=== PATIENT | female | born 2000 | race African-American/Black ===

== ENCOUNTER 2022-09-03 11:06 | Emergency (ER) | payer BC ==
--- OUTSIDE RECORDS SUMMARY | 2022-09-03 11:11 | XMS REPORT | Continuity of Care Document ---
:2000 Author Organization [facility] t Address [address] [place] [address] Care Team Providers Name Role Phone NARENDRA CANCINO Primary Care Physician Unavailable patsy Attending Clinician Unavailable TAWNY BRAUN Attending Clinician Unavailable Tawny Braun MD Attending Clinician SAPNA MURPHY Attending Clinician Unavailable Sapna Schmitz Attending Clinician Humza Fonseca MD Attending Clinician SHILOH HAMPTON Attending Clinician Unavailable Gabriella Luong MD Attending Clinician [facility] Attending Clinician Unavailable GABRIELLA LUONG Attending Clinician Unavailable Greyson Rothman Attending Clinician Unavailable Eloise Delgado MD Attending Clinician Unavailable TIANA JIMENEZ Attending Clinician Unavailable IDA HALL Attending Clinician Unavailable Ida Beckett Attending Clinician ELOISE DELGADO Attending Clinician Unavailable GREYSON ALEX Attending Clinician Unavailable Pcp-Lab Attending Clinician Unavailable Unknown, Attending Attending Clinician Unavailable Joey Negrete MD Attending Clinician JOEY NEGRETE Attending Clinician Unavailable Narendra Cancino MD Attending Clinician Juan Lowe MD Attending Clinician OMARI GARCIA Attending Clinician Unavailable Ibikunle SWITCHBOARD WIRER, Folusho F Attending Clinician Jet DO, En-Szu Attending Clinician Wheeler GLASS BREAKER, Milagro Castillo Attending Clinician Unavailable Allison THAYER, Carla Attending Clinician CARLA COOPER Attending Clinician Unavailable Jose THAYER, Oamri Attending Clinician Carla Luong MD Attending Clinician CARLA LUONG Attending Clinician Unavailable Doctor Unassigned, [place] Attending Clinician Unavailable Zuri Medina DO Attending Clinician ZURI MEDINA Attending Clinician Unavailable Rik Bardales MD Attending Clinician JUAN LOWE Attending Clinician Unavailable UNKNOWN, ATTENDING Attending Clinician Unavailable Tha SWITCHBOARD WIRER, Humza Attending Clinician Mickie RN, Elisa Patrick Attending Clinician Unavailable Norman AVILA, Candie Mcnair Attending Clinician Unavailable Libia Boswell RN Attending Clinician Unavailable [facility] Attending Clinician Unavailable Only, Pcp Test Attending Clinician Unavailable Silviano Carrasquillo MD Attending Clinician SILVIAON CARRASQUILLO Attending Clinician Unavailable Xi Romero RN Attending Clinician Unavailable CHRISTIANNE CACERES Attending Clinician Unavailable Diabetes, Armida & Pcp Pedi Endocrine Attending Clinician Unava ilable Christianne Caceres MD Attending Clinician Hartman SWITCHBOARD WIRER, Belinda Attending Clinician Nurse, Lauri Urgent Attending Clinician Unavailable Lane THAYER, Cindi Oshea Attending Clinician [phone] RIK BARDALES Attending Clinician Unavailable Roz Oreilly MD Attending Clinician Nurse, Armida Pedgamaliel Endocrine Attending Clinician Unavailable ABHIJEET CABALLERO Attending Clinician Unavailable Lynn THAYER, Chris Attending Clinician Conrad Sousa MD Attending Clinician Shanon SWITCHBOARD WIRER, Ketty Reagan Attending Clinician Teens, Armida [facility] Attending Clinician Unavail able Zaid Dewey MD Attending Clinician Marcia San MD Attending Clinician ZAID DEWEY Attending Clinician Unavailable ZAID DEWEY Attending Clinician Unavailable MITCHELL WAGONER Attending Clinician Unavailable CHRIS PARTIDA Attending Clinician Unavailable MIGUEL ÁNGEL STRICKLAND Attending Clinician Unavailable KETTY CLAUDIO Attending Clinician Unavailable SAPNA MURPHY Admitting Clinician Unavailable Payers Payer Name Policy Type Policy Number Effective Date Expiration Date S ource [employer] [place] OUT [id number] 2019 OF STATE 00:00:00 [employer] [place] [id number] 2015 00:00:00 [place] [place] P [id number] 2015 00:00:00 Problems Condition Condition Condition Status Onset Resolution Last Treating Co mments Source Name Details Category Date Date Treatment Clinician Date History of History of Disease Active 2019-11 U nivers allergic allergic 0-19 [place] [facility] Lipohypert Lipohypert Disease Active U nivers rophy rophy 6-25 ity of 00:00: [place] 00 [facility] Diabetic Diabetic Disease Active Unive rs ketoacidos ketoacidos 6-24 it y of is is 00:00: [place] 00 Medical Branch Weight Weight Disease Active Univers loss, loss, 5-18 [place]y of non-intent [place] [facility] 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 2-12 ity of diabetes diabetes 00:00: [place] mellitus mellitus 00 Medica l with with Branch hyperglyce hyperglyce susi susi Depression Depression Disease Active U nivers 3-28 ity of 00:00: [place] [facility] 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 3-21 it y of s s 00:00: [place] 00 Medical Branch Allergies, Adverse Reactions, Alerts Allergy Allergy Status Severity Reaction(s) Onset Inactive Treating Comm ents Source Name Type Date Date Clinician SHELLFIS DRUG Active ITCHING 2019-11 Univers H INGREDI 0-19 ity of DERIVED 00:00: [place] 00 [facility] Aleah Wyatti Active Rash 2019-11 Univer s h ty to 0-19 ity of Derived adverse 00:00: [place] reaction [address] [place] [address] Social History Social Habit Start Date Stop Date Quantity Comments Source Exposure to 2022-08-19 2022-08-29 Not sure [facility]-CoV-2 00:00:00 12:20:00 [facility] (event) Electra Alcohol intake 2022-06-21 2022-06-21 0 /d [facility] 00:00:00 00:00:00 [facility] Tobacco Comment 2022-06-02 2022-06-02 no smoking in the Un iversity of 00:00:00 00:00:00 home [facility] Tobacco use and 2022-06-02 2022-06-02 Smokeless tobacco Un iversity of exposure 00:00:00 00:00:00 non-user [facility] Sex Assigned At [birth year] Universit y of 00:00:00 00:00:00 [facility] Smoking Status Start Date Stop Date Source Never smoked tobacco [facility] Medications Ordered Filled Start Stop Current Ordering Indication Dosage Frequency Signature Comments Components Source Medication Medication Date Date Medication? Clinician (SIG) Name Name [facility] 2021-11 Yes [id number] 1{kit} 1 Kit Univers TEETEE 2 0-12 every 14 ity of SENSOR Kit 00:00[place] days. [facility] insulin 2021-11 Yes [id number] 32U inject 32 Univers glargine 0-12 Units [place] of U-300 conc [place] (TOUJEO MAX 00 skin at Medic al U-300 bedtime. Branch SOLOSTAR) 300 unit/mL (3 mL) InPn Insulin 2021-11 Yes [id number] Use as Uni vers Boyd, 0-12 directed ity of Disposable, 00:00: to inject [place] (PEN 00 insulin SQ Medical NEEDLE) 31 4-5 times Bran ch gauge x daily 04/03" Ndle [facility] 2021-11 Yes [id number] 1{kit} 1 Kit Univers TEETEE 2 0-12 every 14 ity of SENSOR Kit 00:00: (fourteen) [place] 00 days. [facility] insulin 2021-11 Yes [id number] 32U inject 32 Univers glargine 0-12 Units [place]y of U-300 conc [place] (TOUJEO MAX 00 skin at Medic al U-300 bedtime. Branch SOLOSTAR) 300 unit/mL (3 mL) InPn Insulin 2021-11 Yes [id number] Use as Uni vers Boyd, 0-12 directed ity of Disposable, 00:00: to inject [place] (PEN 00 insulin SQ Medical NEEDLE) 31 4-5 times Bran ch gauge x daily 04/03" Ndle fluconazole 2021-11- Yes [id number] 150mg Take 1 Univers (DIFLUCAN) 0-12 10-13 tablet by ity of 150 mg 00:00: 04:59 mouth once [place] tablet 00 :00 now for 1 Medical dose. Branch fluconazole 2021-11 Yes [id number] 150mg Take 1 Univers (DIFLUCAN) 0-12 10-13 tablet by ity of 150 mg 00:00: 04:59 mouth [place] tablet 00 :00 now for 1 Medical dose. Branch blood sugar Yes Use to [facility] ers diagnostic 06-21 check ity of (ONETOUCH 00:00: blood [place] VERIO TEST 00 sugar 4X Medic al STRIPS) daily. Branch strip DX:E10.65 blood sugar Yes Use to [facility] ers diagnostic 06-21 check ity of (ONETOUCH 00:00: blood [place] VERIO TEST 00 sugar 4X Medic al STRIPS) daily. Branch strip DX:E10.65 meclizine Yes [id number] 25mg Take 1 U nivers 25 mg 8-03 tablet by ity of tablet 00:00: mouth [place] 00 every 6 Medical (six) Branch hours as needed for Dizziness. blood sugar Yes Use to [facility] ers diagnostic 06-21 check ity of (ONETOUCH 00:00: blood [place] VERIO TEST 00 sugar 4X Medic al STRIPS) daily. Branch strip DX:E10.65 meclizine Yes [id number] 25mg Take 1 U nivers 25 mg 8-03 tablet by ity of tablet 00:00: mouth [place] 00 every 6 Medical (six) Branch hours as needed for Dizziness. fluconazole Yes [id number] Take 1 Univers (DIFLUCAN) 7-21 tablet by ity of 150 mg 00:00: mouth [place] tablet 00 every 3 Medical days x 3 Branch doses fluconazole 2021- No [id number] Take 1 Univers (DIFLUCAN) 7-21 10-12 tablet by ity of 150 mg 00:00: 00:00 mouth [place] tablet 00 :00 every 3 Medical days x 3 Branch doses fluconazole 2021- No [id number] Take 1 Univers (DIFLUCAN) 7-21 10-12 tablet by ity of 150 mg 00:00: 00:00 mouth [place] tablet 00 :00 every 3 Medical days x 3 Branch doses Insulin Yes [id number] INJECT 28 Univers Glargine 7-16 UNITS ity of (LANTUS 00:00: SUBCUTANEO [place] SOLOSTAR 00 USLY AT Medical U-100 BEDTIME Branch INSULIN) 100 unit/mL (3 mL) injection lancets Yes [id number] Checking U nivers (ONETOUCH 7-16 upto 4 ity of DELICA PLUS 00:00: times [place] LANCET) 30 00 daily. Dx Medi rashid gauge Misc E10.65 Branch insulin Yes [id number] Take 1 Uni vers aspart 7-16 unit for 9 ity of U-100 00:00: grams [place] (NOVOLOG 00 carbs plus Medic al FLEXPEN 1 unit for Branch U-100 every 36 INSULIN) points > 100 unit/mL 130 up to (3 mL) 75 units injection daily lancets Yes [id number] Checking U nivers (ONETOUCH 7-16 upto 4 ity of DELICA PLUS 00:00: times [place] LANCET) 30 00 daily. Dx Medi rashid gauge Misc E10.65 Branch insulin Yes [id number] Take 1 Uni vers aspart 7-16 unit for 9 ity of U-100 00:00: grams [place] (NOVOLOG 00 carbs plus Medic al FLEXPEN 1 unit for Branch U-100 every 36 INSULIN) points > 100 unit/mL 130 up to (3 mL) 75 units injection daily lancets Yes [id number] Checking U nivers (ONETOUCH 7-16 upto 4 ity of DELICA PLUS 00:00: times [place] LANCET) 30 00 daily. Dx Medi rashid gauge Misc E10.65 Branch insulin Yes [id number] Take 1 Uni vers aspart 7-16 unit for 9 ity of U-100 00:00: grams [place] (NOVOLOG 00 carbs plus Medic al FLEXPEN 1 unit for Branch U-100 every 36 INSULIN) points > 100 unit/mL 130 up to (3 mL) 75 units injection daily Insulin 2021- No [id number] INJECT 28 Univers Glargine 7-16 10-12 UNITS ity of (LANTUS 00:00: 00:00 SUBCUTANEO [place] as SOLOSTAR 00 :00 USLY AT Medical U-100 BEDTIME Branch INSULIN) 100 unit/mL (3 mL) injection Insulin 2021- No [id number] INJECT 28 Univers Glargine 7-16 10-12 UNITS ity of (LANTUS 00:00: 00:00 SUBCUTANEO [place] as SOLOSTAR 00 :00 USLY AT Medical U-100 BEDTIME Branch INSULIN) 100 unit/mL (3 mL) injection blood sugar 2021- No Use to Uni vers diagnostic 7-16 08-03 check ity of (CONTOUR 00:00: 00:00 blood [place] NEXT TEST 00 :00 glucose 4x Medi rashid STRIPS) daily. Dx: Branch strip E10.65 Insulin Yes [id number] Use as Uni vers Boyd, 6-30 directed ity of Disposable, 00:00: to inject [place] (PEN 00 insulin SQ Medical NEEDLE) 31 4-5 times Bran ch gauge x daily 04/03" Ndle Insulin 2021- No [id number] Use as Un juvenal [place], 6-30 10-12 directed ity of Disposable, 00:00: 00:00 to inject [place] (PEN 00 :00 insulin SQ Medical NEEDLE) 31 4-5 times Bran ch gauge x daily 04/03" Ndle Insulin 2021- No [id number] Use as Un juvenal Boyd, 6-30 10-12 directed ity of Disposable, 00:00: 00:00 to inject [place] (PEN 00 :00 insulin SQ Medical NEEDLE) 31 4-5 times Bran ch gauge x daily 04/03" Ndle Blood-Gluco 2022-0 Yes Use to Univ ers se Meter 4-28 check ity of (CONTOUR 00:00: blood [place] NEXT METER) 00 glucose Dx Me dical Misc E10.65 Branch Blood-Gluco 2021-0 Yes Use to Univ ers se Meter 4-28 check ity of (CONTOUR 00:00: blood [place] NEXT METER) 00 glucose Dx Me dical Misc E10.65 Branch Blood-Gluco 2021-0 Yes Use to Univ ers se Meter 4-28 check ity of (CONTOUR 00:00: blood [place] NEXT METER) 00 glucose Dx Me dical Misc E10.65 Branch Blood-Gluco 2021-0 Yes [id number] Use as Univers se Sensor 4-04 directed ity of (DEXCOM G6 00:00: [place] SENSOR) 00 Medical Amanda Branch Blood-Gluco 2021-0 Yes [id number] Use as Univers se 4-04 directed ity of Transmitter 00:00: [place] (DEXCOM G6 00 Medical TRANSMITTER Branch ) Amanda Blood-Gluco 2021-0 Yes [id number] Use as Univers se 4-04 directed ity of Meter,[place] 00:00: [place] nuous 00 Medical (DEXCOM G6 Branch BUFFER OPERATOR) Misc glucagon 2021-0 Yes [id number] 3mg Use 3 mg Univers (BAQSIMI) 3 4-04 in each ity o f mg/actuatio 00:00: nostril as [place] n [place] 00 needed for Medical Other Branch (emergency hypoglycem ia). Blood-Gluco 2021-0 Yes [id number] Use as Univers se Sensor 4-04 directed ity of (DEXCOM G6 00:00: [place] SENSOR) 00 Medical Amanda Branch Blood-Gluco 2021-0 Yes [id number] Use as Univers se 4-04 directed ity of Transmitter 00:00: [place] (DEXCOM G6 00 Medical TRANSMITTER Branch ) Amanda Blood-Gluco 202-0 Yes [id number] Use as Univers se 4-04 directed ity of Meter,[place] 00:00: [place] nuous 00 Medical (DEXCOM G6 Branch BUFFER OPERATOR) Misc glucagon 2022-0 Yes [id number] 3mg Use 3 mg Univers (BAQSIMI) 3 4-04 in each ity o f mg/actuatio 00:00: nostril as [place] 00 needed for Medical Other Branch (emergency hypoglycem ia). Blood-Gluco Yes [id number] Use as Univers se Sensor 4-04 directed ity of (DEXCOM G6 00:00: [place] SENSOR) 00 Medical Amanda Branch Blood-Gluco 0 Yes [id number] Use as Univers se 4-04 directed ity of Transmitter 00:00: [place] (DEXCOM G6 00 Medical TRANSMITTER Branch ) Amanda Blood-Gluco 0 Yes [id number] Use as Univers se 4-04 directed ity of Meter,[place] 00:00: [place] nuous 00 Medical (DEXCOM G6 Branch BUFFER OPERATOR) Misc glucagon Yes [id number] 3mg Use 3 mg Univers (BAQSIMI) 3 4-04 in each ity o f mg/actuatio 00:00: nostril as [place] 00 needed for Medical Other Branch (emergency hypoglycem ia). Immunizations Ordered Immunization Filled Date Status Comments Sour ce Name Immunization Name Meningococcal B, OMV 2021-12-29 Completed Univ ersity of 00:00:00 [facility] Meningococcal B, OMV 2021-12-29 Completed Univ ersity of 00:00:00 [facility] Meningococcal B, OMV 2021-12-29 Completed Univ ersity of 00:00:00 [facility] Pneumococcal 2019-09-25 Completed [place] o f Polysaccharide, PPSV23 00:00:00 [facility] (PNEUMOVAX) Branch Pneumococcal 2019-09-25 Completed [place] o f Polysaccharide, PPSV23 00:00:00 [facility] (PNEUMOVAX) Branch Pneumococcal 2019-09-25 Completed University o f Polysaccharide, PPSV23 00:00:00 [facility] (PNEUMOVAX) Branch Meningococcal 2018-02-25 Completed University of Oligosaccharide 00:00:00 [place] Med ical (groups A, C, Y and Branc h W-135) conjugate vaccine (MCV4O) Meningococcal 2018-02-25 Completed University of Oligosaccharide 00:00:00 [place] Med ical (groups A, C, Y and Branc h W-135) conjugate vaccine (MCV4O) Meningococcal 2018-02-25 Completed University of Oligosaccharide 00:00:00 [place] Med ical (groups A, C, Y and Branc h W-135) conjugate vaccine (MCV4O) HPV 2016-08-15 Completed University of 00:00:00 [place] [facility] HPV9 2016-08-15 Completed University of 00:00:00 [place] [facility] HPV 2016-08-15 Completed University of 00:00:00 [place] [facility] HPV9 2016-08-15 Completed University of 00:00:00 [place] [facility] HPV 2016-08-15 Completed University of 00:00:00 [place] [facility] HPV9 2016-08-15 Completed University of 00:00:00 [place] [facility] HPV9 2016-02-03 Completed University of 00:00:00 [place] [facility] HPV9 2016-02-03 Completed University of 00:00:00 [place] [facility] HPV9 2016-02-03 Completed University of 00:00:00 [place] [facility] HPV9 2015-12-22 Completed University of 00:00:00 [place] [facility] HPV9 2015-12-22 Completed University of 00:00:00 [place] [facility] HPV9 2015-12-22 Completed University of 00:00:00 [place] [facility] Vital Signs Vital Name Observation Time Observation Value Comments Source Systolic blood 2022-08-30 15:41:00 119 mm[Hg] Univer sity of pressure [facility] Diastolic blood 2022-08-30 15:41:00 79 mm[Hg] Unive rsity of [facility] Heart rate 2022-08-30 15:41:00 106 /min [facility] Respiratory rate 2022-08-30 15:41:00 16 /min [facility] [place] Body height 2022-08-30 15:41:00 165.1 cm [facility] Body weight 2022-08-30 15:41:00 72.167 kg [facility] BMI 2022-08-30 15:41:00 26.48 kg/m2 [facility] Oxygen saturation in 2022-08-30 15:41:00 100 /min [facility] Arterial blood by [facility] Pulse oximetry Branch Procedures Procedure Date / Time Performed Performing Clinician Sour e POCT HEMOGLOBIN A1C 2022-08-30 00:00:00 Tawny Braun [facility] Encounters Start End Encounter Admission Attending Care Care Encounter Source Date/Time Date/Time Type Type Clinicians Facility Department ID 2021-09-19 Emergency [facility] [id number] Univers 23:04:38 ity of [place] [facility] 2021-09-19 Emergency [facility] [id number] Univers 02:01:05 ity of [place] [facility] 2021-09-18 Emergency [facility] [id number] Univers 22:15:17 ity of [facility] 2021-09-17 Emergency [facility] [id number] Univers 19:01:00 ity of [facility] 2021-09-16 Emergency [facility] [id number] Univers 14:50:01 ity of [facility] 2021-09-16 Emergency [facility] [id number] Univers 11:25:49 ity of [facility] 2021-09-16 Emergency [facility] [id number] Univers 11:23:27 ity of [place] [facility] 2021-09-16 Emergency [facility] [id number] Univers 03:18:07 ity of [place] [facility] 2021-09-15 Emergency [facility] [id number] Univers 13:33:53 ity of [place] [facility] 2021-09-04 Outpatient [facility] [id number] Legacy 08:20:44 [id number] [facility] 2022-08-30 2022-08-30 Outpatient [facility] [id number] Univers 10:30:00 11:28:33 TAWNY ity [facility] 2022-08-30 2022-08-30 [facility] [id number] Univers 10:30:00 11:28:33 Visit [facility] [id number] ity of IALTY [id number] [facility] [id number] [facility] [place] [address] Branch DIABETES CLINIC 2022-06-21 2022-06-21 Emergency X [facility] ERT [id number] Univers 18:38:00 21:11:00 [place] ity [facility] 2022-06-21 2022-06-21 Emergency [facility] [id number] Univers 18:38:00 21:11:00 [facility] [id number] it y of CLEAR 4.2.7.2.686 [facility] [id number] [facility] 014 Branch (CLC) 2022-06-21 2022-06-21 Emergency X JEFFREY, [facility] ERT [id number] Univers 18:38:00 21:11:00 SAPNA [facility] [place] 2022-06-21 2022-06-21 Telephone [facility] [id number] Univers 00:00:00 00:00:00 Humza Dawson MULTISPEC [id number] ity of [id number] [place] [id number] [facility] 220 Branch DIABETES CLINIC 2022-06-12 2022-06-12 Outpatient R [facility] [id number] Univers 11:15:00 11:15:00 [facility] 2022-06-08 2022-06-08 Telephone Luong [facility] [id number] Univers 00:00:00 00:00:00 [facility] [id number] i ty of CLINICS 4.2.7.2.686 [place] [id number] [facility] 095 Branch 2022-06-05 2022-06-05 Outpatient R [facility] [id number] Univers 15:15:00 15:15:00 [facility] 2022-06-05 2022-06-05 Outpatient R [facility] [id number] Univers 15:15:00 15:15:00 [facility] 2022-06-05 2022-06-05 Outpatient R [facility] [id number] Univers 15:15:00 15:15:00 [facility] 2022-06-02 2022-06-02 Weatherization And Housing Inspector [facility] UNIVERSIT [id number] Univers 11:15:00 11:30:00 Visit [facility] [id number] ity of CLINICS [id number] [id number] [facility] 316 Branch 2022-06-02 2022-06-02 Outpatient R [facility] [id number] Univers 11:15:00 11:15:00 GABRIELLA floyd [facility] 2022-06-02 2022-06-02 Outpatient R [facility] [id number] Univers 09:40:00 10:34:29 GABRIELLA floyd [facility] 2022-06-02 2022-06-02 Office Cherise, [facility] [id number] Univers 09:40:00 10:00:00 Visit Gabriella [facility] [id number] i ty of CLINICS 4.2.7.2.686 [place] [id number] [place] [address] Branch 2022-06-02 2022-06-02 Outpatient R [facility] [id number] Univers 09:40:00 09:40:00 GABRILELA floyd [facility] 2022-06-01 2022-06-01 Refbeatriz [facility] [id number] Univers 00:00:00 00:00:00 Humza Dawson MULTISPEC [id number] ity of [place] 4.2.7.2.686 [place] [id number] [address] DIABETES CLINIC 2022-06-01 2022-06-01 [facility] [id number] Univers 00:00:00 00:00:00 Greyson MULTISPEC [id number] ity of [place] 4.2.7.2.686 [place] [id number] [address] DIABETES CLINIC 2022-05-18 2022-05-18 Chaya [facility] [id number] Univers 00:00:00 00:00:00 Humza Dawson MULTISPEC [id number] ity of [place] [id number] [place] [id number] [address] DIABETES CLINIC 2022-05-18 2022-05-18 [facility] [id number] Univers 00:00:00 00:00:00 Eloise MULTISPEC [id number] ity of IALTY [id number] [facility] [place] [id number] [address] DIABETES CLINIC 2022-04-18 2022-04-18 Chaya [facility] [id number] Univers 00:00:00 00:00:00 Humza Samir MULTISPEC [id number] ity of IALTY [id number] [facility] [place] [id number] [address] DIABETES CLINIC 2022-04-07 2022-04-07 [facility] [id number] Univers 15:00:00 15:00:00 TIANA floyd [facility] 2022-03-16 2022-03-16 Telephone [facility] [id number] Univers 00:00:00 00:00:00 [facility] [id number] ity of IALTY 4.2.7.2.686 [facility] [id number] [address] DIABETES CLINIC 2022-03-15 2022-03-15 Outpatient Eugenia JIMENEZ [facility] [id number] Univers 15:00:00 15:00:00 TIANA floyd [facility] 2022-03-06 2022-03-06 Emergency X [facility] ERT [id number] Univers 18:15:00 20:56:00 IDA floyd o f [facility] 2022-03-06 2022-03-06 Emergency [facility] 1.2.840.114 [id number] Univers 18:15:00 20:56:00 [facility] 350.1.13.10 i ty of CLEAR 4.2.7.2.686 [facility] [id number] [address] ([facility]) 2022-02-20 2022-02-20 Office [facility] 1.2.840.114 [id number] Univers 13:00:00 14:22:31 Visit Eloise MULTISPEC 350.1.13.10 [place] [id number] [address] [facility] 2022-02-20 2022-02-20 Outpatient R DANNY [facility] [id number] Univers 13:00:00 14:22:31 ELOISE [facility] [place] 2022-02-20 2022-02-20 Outpatient R DANNY [facility] [id number] Univers 13:00:00 13:00:00 ELOISE [facility] [place] 2022-01-10 2022-01-10 Patient Abi [facility] 1.2.840.114 [id number] Univers 00:00:00 00:00:00 Secure Msg Greyson MULTISPEC 350.1.13.10 [place] [id number] [address] [facility]IC 2022-01-09 2022-01-09 Telephone Abi [facility] 1.2.179.546 [id number] Univers 00:00:00 00:00:00 Greyson MULTISPEC 350.1.13.10 [place] [id number] [address] [facility]IC 2022-01-02 2022-01-02 Outpatient R ABI [facility] [id number] Univers 12:45:00 13:22:53 GREYSON [facility] [place] 2022-01-02 2022-01-02 Office Abi [facility] 1.2.840.114 [id number] Univers 12:45:00 13:22:53 Visit Greyson MULTISPEC 350.1.13.10 it[place] [id number] [address] [facility]ES [facility]INIC 2022-01-02 2022-01-02 Outpatient R ABI [facility] [id number] Univers 12:45:00 12:45:00 GREYSON [facility] [place] 2021-12-29 2021-12-29 Weatherization And Housing Inspector Pcp-Lab [facility] 1..840.114 [id number] Univers 13:45:00 14:00:00 Visit Unknown, Attending PRIMARY 350.1.13.10 ity of [place], Joey CARE 4.2.7.2.686 [facility] [id number] [place] [address] 2021-12-29 2021-12-29 Outpatient R PENELOPE [facility] [id number] Univers 13:45:00 13:45:00 [facility] 2021-12-29 2021-12-29 Office Narendra Cancino [facility] 1.2.840.114 [id number] Univers 10:40:00 11:53:42 Visit Unknown, Attending PRIMARY 350..13.10 ity of [place], Joey CARE 4.2.7.2.686 [facility] [id number] [facility] [address] 2021-12-29 2021-12-29 Outpatient R PENELOPE [facility] [id number] Univers 10:40:00 11:53:42 [facility] 2021-12-29 2021-12-29 Outpatient R PENELOPE [facility] [id number] Univers 10:40:00 11:53:42 [facility] 2021-12-29 2021-12-29 Outpatient R PENELOPE [facility] [id number] Univers 10:40:00 10:40:00 JOEY [facility] [place] 2021-12-12 2021-12-12 Outpatient Eugenia JIMENEZ [facility] [id number] Univers 09:00:00 09:00:00 TIANA floyd [facility] 2021-12-02 2021-12-02 Outpatient R KENJI [facility] [id number] Univers 09:00:00 13:37:26 TIANA floyd [facility] 2021-12-02 2021-12-02 Associate Professor Of Sociology Kenji [facility] 1.2.840.114 [id number] Univers 09:00:00 13:37:26 Visit Tiana MAHMOOD 350.1.13.10 [facility] 4.2.7.2.686 [facility] [id number] [address] DIABETES CLINIC 2021-12-02 2021-12-02 Outpatient Eugenia JIMENEZ [facility] [id number] Univers 09:00:00 13:37:26 TIANA ity of [facility] 2021-11-29 2021-11-29 Outpatient R KENJI [facility] [id number] Univers 13:00:00 13:00:00 TIANA ity of [facility] 2021-11-21 2021-11-21 Outpatient R ABI [facility] [id number] Univers 14:45:00 16:02:06 GREYSON ity [facility] 2021-11-21 2021-11-21 [facility] 1.2.840.114 [id number] Univers 14:45:00 16:02:06 Visit Greyson MULTISPEC 350.1.13.10 it[place] [id number] [facility] AND [address] DIABETES CLINIC 2021-10-24 2021-10-24 [facility] 1.2.840.114 [id number] Univers 00:00:00 00:00:00 Juan Huffman SPECIALTY 350.1.13.10 [place] [id number] [facility] [address] 2021-10-20 2021-10-20 [facility] 1.2.840.114 [id number] Univers 00:00:00 00:00:00 Juan Huffman PRIMARY 350.1.13.10 ity of C[place] 4.2.[place].2.[place] [id number] [place] [address] 2021-10-11 2021-10-11 [facility] 1.2.840.114 [id number] Univers 00:00:00 00:00:00 Juan Huffman SPECIALTY 350.1.13.10 [place] [id number] [facility] [address] 2021-08-29 2021-08-29 Outpatient Eugenia GARCIA [facility] [id number] Univers 09:30:00 09:30:00 OMARI ity of [facility] 2021-08-23 2021-08-23 Outpatient R [facility] [id number] Univers 10:00:00 10:00:00 ity of [facility] 2021-08-04 2021-08-04 Emergency Ibikunle, TRAUMA 1.2.840.114 [id number] Univers 10:40:00 11:52:00 Folusho F CENTER 350.1.13.10 it[place] [id number] [facility] [address] 2021-06-26 2021-06-26 Telephone DEANDRA Chaudhary 1.2.360.281 [id number] Univers 00:00:00 00:00:00 Carlos Manuel LANDIS 350.1.13.10 it y of [facility] 4.2.7.2.686 Lauri as [id number] [facility] [address] 2021-06-24 2021-06-24 Patient Liam [facility] 1.2.840.114 [id number] Univers 00:00:00 00:00:00 Outreach Milagro F PRIMARY 350.1.13.10 i ty of [place] 4.2.[place].2.[place] [id number] [place] [address] 2021-06-23 2021-06-23 Weatherization And Housing Inspector Pcp-Lab [facility] 1.2.840.114 [id number] Univers 11:53:13 12:08:13 Visit Carla Cooper PRIMARY 350.1.13.10 ity of [place] 4.2.[place].2.[place] [id number] [place] [address] 2021-06-23 2021-06-23 Office Carlos Manuel Chaudhary [facility] 1.2.840.114 [id number] Univers 10:12:19 11:53:47 Visit Carla Cooper PRIMARY 350.1.13.10 ity of [place] 4.2.[place].2.[place] [id number] [place] [address] 2021-06-23 2021-06-23 [facility] [id number] Univers 10:10:00 10:10:00 CARLA ity of [facility] 2021-05-30 2021-05-30 Telephone Jose [facility] 1.2.389.859 [id number] Univers 00:00:00 00:00:00 Omari PRIMARY 350.1.13.10 it y of C[place] 4.2.7.2.[place] [id number] [place] [address] 2021-05-27 2021-05-27 Office AMARI LuongIT 1.2.840.114 [id number] Univers 09:35:57 10:00:27 Visit Carla Kong [facility] 350.1.13.10 i ty of CLINICS 4.2.7.2.[place] [id number] [facility] [address] 2021-05-27 2021-05-27 Outpatient R CHERISE [facility] [id number] Univers 09:30:00 09:30:00 CARLA ity of [facility] 2021-05-25 2021-05-25 Office [facility] 1.2.840.114 [id number] Univers 09:51:01 10:43:53 Visit Omari PRIMARY 350.1.13.10 it y of C[place] 4.2.[place].2.[place] [id number] [facility] [address] 2021-05-25 2021-05-25 Outpatient R JOSE [facility] [id number] Univers 10:00:00 10:00:00 OMARI ity of [facility] 2021-05-25 2021-05-25 Orders Doctor LIRIANO 1.2.840.114 [id number] Univers 00:00:00 00:00:00 Only Unassigned, BOBY 350.1.13.10 ity of [place] [facility] 4.2.7.2.686 Lauri as [id number] [facility] [address] 2021-05-05 2021-05-05 Emergency Faulconer, TRAUMA 1.2.840.114 [id number] Univers 20:40:00 23:48:00 [place] CENTER 350.1.13.10 it y [place] [id number] [facility] [address] 2021-05-05 2021-05-05 Emergency X DAGOBERTO [facility] ERT [id number] Univers 20:40:00 23:48:00 ZURI ity [facility] 2021-04-18 2021-04-19 Emergency Vasut, TRAUMA 1.2.195.675 [id number] Univers 20:32:00 03:49:00 Rik [facility] 350.1.13.10 it [place] [id number] [address] 2020-12-27 2020-12-27 Outpatient R MYNOR, [facility] [id number] Univers 09:10:00 09:10:00 JUAN [facility] [place] 2020-12-27 2020-12-27 Outpatient R ELVIRA, [facility] [id number] Univers 09:00:00 09:00:00 ATTENDING ity [facility] 2020-12-20 2020-12-20 Outpatient R [facility] [id number] Univers 10:00:00 10:00:00 ity [facility] 2020-12-13 2020-12-13 Outpatient R [facility] [id number] Univers 10:00:00 10:00:00 ity [facility] 2020-12-10 2020-12-10 Emergency Almazan, TRAUMA 1.2.840.114 [id number] Univers 18:17:00 19:39:00 [facility] 350.1.13.10 it [place] [id number] [address] 2020-12-10 2020-12-10 Emergency Almazan, TRAUMA 1.2.840.114 [id number] 18:17:00 19:39:00 [facility] 350.1.13.10 4.2.7.2.686 [id number] 014 2020-10-31 2020-10-31 Telephone Elisa Corado 1.2.840.114 [id number] Univers 00:00:00 00:00:00 [place] 350.1.13.10 it y of HOSPITAL 4.2.7.2.686 Lauri as [id number] [address] 2020-10-31 2020-10-31 Telephone DEANDRA [place] 1.2.198.158 [id number] Univers 00:00:00 00:00:00 Candie Mcnair BOBY 350.1.13.10 ity of [facility] 4.2.7.2.686 [place] as [id number] [address] 2020-10-31 2020-10-31 Telephone Elisa Corado 1.2.840.114 [id number] 00:00:00 00:00:00 BOBY 350.1.13.10 [facility] 4.2.7.2.686 [id number] 019 2020-10-29 2020-10-29 Letter ElbertDEANDRA 1.2.840.114 [id number] Univers 00:00:00 00:00:00 (Out) Libia Hayes BOBY 350.1.13.10 it y [facility] 4.2.7.2.686 [place] [id number] [address] 2020-10-29 2020-10-29 Letter DEANDRA Boswell 1.2.840.114 [id number] 00:00:00 00:00:00 (Out) Libia Hayes BOBY 350.1.13.10 [facility] 4.2.7.2.686 [id number] 019 2020-10-27 2020-10-27 Nurse Nurse, [facility] Pedi Urgent Care [facility] 1.2.840.114 [id number] Univers 17:27:18 17:42:18 Visit Unknown, Attending [place] 350.1.13.10 ity of Pediatric [place].2.686 [place] [id number] [address] 2020-10-27 2020-10-27 Nurse Nurse, [facility] 1.2.840.114 [id number] 17:27:18 17:42:18 Visit Pedi Urgent [place] 350.1.13.10 Care Pediatric 4.2.7.2.686 [place] [id number] [facility] 2020-10-27 2020-10-27 Outpatient R UNKNOWN, [facility] [id number] Univers 17:30:00 17:30:00 ATTENDING ity [facility] 2020-10-23 2020-10-23 Outpatient R UNKNOWN, [facility] [id number] Univers 09:15:00 09:15:00 ATTENDING ity [facility] 2020-09-30 2020-09-30 Laboratory Only, Pcp Test [facility] 1.2.840. 114 [id number] Univers 12:48:00 13:03:00 Only Silviano Carrasquillo PRIMARY 350.1.13.10 ity of C[place].2.[place].2.[place] [id number] [place] dical [address] [place] [address] 2020-09-30 2020-09-30 Laboratory Only, Pcp [facility] 1.2.840.114 [id number] 12:48:00 13:03:00 Only Test PRIMARY 350.1.13.10 CARE 4.2.7.2.686 PAVILLION [id number] [facility] 2020-09-30 2020-09-30 Outpatient R EM [facility] [id number] Univers 08:00:00 08:00:00 SILVIANO itjosi [facility] 2020-09-30 2020-09-30 Letter Xi Romero 1.2.840.114 [id number] Univers 00:00:00 00:00:00 (Out) BOBY 350.1.13.10 it y of HOSPITAL 4.2.7.2.686 [place] [id number] [address] 2020-09-30 2020-09-30 Letter Xi Romero 1.2.840.114 [id number] 00:00:00 00:00:00 (Out) BOBY 350.1.13.10 [facility] 4.2.7.2.686 [id number] [facility] 2020-09-14 2020-09-14 [facility] 1.2.840.114 [id number] Univers 00:00:00 00:00:00 Juan Huffman SPECIALTY 350.1.13.10 ity of [place].2.[place] [id number] [address] 2020-09-14 2020-09-14 [facility] 1.2.840.114 [id number] 00:00:00 00:00:00 Juan Huffman SPECIALTY 350.1.13.10 [place] 4.2.7.2.686 [place]ONY [id number] [facility] 2020-09-08 2020-09-08 Outpatient R NICKI [facility] [id number] Univers 10:30:00 10:30:00 CHRISTIANNE castillo [facility] 2020-09-06 2020-09-06 Office Diabetes, [facility] 1.2.135.853 [id number] 09:58:14 10:28:14 Visit Armida & Pcp PRIMARY 350.1.13.10 Pedi CARE 4.2.7.2.686 Endocrine PAVILLION [id number] [facility] 2020-09-06 2020-09-06 Office Diabetes, Armida & Pcp Pedi End ocrine [facility] 1.2.840.114 [id number] Univers 09:58:14 10:28:14 Visit Unknown, Attending PRIMARY 350.1.13.10 ity of Juan Lowe [facility] 4.2.7.2.686 [facility] [id number] [address] 2020-09-06 2020-09-06 Outpatient R UNKNOWN, [facility] [id number] Univers 10:00:00 10:00:00 ATTENDING ity [facility] 2020-09-06 2020-09-06 Orders Doctor DEANDRA 1.2.840.114 [id number] Univers 00:00:00 00:00:00 Only Unassigned, BOBY 350.1.13.10 ity of [place] [facility] 4.2.7.2.686 Lauri as [id number] [address] 2020-08-30 2020-08-30 Outpatient R MYNOR [facility] [id number] Univers 08:30:00 08:30:00 JUAN floyd [facility] 2020-08-20 2020-08-20 Refill Mynor [facility] 1.2.840.114 [id number] Univers 00:00:00 00:00:00 Juan Huffman SPECIALTY 350.1.13.10 ity of [place] 4.2.7.2.686 [facility] [id number] [address] 2020-08-16 2020-08-16 Outpatient R ELVIRA, [facility] [id number] Univers 08:30:00 08:30:00 ATTENDING itjosi [facility] 2020-08-11 2020-08-11 Telephone Nicki [facility] 1.2.840.114 [id number] Univers 00:00:00 00:00:00 Christianne Feng PRIMARY 350.1.13.10 ity of CARE 4.2.7.2.686 La[place] puneet PAVILLION [id number] [facility] [address] 2020-07-28 2020-08-03 Office Nicki [facility] 1.2.840.114 [id number] Univers 10:31:09 13:28:06 Visit Christianne Feng PRIMARY 350.1.13.10 ity of CARE 4.2.7.2.686 Lauria puneet PAVILLION [id number] [facility] [address] [place] [address] 2020-08-02 2020-08-02 Outpatient R MYNOR, [facility] [id number] Univers 08:30:00 08:30:00 JUAN ity of [facility] 2020-07-28 2020-07-28 Weatherization And Housing Inspector Pcp-Lab [facility] 1.2.840.114 [id number] Univers 11:36:36 11:46:36 Visit Christianne Caceres PRIMARY 350.1.13 .10 ity of CARE 4.2.7.2.686 [place] PAVILLION [id number] [address] 2020-07-28 2020-07-28 Outpatient R NICKI [facility] [id number] Univers 10:30:00 10:30:00 CHRISTIANNE floyd o f [facility] 2020-07-19 2020-07-19 Urgent Hartman, Belinda [facility] 1.2.840.1 14 [id number] Univers 13:55:15 14:10:15 Care Unknown, Attending HEALTH 350.1.13.10 ity [facility] [place]2.7.2.[address] [place] [facility] [phone] [facility] Primary & [address] Specialty Care 2020-07-19 2020-07-19 Outpatient R ELVIRA, [facility] [id number] Univers 13:45:00 13:45:00 ATTENDING ity of [facility] 2020-07-19 2020-07-19 Clinic Nurse, [facility] 1.2.840.114 [id number] Univers 00:00:00 00:00:00 Assessment Urgent HEALTH 350.1.13.10 ity of [place].7.2.[address] [place] [facility] [id number] [facility] Primary & [address] Specialty Care 2020-07-17 2020-07-18 Emergency [place] TRAUMA 1.2.840.114 [id number] Univers 22:32:00 00:20:00 , Cindi CENTER 350.1.13.10 it y of [place].2.7.2.[place] [id number] [place] [address] [address] 2020-07-16 2020-07-16 Telephone [facility] 1.2.006.497 [id number] Univers 00:00:00 00:00:00 Juan Huffman SPECIALTY 350.1.13.10 ity of [place] 4[place]2.7.2.[place] [id number] [place] [address] Branch 2020-06-28 2020-06-28 Emergency X VASUT, [facility] ERT [id number] Univers 03:16:00 04:23:00 RIK ity of [facility] 2020-06-28 2020-06-28 Emergency Vasut, TRAUMA 1.2.896.712 [id number] Univers 03:16:00 04:23:00 Rik [facility] 350.1.13.10 it y [place]2.7.2.[place] [id number] [place] [address] Branch 2020-06-27 2020-06-27 Emergency Oreilly, TRAUMA 1.2.840.114 [id number] Univers 05:28:00 07:45:00 Roz Ken [place] 350.1.13.10 [place] [id number] [address] 2020-06-10 2020-06-10 Nurse Nurse, Armida Zafar Endocrine [facility] 1.2.840.114 [id number] Univers 13:21:23 13:51:23 Visit Unknown, Attending SPECIALTY 350.1.13. 10 ity of [place] Lowe [place] 4.2.7.2.686 [facility] [id number] [place] [address] Branch 2020-06-10 2020-06-10 Outpatient R UNKNOWN, [facility] [id number] Univers 13:00:00 13:00:00 ATTENDING ity of [facility] 2020-06-10 2020-06-10 Telephone [facility] 1.2.150.472 [id number] Univers 00:00:00 00:00:00 Juan D K SPECIALTY 350.1.13.10 [place] [id number] [address] 2020-06-09 2020-06-09 Refill [facility] 1.2.840.114 [id number] Univers 00:00:00 00:00:00 Juan D K SPECIALTY 350.1.13.10 [place] [id number] [address] 2020-06-09 2020-06-09 [facility] 1.2.366.911 [id number] Univers 00:00:00 00:00:00 Juan D K SPECIALTY 350.1.13.10 [place]2.[place] [id number] [address] 2020-06-09 2020-06-09 [facility] 1.2.877.105 [id number] Univers 00:00:00 00:00:00 Juan D K SPECIALTY 350.1.13.10 [place] [id number] [address] 2020-06-01 2020-06-01 [facility] [id number] Univers 09:15:00 09:15:00 ABHIJEET ity of [facility] 2020-05-16 2020-05-16 Emergency [facility] TRAUMA 1.2.840.114 [id number] Univers 13:18:05 14:18:00 , [facility] 350.1.13.10 [place] [id number] [address] 2020-05-12 2020-05-12 Telephone [facility] 1.2.639.195 [id number] Univers 00:00:00 00:00:00 Juan D K SPECIALTY 350.1.13.10 [place].2.[place] [id number] [facility] [address] 2020-05-03 2020-05-03 Office Diabetes, Armida & Pcp Pedi End ocrine [facility] 1.2.840.114 [id number] Univers 08:42:40 09:12:40 Visit Unknown, Attending PRIMARY 350.1.13.10 ity of [place] Lowe CARE 4.2.7.2.686 [place] PAVILLION [id number] [facility] [address] 2020-05-03 2020-05-03 Outpatient R UNKNOWN, [facility] [id number] Univers 08:30:00 08:30:00 ATTENDING ity of [facility] 2020-05-03 2020-05-03 Letter Doctor DEANDRA 1.2.840.114 [id number] Univers 00:00:00 00:00:00 (Out) Unassigned, BOBY 350.1.13.10 ity of [place] HOSPITAL 4.2.7.2.686 Lauri as [id number] [facility] [address] 2020-05-03 2020-05-03 Orders Doctor DEANDRA 1.2.840.114 [id number] Univers 00:00:00 00:00:00 Only Unassigned, BOBY 350.1.13.10 ity of [place] HOSPITAL 4.2.7.2.686 Lauri as [id number] [facility] [address] 2020-03-25 2020-03-25 [facility] 1.2.840.114 [id number] Univers 00:00:00 00:00:00 Juan Huffman PRIMARY 350.1.13.10 ity of CARE [place].2.[place] [id number] [facility] [address] 2020-02-24 2020-02-24 Telephone [facility] 1.2.840.11 [id number] Univers 00:00:00 00:00:00 Conrad cantu 350.1.13.10 ity of NATIONAL 4.2.7.2.686 Lauri as BANK [id number] [facility] BLDG. [address] 2020-02-05 2020-02-05 [facility] 1.2.840.114 [id number] Univers 00:00:00 00:00:00 Juan Huffman PRIMARY 350.1.13.10 ity of C[place] 4[place]2.7.2.[place] [id number] [address] 2020-02-05 2020-02-05 Chaya Lowe [facility] 1.2.840.114 [id number] Univers 00:00:00 00:00:00 Juan Huffman SPECIALTY 350.1.13.10 [place] [id number] [address] 2020-02-02 2020-02-02 Office Diabetes, Armida & Pcp Pedi End ocrine [facility] 1.2.840.114 [id number] Univers 08:28:44 08:58:44 Visit Juan Lowe PRIMARY 350.1.13.10 ity of CARE 4.2.7.2.[place] [id number] [address] 2020-02-02 2020-02-02 Outpatient R MYNOR [facility] [id number] Univers 08:30:00 08:30:00 JUAN ity of [facility] 2020-01-27 2020-01-27 Emergency Shanon, TRAUMA 1.2.685.184 [id number] Univers 11:03:25 12:35:00 [facility] 350.1.13.10 i ty of [facility] [id number] [address] 2020-01-16 2020-01-16 [facility] [id number] Univers 00:00:00 00:00:00 Juan Huffman SPECIALTY [id number] [id number] [id number] [address] 2020-01-13 2020-01-13 Telephone [facility] [id number] Univers 00:00:00 00:00:00 Juan Huffman SPECIALTY [id number] [id number] [id number] [address] 2019-12-05 2019-12-11 Office Teens[facility] [id number] Univers 08:55:38 15:51:37 Visit Zaid Dewey PRIMARY [id number] [id number] [id number] [place] [address] 2019-12-11 2019-12-11 Telephone [facility] [id number] Univers 00:00:00 00:00:00 Marcia PRIMARY [id number] it y [id number] [id number] [place] [address] 2019-12-10 2019-12-10 Telephone [facility] [id number] Univers 00:00:00 00:00:00 Marcia PRIMARY [id number] it [id number] [id number] [place] [address] 2019-12-10 2019-12-10 Telephone [facility] [id number] Univers 00:00:00 00:00:00 Marcia PRIMARY [id number] it [id number] [id number] [place] [address] 2019-12-10 2019-12-10 Telephone [facility] [id number] Univers 00:00:00 00:00:00 Zaid Mcnair PRIMARY [id number] [id number] [id number] [place] [address] 2019-12-05 2019-12-05 Outpatient R ZAID DEWEY [facility] [id number] Univers 09:00:00 09:00:00 ZAID DEWEY [facility] 2019-10-29 2019-10-29 Emergency X CIARAN, [facility] ERT [id number] Univers 01:02:09 04:49:00 MITCHELL floyd [facility] 2019-10-27 2019-10-28 Emergency X [facility] ERT [id number] Univers 21:27:44 04:53:00 , CHRIS floyd [facility] 2019-09-17 2019-09-17 Emergency X MARCO A [facility] ERT [id number] Univers 12:46:56 14:38:00 MIGUEL ÁNGEL floyd of [facility] 2019-08-04 2019-08-04 Office Diabetes, Armida & Pcp Pedi End chenteine [facility] [id number] Univers 09:50:08 10:20:08 Visit Juan Lowe PRIMARY [id number] ity of [facility] [id number] [phone] [place] [facility] [address] 2019-07-06 2019-07-06 Emergency Shanon, TRAUMA [id number] Univers 10:30:38 15:57:00 [facility] [id number] i [id number] [phone] [facility] [address] 2019-07-06 2019-07-06 Emergency X SHANON [facility] ERT [id number] Univers 10:30:38 15:57:00 [facility] mariel o f [facility] Results Test Description Test Time Test Comments Results Result Comments Source POCT HEMOGLOBIN A1C TEST 2022-08-30 17:22:00 Test Item Value Reference Range Interpretation Comme nts POCT HBA1C (test code = 4548-4) 8.1 % 4-6 A Lab Interpretation (test code = 07944-4) [facility] [id number] 17:22:00 Test Item Value Reference Range Interpretation Comments POCT HBA1C (test code = 4548-4) 8.1 % 4-6 A Lab Interpretation (test code = Abnormal 00552-7) [facility]
[2022-09-03 11:34] LABS: Urine Blood Negative (Negative); Urine Glucose Negative (Negative); Urine Protein Negative (Negative); Urine pH 6.5 (5.0-7.0)
[2022-09-03] MEDS ORDERED: FLUCONAZOLE 100 MG TAB ONE (11:40)
--- NOTE | 2022-09-03 11:41 | ER ---
Nurse's Notes [facility] Name: Martín Finn Age: 22 yrs Sex: Female : 2000 Arrival Date: 09/03/2022 Time: 11:10 Bed 8 Private MD: Diagnosis: Karen infection Presentation: 09/03 11:14 Chief complaint: Patient states: i think i am getting a yeast infection. thick white tw2 discharge with some itching 2 days. i am a diabetic so i get these yeast infections often. Coronavirus screen: At this time, the client does not indicate any symptoms associated with coronavirus-19. Ebola Screen: Patient denies travel to an Ebola-affected area in the 21 days before illness onset. Onset of symptoms was September 03, 2022. 11:14 Method Of Arrival: Ambulatory tw2 11:14 Acuity: DEVIKA 3 tw2 11:18 Initial Sepsis Screen: Does the patient meet any 2 criteria? HR > 90 bpm. No. Patient's tw2 initial sepsis screen is negative. Does the patient have a suspected source of infection? No. Patient's initial sepsis screen is negative. Risk Assessment: Do you want to hurt yourself or someone else? Patient reports no desire to harm self or others. Triage Assessment: 11:17 General: Appears in no apparent distress. well groomed, Behavior is calm, cooperative, tw2 appropriate for age. Pain: Denies pain. : Reports discharge, from vagina that is white, Denies vaginal odor. 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 - Social history:: Smoking status: Patient denies any tobacco usage or history of. Screenin:22 Abuse screen: Denies threats or abuse. Nutritional screening: No deficits noted. tw2 Tuberculosis screening: No symptoms or risk factors identified. Fall Risk None identified. Assessment: 11:30 General: Appears in no apparent distress. comfortable, Behavior is calm, cooperative, mb8 appropriate for age. Pain: Denies pain. Cardiovascular: No deficits noted. Respiratory: No deficits noted. GI: No deficits noted. : Reports discharge, white, Denies burning with urination, inability to void, incontinence, vaginal bleeding, Parent/caregiver report the patient having vaginal itching. Vital Signs: 11:17 BP 119 / 80; Pulse 93; Resp 17; Temp 97.9(TE); Pulse Ox 100% on R/A; Weight 72.12 kg tw2 (R); Height 5 ft. 5 in. (165.10 cm) (R); Pain 0/10; 11:17 Body Mass Index 26.46 (72.12 kg, 165.10 cm) tw2 ED Course: 11:10 Patient arrived in ED. [facility] 11:16 Triage completed. tw2 11:16 Sidney Sheffield PA is PHCP. [facility] 11:16 Jonas Chapman MD is Attending Physician. [facility] 11:17 Arm band placed on. tw2 11:18 Bed in low position. Call light in reach. Adult w/ patient. tw2 11:24 Ashwin Magaña, MARGARITA is Primary Nurse. mb8 11:36 Urine --Ancillary (enter results) Sent. mb8 11:48 No provider procedures requiring assistance completed. Patient did not have IV access mb8 during this emergency room visit. Administered Medications: 11:40 Drug: DiFLUcan (fluconazole) 150 mg Route: PO; mb8 11:48 Follow up: Response: No adverse reaction 8 Medication: 11:22 VIS not applicable for this client. tw2 Outcome: 11:41 Discharge ordered by . [facility] 11:48 Discharged to home ambulatory, with friend. mb8 11:48 Condition: stable 11:48 Discharge instructions given to patient, Instructed on discharge instructions, follow up and referral plans. Demonstrated understanding of instructions, follow-up care. 11:49 Patient left the ED. mb8 Signatures: Sidney Sheffield PA PA jmm Wise, Tara, RN RN tw2 Sehy Starrica [facility] Ashwin Magaña RN RN [email or web address]
--- NOTE | 2022-09-03 11:41 | EDPHYS ---
Physician Documentation [facility] Name: Martín Finn Age: 22 yrs Sex: Female : 2000 Arrival Date: 09/03/2022 Time: 11:10 Bed 8 Private MD: ED Physician Jonas Chapman HPI: 09/03 11:26 This 22 yrs old Black Female presents to ER via Ambulatory with complaints of Vaginal jmm Discharge. 15:47 The patient presents with. Modifying factors: The symptoms are alleviated by nothing, jmm the symptoms are aggravated by nothing. Is a 22-year-old female with history diabetes mellitus of the presents emerged department with complaints of vaginal discharge, describes it as a yeast infection. Patient has had similar episodes in the past. Denies any pain. Patient does not have any concerns for an STI.. FARM BOSS: 11:16 LMP 08/19/2022 tw2 Historical: - Allergies: 11:16 Iodine; tw2 11:16 SHELLFISH; tw2 - Home Meds: 11:16 Novolog U-100 Insulin aspart 100 unit/mL Sub-Q soln [Active]; Lantus U-100 Insulin 100 tw2 unit/mL Sub-Q crtg [Active]; - PMHx: 11:16 Diabetes mellitus; tw2 - PSHx: 11:16 None; tw2 - Immunization history:: Client reports having NOT received the Covid vaccine. - Social history:: Smoking status: Patient denies any tobacco usage or history of. ROS: 15:47 Constitutional: Negative for fever, chills, and weight loss, Cardiovascular: Negative jmm for chest pain, palpitations, and edema, Respiratory: Negative for shortness of breath, cough, wheezing, and pleuritic chest pain. 15:47 : Positive for vaginal discharge. 15:47 All other systems are negative. Exam: 15:47 Constitutional: This is a well developed, well nourished patient who is awake, alert, jmm and in no acute distress. Head/Face: atraumatic. Eyes: EOMI, no conjunctival erythema appreciated ENT: Moist Mucus Membranes Neck: Trachea midline, Supple Chest/axilla: Normal chest wall appearance and motion. Cardiovascular: Regular rate and rhythm. No edema appreciated Respiratory: Normal respirations, no respiratory distress appreciated Abdomen/GI: Non distended Back: Normal ROM Skin: General appearance color normal MS/ Extremity: Moves all extremities, no obvious deformities appreciated, no edema noted to the lower extremities Neuro: Awake and alert Psych: Behavior is normal, Mood is normal, Patient is cooperative and pleasant Vital Signs: 11:17 BP 119 / 80; Pulse 93; Resp 17; Temp 97.9(TE); Pulse Ox 100% on R/A; Weight 72.12 kg tw2 (R); Height 5 ft. 5 in. (165.10 cm) (R); Pain 0/10; 11:17 Body Mass Index 26.46 (72.12 kg, 165.10 cm) tw2 MDM: 11:26 Patient medically screened. [facility] 11:39 Data reviewed: vital signs, nurses notes. Counseling: I had a detailed discussion with berenice the patient and/or guardian regarding: the historical points, exam findings, and any diagnostic results supporting the discharge/admit diagnosis, the need for outpatient follow up, to return to the emergency department if symptoms worsen or persist or if there are any questions or concerns that arise at home. 09/03 11:34 Order name: Urine Dipstick-Ancillary; Complete Time: 11:35 EDMS 09/03 11:35 Order name: Urine --Ancillary (enter results) [facility] 09/03 11:37 Order name: Urine Dipstick-Ancillary (obtain specimen); Complete Time: 11:37 [facility] 09/03 11:37 Order name: Urine Test (obtain specimen); Complete Time: 11:37 [facility] Administered Medications: 11:40 Drug: DiFLUcan (fluconazole) 150 mg Route: PO; [facility] 11:48 Follow up: Response: No adverse reaction [facility] Disposition Summary: 09/03/22 11:41 Discharge Ordered Location: Home [facility] Condition: Stable jm Diagnosis - Karen infection [facility] Followup: [facility] - With: Private Physician - When: 2 - 3 days - Reason: Recheck today's complaints, Continuance of care, Re-evaluation by your physician Discharge Instructions: - Discharge Summary Sheet [facility] - Vaginal Yeast Infection, Adult [facility] Forms: - Medication Reconciliation Form [facility] - Thank You Letter [facility] - Antibiotic Education [facility] - Prescription Opioid Use [facility] Signatures: Dispatcher [employer] EDMS Sidney Sheffield PA PA jmm Wise, Tara, RN RN tw2 Ashwin Magaña, RN RN mb8
[2022-09-03 12:46] VITALS: BP 119/80; TEMP 97.9; O2SAT 100
== END 2022-09-03 11:49 | disposition home or self-care (01) ==
LOC: ER 11:06
DX: B37.31 Acute candidiasis of vulva and vagina (principal); E11.9 Type 2 diabetes mellitus without complications; Z79.4 Long term (current) use of insulin; Z91.013 Allergy to seafood; Z91.048 Other nonmedicinal substance allergy status
CPT/HCPCS: 81003; 81025; 99283

== ENCOUNTER 2023-01-30 21:49 | Emergency (ER) | payer BC ==
--- OUTSIDE RECORDS SUMMARY | 2023-01-30 21:57 | XMS REPORT | Continuity of Care Document ---
:2000 Author Organization [facility] t Address [address] [facility] [address] [place] [address] Care Team Providers Name Role Phone Narendra Cuevas MD Primary Care Physician .ldai Attending Clinician Unavailable TAWNY BRAUN Attending Clinician Unavailable DONNY DENNIS Attending Clinician Unavailable DONNY DENNIS Attending Clinician Unavailable Humza Fonseca MD Attending Clinician Kellen Smart MA Attending Clinician Unavailable Mtc-Lab Attending Clinician Unavailable Tawny Braun MD Attending Clinician Doctor Unassigned, [place] Attending Clinician Unavailable Jie Alvarez MD Attending Clinician FLORINDA CHASE Attending Clinician Unavailable Florinda Chase MD Attending Clinician James Martin MD Attending Clinician [phone] SAPNA MURPHY Attending Clinician Unavailable Sapna Schmitz Attending Clinician SHILOH HAMPTON Attending Clinician Unavailable Gabriella Luong MD Attending Clinician [facility] Attending Clinician Unavailable GABRIELLA LUONG Attending Clinician Unavailable Greyson Rothman Attending Clinician Unavailable Eloise Delgado MD Attending Clinician Unavailable TIANA JIMENEZ Attending Clinician Unavailable IDA HALL Attending Clinician Unavailable Dino PAZ, Ida Attending Clinician ELOISE DELGADO Attending Clinician Unavailable GREYSON ALEX Attending Clinician Unavailable Pcp-Lab Attending Clinician Unavailable Unknown, Attending Attending Clinician Unavailable Penelope THAYER, Joey Attending Clinician JOEY NEGRETE Attending Clinician Unavailable Narendra Cuevas MD Attending Clinician Juan Lowe MD Attending Clinician OMARI GARCIA Attending Clinician Unavailable Ibgokulunbrian PAZ, Folusho F Attending Clinician Peewee Chaudhary DO-Serafinu Attending Clinician Wheeler LMSW, Milagro F Attending Clinician Unavailable Allison THAYER, Carla Attending Clinician CARLA COOPER Attending Clinician Unavailable Omari Garcia MD Attending Clinician Carla Luong MD Attending Clinician CARLA LUONG Attending Clinician Unavailable Zuri Medina DO Attending Clinician ZURI MEDINA Attending Clinician Unavailable Rik Bardales MD Attending Clinician JUAN LOWE Attending Clinician Unavailable UNKNOWN, ATTENDING Attending Clinician Unavailable Tha PAZ, Humza Attending Clinician Elisa Corado RN Attending Clinician Unavailable Candie Austin RN Attending Clinician Unavailable Libia Boswell RN Attending Clinician Unavailable [facility] Attending Clinician Unavailable Only, Pcp Test Attending Clinician Unavailable Silviano Carrasquillo MD Attending Clinician SILVIANO CARRASQUILLO Attending Clinician Unavailable Xi Romero RN Attending Clinician Unavailable CHRISTIANNE CACERES Attending Clinician Unavailable Diabetes, Armida & Pcp Pedi Endocrine Attending Clinician Unava ilable Christianne Caceres MD Attending Clinician Belinda Morrison Attending Clinician Nurse, Lauri Urgent Attending Clinician Unavailable Lane THAYER, Cindi Oshea Attending Clinician [phone] RIK BARDALES Attending Clinician Unavailable Roz Oreilly MD Attending Clinician Nurse, Armida Zafar Endocrine Attending Clinician Unavailable ABHIJEET CABALLERO Attending Clinician Unavailable Lynn THAYER, Chris Attending Clinician Conrad Sousa MD Attending Clinician Ketty Mujica Attending Clinician Teens, [facility] & P[facility] Attending Clinician Unavail Zaid Christian MD Attending Clinician Marcia San MD Attending Clinician ZAID DEWEY Attending Clinician Unavailable ZAID DEWEY Attending Clinician Unavailable MITCHELL WAGONER Attending Clinician Unavailable CHRIS PARTIDA Attending Clinician Unavailable MIGUEL ÁNGEL STRICKLAND Attending Clinician Unavailable KETTY CLAUDIO Attending Clinician Unavailable SAPNA MURPHY Admitting Clinician Unavailable Payers Payer Name Policy Type Policy Number Effective Date Expiration Date S ource [employer] [id number] 2019 [facility] 00:00:00 [facility] [id number] 2015 00:00:00 [place] P [id number] 2015 00:00:00 [facility]LY [facility] [id number] 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 00:00:00 Problems Condition Condition Condition Status Onset Resolution Last Treating Co mments Source Name Details Category Date Date Treatment Clinician Date History of History of Disease Active 2019-11 U nivers allergic allergic 0-19 ity of urticaria urticaria 00:00: Malvin teixeira [facility] Lipohypert Lipohypert Disease Active U nivers rophy rophy 6-25 ity of 00:00: [address] Diabetic Diabetic Disease Active Unive rs ketoacidos ketoacidos 6-24 it y of is is 00:00: [address] Weight Weight Disease Active Univers loss, loss, 5-18 [place] of non[place] [place] [facility] 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 2-12 ity of diabetes diabetes 00:00: [place] mellitus mellitus 00 Medica l with with Branch hyperglyce hyperglyce susi susi Depression Depression Disease Active U nivers 3-28 ity of 00:00: Medical Branch 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 3-21 it y of s s 00:00: Medical [place] Allergies, Adverse Reactions, Alerts Allergy Allergy Status Severity Reaction(s) Onset Inactive Treating Comm ents Source Name Type Date Date Clinician FAISALFIS DRUG Active ITCHING 2019-11 Univers H INGREDI 0-19 ity of DERIVED 00:00: [facility] Branch Shellfis Propensi Active Rash 2019-11 Univer s h ty to 0-19 ity of Derived adverse 00:00: [place] reaction 00 Medical s [place] Social History Social Habit Start Date Stop Date Quantity Comments Source Exposure to 2022-12-23 2023-01-02 Not sure [facility] SARS-CoV-2 00:00:00 08:54:00 [facility] [place] [facility] (event) [place] Alcohol intake 2023-01-02 2023-01-02 0 /d University of 00:00:00 00:00:00 [facility] Tobacco Comment 2022-06-02 2022-06-02 no smoking in the Un iversity of 00:00:00 00:00:00 home [facility] Tobacco use and 2022-06-02 2022-06-02 Smokeless tobacco Un iversity of exposure 00:00:00 00:00:00 non-user [facility] Sex Assigned At [birth year] Universit y of 00:00:00 00:00:00 [facility] Smoking Status Start Date Stop Date Source Never smoked tobacco [facility] [place] [facility] Medications Ordered Filled Start Stop Current Ordering Indication Dosage Frequency Signature Comments Components Source Medication Medication Date Date Medication? Clinician (SIG) Name Name insulin Yes [id number] Take 1 Uni vers aspart 2-27 unit for 9 ity of U-100 00:00: grams [place] (NOVOLOG carbs plus Medic al FLEXPEN 1 unit for Branch U-100 every 36 INSULIN) points > 100 unit/mL 130 up to (3 mL) 75 units injection daily insulin Yes [id number] Take 1 Uni vers aspart 2-27 unit for 9 ity of U-100 00:00: grams (NOVOLOG 00 carbs plus Medic al FLEXPEN 1 unit for Branch U-100 every 36 INSULIN) points > 100 unit/mL 130 up to (3 mL) 75 units injection daily insulin Yes [id number] Take 1 Uni vers aspart 2-27 unit for 9 ity of U-100 00:00: grams (NOVOLOG 00 carbs plus Medic al FLEXPEN 1 unit for Branch U-100 every 36 INSULIN) points > 100 unit/mL 130 up to (3 mL) 75 units injection daily insulin Yes [id number] inject 1 U nivers aspart 2-27 unit for ity of U-100 00:00: every 9 [place] (NOVOLOG 00 grams of Medical FLEXPEN carbs plus Branch U-100 1 unit for INSULIN) every 36 100 unit/mL points > (3 mL) 130 up to injection 75 units daily. lancets Yes [id number] Checking U nivers (ONETOUCH 2-15 upto 4 ity of DELICA PLUS 00:00: times [place] LANCET) 30 00 daily. Dx Medi rashid gauge Misc E10.65 Branch lancets Yes [id number] Use to Uni vers (ONETOUCH 2-15 check ity of DELICA PLUS 00:00: blood [place] LANCET) 30 00 sugar up Medic al gauge Misc to 4 times Bra nch daily. Dx E10.65 lancets 0 Yes [id number] Use to Uni vers (ONETOUCH 2-15 check ity of DELICA PLUS 00:00: blood [place] LANCET) 30 00 sugar up Medic al gauge Misc to 4 times Bra nch daily. Dx E10.65 lancets 0 Yes [id number] Use to Uni vers (ONETOUCH 2-15 check ity of DELICA PLUS 00:00: blood [place] LANCET) 30 00 sugar up Medic al gauge Misc to 4 times Bra nch daily. Dx E10.65 lancets 0 Yes [id number] Use to Uni vers (ONETOUCH 2-15 check ity of DELICA PLUS 00:00: blood [place] LANCET) 30 00 sugar up Medic al gauge Misc to 4 times Bra nch daily. Dx E10.65 lancets 0 Yes [id number] Use to Uni vers (ONETOUCH 2-15 check ity of DELICA PLUS 00:00: blood [place] LANCET) 30 00 sugar up Medic al gauge Misc to 4 times Bra nch daily. Dx E10.65 lancets 0 Yes [id number] Use to Uni vers (ONETOUCH 2-15 check ity of DELICA PLUS 00:00: blood [place] LANCET) 30 00 sugar up Medic al gauge Misc to 4 times Bra nch daily. Dx E10.65 lancets 0 Yes [id number] Use to Uni vers (ONETOUCH 2-15 check ity of DELICA PLUS 00:00: blood [place] LANCET) 30 00 sugar up Medic al gauge Misc to 4 times Bra nch daily. Dx E10.65 lancets 0 Yes [id number] Use to Uni vers (ONETOUCH 2-15 check ity of DELICA PLUS 00:00: blood [place] LANCET) 30 00 sugar up Medic al gauge Misc to 4 times Bra nch daily. Dx E10.65 lancets 0 Yes [id number] Use to Uni vers (ONETOUCH 2-15 check ity of DELICA PLUS 00:00: blood [place] LANCET) 30 00 sugar up Medic al gauge Misc to 4 times Bra nch daily. Dx E10.65 lancets 0 Yes [id number] Use to Uni vers (ONETOUCH 2-15 check ity of DELICA PLUS 00:00: blood [place] LANCET) 30 00 sugar up Medic al gauge Misc to 4 times Bra nch daily. Dx E10.65 fluocinonid 0 Yes [id number] Apply to Univers e 0.05 % 2-14 area(s) 2 ity of gel 00:00: (two) [place] 00 times Medical daily. Branch SCALP hydrocortis 0 Yes [id number] Apply to Univers one 2.5 % 2-14 affected ity of cream 00:00: area(s) 2 [place] 00 (two) Medical times Branch daily. Eyebrows and eyelids dexAMETHaso 0 Yes [id number] Take once Univers ne 4 mg 2-14 daily on ity of tablet 00:00: Sunday and Sunday Medical only. Branch fluocinonid 2022-0 Yes [id number] Apply to Univers e 0.05 % 2-14 area(s) 2 ity of gel 00:00: (two) times Medical daily. Branch SCALP hydrocortis 2022-0 Yes [id number] Apply to Univers one 2.5 % 2-14 affected ity of cream 00:00: area(s) 2 (two) Medical times Branch daily. Eyebrows and eyelids dexAMETHaso 3-0 Yes [id number] Take once Univers ne 4 mg 2-14 daily on ity of tablet 00:00: Sunday and Sunday Medical only. Branch fluocinonid 2022-0 Yes [id number] Apply to Univers e 0.05 % 2-14 area(s) 2 ity of gel 00:00: (two) times Medical daily. Branch SCALP hydrocortis 2022-0 Yes [id number] Apply to Univers one 2.5 % 2-14 affected ity of cream 00:00: area(s) 2 (two) Medical times Branch daily. Eyebrows and eyelids dexAMETHaso 3-0 Yes [id number] Take one Univers ne 4 mg 2-14 tablet ity of tablet 00:00: once on [place] Sunday Medical and Sunday Branch only. fluocinonid 2022-0 Yes [id number] Apply to Univers e 0.05 % 2-14 area(s) 2 ity of gel 00:00: (two) [place] times Medical daily. Branch SCALP hydrocortis 2022-0 Yes [id number] Apply to Univers one 2.5 % 2-14 affected ity of cream 00:00: area(s) 2 (two) Medical times Branch daily. Eyebrows and eyelids dexAMETHaso 2023-0 Yes [id number] Take one Univers ne 4 mg 2-14 tablet ity of tablet 00:00: once on [place] Sunday Medical and Sunday Branch only. fluocinonid 3-0 Yes [id number] Apply to Univers e 0.05 % 2-14 area(s) 2 ity of gel 00:00: (two) [place] times Medical daily. Branch SCALP hydrocortis 2022-0 Yes [id number] Apply to Univers one 2.5 % 2-14 affected ity of cream 00:00: area(s) 2 [place] (two) Medical times Branch daily. Eyebrows and eyelids dexAMETHaso 2023-0 Yes [id number] Take one Univers ne 4 mg 2-14 tablet ity of tablet 00:00: once on [place] Sunday Medical and Sunday Branch only. fluocinonid 2023-0 Yes [id number] Apply to Univers e 0.05 % 2-14 area(s) 2 ity of gel 00:00: (two) [place] times Medical daily. Branch SCALP hydrocortis 2022-0 Yes [id number] Apply to Univers one 2.5 % 2-14 affected ity of cream 00:00: area(s) 2 [place] (two) Medical times Branch daily. Eyebrows and eyelids dexAMETHaso 3-0 Yes [id number] Take one Univers ne 4 mg 2-14 tablet ity of tablet 00:00: once on [place] Sunday Medical and Sunday Branch only. fluocinonid 2022-0 Yes [id number] Apply to Univers e 0.05 % 2-14 area(s) 2 ity of gel 00:00: (two) [place] times Medical daily. Branch SCALP hydrocortis 2022-0 Yes [id number] Apply to Univers one 2.5 % 2-14 affected ity of cream 00:00: area(s) 2 [place] (two) Medical times Branch daily. Eyebrows and eyelids dexAMETHaso 3-0 Yes [id number] Take one Univers ne 4 mg 2-14 tablet ity of tablet 00:00: once on [place] Sunday Medical and Sunday Branch only. fluocinonid 3-0 Yes [id number] Apply to Univers e 0.05 % 2-14 area(s) 2 ity of gel 00:00: (two) [place] times Medical daily. Branch SCALP hydrocortis 3-0 Yes [id number] Apply to Univers one 2.5 % 2-14 affected ity of cream 00:00: area(s) 2 [place] (two) Medical times Branch daily. Eyebrows and eyelids dexAMETHaso 2023-0 Yes [id number] Take one Univers ne 4 mg 2-14 tablet ity of tablet 00:00: once on [place] Sunday Medical and Sunday Branch only. fluocinonid 2023-0 Yes [id number] Apply to Univers e 0.05 % 2-14 area(s) 2 ity of gel 00:00: (two) times Medical daily. Branch SCALP hydrocortis 2022-0 Yes [id number] Apply to Univers one 2.5 % 2-14 affected ity of cream 00:00: area(s) 2 [place] (two) Medical times Branch daily. Eyebrows and eyelids dexAMETHaso 3-0 Yes [id number] Take one Univers ne 4 mg 2-14 tablet ity of tablet 00:00: once on [place] Sunday Medical and Sunday Branch only. fluocinonid 2022-0 Yes [id number] Apply to Univers e 0.05 % 2-14 area(s) 2 ity of gel 00:00: (two) [place] times Medical daily. Branch SCALP hydrocortis 2022-0 Yes [id number] Apply to Univers one 2.5 % 2-14 affected ity of cream 00:00: area(s) 2 [place] (two) Medical times Branch daily. Eyebrows and eyelids dexAMETHaso 3-0 Yes [id number] Take one Univers ne 4 mg 2-14 tablet ity of tablet 00:00: once on [place] Sunday Medical and Sunday Branch only. fluocinonid 3-0 Yes [id number] Apply to Univers e 0.05 % 2-14 area(s) 2 ity of gel 00:00: (two) [place] times Medical daily. Branch SCALP hydrocortis 2022-0 Yes [id number] Apply to Univers one 2.5 % 2-14 affected ity of cream 00:00: area(s) 2 [place] (two) Medical times Branch daily. Eyebrows and eyelids dexAMETHaso 3-0 Yes [id number] Take one Univers ne 4 mg 2-14 tablet ity of tablet 00:00: once on [place] Sunday Medical and Sunday Branch only. fluocinonid 3-0 Yes [id number] Apply to Univers e 0.05 % 2-14 area(s) 2 ity of gel 00:00: (two) [place] times Medical daily. Branch SCALP hydrocortis 3-0 Yes [id number] Apply to Univers one 2.5 % 2-14 affected ity of cream 00:00: area(s) 2 (two) Medical times Branch daily. Eyebrows and eyelids dexAMETHaso 2022-0 Yes [id number] Take one Univers ne 4 mg 2-14 tablet ity of tablet 00:00: once on [place] Sunday Medical and Sunday Branch only. fluocinonid 0 Yes [id number] Apply to Univers e 0.05 % 2-14 area(s) 2 ity of gel 00:00: (two) [place] times Medical daily. Branch SCALP hydrocortis 0 Yes [id number] Apply to Univers one 2.5 % 2-14 affected ity of cream 00:00: area(s) 2 [place] (two) Medical times Branch daily. Eyebrows and eyelids dexAMETHaso 0 Yes [id number] Take one Univers ne 4 mg 2-14 tablet ity of tablet 00:00: once on [place] Sunday Medical and Sunday Branch only. blood sugar 2021-11 Yes Use to Univ ers diagnostic 0-26 check ity of (ONETOUCH 00:00: blood [place] VERIO TEST 00 sugar 4X Medic al STRIPS) daily. Branch strip DX:E10.65 blood sugar 2021-11 Yes Use to Univ ers diagnostic 0-26 check ity of (ONETOUCH 00:00: blood [place] VERIO TEST 00 sugar 4X Medic al STRIPS) daily. Branch strip DX:E10.65 blood sugar 2021-11 Yes Use to Univ ers diagnostic 0-26 check ity of (ONETOUCH 00:00: blood [place] VERIO TEST 00 sugar 4X Medic al STRIPS) daily. Branch strip DX:E10.65 blood sugar 2021-11 Yes Use to Univ ers diagnostic 0-26 check ity of (ONETOUCH 00:00: blood [place] VERIO TEST 00 sugar 4X Medic al STRIPS) daily. Branch strip DX:E10.65 blood sugar 2021-11 Yes Use to Univ ers diagnostic 0-26 check ity of (ONETOUCH 00:00: blood [place] VERIO TEST 00 sugar 4X Medic al STRIPS) daily. Branch strip DX:E10.65 blood sugar 2021-11 Yes Use to Univ ers diagnostic 0-26 check ity of (ONETOUCH 00:00: blood [place] VERIO TEST 00 sugar 4X Medic al STRIPS) daily. Branch strip DX:E10.65 blood sugar 2021-11 Yes Use to Univ ers diagnostic 0-26 check ity of (ONETOUCH 00:00: blood [place] VERIO TEST 00 sugar 4X Medic al STRIPS) daily. Branch strip DX:E10.65 blood sugar 2021-11 Yes Use to Univ ers diagnostic 0-26 check ity of (ONETOUCH 00:00: blood [place] VERIO TEST 00 sugar 4X Medic al STRIPS) daily. Branch strip DX:E10.65 blood sugar 2021-11 Yes Use to Univ ers diagnostic 0-26 check ity of (ONETOUCH 00:00: blood [place] VERIO TEST 00 sugar 4X Medic al STRIPS) daily. Branch strip DX:E10.65 blood sugar 2021-11 Yes Use to Univ ers diagnostic 0-26 check ity of (ONETOUCH 00:00: blood [place] VERIO TEST 00 sugar 4X Medic al STRIPS) daily. Branch strip DX:E10.65 blood sugar 2021-11 Yes Use to Univ ers diagnostic 0-26 check ity of (ONETOUCH 00:00: blood [place] VERIO TEST 00 sugar 4X Medic al STRIPS) daily. Branch strip DX:E10.65 blood sugar 2021-11 Yes Use to Univ ers diagnostic 0-26 check ity of (ONETOUCH 00:00: blood [place] VERIO TEST 00 sugar 4X Medic al STRIPS) daily. Branch strip DX:E10.65 blood sugar 2021-11 Yes Use to Univ ers diagnostic 0-26 check ity of (ONETOUCH 00:00: blood [place] VERIO TEST 00 sugar 4X Medic al STRIPS) daily. Branch strip DX:E10.65 blood sugar 2021-11 Yes Use to Univ ers diagnostic 0-26 check ity of (ONETOUCH 00:00: blood [place] VERIO TEST 00 sugar 4X Medic al STRIPS) daily. Branch strip DX:E10.65 blood sugar 2021-11 Yes Use to Univ ers diagnostic 0-26 check ity of (ONETOUCH 00:00: blood [place] VERIO TEST 00 sugar 4X Medic al STRIPS) daily. Branch strip DX:E10.65 blood sugar 2021-11 Yes Use to Univ ers diagnostic 0-26 check ity of (ONETOUCH 00:00: blood [place] VERIO TEST 00 sugar 4X Medic al STRIPS) daily. Branch strip DX:E10.65 blood sugar 2021-11 Yes Use to Univ ers diagnostic 0-26 check ity of (ONETOUCH 00:00: blood [place] VERIO TEST 00 sugar 4X Medic al STRIPS) daily. Branch strip DX:E10.65 blood sugar 2021-11 Yes Use to Univ ers diagnostic 0-26 check ity of (ONETOUCH 00:00: blood [place] VERIO TEST 00 sugar 4X Medic al STRIPS) daily. Branch strip DX:E10.65 blood sugar 2021-11 Yes Use to Univ ers diagnostic 0-26 check ity of (ONETOUCH 00:00: blood [place] VERIO TEST 00 sugar 4X Medic al STRIPS) daily. Branch strip DX:E10.65 blood sugar 2021-11 Yes Use to Univ ers diagnostic 0-26 check ity of (ONETOUCH 00:00: blood [place] VERIO TEST 00 sugar 4X Medic al STRIPS) daily. Branch strip DX:E10.65 blood sugar 2021-11 Yes Use to Univ ers diagnostic 0-26 check ity of (ONETOUCH 00:00: blood [place] VERIO TEST 00 sugar 4X Medic al STRIPS) daily. Branch strip DX:E10.65 blood sugar 2021-11 Yes Use to Univ ers diagnostic 0-26 check ity of (ONETOUCH 00:00: blood [place] VERIO TEST 00 sugar 4X Medic al STRIPS) daily. Branch strip DX:E10.65 blood sugar 2021-11 Yes Use to Univ ers diagnostic 0-26 check ity of (ONETOUCH 00:00: blood [place] VERIO TEST 00 sugar 4X Medic al STRIPS) daily. Branch strip DX:E10.65 ketoconazol 2021-11 Yes [id number] Apply to Univers e 2 % 0-19 area(s) ity of shampoo 00:00: [place] 00 as needed Medical for Branch Itching. terbinafine 2021-11 Yes [id number] 250mg Take 1 Univers HCL 250 mg 0-19 tablet by ity of tablet 00:00: mouth in [place] 00 the Medical morning. Branch ketoconazol 2021-11 Yes [id number] Apply to Univers e 2 % 0-19 area(s) ity of shampoo 00:00: once daily [place] 00 as needed Medical for Branch Itching. terbinafine 2021-11 Yes [id number] 250mg Take 1 Univers HCL 250 mg 0-19 tablet by ity of tablet 00:00: mouth in [place] 00 the Medical morning. Branch ketoconazol 2021-11 Yes [id number] Apply to Univers e 2 % 0-19 area(s) ity of shampoo 00:00: once daily [place] 00 as needed Medical for Branch Itching. terbinafine 2021-11 Yes [id number] 250mg Take 1 Univers HCL 250 mg 0-19 tablet by ity of tablet 00:00: mouth in [place] 00 the Medical morning. Branch ketoconazol 2021-11 Yes [id number] Apply to Univers e 2 % 0-19 area(s) ity of shampoo 00:00: once daily [place] 00 as needed Medical for Branch Itching. terbinafine 2021-11 Yes [id number] 250mg Take 1 Univers HCL 250 mg 0-19 tablet by ity of tablet 00:00: mouth in [place] 00 the Medical morning. Branch ketoconazol 2021-11 Yes [id number] Apply to Univers e 2 % 0-19 area(s) ity of shampoo 00:00: once daily [place] 00 as needed Medical for Branch Itching. terbinafine 2021-11 Yes [id number] 250mg Take 1 Univers HCL 250 mg 0-19 tablet by ity of tablet 00:00: mouth in [place] 00 the Medical morning. Branch ketoconazol 2021-11 Yes [id number] Apply to Univers e 2 % 0-19 area(s) ity of shampoo 00:00: once daily [place] 00 as needed Medical for Branch Itching. terbinafine 2021-11 Yes [id number] 250mg Take 1 Univers HCL 250 mg 0-19 tablet by ity of tablet 00:00: mouth in [place] 00 the Medical morning. Branch ketoconazol 2021-11 Yes [id number] Apply to Univers e 2 % 0-19 area(s) ity of shampoo 00:00: once daily [place] 00 as needed Medical for Branch Itching. terbinafine 2021-11 Yes [id number] 250mg Take 1 Univers HCL 250 mg 0-19 tablet by ity of tablet 00:00: mouth in [place] 00 the Medical morning. Branch ketoconazol 2021-11 Yes [id number] Apply to Univers e 2 % 0-19 area(s) ity of shampoo 00:00: once daily [place] 00 as needed Medical for Branch Itching. terbinafine 2021-11 Yes [id number] 250mg Take 1 Univers HCL 250 mg 0-19 tablet by ity of tablet 00:00: mouth in [place] 00 the Medical morning. Branch ketoconazol 2021-11 Yes [id number] Apply to Univers e 2 % 0-19 area(s) ity of shampoo 00:00: once daily [place] 00 as needed Medical for Branch Itching. terbinafine 2021-11 Yes [id number] 250mg Take 1 Univers HCL 250 mg 0-19 tablet by ity of tablet 00:00: mouth in [place] 00 the Medical morning. Branch ketoconazol 2021-11 Yes [id number] Apply to Univers e 2 % 0-19 area(s) ity of shampoo 00:00: once daily [place] 00 as needed Medical for Branch Itching. terbinafine 2021-11 Yes [id number] 250mg Take 1 Univers HCL 250 mg 0-19 tablet by ity of tablet 00:00: mouth in [place] 00 the Medical morning. Branch ketoconazol 2021-11 Yes [id number] Apply to Univers e 2 % 0-19 area(s) ity of shampoo 00:00: once daily [place] 00 as needed Medical for Branch Itching. terbinafine 2021-11 Yes [id number] 250mg Take 1 Univers HCL 250 mg 0-19 tablet by ity of tablet 00:00: mouth in [place] 00 the Medical morning. Branch ketoconazol 2021-11 Yes [id number] Apply to Univers e 2 % 0-19 area(s) ity of shampoo 00:00: once daily [place] 00 as needed Medical for Branch Itching. terbinafine 2021-11 Yes [id number] 250mg Take 1 Univers HCL 250 mg 0-19 tablet by ity of tablet 00:00: mouth in [place] 00 the Medical morning. Branch ketoconazol 2021-11 Yes [id number] Apply to Univers e 2 % 0-19 area(s) ity of shampoo 00:00: once daily [place] 00 as needed Medical for Branch Itching. terbinafine 2021-11 Yes [id number] 250mg Take 1 Univers HCL 250 mg 0-19 tablet by ity of tablet 00:00: mouth in [place] 00 the Medical morning. Branch ketoconazol 2021-11 Yes [id number] Apply to Univers e 2 % 0-19 area(s) ity of shampoo 00:00: once daily [place] 00 as needed Medical for Branch Itching. terbinafine 2021-11 Yes [id number] 250mg Take 1 Univers HCL 250 mg 0-19 tablet by ity of tablet 00:00: mouth in [place] 00 the Medical morning. Branch ketoconazol 2021-11 Yes [id number] Apply to Univers e 2 % 0-19 area(s) ity of shampoo 00:00: once daily [place] 00 as needed Medical for Branch Itching. terbinafine 2021-11 Yes [id number] 250mg Take 1 Univers HCL 250 mg 0-19 tablet by ity of tablet 00:00: mouth in [place] the Medical morning. Branch ketoconazol 2021-11 Yes [id number] Apply to Univers e 2 % 0-19 area(s) ity of shampoo 00:00: once daily [place] 00 as needed Medical for Branch Itching. terbinafine 2021-11 Yes [id number] 250mg Take 1 Univers HCL 250 mg 0-19 tablet by ity of tablet 00:00: mouth in [place] the Medical morning. Branch ketoconazol 2021-11 Yes [id number] Apply to Univers e 2 % 0-19 area(s) ity of shampoo 00:00: once daily [place] 00 as needed Medical for Branch Itching. terbinafine 2021-11 Yes [id number] 250mg Take 1 [facility] HCL 250 mg 0-19 tablet by ity of tablet 00:00: mouth in [place] 00 the Medical morning. Branch ketoconazol 2021-11 Yes [id number] Apply to [facility] e 2 % 0-19 area(s) ity of shampoo 00:00: [place] 00 as needed Medical for Branch Itching. terbinafine 2021-11 Yes [id number] 250mg Take 1 [facility] HCL 250 mg 0-19 tablet by ity of tablet 00:00: mouth in [place] 00 the Medical morning. Branch ketoconazol 2021-11 Yes [id number] Apply to [facility] e 2 % 0-19 area(s) ity of shampoo 00:00: [place] 00 as needed Medical for Branch Itching. terbinafine 2021-11 Yes [id number] 250mg Take 1 [facility] HCL 250 mg 0-19 tablet by ity of tablet 00:00: mouth in [place] 00 the Medical morning. Branch ketoconazol 2021-11 Yes [id number] Apply to [facility] e 2 % 0-19 area(s) ity of shampoo 00:00: [place] 00 as needed Medical for Branch Itching. terbinafine 2021-11 Yes [id number] 250mg Take 1 [facility] HCL 250 mg 0-19 tablet by ity of tablet 00:00: mouth in [place] 00 the Medical morning. Branch ketoconazol 2021-11 Yes [id number] Apply to [facility] e 2 % 0-19 area(s) ity of shampoo 00:00: [place] 00 as needed Medical for Branch Itching. terbinafine 2021-11 Yes [id number] 250mg Take 1 [facility] HCL 250 mg 0-19 tablet by ity of tablet 00:00: mouth in [place] 00 the Medical morning. Branch ketoconazol 2021-11 Yes [id number] Apply to [facility] e 2 % 0-19 area(s) ity of shampoo 00:00: once [place] 00 as needed Medical for Branch Itching. terbinafine 2021-11 Yes [id number] 250mg Take 1 [facility] HCL 250 mg 0-19 tablet by ity of tablet 00:00: mouth in [place] 00 the Medical morning. Branch ketoconazol 2021-11 Yes [id number] Apply to [facility] e 2 % 0-19 area(s) ity of shampoo 00:00: once [place] 00 as needed Medical for Branch Itching. terbinafine 2021-11 Yes [id number] 250mg Take 1 [facility] HCL 250 mg 0-19 tablet by ity of tablet 00:00: mouth in [place] 00 the Medical morning. Branch ketoconazol 2021-11 Yes [id number] Apply to [facility] e 2 % 0-19 area(s) ity of shampoo 00:00: once [place] 00 as needed Medical for Branch Itching. terbinafine 2021-11 Yes [id number] 250mg Take 1 [facility] HCL 250 mg 0-19 tablet by ity of tablet 00:00: mouth in [place] 00 the Medical morning. Branch ketoconazol 2021-11 Yes [id number] Apply to [facility] e 2 % 0-19 area(s) ity of shampoo 00:00: once [place] 00 as needed Medical for Branch Itching. terbinafine 2021-11 Yes [id number] 250mg Take 1 [facility] HCL 250 mg 0-19 tablet by ity of tablet 00:00: mouth in [place] 00 the Medical morning. Branch ketoconazol 2021-11 Yes [id number] Apply to [facility] e 2 % 0-19 area(s) ity of shampoo 00:00: once [place] 00 as needed Medical for Branch Itching. terbinafine 2021-11 Yes [id number] 250mg Take 1 [facility] HCL 250 mg 0-19 tablet by ity of tablet 00:00: mouth in [place] 00 the Medical morning. Branch FREESTYLE 2021-11 Yes [id number] 1{kit} 1 Kit [facility] TEETEE 2 0-12 every 14 ity of SENSOR Kit 00:00: (fourteen) [place] 00 days. Medical Branch insulin 2021-11 Yes [id number] 32U inject 32 [facility] glargine 0-12 Units ity of U-300 conc 00:00: under the [place] (TOUJEO MAX 00 skin at Medic al U-300 bedtime. Branch SOLOSTAR) 300 unit/mL (3 mL) InPn Insulin 2021-11 Yes [id number] Use as [facility] [place], 0-12 directed ity of Disposable, 00:00: to inject [place] (PEN 00 insulin SQ Medical NEEDLE) 31 4-5 times Bran ch gauge x daily 04/03" Nd FREESTYLE 2021-11 Yes [id number] 1{kit} 1 Kit [facility] TEETEE 2 0-12 every 14 ity of SENSOR Kit 00:00: (fourteen) [place] 00 days. Medical Branch insulin 2021-11 Yes [id number] 32U inject 32 [facility] glargine 0-12 Units ity of U-300 conc 00:00: under the [place] (TOUJEO MAX 00 skin at Medic al U-300 bedtime. [place] [facility]MN) 300 unit/mL (3 mL) InPn Insulin 2021-11 Yes [id number] Use as [facility] [place], 0-12 directed ity of Disposable, 00:00: to inject [place] (PEN 00 insulin SQ Medical NEEDLE) 31 4-5 times Bran ch gauge x daily 04/03" Ndle FREESTYLE 2021-11 Yes [id number] 1{kit} 1 Kit [facility] TEETEE 2 0-12 every 14 ity of SENSOR Kit 00:00: (fourteen) [place] 00 days. [facility] Branch insulin 2021-11 Yes [id number] 32U inject 32 [facility] glargine 0-12 Units ity of U-300 conc 00:00: under the [place] (T[place] MAX 00 [facility] mL[facility] InPn Insulin 2021-11 Yes [id number] Use as [facility] [place], 0-12 directed ity of Disposable, 00:00: to inject [place] (PEN 00 insulin SQ Medical NEEDLE) 31 4-5 times Bran ch gauge x daily 04/03" Ndle FREESTYLE 2021-11 Yes [id number] 1{kit} 1 Kit [facility] TEETEE 2 0-12 every 14 ity of SENSOR Kit 00:00: (fourteen) [place] 00 days. [facility] insulin 2021-11 Yes [id number] 32U inject 32 [facility] glargine 0-12 Units ity of U-300 conc 00:00: under the [place] (TOUJEO MAX 00 skin at Medic al U-300 bedtime. [facility]) 300 unit/mL (3 mL) InPn Insulin 2021-11 Yes [id number] Use as [facility] [place], 0-12 directed ity of Disposable, 00:00: to inject [place] (PEN 00 insulin SQ Medical NEEDLE) 31 4-5 times Bran ch gauge x daily 04/03" Ndle FREESTYLE 2021-11 Yes [id number] 1{kit} 1 Kit [facility] TEETEE 2 0-12 every 14 ity of SENSOR Kit 00:00: (fourteen) [place] 00 days. [facility] insulin 2021-11 Yes [id number] 32U inject 32 [facility] glargine 0-12 Units ity of U-300 conc 00:00: under the [place] (TOUJEO MAX 00 skin at Medic al U-300 bedtime. Branch SOLOSTAR) 300 unit/mL (3 mL) In Insulin 2021-11 Yes [id number] Use as [facility] [place], 0-12 directed ity of Disposable, 00:00: to inject [place] (PEN 00 insulin SQ Medical NEEDLE) 31 4-5 times Bran ch gauge x daily 04/03" Ndle FREESTYLE 2021-11 Yes [id number] 1{kit} 1 Kit [facility] TEETEE 2 0-12 every 14 ity of SENSOR Kit 00:00: (fourteen) [place] 00 days. [facility] insulin 2021-11 Yes [id number] 32U inject 32 [facility] glargine 0-12 Units ity of U-300 conc 00:00: under the [place] (TOUJEO MAX 00 skin at Medic al U-300 bedtime. Branch SOLOSTAR) 300 unit/mL (3 mL) In Insulin 2021-11 Yes [id number] Use as [facility] [place], 0-12 directed ity of Disposable, 00:00: to inject [place] (PEN 00 insulin SQ Medical NEEDLE) 31 4-5 times Bran ch gauge x daily 04/03" Ndle FREESTYLE 2021-11 Yes [id number] 1{kit} 1 Kit [facility] TEETEE 2 0-12 every 14 ity of SENSOR Kit 00:00: (fourteen) [place] 00 days. [facility] insulin 2021-11 Yes [id number] 32U inject 32 [facility] glargine 0-12 Units ity of U-300 conc 00:00: under the [place] (TOUJEO MAX 00 skin at Medic al U-300 bedtime. Branch SOLOSTAR) 300 unit/mL (3 mL) InPn Insulin 2021-11 Yes [id number] Use as [facility] [place], 0-12 directed ity of Disposable, 00:00: to inject [place] (PEN 00 insulin SQ Medical NEEDLE) 31 4-5 times Bran ch gauge x daily 04/03" Ndle FREESTYLE 2021-11 Yes [id number] 1{kit} 1 Kit [facility] TEETEE 2 0-12 every 14 ity of SENSOR Kit 00:00: (fourteen) [place] 00 days. [facility] insulin 2021-11 Yes [id number] 32U inject 32 [facility] glargine 0-12 Units ity of U-300 conc 00:00: under the [place] (TOUJEO MAX 00 skin at Medic al U-300 bedtime. Branch SOLOSTAR) 300 unit/mL (3 mL) InPn Insulin 2021-11 Yes [id number] Use as [facility] [place], 0-12 directed ity of Disposable, 00:00: to inject [place] (PEN 00 insulin SQ Medical NEEDLE) 31 4-5 times Bran ch gauge x daily 04/03" Ndle FREESTYLE 2021-11 Yes [id number] 1{kit} 1 Kit [facility] TEETEE 2 0-12 every 14 ity of SENSOR Kit 00:00: (fourteen) [place] 00 days. [facility] insulin 2021-11 Yes [id number] 32U inject 32 [facility] glargine 0-12 Units ity of U-300 conc 00:00: under the [place] (TOUJEO MAX 00 skin at Medic al U-300 bedtime. Branch SOLOSTAR) 300 unit/mL (3 mL) InPn Insulin 2021-11 Yes [id number] Use as [facility] [place], 0-12 directed ity of Disposable, 00:00: to inject [place] (PEN 00 insulin SQ Medical NEEDLE) 31 4-5 times Bran ch gauge x daily 04/03" Ndle FREESTYLE 2021-11 Yes [id number] 1{kit} 1 Kit [facility] TEETEE 2 0-12 every 14 ity of SENSOR Kit 00:00: (fourteen) [place] 00 days. [facility] insulin 2021-11 Yes [id number] 32U inject 32 [facility] glargine 0-12 Units ity of U-300 conc 00:00: under the [place] (TOUJEO MAX 00 skin at Medic al U-300 bedtime. Branch SOLOSTAR) 300 unit/mL (3 mL) InPn Insulin 2021-11 Yes [id number] Use as [facility] [place], 0-12 directed ity of Disposable, 00:00: to inject [place] (PEN 00 insulin SQ Medical NEEDLE) 31 4-5 times Bran ch gauge x daily 04/03" Ndle FREESTYLE 2021-11 Yes [id number] 1{kit} 1 Kit [facility] TEETEE 2 0-12 every 14 ity of SENSOR Kit 00:00: (fourteen) [place] 00 days. [facility] insulin 2021-11 Yes [id number] 32U inject 32 [facility] glargine 0-12 Units ity of U-300 conc 00:00: under the [place] (TOUJEO MAX 00 skin at Medic al U-300 bedtime. [place] SOLOSTMN) 300 unit/mL (3 mL) InPn Insulin 2021-11 Yes [id number] Use as [facility] [place], 0-12 directed ity of Disposable, 00:00: to inject [place] (PEN 00 insulin SQ Medical NEEDLE) 31 4-5 times Bran ch gauge x daily 04/03" Ndle FREESTYLE 2021-11 Yes [id number] 1{kit} 1 Kit [facility] TEETEE 2 0-12 every 14 ity of SENSOR Kit 00:00: (fourteen) [place] 00 days. [facility] insulin 2021-11 Yes [id number] 32U inject 32 [facility] glargine 0-12 Units ity of U-300 conc 00:00: under the [place] (TOUJEO MAX 00 skin at Medic al U-300 bedtime. Branch SOLOSTMN) 300 unit/mL (3 mL) InPn Insulin 2021-11 Yes [id number] Use as [facility] [place], 0-12 directed ity of Disposable, 00:00: to inject [place] (PEN 00 insulin SQ Medical NEEDLE) 31 4-5 times Bran ch gauge x daily 04/03" Ndle FREESTYLE 2021-11 Yes [id number] 1{kit} 1 Kit [facility] TEETEE 2 0-12 every 14 ity of SENSOR Kit 00:00: (fourteen) [place] 00 days. [facility] insulin 2021-11 Yes [id number] 32U inject 32 [facility] glargine 0-12 Units ity of U-300 conc 00:00: under the [place] (TOUJEO MAX 00 skin at Medic al U-300 bedtime. Branch SOLOSTAR) 300 unit/mL (3 mL) InPn Insulin 2021-11 Yes [id number] Use as [facility] [place], 0-12 directed ity of Disposable, 00:00: to inject [place] (PEN 00 insulin SQ Medical NEEDLE) 31 4-5 times Bran ch gauge x daily 04/03" Ndle FREESTYLE 2021-11 Yes [id number] 1{kit} 1 Kit [facility] TEETEE 2 0-12 every 14 ity of SENSOR Kit 00:00: (fourteen) [place] 00 days. Medical Branch insulin 2021-11 Yes [id number] 32U inject 32 [facility] glargine 0-12 Units ity of U-300 conc 00:00: under the [place] (TOUJEO MAX 00 skin at Medic al U-300 bedtime. Branch SOLOSTAR) 300 unit/mL (3 mL) InPn Insulin 2021-11 Yes [id number] Use as [facility] [place], 0-12 directed ity of Disposable, 00:00: to inject [place] (PEN 00 insulin SQ Medical NEEDLE) 31 4-5 times Bran ch gauge x daily 04/03" Ndle FREESTYLE 2021-11 Yes [id number] 1{kit} 1 Kit [facility] TEETEE 2 0-12 every 14 ity of SENSOR Kit 00:00: (fourteen) [place] 00 days. Medical Branch insulin 2021-11 Yes [id number] 32U inject 32 [facility] glargine 0-12 Units ity of U-300 conc 00:00: under the [place] (TOUJEO MAX 00 skin at Medic al U-300 bedtime. Branch SOLOSTAR) 300 unit/mL (3 mL) InPn Insulin 2021-11 Yes [id number] Use as [facility] [place], 0-12 directed ity of Disposable, 00:00: to inject [place] (PEN 00 insulin SQ Medical NEEDLE) 31 4-5 times Bran ch gauge x daily 04/03" Ndle FREESTYLE 2021-11 Yes [id number] 1{kit} 1 Kit [facility] TEETEE 2 0-12 every 14 ity of SENSOR Kit 00:00: (fourteen) [place] 00 days. Medical Branch insulin 2021-11 Yes [id number] 32U inject 32 [facility] glargine 0-12 Units ity of U-300 conc 00:00: under the [place] (TOUJEO MAX 00 skin at Medic al U-300 bedtime. Branch SOLOSTAR) 300 unit/mL (3 mL) InPn Insulin 2021-11 Yes [id number] Use as [facility] [place], 0-12 directed ity of Disposable, 00:00: to inject [place] (PEN 00 insulin SQ Medical NEEDLE) 31 4-5 times Bran ch gauge x daily 04/03" Ndle FREESTYLE 2021-11 Yes [id number] 1{kit} 1 Kit [facility] TEETEE 2 0-12 every 14 ity of SENSOR Kit 00:00: (fourteen) [place] 00 days. [facility] insulin 2021-11 Yes [id number] 32U inject 32 [facility] glargine 0-12 Units ity of U-300 conc 00:00: under the [place] (TOUJEO MAX 00 skin at Medic al U-300 bedtime. [facility]) 300 unit/mL (3 mL) InPn Insulin 2021-11 Yes [id number] Use as [facility] [place], 0-12 directed ity of Disposable, 00:00: to inject [place] (PEN 00 insulin SQ Medical NEEDLE) 31 4-5 times Bran ch gauge x daily 04/03" Ndle FREESTYLE 2021-11 Yes [id number] 1{kit} 1 Kit [facility] TEETEE 2 0-12 every 14 ity of SENSOR Kit 00:00: (fourteen) [place] 00 days. [facility] insulin 2021-11 Yes [id number] 32U inject 32 [facility] glargine 0-12 Units ity of U-300 conc 00:00: under the [place] (TOUJEO MAX 00 skin at Medic al U-300 bedtime. [facility]) 300 unit/mL (3 mL) InPn Insulin 2021-11 Yes [id number] Use as [facility] [place], 0-12 directed ity of Disposable, 00:00: to inject [place] (PEN 00 insulin SQ Medical NEEDLE) 31 4-5 times Bran ch gauge x daily 04/03" Ndle FREESTYLE 2021-11 Yes [id number] 1{kit} 1 Kit [facility] TEETEE 2 0-12 every 14 ity of SENSOR Kit 00:00: (fourteen) [place] 00 days. [facility] insulin 2021-11 Yes [id number] 32U inject 32 [facility] glargine 0-12 Units ity of U-300 conc 00:00: under the [place] (TOUJE[place] MAX 00 skin at Medic al U-300 bedtime. [facility]) 300 unit/mL (3 mL) InPn Insulin 2021-11 Yes [id number] Use as [facility] [place], 0-12 directed ity of Disposable, 00:00: to inject [place] (PEN 00 insulin SQ Medical NEEDLE) 31 4-5 times Bran ch gauge x daily 04/03" Ndle FREESTYLE 2021-11 Yes [id number] 1{kit} 1 Kit [facility] TEETEE 2 0-12 every 14 ity of SENSOR Kit 00:00: (fourteen) [place] 00 days. [facility] insulin 2021-11 Yes [id number] 32U inject 32 [facility] glargine 0-12 Units ity of U-300 conc 00:00: under the [place] (TOUJE[place] MAX 00 skin at Medic al U-300 bedtime. [facility]) 300 unit/mL (3 mL) InPn Insulin 2021-11 Yes [id number] Use as [facility] [place], 0-12 directed ity of Disposable, 00:00: to inject [place] (PEN 00 insulin SQ Medical NEEDLE) 31 4-5 times Bran ch gauge x daily 04/03" Ndle FREESTYLE 2021-11 Yes [id number] 1{kit} 1 Kit [facility] TEETEE 2 0-12 every 14 ity of SENSOR Kit 00:00: (fourteen) [place] 00 days. [facility] insulin 2021-11 Yes [id number] 32U inject 32 [facility] glargine 0-12 Units ity of U-300 conc 00:00: under the [place] (TOUJEO MAX 00 skin at Medic al U-300 bedtime. [facility]) 300 unit/mL (3 mL) InPn Insulin 2021-11 Yes [id number] Use as [facility] [place], 0-12 directed ity of Disposable, 00:00: to inject [place] (PEN 00 insulin SQ Medical NEEDLE) 31 4-5 times Bran ch gauge x daily 04/03" Ndle FREESTYLE 2021-11 Yes [id number] 1{kit} 1 Kit [facility] TEETEE 2 0-12 every 14 ity of SENSOR Kit 00:00: (fourteen) [place] 00 days. [facility] insulin 2021-11 Yes [id number] 32U inject 32 [facility] glargine 0-12 Units ity of U-300 conc 00:00: under the [place] (TOUJE[place] MAX 00 skin at Medic al U-300 bedtime. Branch SOLOSTAR) 300 unit/mL (3 mL) In Insulin 2021-11 Yes [id number] Use as [facility] [place], 0-12 directed ity of Disposable, 00:00: to inject [place] (PEN 00 insulin SQ Medical NEEDLE) 31 4-5 times Bran ch gauge x daily 04/03" Ndle FREESTYLE 2021-11 Yes [id number] 1{kit} 1 Kit [facility] TEETEE 2 0-12 every 14 ity of SENSOR Kit 00:00: (fourteen) [place] 00 days. [facility] insulin 2021-11 Yes [id number] 32U inject 32 [facility] glargine 0-12 Units ity of U-300 conc 00:00: under the [place] (TOUJEO MAX 00 skin at Medic al U-300 bedtime. Branch SOLOSTAR) 300 unit/mL (3 mL) In Insulin 2021-11 Yes [id number] Use as [facility] [place], 0-12 directed ity of Disposable, 00:00: to inject [place] (PEN 00 insulin SQ Medical NEEDLE) 31 4-5 times Bran ch gauge x daily 04/03" Ndle FREESTYLE 2021-11 Yes [id number] 1{kit} 1 Kit [facility] TEETEE 2 0-12 every 14 ity of SENSOR Kit 00:00: (fourteen) [place] 00 days. [facility] insulin 2021-11 Yes [id number] 32U inject 32 [facility] glargine 0-12 Units ity of U-300 conc 00:00: under the [place] (TOU[place] MAX 00 skin at Medic al U-300 bedtime. Branch SOLOSTAR) 300 unit/mL (3 mL) In Insulin 2021-11 Yes [id number] Use as [facility] [place], 0-12 directed ity of Disposable, 00:00: to inject [place] (PEN 00 insulin SQ Medical NEEDLE) 31 4-5 times Bran ch gauge x daily 04/03" Ndle FREESTYLE 2021-11 Yes [id number] 1{kit} 1 Kit [facility] TEETEE 2 0-12 every 14 ity of SENSOR Kit 00:00: (fourteen) [place] 00 days. [facility] insulin 2021-11 Yes [id number] 32U inject 32 [facility] glargine 0-12 Units ity of U-300 conc 00:00: under the [place] (T[place] MAX 00 skin at Medic al U-300 bedtime. [place] SOLOSTMN) 300 unit/mL (3 mL) InPn Insulin 2021-11 Yes [id number] Use as [facility] [place], 0-12 directed ity of Disposable, 00:00: to inject [place] (PEN 00 insulin SQ Medical NEEDLE) 31 4-5 times Bran ch gauge x daily 04/03" Ndle FREESTYLE 2021-11 Yes [id number] 1{kit} 1 Kit [facility] TEETEE 2 0-12 every 14 ity of SENSOR Kit 00:00: (fourteen) [place] 00 days. [facility] insulin 2021-11 Yes [id number] 32U inject 32 [facility] glargine 0-12 Units ity of U-300 conc 00:00: under the [place] (T[place] MAX 00 skin at Medic al U-300 bedtime. [place] [facility]) 300 unit/mL (3 mL) In Insulin 2021-11 Yes [id number] Use as [facility] [place], 0-12 directed ity of Disposable, 00:00: to inject [place] (PEN 00 insulin SQ Medical NEEDLE) 31 4-5 times Bran ch gauge x daily 04/03" Ndle FREESTYLE 2021-11 Yes [id number] 1{kit} 1 Kit [facility] TEETEE 2 0-12 every 14 ity of SENSOR Kit 00:00: (fourteen) [place] 00 days. [facility] insulin 2021-11 Yes [id number] 32U inject 32 [facility] glargine 0-12 Units ity of U-300 conc 00:00: under the [place] (T[place] MAX 00 skin at Medic al U-300 bedtime. [place] [facility]) 300 unit/mL (3 mL) InPn Insulin 2021-11 Yes [id number] Use as [facility] [place], 0-12 directed ity of Disposable, 00:00: to inject [place] (PEN 00 insulin SQ Medical NEEDLE) 31 4-5 times Bran ch gauge x daily 04/03" Ndle FREESTYLE 2021-11 Yes [id number] 1{kit} 1 Kit [facility] TEETEE 2 0-12 every 14 ity of SENSOR Kit 00:00: (fourteen) [place] 00 days. [facility] insulin 2021-11 Yes [id number] 32U inject 32 [facility] glargine 0-12 Units ity of U-300 conc 00:00: under the [place] ([place] MAX 00 skin at Medic al U-300 bedtime. Branch SOLOSTAR) 300 unit/mL (3 mL) InPn Insulin 2021-11 Yes [id number] Use as [facility] [place], 0-12 directed ity of Disposable, 00:00: to inject [place] (PEN 00 insulin SQ Medical NEEDLE) 31 4-5 times Bran ch gauge x daily 04/03" Ndle FREESTYLE 2021-11 Yes [id number] 1{kit} 1 Kit [facility] TEETEE 2 0-12 every 14 ity of SENSOR Kit 00:00: (fourteen) [place] 00 days. [facility] insulin 2021-11 Yes [id number] 32U inject 32 [facility] glargine 0-12 Units ity of U-300 conc 00:00: under the [place] ([place] MAX 00 skin at Medic al U-300 bedtime. Branch SOLOSTAR) 300 unit/mL (3 mL) InPn Insulin 2021-11 Yes [id number] Use as [facility] [place], 0-12 directed ity of Disposable, 00:00: to inject [place] (PEN 00 insulin SQ Medical NEEDLE) 31 4-5 times Bran ch gauge x daily 04/03" Ndle fluconazole 2021-11- No [id number] 150mg Take 1 [facility] (DIFLUCAN) 0-12 - tablet by ity of 150 mg 00:00: 04:59 mouth [place] tablet 00 :00 now for 1 Medical dose. [place] fluconazole 2021-11- No [id number] 150mg Take 1 [facility] (DIFLUCAN) 0-12 10- tablet by ity of 150 mg 00:00: 04:59 mouth [place] tablet 00 :00 now for 1 Medical dose. [place] fluconazole 2021-11- No [id number] 150mg Take 1 [facility] (DIFLUCAN) 0-12 10- tablet by ity of 150 mg 00:00: 04:59 mouth [place] tablet 00 :00 now for 1 Medical dose. Branch blood sugar 0 Yes Use to [facility] ers diagnostic 06-21 check ity of (ONETOUCH 00:00: blood [place] VERIO TEST 00 sugar 4X Medic al STRIPS) daily. Branch strip DX:E10.65 blood sugar 0 Yes Use to [facility] ers diagnostic 06-21 check ity of (ONETOUCH 00:00: blood [place] VERIO TEST 00 sugar 4X Medic al STRIPS) daily. Branch strip DX:E10.65 meclizine 2021-0 Yes [id number] 25mg Take 1 U nivers 25 mg 8-03 tablet by ity of tablet 00:00: mouth [place] 00 every 6 Medical (six) Branch hours as needed for Dizziness. blood sugar 0 Yes Use to [facility] ers diagnostic 06-21 check ity of (ONETOUCH 00:00: blood [place] VERIO TEST 00 sugar 4X Medic al STRIPS) daily. Branch strip DX:E10.65 meclizine 2021-0 Yes [id number] 25mg Take 1 U nivers 25 mg 8-03 tablet by ity of tablet 00:00: mouth [place] 00 every 6 Medical (six) Branch hours as needed for Dizziness. blood sugar 0 Yes Use to [facility] ers diagnostic 06-21 check ity of (ONETOUCH 00:00: blood [place] VERIO TEST 00 sugar 4X Medic al STRIPS) daily. Branch strip DX:E10.65 meclizine 2021-0 Yes [id number] 25mg Take 1 U nivers 25 mg 8-03 tablet by ity of tablet 00:00: mouth [place] 00 every 6 Medical (six) Branch hours as needed for Dizziness. blood sugar 0 Yes Use to [facility] ers diagnostic 06-21 check ity of (ONETOUCH 00:00: blood [place] VERIO TEST 00 sugar 4X Medic al STRIPS) daily. Branch strip DX:E10.65 meclizine 2021-0 Yes [id number] 25mg Take 1 U nivers 25 mg 8-03 tablet by ity of tablet 00:00: mouth [place] 00 every 6 Medical (six) Branch hours as needed for Dizziness. blood sugar 2021-0 Yes Use to [facility] ers diagnostic 06-21 check ity of (ONETOUCH 00:00: blood [place] VERIO TEST 00 sugar 4X Medic al STRIPS) daily. Branch strip DX:E10.65 meclizine 2021-0 Yes [id number] 25mg Take 1 U nivers 25 mg 8-03 tablet by ity of tablet 00:00: mouth [place] 00 every 6 Medical (six) Branch hours as needed for Dizziness. meclizine 2021-0 Yes [id number] 25mg Take 1 U nivers 25 mg 8-03 tablet by ity of tablet 00:00: mouth [place] 00 every 6 Medical (six) Branch hours as needed for Dizziness. meclizine 2021-0 Yes [id number] 25mg Take 1 U nivers 25 mg 8-03 tablet by ity of tablet 00:00: mouth [place] 00 every 6 Medical (six) Branch hours as needed for Dizziness. meclizine 2021-0 Yes [id number] 25mg Take 1 U nivers 25 mg 8-03 tablet by ity of tablet 00:00: mouth [place] 00 every 6 Medical (six) Branch hours as needed for Dizziness. meclizine 2021-0 Yes [id number] 25mg Take 1 U nivers 25 mg 8-03 tablet by ity of tablet 00:00: mouth [place] 00 every 6 Medical (six) Branch hours as needed for Dizziness. meclizine 2021-0 Yes [id number] 25mg Take 1 U nivers 25 mg 8-03 tablet by ity of tablet 00:00: mouth [place] 00 every 6 Medical (six) Branch hours as needed for Dizziness. meclizine 2021-0 Yes [id number] 25mg Take 1 U nivers 25 mg 8-03 tablet by ity of tablet 00:00: mouth [place] 00 every 6 Medical (six) Branch hours as needed for Dizziness. meclizine 2021-0 Yes [id number] 25mg Take 1 U nivers 25 mg 8-03 tablet by ity of tablet 00:00: mouth [place] 00 every 6 Medical (six) Branch hours as needed for Dizziness. meclizine 2021-0 Yes [id number] 25mg Take 1 U nivers 25 mg 8-03 tablet by ity of tablet 00:00: mouth [place] 00 every 6 Medical (six) Branch hours as needed for Dizziness. meclizine 2021-0 Yes [id number] 25mg Take 1 U nivers 25 mg 8-03 tablet by ity of tablet 00:00: mouth [place] 00 every 6 Medical (six) Branch hours as needed for Dizziness. meclizine 2021-0 Yes [id number] 25mg Take 1 U nivers 25 mg 8-03 tablet by ity of tablet 00:00: mouth [place] 00 every 6 Medical (six) Branch hours as needed for Dizziness. meclizine 2021-0 Yes [id number] 25mg Take 1 U nivers 25 mg 8-03 tablet by ity of tablet 00:00: mouth [place] 00 every 6 Medical (six) Branch hours as needed for Dizziness. meclizine 2021-0 Yes [id number] 25mg Take 1 U nivers 25 mg 8-03 tablet by ity of tablet 00:00: mouth [place] 00 every 6 Medical (six) Branch hours as needed for Dizziness. meclizine 2021-0 Yes [id number] 25mg Take 1 U nivers 25 mg 8-03 tablet by ity of tablet 00:00: mouth [place] 00 every 6 Medical (six) Branch hours as needed for Dizziness. meclizine 2021-0 Yes [id number] 25mg Take 1 U nivers 25 mg 8-03 tablet by ity of tablet 00:00: mouth [place] 00 every 6 Medical (six) Branch hours as needed for Dizziness. meclizine 2021-0 Yes [id number] 25mg Take 1 U nivers 25 mg 8-03 tablet by ity of tablet 00:00: mouth [place] 00 every 6 Medical (six) Branch hours as needed for Dizziness. meclizine 2021-0 Yes [id number] 25mg Take 1 U nivers 25 mg 8-03 tablet by ity of tablet 00:00: mouth [place] 00 every 6 Medical (six) Branch hours as needed for Dizziness. meclizine 2021-0 Yes [id number] 25mg Take 1 U nivers 25 mg 8-03 tablet by ity of tablet 00:00: mouth [place] 00 every 6 Medical (six) Branch hours as needed for Dizziness. meclizine 2021-0 Yes [id number] 25mg Take 1 U nivers 25 mg 8-03 tablet by ity of tablet 00:00: mouth [place] 00 every 6 Medical (six) Branch hours as needed for Dizziness. meclizine 2021-0 Yes [id number] 25mg Take 1 U nivers 25 mg 8-03 tablet by ity of tablet 00:00: mouth [place] 00 every 6 Medical (six) Branch hours as needed for Dizziness. meclizine 2021-0 Yes [id number] 25mg Take 1 U nivers 25 mg 8-03 tablet by ity of tablet 00:00: mouth [place] 00 every 6 Medical (six) Branch hours as needed for Dizziness. meclizine 2021-0 Yes [id number] 25mg Take 1 U nivers 25 mg 8-03 tablet by ity of tablet 00:00: mouth [place] 00 every 6 Medical (six) Branch hours as needed for Dizziness. meclizine 2021-0 Yes [id number] 25mg Take 1 U nivers 25 mg 8-03 tablet by ity of tablet 00:00: mouth [place] 00 every 6 Medical (six) Branch hours as needed for Dizziness. meclizine 2021-0 Yes [id number] 25mg Take 1 U nivers 25 mg 8-03 tablet by ity of tablet 00:00: mouth [place] 00 every 6 Medical (six) Branch hours as needed for Dizziness. meclizine 2021-0 Yes [id number] 25mg Take 1 U nivers 25 mg 8-03 tablet by ity of tablet 00:00: mouth [place] 00 every 6 Medical (six) Branch hours as needed for Dizziness. blood sugar 2021- No Use to Uni vers diagnostic 06-21 check ity of (ONETOUCH 00:00: 00:00 blood [place] VERIO TEST 00 :00 sugar 4X Medic al STRIPS) daily. Branch strip DX:E10.65 blood sugar 2021- No Use to Uni vers diagnostic 06-21 check ity of (ONETOUCH 00:00: 00:00 blood [place] VERIO TEST 00 :00 sugar 4X Medic al STRIPS) daily. Branch strip DX:E10.65 fluconazole Yes [id number] Take 1 [facility] (DIFLUCAN) 7-21 tablet by ity of 150 mg 00:00: mouth [place] tablet 00 every 3 Medical days x 3 Branch doses fluconazole 2021-2021- No [id number] Take 1 [facility] (DIFLUCAN) 7-21 10-12 tablet by ity of 150 mg 00:00: 00:00 mouth [place] tablet 00 :00 every 3 Medical days x 3 Branch doses fluconazole 2021-2021- No [id number] Take 1 [facility] (DIFLUCAN) 7-21 10-12 tablet by ity of 150 mg 00:00: 00:00 mouth [place] tablet 00 :00 every 3 Medical days x 3 Branch doses fluconazole 2021-2021- No [id number] Take 1 [facility] (DIFLUCAN) 7-21 10-12 tablet by ity of 150 mg 00:00: 00:00 mouth [place] tablet 00 :00 every 3 Medical days x 3 Branch doses Insulin Yes [id number] INJECT 28 [facility] Glargine 7-16 UNITS ity of (LANTUS 00:00: SUBCUTANEO [place] SOLOSTAR 00 USLY AT Medical U-100 BEDTIME Branch INSULIN) 100 unit/mL (3 mL) injection lancets Yes [id number] Checking U nivers (ONETOUCH 7-16 upto 4 ity of DELICA PLUS 00:00: times [place] LANCET) 30 00 daily. Dx Medi rashid gauge Misc E10.65 Branch insulin Yes [id number] Take 1 Uni vers aspart 7-16 unit for 9 ity of U-100 00:00: grams [place] (NOVOLOG 00 carbs plus Medic al FLEXPEN 1 unit for Branch U-100 every 36 INSULIN) points > 100 unit/mL 130 up to (3 mL) 75 units injection daily lancets Yes [id number] Checking U nivers (ONETOUCH 7-16 upto 4 ity of DELICA PLUS 00:00: times [place] LANCET) 30 00 daily. Dx Medi rashid gauge Misc E10.65 Branch insulin Yes [id number] Take 1 Uni vers aspart 7-16 unit for 9 ity of U-100 00:00: grams [place] (NOVOLOG 00 carbs plus Medic al FLEXPEN 1 unit for Branch U-100 every 36 INSULIN) points > 100 unit/mL 130 up to (3 mL) 75 units injection daily lancets Yes [id number] Checking U nivers (ONETOUCH 7-16 upto 4 ity of DELICA PLUS 00:00: times [place] LANCET) 30 00 daily. Dx Medi rashid gauge Misc E10.65 Branch insulin Yes [id number] Take 1 Uni vers aspart 7-16 unit for 9 ity of U-100 00:00: grams [place] (NOVOLOG 00 carbs plus Medic al FLEXPEN 1 unit for Branch U-100 every 36 INSULIN) points > 100 unit/mL 130 up to (3 mL) 75 units injection daily lancets Yes [id number] Checking U nivers (ONETOUCH 7-16 upto 4 ity of DELICA PLUS 00:00: times [place] LANCET) 30 00 daily. Dx Medi rashid gauge Misc E10.65 Branch insulin 2021-0 Yes [id number] Take 1 Uni vers aspart 7-16 unit for 9 ity of U-100 00:00: grams [place] (NOVOLOG 00 carbs plus Medic al FLEXPEN 1 unit for Branch U-100 every 36 INSULIN) points > 100 unit/mL 130 up to (3 mL) 75 units injection daily lancets Yes [id number] Checking U nivers (ONETOUCH 7-16 upto 4 ity of DELICA PLUS 00:00: times [place] LANCET) 30 00 daily. Dx Medi rashid gauge Misc E10.65 Branch insulin Yes [id number] Take 1 Uni vers aspart 7-16 unit for 9 ity of U-100 00:00: grams [place] (NOVOLOG 00 carbs plus Medic al FLEXPEN 1 unit for Branch U-100 every 36 INSULIN) points > 100 unit/mL 130 up to (3 mL) 75 units injection daily lancets Yes [id number] Checking U nivers (ONETOUCH 7-16 upto 4 ity of DELICA PLUS 00:00: times [place] LANCET) 30 00 daily. Dx Medi rashid gauge Misc E10.65 Branch insulin 2021-0 Yes [id number] Take 1 Uni vers aspart 7-16 unit for 9 ity of U-100 00:00: grams [place] (NOVOLOG 00 carbs plus Medic al FLEXPEN 1 unit for Branch U-100 every 36 INSULIN) points > 100 unit/mL 130 up to (3 mL) 75 units injection daily lancets Yes [id number] Checking U nivers (ONETOUCH 7-16 upto 4 ity of DELICA PLUS 00:00: times [place] LANCET) 30 00 daily. Dx Medi rashid gauge Misc E10.65 Branch insulin 2021-0 Yes [id number] Take 1 Uni vers aspart 7-16 unit for 9 ity of U-100 00:00: grams [place] (NOVOLOG 00 carbs plus Medic al FLEXPEN 1 unit for Branch U-100 every 36 INSULIN) points > 100 unit/mL 130 up to (3 mL) 75 units injection daily lancets Yes [id number] Checking U nivers (ONETOUCH 7-16 upto 4 ity of DELICA PLUS 00:00: times [place] LANCET) 30 00 daily. Dx Medi rashid gauge Misc E10.65 Branch insulin Yes [id number] Take 1 Uni vers aspart 7-16 unit for 9 ity of U-100 00:00: grams [place] (NOVOLOG 00 carbs plus Medic al FLEXPEN 1 unit for Branch U-100 every 36 INSULIN) points > 100 unit/mL 130 up to (3 mL) 75 units injection daily lancets Yes [id number] Checking U nivers (ONETOUCH 7-16 upto 4 ity of DELICA PLUS 00:00: times [place] LANCET) 30 00 daily. Dx Medi rashid gauge Mis E10.65 Branch insulin Yes [id number] Take 1 Uni vers aspart 7-16 unit for 9 ity of U-100 00:00: grams [place] (NOVOLOG 00 carbs plus Medic al FLEXPEN 1 unit for Branch U-100 every 36 INSULIN) points > 100 unit/mL 130 up to (3 mL) 75 units injection daily lancets Yes [id number] Checking U nivers (ONETOUCH 7-16 upto 4 ity of DELICA PLUS 00:00: times [place] LANCET) 30 00 daily. Dx [facility] Branch insulin Yes [id number] Take 1 Uni vers aspart 7-16 unit for 9 ity of U-100 00:00: grams [place] (NOVOLOG 00 carbs plus Medic al FLEXPEN 1 unit for Branch U-100 every 36 INSULIN) points > 100 unit/mL 130 up to (3 mL) 75 units injection daily lancets Yes [id number] Checking U nivers (ONETOUCH 7-16 upto 4 ity of DELICA PLUS 00:00: times [place] LANCET) 30 00 daily. Dx Medi rashid gauge Misc E10.65 Branch insulin 2021- Yes [id number] Take 1 Uni vers aspart 7-16 unit for 9 ity of U-100 00:00: grams [place] (NOVOLOG 00 carbs plus Medic al FLEXPEN 1 unit for Branch U-100 every 36 INSULIN) points > 100 unit/mL 130 up to (3 mL) 75 units injection daily lancets Yes [id number] Checking U nivers (ONETOUCH 7-16 upto 4 ity of DELICA PLUS 00:00: times [place] LANCET) 30 00 daily. Dx Medi rashid gauge Misc E10.65 Branch insulin Yes [id number] Take 1 Uni vers aspart 7-16 unit for 9 ity of U-100 00:00: grams [place] (NOVOLOG 00 carbs plus Medic al FLEXPEN 1 unit for Branch U-100 every 36 INSULIN) points > 100 unit/mL 130 up to (3 mL) 75 units injection daily lancets Yes [id number] Checking U nivers (ONETOUCH 7-16 upto 4 ity of DELICA PLUS 00:00: times [place] LANCET) 30 00 daily. Dx Medi rashid gauge Misc E10.65 Branch insulin Yes [id number] Take 1 Uni vers aspart 7-16 unit for 9 ity of U-100 00:00: grams [place] (NOVOLOG 00 carbs plus Medic al FLEXPEN 1 unit for Branch U-100 every 36 INSULIN) points > 100 unit/mL 130 up to (3 mL) 75 units injection daily lancets Yes [id number] Checking U nivers (ONETOUCH 7-16 upto 4 ity of DELICA PLUS 00:00: times [place] LANCET) 30 00 daily. Dx Medi rashid gauge Misc E10.65 Branch insulin 2021-0 Yes [id number] Take 1 Uni vers aspart 7-16 unit for 9 ity of U-100 00:00: grams [place] (NOVOLOG 00 carbs plus Medic al FLEXPEN 1 unit for Branch U-100 every 36 INSULIN) points > 100 unit/mL 130 up to (3 mL) 75 units injection daily lancets Yes [id number] Checking U nivers (ONETOUCH 7-16 upto 4 ity of DELICA PLUS 00:00: times [place] LANCET) 30 00 daily. Dx Medi rashid gauge Misc E10.65 Branch insulin 2021- Yes [id number] Take 1 Uni vers aspart 7-16 unit for 9 ity of U-100 00:00: grams [place] (NOVOLOG 00 carbs plus Medic al FLEXPEN 1 unit for Branch U-100 every 36 INSULIN) points > 100 unit/mL 130 up to (3 mL) 75 units injection daily lancets Yes [id number] Checking U nivers (ONETOUCH 7-16 upto 4 ity of DELICA PLUS 00:00: times [place] LANCET) 30 00 daily. Dx Medi rashid gauge Misc E10.65 Branch insulin Yes [id number] Take 1 Uni vers aspart 7-16 unit for 9 ity of U-100 00:00: grams [place] (NOVOLOG 00 carbs plus Medic al FLEXPEN 1 unit for Branch U-100 every 36 INSULIN) points > 100 unit/mL 130 up to (3 mL) 75 units injection daily lancets Yes [id number] Checking U nivers (ONETOUCH 7-16 upto 4 ity of DELICA PLUS 00:00: times [place] LANCET) 30 00 daily. Dx Medi rashid gauge Misc E10.65 Branch insulin 2021- Yes [id number] Take 1 Uni vers aspart 7-16 unit for 9 ity of U-100 00:00: grams [place] (NOVOLOG 00 carbs plus Medic al FLEXPEN 1 unit for Branch U-100 every 36 INSULIN) points > 100 unit/mL 130 up to (3 mL) 75 units injection daily lancets Yes [id number] Checking U nivers (ONETOUCH 7-16 upto 4 ity of DELICA PLUS 00:00: times [place] LANCET) 30 00 daily. Dx Medi rashid gauge Misc E10.65 Branch insulin 2021- Yes [id number] Take 1 Uni vers aspart 7-16 unit for 9 ity of U-100 00:00: grams [place] (NOVOLOG 00 carbs plus Medic al FLEXPEN 1 unit for Branch U-100 every 36 INSULIN) points > 100 unit/mL 130 up to (3 mL) 75 units injection daily lancets Yes [id number] Checking U nivers (ONETOUCH 7-16 upto 4 ity of DELICA PLUS 00:00: times [place] LANCET) 30 00 daily. Dx Medi rashid gauge Misc E10.65 Branch insulin 2021- Yes [id number] Take 1 Uni vers aspart 7-16 unit for 9 ity of U-100 00:00: grams [place] (NOVOLOG 00 carbs plus Medic al FLEXPEN 1 unit for Branch U-100 every 36 INSULIN) points > 100 unit/mL 130 up to (3 mL) 75 units injection daily insulin 202-0 Yes [id number] Take 1 Uni vers aspart 7-16 unit for 9 ity of U-100 00:00: [place] (NOVOLOG 00 carbs plus Medic al FLEXPEN 1 unit for Branch U-100 every 36 INSULIN) points > 100 unit/mL 130 up to (3 mL) 75 units injection daily insulin 2021-0 Yes [id number] Take 1 Uni vers aspart 7-16 unit for 9 ity of U-100 00:00: [place] (NOVOLOG 00 carbs plus Medic al FLEXPEN 1 unit for Branch U-100 every 36 INSULIN) points > 100 unit/mL 130 up to (3 mL) 75 units injection daily insulin 2021-0 Yes [id number] Take 1 Uni vers aspart 7-16 unit for 9 ity of U-100 00:00: [facility] (NOVOLOG 00 carbs plus Medic al FLEXPEN 1 unit for Branch U-100 every 36 INSULIN) points > 100 unit/mL 130 up to (3 mL) 75 units injection daily insulin 2021-0 Yes [id number] Take 1 Uni vers aspart 7-16 unit for 9 ity of U-100 00:00: [facility] (NOVOLOG 00 carbs plus Medic al FLEXPEN 1 unit for Branch U-100 every 36 INSULIN) points > 100 unit/mL 130 up to (3 mL) 75 units injection daily insulin 2021-0 Yes [id number] Take 1 Uni vers aspart 7-16 unit for 9 ity of U-100 00:00: [facility] (NOVOLOG 00 carbs plus Medic al FLEXPEN 1 unit for Branch U-100 every 36 INSULIN) points > 100 unit/mL 130 up to (3 mL) 75 units injection daily insulin 2021-0 Yes [id number] Take 1 Uni vers aspart 7-16 unit for 9 ity of U-100 00:00: [facility] (NOVOLOG 00 carbs plus Medic al FLEXPEN 1 unit for Branch U-100 every 36 INSULIN) points > 100 unit/mL 130 up to (3 mL) 75 units injection daily insulin 2021-0 Yes [id number] Take 1 Uni vers aspart 7-16 unit for 9 ity of U-100 00:00: [facility] [place] (NOVOLOG 00 carbs plus Medic al FLEXPEN 1 unit for Branch U-100 every 36 INSULIN) points > 100 unit/mL 130 up to (3 mL) 75 units injection daily insulin 2022- No [id number] Take 1 Un juvenal aspart 06-0327 unit for 9 ity of U-100 00:00: 00:00 grams [place] (NOVOLOG 00 :00 carbs plus Medic al FLEXPEN 1 unit for Branch U-100 every 36 INSULIN) points > 100 unit/mL 130 up to (3 mL) 75 units injection daily lancets 2022- No [id number] Checking Univers (ONETOUCH 06-0315 upto 4 ity of DELICA PLUS 00:00: 00:00 [place] LANCET) 30 00 :00 daily. Dx Medi rashid gauge Misc E10.65 Branch lancets 2022- No [id number] Checking Univers (ONETOUCH 06-0315 upto 4 ity of DELICA PLUS 00:00: 00:00 [place] LANCET) 30 00 :00 daily. Dx Medi rashid gauge Misc E10.65 Branch Insulin 2021- No [id number] INJECT 28 [facility] Glargine 06-03 10-12 UNITS ity of (LANTUS 00:00: 00:00 SUBCUTANEO [place] SOLOSTAR 00 :00 USLY AT Medical U-100 BEDTIME Branch INSULIN) 100 unit/mL (3 mL) injection Insulin 2021- No [id number] INJECT 28 [facility] Glargine 06-03 10-12 UNITS ity of (LANTUS 00:00: 00:00 SUBCUTANEO [place] SOLOSTAR 00 :00 USLY AT Medical U-100 BEDTIME Branch INSULIN) 100 unit/mL (3 mL) injection Insulin 2021- No [id number] INJECT 28 [facility] Glargine 06-03 10-12 UNITS ity of (LANTUS 00:00: 00:00 SUBCUTANEO [place] SOLOSTAR 00 :00 USLY AT Medical U-100 BEDTIME Branch INSULIN) 100 unit/mL (3 mL) injection blood sugar 2021- No Use to Uni vers diagnostic 06-03 check ity of (CONTOUR 00:00: 00:00 blood [place] NEXT TEST 00 :00 glucose 4x Medi rashid STRIPS) daily. Dx: Branch strip E10.65 Insulin 2021-0 Yes [id number] Use as Uni vers [place], 6-30 directed ity of Disposable, 00:00: to inject [place] (PEN 00 insulin SQ Medical NEEDLE) 31 4-5 times Bran ch gauge x daily 04/03" N[place] Insulin 2021- No [id number] Use as Un juvenal [place], 6- 10-12 directed ity of Disposable, 00:00: 00:00 to inject [place] (PEN 00 :00 insulin SQ Medical NEEDLE) 31 4-5 times Bran ch gauge x daily 04/03" Ndle Insulin 2021- No [id number] Use as Un juvenal [place], - 10-12 directed ity of Disposable, 00:00: 00:00 to inject [place] (PEN 00 :00 insulin SQ Medical NEEDLE) 31 4-5 times Bran ch gauge x daily 04/03" Ndle Insulin 0 2021- No [id number] Use as Un juvenal [place], 05-18- directed ity of Disposable, 00:00: 00:00 to inject [place] (PEN 00 :00 insulin SQ Medical NEEDLE) 31 4-5 times Bran ch gauge x daily 04/03" Ndle Blood-Gluco 2021-0 Yes Use to Univ ers [...] Dx Me dical Misc E10.65 Branch Blood-Gluco 2022-0 Yes Use to Univ ers se Meter 4-28 check ity of (CONTOUR 00:00: blood [place] NEXT METER) 00 glucose Dx Me dical Misc E10.65 Branch Blood-Gluco 2022-0 Yes Use to Univ ers se Meter 4-28 check ity of (CONTOUR 00:00: blood [place] NEXT METER) 00 glucose Dx Me dical Misc E10.65 Branch Blood-Gluco 2022-0 Yes Use to Univ ers se Meter 4-28 check ity of (CONTOUR 00:00: blood [place] NEXT METER) 00 glucose Dx Me dical Misc E10.65 Branch Blood-Gluco 2022-0 Yes Use to Univ ers se Meter 4-28 check ity of (CONTOUR 00:00: blood [place] NEXT METER) 00 glucose Dx Me dical Misc E10.65 Branch Blood-Gluco 2022-0 Yes Use to Univ ers se Meter 4-28 check ity of (CONTOUR 00:00: blood [place] NEXT METER) 00 glucose Dx Me dical Misc E10.65 Branch Blood-Gluco 2022-0 Yes Use to Univ ers se Meter 4-28 check ity of (CONTOUR 00:00: blood [place] NEXT METER) 00 glucose Dx Me dical Misc E10.65 Branch Blood-Gluco 2022-0 Yes Use to Univ ers se Meter 4-28 check ity of (CONTOUR 00:00: blood [place] NEXT METER) 00 glucose Dx Me dical Misc E10.65 Branch Blood-Gluco 2022-0 Yes Use to Univ ers se Meter 4-28 check ity of (CONTOUR 00:00: blood [place] NEXT METER) 00 glucose Dx Me dical Misc E10.65 Branch Blood-Gluco 2022-0 Yes Use to Univ ers se Meter 4-28 check ity of (CONTOUR 00:00: blood [place] NEXT METER) 00 glucose Dx Me dical Misc E10.65 Branch Blood-Gluco 2022-0 Yes Use to Univ ers se Meter 4-28 check ity of (CONTOUR 00:00: blood [place] NEXT METER) 00 glucose Dx Me dical Misc E10.65 Branch Blood-Gluco 2022-0 Yes Use to Univ ers se Meter 4-28 check ity of (CONTOUR 00:00: blood [place] NEXT METER) 00 glucose Dx Me dical Misc E10.65 Branch Blood-Gluco 2022-0 Yes Use to Univ ers se Meter 4-28 check ity of (CONTOUR 00:00: blood [place] NEXT METER) 00 glucose Dx Me dical Misc E10.65 Branch Blood-Gluco 2022-0 Yes Use to Univ ers se Meter 4-28 check ity of (CONTOUR 00:00: blood [place] NEXT METER) 00 glucose Dx Me dical Misc E10.65 Branch Blood-Gluco 2022-0 Yes Use to Univ ers se Meter 4-28 check ity of (CONTOUR 00:00: blood [place] NEXT METER) 00 glucose Dx Me dical Misc E10.65 Branch Blood-Gluco 2022-0 Yes Use to Univ ers se Meter 4-28 check ity of (CONTOUR 00:00: blood [place] NEXT METER) 00 glucose Dx Me dical Misc E10.65 Branch Blood-Gluco 2022-0 Yes Use to Univ ers se Meter 4-28 check ity of (CONTOUR 00:00: blood [place] NEXT METER) 00 glucose Dx Me dical Misc E10.65 Branch Blood-Gluco 2022-0 Yes Use to Univ ers se Meter 4-28 check ity of (CONTOUR 00:00: blood [place] NEXT METER) 00 glucose Dx Me dical Misc E10.65 Branch Blood-Gluco 2022-0 Yes Use to Univ ers se Meter 4-28 check ity of (CONTOUR 00:00: blood [place] NEXT METER) 00 glucose Dx Me dical Misc E10.65 Branch Blood-Gluco 2022-0 Yes Use to Univ ers se Meter 4-28 check ity of (CONTOUR 00:00: blood [place] NEXT METER) 00 glucose Dx Me dical Misc E10.65 Branch Blood-Gluco 2022-0 Yes Use to Univ ers se Meter 4-28 check ity of (CONTOUR 00:00: blood [place] NEXT METER) 00 glucose Dx Me dical Misc E10.65 Branch Blood-Gluco 2022-0 Yes Use to Univ ers se Meter 4-28 check ity of (CONTOUR 00:00: blood [place] NEXT METER) 00 glucose Dx Me dical Misc E10.65 Branch Blood-Gluco 2022-0 Yes Use to Univ ers [...] dical Misc E10.65 Branch Blood-Gluco 2021-0 Yes [id number] Use as Univers se Sensor 4-04 directed ity of (DEXCOM G6 00:00: [place] SENSOR) 00 Medical Amanda Branch Blood-Gluco 2021-0 Yes [id number] Use as Univers se 4-04 directed ity of Transmitter 00:00: [place] (DEXCOM G6 00 Medical TRANSMITTER Branch ) Amanda Blood-Gluco 2021-0 Yes [id number] Use as Univers se 4-04 directed ity of Meter,[place] 00:00: [place] nuous 00 Medical (DEXCOM G6 Branch FOOD SERVICE ASSISTANT) Misc glucagon 2021-0 Yes [id number] 3mg Use 3 mg Univers (BAQSIMI) 3 4-04 in each ity o f mg/actuatio 00:00: nostril as [place] 00 needed for Medical Other Branch (emergency hypoglycem ia). Blood-Gluco 2021-0 Yes [id number] Use as Univers se Sensor 4-04 directed ity of (DEXCOM G6 00:00: [place] SENSOR) 00 Medical Amanda Branch Blood-Gluco 2021-0 Yes [id number] Use as Univers se 4-04 directed ity of Transmitter 00:00: [place] (DEXCOM G6 00 Medical TRANSMITTER Branch ) Amanda Blood-Gluco 202-0 Yes [id number] Use as Univers se 4-04 directed ity of Meter,[place] 00:00: [place] nuous 00 Medical (DEXCOM G6 Branch FOOD SERVICE ASSISTANT) Misc glucagon 2021-0 Yes [id number] 3mg Use 3 mg Univers (BAQSIMI) 3 4-04 in each ity o f mg/actuatio 00:00: nostril as [place] 00 needed for Medical Other Branch (emergency hypoglycem ia). Blood-Gluco 202-0 Yes [id number] Use as Univers se Sensor 4-04 directed ity of (DEXCOM G6 00:00: [place] SENSOR) 00 Medical Amanda Branch Blood-Gluco 2021-0 Yes [id number] Use as Univers se 4-04 directed ity of Transmitter 00:00: [place] (DEXCOM G6 00 Medical TRANSMITTER Branch ) Amanda Blood-Gluco 2021-0 Yes [id number] Use as Univers se 4-04 directed ity of Meter,[place] 00:00: [place] nuous 00 Medical (DEXCOM G6 Branch FOOD SERVICE ASSISTANT) Misc glucagon 2021-0 Yes [id number] 3mg Use 3 mg Univers (BAQSIMI) 3 4-04 in each ity o f mg/actuatio 00:00: nostril as [place] 00 needed for Medical Other Branch (emergency hypoglycem ia). Blood-Gluco 2021-0 Yes [id number] Use as Univers se Sensor 4-04 directed ity of (DEXCOM G6 00:00: [place] SENSOR) 00 Medical Amanda Branch Blood-Gluco 2021-0 Yes [id number] Use as Univers se 4-04 directed ity of Transmitter 00:00: [place] (DEXCOM G6 00 Medical TRANSMITTER Branch ) Amanda Blood-Gluco 2021-0 Yes [id number] Use as Univers se 4-04 directed ity of Meter,[place] 00:00: [place] nuous 00 Medical (DEXCOM G6 Branch FOOD SERVICE ASSISTANT) Misc glucagon 2021-0 Yes [id number] 3mg Use 3 mg Univers (BAQSIMI) 3 4-04 in each ity o f mg/actuatio 00:00: nostril as [place] 00 needed for Medical Other Branch (emergency hypoglycem ia). Blood-Gluco 2021-0 Yes [id number] Use as Univers se Sensor 4-04 directed ity of (DEXCOM G6 00:00: [place] SENSOR) 00 Medical Amanda Branch Blood-Gluco 202-0 Yes [id number] Use as Univers se 4-04 directed ity of Transmitter 00:00: [place] (DEXCOM G6 00 Medical TRANSMITTER Branch ) Amanda Blood-Gluco 2021-0 Yes [id number] Use as Univers se 4-04 directed ity of Meter,[place] 00:00: [place] nuous 00 Medical (DEXCOM G6 Branch FOOD SERVICE ASSISTANT) Misc glucagon 2021-0 Yes [id number] 3mg Use 3 mg Univers (BAQSIMI) 3 4-04 in each ity o f mg/actuatio 00:00: nostril as [place] 00 needed for Medical Other Branch (emergency hypoglycem ia). Blood-Gluco 202-0 Yes [id number] Use as Univers se Sensor 4-04 directed ity of (DEXCOM G6 00:00: [place] SENSOR) 00 Medical Amanda Branch Blood-Gluco 2021-0 Yes [id number] Use as Univers se 4-04 directed ity of Transmitter 00:00: [place] (DEXCOM G6 00 Medical TRANSMITTER Branch ) Amanda Blood-Gluco 2021-0 Yes [id number] Use as Univers se 4-04 directed ity of Meter,[place] 00:00: [place] nuous 00 Medical (DEXCOM G6 Branch FOOD SERVICE ASSISTANT) Misc glucagon 2021-0 Yes [id number] 3mg Use 3 mg Univers (BAQSIMI) 3 4-04 in each ity o f mg/actuatio 00:00: nostril as [place] 00 needed for Medical Other Branch (emergency hypoglycem ia). Blood-Gluco 2021-0 Yes [id number] Use as Univers se Sensor 4-04 directed ity of (DEXCOM G6 00:00: [place] SENSOR) 00 Medical Amanda Branch Blood-Gluco 2021-0 Yes [id number] Use as Univers se 4-04 directed ity of Transmitter 00:00: [place] (DEXCOM G6 00 Medical TRANSMITTER Branch ) Amanda Blood-Gluco 2021-0 Yes [id number] Use as Univers se 4-04 directed ity of Meter,[place] 00:00: [place] nuous 00 Medical (DEXCOM G6 Branch FOOD SERVICE ASSISTANT) Misc glucagon 2021-0 Yes [id number] 3mg Use 3 mg Univers (BAQSIMI) 3 4-04 in each ity o f mg/actuatio 00:00: nostril as [place] n [place] 00 needed for Medical Other Branch (emergency hypoglycem ia). Blood-Gluco 202-0 Yes [id number] Use as Univers se Sensor 4-04 directed ity of (DEXCOM G6 00:00: [place] SENSOR) 00 Medical Amanda Branch Blood-Gluco 2021-0 Yes [id number] Use as Univers se 4-04 directed ity of Transmitter 00:00: [place] (DEXCOM G6 00 Medical TRANSMITTER Branch ) Amanda Blood-Gluco 2021-0 Yes [id number] Use as Univers se 4-04 directed ity of Meter,[place] 00:00: [place] nuous 00 Medical (DEXCOM G6 Branch FOOD SERVICE ASSISTANT) Misc glucagon 2021-0 Yes [id number] 3mg Use 3 mg Univers (BAQSIMI) 3 4-04 in each ity o f mg/actuatio 00:00: nostril as [place] n [place] 00 needed for Medical Other Branch (emergency hypoglycem ia). Blood-Gluco 2021-0 Yes [id number] Use as Univers se Sensor 4-04 directed ity of (DEXCOM G6 00:00: [place] SENSOR) 00 Medical Amanda Branch Blood-Gluco 2021-0 Yes [id number] Use as Univers se 4-04 directed ity of Transmitter 00:00: [place] (DEXCOM G6 00 Medical TRANSMITTER Branch ) Amanda Blood-Gluco 2021-0 Yes [id number] Use as Univers se 4-04 directed ity of Meter,[place] 00:00: [place] nuous 00 Medical (DEXCOM G6 Branch FOOD SERVICE ASSISTANT) Misc glucagon 2021-0 Yes [id number] 3mg Use 3 mg Univers (BAQSIMI) 3 4-04 in each ity o f mg/actuatio 00:00: nostril as [place] 00 needed for Medical Other Branch (emergency hypoglycem ia). Blood-Gluco 2021-0 Yes [id number] Use as Univers se Sensor 4-04 directed ity of (DEXCOM G6 00:00: [place] SENSOR) 00 Medical Amanda Branch Blood-Gluco 202-0 Yes [id number] Use as Univers se 4-04 directed ity of Transmitter 00:00: [place] (DEXCOM G6 00 Medical TRANSMITTER Branch ) Amanda Blood-Gluco 202-0 Yes [id number] Use as Univers se 4-04 directed ity of Meter,[place] 00:00: [place] nuous 00 Medical (DEXCOM G6 Branch FOOD SERVICE ASSISTANT) Misc glucagon 2021-0 Yes [id number] 3mg Use 3 mg Univers (BAQSIMI) 3 4-04 in each ity o f mg/actuatio 00:00: nostril as [place] 00 needed for Medical Other Branch (emergency hypoglycem ia). Blood-Gluco 202-0 Yes [id number] Use as [facility] se Sensor 4-04 directed ity of (DEXCOM G6 00:00: [place] SENSOR) 00 [facility] Blood-Gluco 202-0 Yes [id number] Use as Univers se 4-04 directed ity of Transmitter 00:00: [place] (DEXCOM G6 00 Medical TRANSMITTER Branch ) Amanda Blood-Gluco 2021-0 Yes [id number] Use as Univers se 4-04 directed ity of [place] 00:00: [place] nuous 00 Medical (DEXCOM G6 Branch FOOD SERVICE ASSISTANT) Misc glucagon 2021-0 Yes [id number] 3mg Use 3 mg Univers (BAQSIMI) 3 4-04 in each ity o f mg/actuatio 00:00: nostril as [place] 00 needed for Medical Other Branch (emergency hypoglycem ia). Blood-Gluco 2021-0 Yes [id number] Use as Univers se Sensor 4-04 directed ity of (DEXCOM G6 00:00: [place] SENSOR) 00 [facility] Blood-Gluco 2021-0 Yes [id number] Use as [facility] se 4-04 directed ity of Transmitter 00:00: [place] (DEXCOM G6 00 Medical TRANSMITTER Branch ) Amanda Blood-Gluco 2021-0 Yes [id number] Use as Univers se 4-04 directed ity of [place] 00:00: [place] nuous 00 Medical (DEXCOM G6 Branch FOOD SERVICE ASSISTANT) Misc glucagon 2021-0 Yes [id number] 3mg Use 3 mg [facility] (BAQSIMI) 3 4-04 in each ity o f mg/actuatio 00:00: nostril as [place] 00 needed for Medical Other Branch (emergency hypoglycem ia). Blood-Gluco 202-0 Yes [id number] Use as Univers se Sensor 4-04 directed ity of (DEXCOM G6 00:00: [place] SENSOR) 00 [facility] Blood-Gluco 2022-0 Yes [id number] Use as Univers se 4-04 directed ity of Transmitter 00:00: [place] (DEXCOM G6 00 Medical TRANSMITTER Branch ) Amanda Blood-Gluco 0 Yes [id number] Use as Univers se 4-04 directed ity of [place] 00:00: [place] nuous 00 Medical (DEXCOM G6 Branch FOOD SERVICE ASSISTANT) Misc glucagon 2021-0 Yes [id number] 3mg Use 3 mg Univers (BAQSIMI) 3 4-04 in each ity o f mg/actuatio 00:00: nostril as [place] 00 needed for Medical Other Branch (emergency hypoglycem ia). Blood-Gluco 2021-0 Yes [id number] Use as [facility] se Sensor 4-04 directed ity of (DEXCOM G6 00:00: [place] SENSOR) 00 [facility] Blood-Gluco 2021-0 Yes [id number] Use as [facility] se 4-04 directed ity of Transmitter 00:00: [place] (DEXCOM G6 00 Medical TRANSMITTER Branch ) Amanda Blood-Gluco 2021-0 Yes [id number] Use as [facility] se 4-04 directed ity of [place] 00:00: [place] nuous 00 Medical (DEXCOM G6 Branch FOOD SERVICE ASSISTANT) Misc glucagon 2021-0 Yes [id number] 3mg Use 3 mg [facility] (BAQSIMI) 3 4-04 in each ity o f mg/actuatio 00:00: nostril as [place] 00 needed for Medical Other Branch (emergency hypoglycem ia). Blood-Gluco 0 Yes [id number] Use as [facility] se Sensor 4-04 directed ity of (DEXCOM G6 00:00: [place] SENSOR) 00 [facility] Blood-Gluco 2021-0 Yes [id number] Use as [facility] se 4-04 directed ity of Transmitter 00:00: [place] (DEXCOM G6 00 Medical TRANSMITTER Branch ) Amanda Blood-Gluco 2021-0 Yes [id number] Use as [facility] se 4-04 directed ity of [place] 00:00: [place] nuous 00 Medical (DEXCOM G6 Branch FOOD SERVICE ASSISTANT) Misc glucagon 2021-0 Yes [id number] 3mg Use 3 mg Univers (BAQSIMI) 3 4-04 in each ity o f mg/actuatio 00:00: nostril as [place] 00 needed for Medical Other Branch (emergency hypoglycem ia). Blood-Gluco 2021-0 Yes [id number] Use as [facility] se Sensor 4-04 directed ity of (DEXCOM G6 00:00: [place] SENSOR) 00 [facility] Blood-Gluco 2021-0 Yes [id number] Use as [facility] se 4-04 directed ity of Transmitter 00:00: [place] (DEXCOM G6 00 Medical TRANSMITTER Branch ) Amanda Blood-Gluco 2021-0 Yes [id number] Use as [facility] se 4-04 directed ity of [place] 00:00: [place] nuous 00 Medical (DEXCOM G6 Branch FOOD SERVICE ASSISTANT) Misc glucagon 2021-0 Yes [id number] 3mg Use 3 mg [facility] (BAQSIMI) 3 4-04 in each ity o f mg/actuatio 00:00: nostril as [place] 00 needed for Medical Other Branch (emergency hypoglycem ia). Blood-Gluco 2021-0 Yes [id number] Use as [facility] se Sensor 4-04 directed ity of (DEXCOM G6 00:00: [place] SENSOR) 00 [facility] Blood-Gluco 2021-0 Yes [id number] Use as Univers se 4-04 directed ity of Transmitter 00:00: [place] (DEXCOM G6 00 Medical TRANSMITTER Branch ) Amanda Blood-Gluco 2021-0 Yes [id number] Use as [facility] se 4-04 directed ity of [place] 00:00: [place] nuous 00 Medical (DEXCOM G6 Branch FOOD SERVICE ASSISTANT) Misc glucagon 2021-0 Yes [id number] 3mg Use 3 mg [facility] (BAQSIMI) 3 4-04 in each ity o f mg/actuatio 00:00: nostril as [place] 00 needed for Medical Other Branch (emergency hypoglycem ia). Blood-Gluco 2021-0 Yes [id number] Use as [facility] se Sensor 4-04 directed ity of (DEXCOM G6 00:00: [place] SENSOR) 00 [facility] Blood-Gluco 202-0 Yes [id number] Use as [facility] se 4-04 directed ity of Transmitter 00:00: [place] (DEXCOM G6 00 Medical TRANSMITTER Branch ) Amanda Blood-Gluco 202-0 Yes [id number] Use as [facility] se 4-04 directed ity of [place] 00:00: [place] nuous 00 Medical (DEXCOM G6 Branch FOOD SERVICE ASSISTANT) Misc glucagon 2021-0 Yes [id number] 3mg Use 3 mg [facility] (BAQSIMI) 3 4-04 in each ity o f mg/actuatio 00:00: nostril as [place] [facility] [place] 00 needed for Medical Other Branch (emergency hypoglycem ia). Blood-Gluco Yes [id number] Use as [facility] se Sensor 4-04 directed ity of (DEXCOM G6 00:00: [place] SENSOR) 00 [facility] Blood-Gluco Yes [id number] Use as [facility] se 4-04 directed ity of Transmitter 00:00: [place] (DEXCOM G6 00 Medical TRANSMITTER Branch ) Amanda Blood-Gluco Yes [id number] Use as [facility] se 4-04 directed ity of [place] 00:00: [place] nuous 00 Medical (DEXCOM G6 Branch FOOD SERVICE ASSISTANT) Misc glucagon Yes [id number] 3mg Use 3 mg [facility] (BAQSIMI) 3 4-04 in each ity o f mg/actuatio 00:00: nostril as [place] [facility] [place] 00 needed for Medical Other Branch (emergency hypoglycem ia). glucagon Yes [id number] 3mg Use 3 mg [facility] (BAQSIMI) 3 4-04 in each ity o f mg/actuatio 00:00: nostril as [place] [facility] [place] 00 needed for Medical Other Branch (emergency hypoglycem ia). glucagon Yes [id number] 3mg Use 3 mg [facility] (BAQSIMI) 3 4-04 in each ity o f mg/actuatio 00:00: nostril as [place] [facility] [place] 00 needed for Medical Other Branch (emergency hypoglycem ia). glucagon Yes [id number] 3mg Use 3 mg [facility] (BAQSIMI) 3 4-04 in each ity o f mg/actuatio 00:00: nostril as [place] [facility] [place] 00 needed for Medical Other Branch (emergency hypoglycem ia). glucagon Yes [id number] 3mg Use 3 mg [facility] (BAQSIMI) 3 4-04 in each ity o f mg/actuatio 00:00: nostril as [place] 00 needed for Medical Other Branch (emergency hypoglycem ia). glucagon Yes [id number] 3mg Use 3 mg [facility] (BAQSIMI) 3 4-04 in each ity o f mg/actuatio 00:00: nostril as [place] 00 needed for Medical Other Branch (emergency hypoglycem ia). glucagon Yes [id number] 3mg Use 3 mg [facility] (BAQSIMI) 3 4-04 in each ity o f mg/actuatio 00:00: nostril as [place] [facility] [place] 00 needed for Medical Other Branch (emergency hypoglycem ia). glucagon Yes [id number] 3mg Use 3 mg [facility] (BAQSIMI) 3 4-04 in each ity o f mg/actuatio 00:00: nostril as [place] [facility] [place] 00 needed for Medical Other Branch (emergency hypoglycem ia). glucagon Yes [id number] 3mg Use 3 mg [facility] (BAQSIMI) 3 4-04 in each ity o f mg/actuatio 00:00: nostril as [place] [facility] [place] 00 needed for Medical Other Branch (emergency hypoglycem ia). glucagon Yes [id number] 3mg Use 3 mg [facility] (BAQSIMI) 3 4-04 in each ity o f mg/actuatio 00:00: nostril as [place] 00 needed for Medical Other Branch (emergency hypoglycem ia). glucagon Yes [id number] 3mg Use 3 mg [facility] (BAQSIMI) 3 4-04 in each ity o f mg/actuatio 00:00: nostril as [place] 00 needed for Medical Other Branch (emergency hypoglycem ia). glucagon Yes [id number] 3mg Use 3 mg [facility] (BAQSIMI) 3 4-04 in each ity o f mg/actuatio 00:00: nostril as [place] 00 needed for Medical Other Branch (emergency hypoglycem ia). Blood-Gluco 2022- No [id number] Use as Univers se Sensor 4- 02-15 directed ity o f (DEXCOM G6 00:00: 00:00 [place] SENSOR) 00 :00 [facility] Blood-Gluco 2022- No [id number] Use as [facility] se 02-20 directed ity of Transmitter 00:00: 00:00 [place] (DEXCOM G6 00 :00 Medical TRANSMITTER Branch ) Amanda Blood-Gluco 2021-0 2022- No [id number] Use as Univers se 02-20 directed ity of [place] 00:00: 00:00 [place] nuous 00 :00 Medical (DEXCOM G6 Branch FOOD SERVICE ASSISTANT) Misc Blood-Gluco 2022- No [id number] Use as Univers se Sensor 02-20 directed ity o f (DEXCOM G6 00:00: 00:00 [place] SENSOR) 00 :00 [facility] Blood-Gluco 2021-0 2022- No [id number] Use as Univers se 02-20 directed ity of Transmitter 00:00: 00:00 [place] (DEXCOM G6 00 :00 Medical TRANSMITTER Branch ) Amanda Blood-Gluco 0 2022- No [id number] Use as Univers se 02-20 directed ity of [place] 00:00: 00:00 [place] nuous 00 :00 Medical (DEXCOM G6 Branch FOOD SERVICE ASSISTANT) Misc Immunizations Ordered Immunization Filled Date Status Comments Sour ce Name Immunization Name Meningococcal B, OMV 2021-12-29 Completed Univ ersity of 00:00:00 [place] [facility] Meningococcal B, OMV 2021-12-29 Completed Univ ersity of 00:00:00 [place] [facility] Meningococcal B, OMV 2021-12-29 Completed Univ ersity of 00:00:00 [place] [facility] Meningococcal B, OMV 2021-12-29 Completed Univ ersity of 00:00:00 [place] [facility] Meningococcal B, OMV 2021-12-29 Completed Univ ersity of 00:00:00 [place] [facility] Meningococcal B, OMV 2021-12-29 Completed Univ ersity of 00:00:00 [place] [facility] Meningococcal B, OMV 2021-12-29 Completed Univ ersity of 00:00:00 [place] [facility] Meningococcal B, OMV 2021-12-29 Completed Univ ersity of 00:00:00 [place] [facility] Meningococcal B, OMV 2021-12-29 Completed Univ ersity of 00:00:00 [place] [facility] Meningococcal B, OMV 2021-12-29 Completed Univ ersity of 00:00:00 [place] [facility] Meningococcal B, OMV 2021-12-29 Completed Univ ersity of 00:00:00 [place] [facility] Meningococcal B, OMV 2021-12-29 Completed Univ ersity of 00:00:00 [place] [facility] Meningococcal B, OMV 2021-12-29 Completed Univ ersity of 00:00:00 [place] [facility] Meningococcal B, OMV 2021-12-29 Completed Univ ersity of 00:00:00 [place] [facility] Meningococcal B, OMV 2021-12-29 Completed Univ ersity of 00:00:00 [place] [facility] Meningococcal B, OMV 2021-12-29 Completed Univ ersity of 00:00:00 [place] [facility] Meningococcal B, OMV 2021-12-29 Completed Univ ersity of 00:00:00 [place] [facility] Meningococcal B, OMV 2021-12-29 Completed Univ ersity of 00:00:00 [place] [facility] Meningococcal B, OMV 2021-12-29 Completed Univ ersity of 00:00:00 [place] [facility] Meningococcal B, OMV 2021-12-29 Completed Univ ersity of 00:00:00 [place] [facility] Meningococcal B, OMV 2021-12-29 Completed Univ ersity of 00:00:00 [place] [facility] Meningococcal B, OMV 2021-12-29 Completed Univ ersity of 00:00:00 [place] [facility] Meningococcal B, OMV 2021-12-29 Completed Univ ersity of 00:00:00 [place] [facility] Meningococcal B, OMV 2021-12-29 Completed Univ ersity of 00:00:00 [place] [facility] Meningococcal B, OMV 2021-12-29 Completed Univ ersity of 00:00:00 [place] [facility] Meningococcal B, OMV 2021-12-29 Completed Univ ersity of 00:00:00 [place] [facility] Meningococcal B, OMV 2021-12-29 Completed Univ ersity of 00:00:00 [place] [facility] Meningococcal B, OMV 2021-12-29 Completed Univ ersity of 00:00:00 [place] [facility] Meningococcal B, OMV 2021-12-29 Completed Univ ersity of 00:00:00 [place] [facility] Meningococcal B, OMV 2021-12-29 Completed Univ ersity of 00:00:00 [facility] Pneumococcal 2019-09-25 Completed University o f Polysaccharide, PPSV23 00:00:00 [facility] (PNEUMOVAX) Branch Pneumococcal 2019-09-25 Completed [facility] o f Polysaccharide, PPSV23 00[facility]00:00 [facility] (PNEUM[facility] Pneumococcal 2019-09-25 Completed University o f Polysaccharide, PPSV23 00:00:00 [facility] (PNEUMOVAX) Branch Pneumococcal 2019-09-25 Completed University o f Polysaccharide, PPSV23 00:00:00 [facility] (PNEUMOVAX) Branch Pneumococcal 2019-09-25 Completed University o f Polysaccharide, PPSV23 00:00:00 [facility] (PNEUMOVAX) Branch Pneumococcal 2019-09-25 Completed University o f Polysaccharide, PPSV23 00:00:00 [facility] (PNEUMOVAX) Branch Pneumococcal 2019-09-25 Completed University o f Polysaccharide, PPSV23 00:00:00 [facility] (PNEUMOVAX) Branch Pneumococcal 2019-09-25 Completed University o f Polysaccharide, PPSV23 00:00:00 [facility] (PNEUMOVAX) Branch Pneumococcal 2019-09-25 Completed University o f Polysaccharide, PPSV23 00:00:00 [facility] (PNEUMOVAX) Branch Pneumococcal 2019-09-25 Completed University o f Polysaccharide, PPSV23 00:00:00 [facility] (PNEUMOVAX) Branch Pneumococcal 2019-09-25 Completed University o f Polysaccharide, PPSV23 00:00:00 [facility] (PNEUMOVAX) Branch Pneumococcal 2019-09-25 Completed University o f Polysaccharide, PPSV23 00:00:00 [facility] (PNEUMOVAX) Branch Pneumococcal 2019-09-25 Completed University o f Polysaccharide, PPSV23 00:00:00 [facility] (PNEUMOVAX) Branch Pneumococcal 2019-09-25 Completed University o f Polysaccharide, PPSV23 00:00:00 [facility] (PNEUMOVAX) Branch Pneumococcal 2019-09-25 Completed University o f Polysaccharide, PPSV23 00:00:00 [facility] (PNEUMOVAX) Branch Pneumococcal 2019-09-25 Completed University o f Polysaccharide, PPSV23 00:00:00 [facility] (PNEUMOVAX) Branch Pneumococcal 2019-09-25 Completed University o f Polysaccharide, PPSV23 00:00:00 [facility] (PNEUMOVAX) Branch Pneumococcal 2019-09-25 Completed University o f Polysaccharide, PPSV23 00:00:00 [facility] (PNEUMOVAX) Branch Pneumococcal 2019-09-25 Completed University o f Polysaccharide, PPSV23 00:00:00 [facility] (PNEUMOVAX) Branch Pneumococcal 2019-09-25 Completed University o f Polysaccharide, PPSV23 00:00:00 [facility] (PNEUMOVAX) Branch Pneumococcal 2019-09-25 Completed University o f Polysaccharide, PPSV23 00:00:00 [facility] (PNEUMOVAX) Branch Pneumococcal 2019-09-25 Completed University o f Polysaccharide, PPSV23 00:00:00 [facility] (PNEUMOVAX) Branch Pneumococcal 2019-09-25 Completed University o f Polysaccharide, PPSV23 00:00:00 [facility] (PNEUMOVAX) Branch Pneumococcal 2019-09-25 Completed University o f Polysaccharide, PPSV23 00:00:00 [facility] (PNEUMOVAX) Branch Pneumococcal 2019-09-25 Completed University o f Polysaccharide, PPSV23 00:00:00 [facility] (PNEUMOVAX) Branch Pneumococcal 2019-09-25 Completed University o f Polysaccharide, PPSV23 00:00:00 [facility] (PNEUMOVAX) Branch Pneumococcal 2019-09-25 Completed University o f Polysaccharide, PPSV23 00:00:00 [facility] (PNEUMOVAX) Branch Pneumococcal 2019-09-25 Completed University o f Polysaccharide, PPSV23 00:00:00 [facility] (PNEUMOVAX) Branch Pneumococcal 2019-09-25 Completed University o f Polysaccharide, PPSV23 00:00:00 [facility] (PNEUMOVAX) Branch Pneumococcal 2019-09-25 Completed University o f Polysaccharide, PPSV23 00:00:00 [facility] (PNEUMOVAX) Branch Meningococcal 2018-02-25 Completed University of Oligosaccharide 00:00:00 [place] [facility] (groups A, C, Y and Branc h W-135) conjugate vaccine (MCV4O) Meningococcal 2018-02-25 Completed University of Oligosaccharide 00:00:00 [place] [facility] (groups A, C, Y and Branc h W-135) conjugate vaccine (MCV4O) Meningococcal 2018-02-25 Completed University of Oligosaccharide 00:00:00 [place] [facility] (groups A, C, Y and Branc h W-135) conjugate vaccine (MCV4O) Meningococcal 2018-02-25 Completed University of Oligosaccharide 00:00:00 [place] [facility] (groups A, C, Y and Branc h W-135) conjugate vaccine (MCV4O) Meningococcal 2018-02-25 Completed University of Oligosaccharide 00:00:00 [place] [facility] (groups A, C, Y and Branc h W-135) conjugate vaccine (MCV4O) Meningococcal 2018-02-25 Completed University of Oligosaccharide 00:00:00 [place] [facility] ical (groups A, C, Y and Branc h W-135) conjugate vaccine (MCV4O) Meningococcal 2018-02-25 Completed University of Oligosaccharide 00:00:00 [place] [facility] ical (groups A, C, Y and Branc h W-135) conjugate vaccine (MCV4O) Meningococcal 2018-02-25 Completed University of Oligosaccharide 00:00:00 [place] [facility] ical (groups A, C, Y and Branc h W-135) conjugate vaccine (MCV4O) Meningococcal 2018-02-25 Completed University of Oligosaccharide 00:00:00 [place] [facility] ical (groups A, C, Y and Branc h W-135) conjugate vaccine (MCV4O) Meningococcal 2018-02-25 Completed University of Oligosaccharide 00:00:00 [place] [facility] ical (groups A, C, Y and Branc h W-135) conjugate vaccine (MCV4O) Meningococcal 2018-02-25 Completed University of Oligosaccharide 00:00:00 [place] [facility] ical (groups A, C, Y and Branc h W-135) conjugate vaccine (MCV4O) Meningococcal 2018-02-25 Completed University of Oligosaccharide 00:00:00 [place] [facility] ical (groups A, C, Y and Branc h W-135) conjugate vaccine (MCV4O) Meningococcal 2018-02-25 Completed University of Oligosaccharide 00:00:00 [place] [facility] ical (groups A, C, Y and Branc h W-135) conjugate vaccine (MCV4O) Meningococcal 2018-02-25 Completed University of Oligosaccharide 00:00:00 [place] [facility] ical (groups A, C, Y and Branc h W-135) conjugate vaccine (MCV4O) Meningococcal 2018-02-25 Completed University of Oligosaccharide 00:00:00 [place] [facility] ical (groups A, C, Y and Branc h W-135) conjugate vaccine (MCV4O) Meningococcal 2018-02-25 Completed University of Oligosaccharide 00:00:00 [place] [facility] ical (groups A, C, Y and Branc h W-135) conjugate vaccine (MCV4O) Meningococcal 2018-02-25 Completed University of Oligosaccharide 00:00:00 [place] [facility] ical (groups A, C, Y and Branc h W-135) conjugate vaccine (MCV4O) Meningococcal 2018-02-25 Completed University of Oligosaccharide 00:00:00 [place] [facility] ical (groups A, C, Y and Branc h W-135) conjugate vaccine (MCV4O) Meningococcal 2018-02-25 Completed University of Oligosaccharide 00:00:00 [place] [facility] ical (groups A, C, Y and Branc h W-135) conjugate vaccine (MCV4O) Meningococcal 2018-02-25 Completed University of Oligosaccharide 00:00:00 [place] [facility] ical (groups A, C, Y and Branc h W-135) conjugate vaccine (MCV4O) Meningococcal 2018-02-25 Completed University of Oligosaccharide 00:00:00 [place] [facility] ical (groups A, C, Y and Branc h W-135) conjugate vaccine (MCV4O) Meningococcal 2018-02-25 Completed University of Oligosaccharide 00:00:00 [place] [facility] ical (groups A, C, Y and Branc h W-135) conjugate vaccine (MCV4O) Meningococcal 2018-02-25 Completed University of Oligosaccharide 00:00:00 [place] [facility] (groups A, C, Y and Branc h W-135) conjugate vaccine (MCV4O) Meningococcal 2018-02-25 Completed University of Oligosaccharide 00:00:00 [place] [facility] ical (groups A, C, Y and Branc h W-135) conjugate vaccine (MCV4O) Meningococcal 2018-02-25 Completed University of Oligosaccharide 00:00:00 [place] [facility] ical (groups A, C, Y and Branc h W-135) conjugate vaccine (MCV4O) Meningococcal 2018-02-25 Completed University of Oligosaccharide 00:00:00 [place] [facility] ical (groups A, C, Y and Branc h W-135) conjugate vaccine (MCV4O) Meningococcal 2018-02-25 Completed University of Oligosaccharide 00:00:00 [place] [facility] ical (groups A, C, Y and Branc h W-135) conjugate vaccine (MCV4O) Meningococcal 2018-02-25 Completed University of Oligosaccharide 00:00:00 [place] [facility] ical (groups A, C, Y and Branc h W-135) conjugate vaccine (MCV4O) Meningococcal 2018-02-25 Completed University of Oligosaccharide 00:00:00 [place] [facility] (groups A, C, Y and Branc h W-135) conjugate vaccine (MCV4O) Meningococcal 2018-02-25 Completed University of Oligosaccharide 00:00:00 [place] [facility] (groups A, C, Y and Branc h W-135) conjugate vaccine (MCV4O) HPV9 2016-08-15 Completed University of 00:00:00 [facility] [place] [facility] Branch HPV 2016-08-15 Completed University of 00:00:00 [place] [facility] HPV9 2016-08-15 Completed University of 00:00:00 [place] [facility] HPV 2016-08-15 Completed University of 00:00:00 [place] [facility] HPV9 2016-08-15 Completed University of 00:00:00 [place] [facility] HPV 2016-08-15 Completed University of 00:00:00 [place] [facility] HPV9 2016-08-15 Completed University of 00:00:00 [place] [facility] HPV 2016-08-15 Completed University of 00:00:00 [place] [facility] HPV9 2016-08-15 Completed University of 00:00:00 [place] [facility] HPV 2016-08-15 Completed University of 00:00:00 [place] [facility] HPV9 2016-08-15 Completed University of 00:00:00 [place] [facility] HPV 2016-08-15 Completed University of 00:00:00 [place] [facility] HPV9 2016-08-15 Completed University of 00:00:00 [place] [facility] HPV 2016-08-15 Completed University of 00:00:00 [place] [facility] HPV9 2016-08-15 Completed University of 00:00:00 [place] [facility] HPV 2016-08-15 Completed University of 00:00:00 [place] [facility] HPV9 2016-08-15 Completed University of 00:00:00 [place] [facility] HPV 2016-08-15 Completed University of 00:00:00 [place] [facility] HPV9 2016-08-15 Completed University of 00:00:00 [place] [facility] HPV 2016-08-15 Completed University of 00:00:00 [place] [facility] HPV9 2016-08-15 Completed University of 00:00:00 [place] [facility] HPV 2016-08-15 Completed University of 00:00:00 [place] [facility] HPV9 2016-08-15 Completed University of 00:00:00 [place] [facility] HPV 2016-08-15 Completed University of 00:00:00 [place] [facility] HPV9 2016-08-15 Completed University of 00:00:00 [place] [facility] HPV 2016-08-15 Completed University of 00:00:00 [place] [facility] HPV9 2016-08-15 Completed University of 00:00:00 [place] [facility] HPV 2016-08-15 Completed University of 00:00:00 [place] [facility] HPV9 2016-08-15 Completed University of 00:00:00 [place] [facility] HPV 2016-08-15 Completed University of 00:00:00 [place] [facility] HPV9 2016-08-15 Completed University of 00:00:00 [place] [facility] HPV 2016-08-15 Completed University of 00:00:00 [place] [facility] HPV9 2016-08-15 Completed University of 00:00:00 [place] [facility] HPV 2016-08-15 Completed University of 00:00:00 [place] [facility] HPV9 2016-08-15 Completed University of 00:00:00 [place] [facility] HPV 2016-08-15 Completed University of 00:00:00 [place] [facility] HPV9 2016-08-15 Completed University of 00:00:00 [place] [facility] HPV 2016-08-15 Completed University of 00:00:00 [place] [facility] HPV9 2016-08-15 Completed University of 00:00:00 [place] [facility] HPV 2016-08-15 Completed University of 00:00:00 [place] [facility] HPV9 2016-08-15 Completed University of 00:00:00 [place] [facility] HPV 2016-08-15 Completed University of 00:00:00 [place] [facility] HPV9 2016-08-15 Completed University of 00:00:00 [place] [facility] HPV 2016-08-15 Completed University of 00:00:00 [place] [facility] HPV9 2016-08-15 Completed University of 00:00:00 [place] [facility] HPV 2016-08-15 Completed University of 00:00:00 [place] [facility] HPV9 2016-08-15 Completed University of 00:00:00 [place] [facility] HPV 2016-08-15 Completed University of 00:00:00 [place] [facility] HPV9 2016-08-15 Completed University of 00:00:00 [place] [facility] HPV 2016-08-15 Completed University of 00:00:00 [place] [facility] HPV9 2016-08-15 Completed University of 00:00:00 [place] [facility] HPV 2016-08-15 Completed University of 00:00:00 [place] [facility] HPV9 2016-08-15 Completed University of 00:00:00 [place] [facility] HPV 2016-08-15 Completed University of 00:00:00 [place] [facility] HPV9 2016-08-15 Completed University of 00:00:00 [place] [facility] HPV 2016-08-15 Completed University of 00:00:00 [place] [facility] HPV9 2016-08-15 Completed University of 00:00:00 [place] [facility] HPV 2016-08-15 Completed University of 00:00:00 [place] [facility] HPV9 2016-08-15 Completed University of 00:00:00 [place] [facility] HPV 2016-08-15 Completed University of 00:00:00 [place] [facility] HPV9 2016-02-03 Completed University of 00:00:00 [place] [facility] HPV9 2016-02-03 Completed University of 00:00:00 [place] [facility] HPV9 2016-02-03 Completed University of 00:00:00 [place] [facility] HPV9 2016-02-03 Completed [facility] 00:00:00 [facility] HPV9 2016-02-03 Completed [facility] 00:00:00 [facility] HPV9 2016-02-03 Completed [facility] 00:00:00 [facility] HPV9 2016-02-03 Completed [facility] 00:00:00 [facility] HPV9 2016-02-03 Completed [facility] 00:00:00 [facility] HPV9 2016-02-03 Completed [facility] 00:00:00 [facility] HPV9 2016-02-03 Completed [facility] 00:00:00 [facility] HPV9 2016-02-03 Completed [facility] 00:00:00 [facility] HPV9 2016-02-03 Completed [facility] 00:00:00 [facility] HPV9 2016-02-03 Completed [facility] 00:00:00 [facility] HPV9 2016-02-03 Completed [facility] 00:00:00 [facility] HPV9 2016-02-03 Completed [facility] 00:00:00 [facility] HPV9 2016-02-03 Completed [facility] 00:00:00 [facility] HPV9 2016-02-03 Completed [facility] 00:00:00 [facility] HPV9 2016-02-03 Completed [facility] 00:00:00 [facility] HPV9 2016-02-03 Completed [facility] 00:00:00 [facility] HPV9 2016-02-03 Completed [facility] 00:00:00 [facility] HPV9 2016-02-03 Completed [facility] 00:00:00 [facility] HPV9 2016-02-03 Completed [facility] 00:00:00 [facility] HPV9 2016-02-03 Completed [facility] 00:00:00 [facility] HPV9 2016-02-03 Completed [facility] 00:00:00 [facility] HPV9 2016-02-03 Completed [facility] 00:00:00 [facility] HPV9 2016-02-03 Completed [facility] 00:00:00 [facility] HPV9 2016-02-03 Completed [facility] 00:00:00 [facility] HPV9 2016-02-03 Completed [facility] 00:00:00 [facility] HPV9 2016-02-03 Completed [facility] 00:00:00 [facility] HPV9 2016-02-03 Completed [facility] 00:00:00 [facility] HPV9 2015-12-22 Completed [facility] 00:00:00 [facility] HPV9 2015-12-22 Completed [facility] 00:00:00 [facility] HPV9 2015-12-22 Completed [facility] 00:00:00 [facility] HPV9 2015-12-22 Completed [facility] 00:00:00 [facility] HPV9 2015-12-22 Completed [facility] 00:00:00 [facility] HPV9 2015-12-22 Completed [facility] 00:00:00 [facility] HPV9 2015-12-22 Completed [facility] 00:00:00 [facility] HPV9 2015-12-22 Completed [facility] 00:00:00 [facility] HPV9 2015-12-22 Completed [facility] 00:00:00 [facility] HPV9 2015-12-22 Completed [facility] 00:00:00 [facility] HPV9 2015-12-22 Completed [facility] 00:00:00 [facility] HPV9 2015-12-22 Completed [facility] 00:00:00 [facility] HPV9 2015-12-22 Completed [facility] 00:00:00 [facility] HPV9 2015-12-22 Completed [facility] 00:00:00 [facility] HPV9 2015-12-22 Completed [facility] 00:00:00 [facility] HPV9 2015-12-22 Completed University [facility] 00:00:00 [facility] HPV9 2015-12-22 Completed [facility] 00:00:00 [facility] HPV9 2015-12-22 Completed University [facility] 00:00:00 [facility] HPV9 2015-12-22 Completed University [facility] 00:00:00 [facility] HPV9 2015-12-22 Completed University [facility] 00:00:00 [facility] HPV9 2015-12-22 Completed University [facility] 00:00:00 [facility] HPV9 2015-12-22 Completed University [facility] 00:00:00 [facility] HPV9 2015-12-22 Completed University [facility] 00:00:00 [facility] HPV9 2015-12-22 Completed University of 00:00:00 [facility] HPV9 2015-12-22 Completed University [facility] 00:00:00 [facility] 2015-12-22 Completed University of 00:00:00 [facility] 2015-12-22 Completed University of 00:00:00 [facility] HPV9 2015-12-22 Completed University of 00:00:00 [facility] 2015-12-22 Completed University of 00:00:00 [facility] 2015-12-22 Completed University of 00:00:00 [facility] Vital Signs Vital Name Observation Time Observation Value Comments Source Systolic blood 2023-01-03 16:06:00 111 mm[Hg] Univer sity of pressure [facility] Diastolic blood 2023-01-03 16:06:00 77 mm[Hg] Unive rsity of pressure [facility] Heart rate 2023-01-03 16:06:00 73 /min [facility] Respiratory rate 2023-01-03 16:06:00 16 /min Univ ersity of [facility] Body height 2023-01-03 16:06:00 165.1 cm [facility] Body weight 2023-01-03 16:06:00 72.666 kg [facility] BMI 2023-01-03 16:06:00 26.66 kg/m2 [facility] Systolic blood 2022-08-30 15:41:00 119 mm[Hg] Univer sity of pressure [facility] Diastolic blood 2022-08-30 15:41:00 79 mm[Hg] Unive rsity of [facility] Heart rate 2022-08-30 15:41:00 106 /min [facility] Respiratory rate 2022-08-30 15:41:00 16 /min [facility] height 2022-08-30 15:41:00 165.1 cm [facility] Body weight 2022-08-30 15:41:00 72.167 kg [facility] BMI 2022-08-30 15:41:00 26.48 kg/m2 [facility] Oxygen saturation in 2022-08-30 15:41:00 100 /min [facility] Arterial blood by [facility] Pulse oximetry Branch Procedures Procedure Date / Time Performed Performing Clinician Sour e DIABETES TESTING 2023-01-03 06:01:00 Doctor Unassigned, No [facility] POCT HEMOGLOBIN A1C 2023-01-03 00:00:00 Tawny Braun [facility] POCT HEMOGLOBIN A1C 2022-08-30 00:00:00 Tawny Braun [facility] Encounters Start End Encounter Admission Attending Care Care Encounter Source Date/Time Date/Time Type Type Clinicians Facility Department ID 2021-09-19 Emergency [facility] [id number] Univers 23:04:38 ity of [facility] 2021-09-19 Emergency [facility] [id number] Univers 02:01:05 ity of [facility] 2021-09-18 Emergency [facility] [id number] Univers 22:15:17 ity of [facility] 2021-09-17 Emergency [facility] [id number] Univers 19:01:00 ity of [facility] Branch 2021-09-16 Emergency [facility] [id number] Univers 14:50:01 ity of [facility] 2021-09-16 Emergency [facility] [id number] Univers 11:25:49 ity of [facility] 2021-09-16 Emergency [facility] [id number] Univers 11:23:27 ity of [facility] 2021-09-16 Emergency [facility] [id number] Univers 03:18:07 ity of [facility] 2021-09-15 Emergency [facility] [id number] Univers 13:33:53 ity of [facility] 2021-09-04 Outpatient [place] [facility] ssdi [facility] [id number] Legacy 08:20:44 [id number] [facility] 2023-05-23 2023-05-23 Outpatient R KADE [facility] [id number] Univers 14:00:00 14:00:00 WENTONG ity of [facility] 2023-01-16 2023-01-16 Patient Donny Dennis [facility] 1.2.840.114 [id number] Univers 00:00:00 00:00:00 Secure Msg MULTISPEC 350.1.13.10 [place] [id number] [address] [facility]ES [facility]INIC 2023-01-15 2023-01-15 [facility] 1.2.849.430 [id number] Univers 00:00:00 00:00:00 Humza Dawson MULTISPEC 350.1.13.10 [place] [id number] [facility] AND [address] DIABETES CLINIC 2023-01-11 2023-01-11 Patient Donny Dennis [facility] 1.2.840.114 [id number] Univers 00:00:00 00:00:00 Secure Msg MULTISPEC 350.1.13.10 [place] [id number] [address] [facility]ES CLINIC 2023-01-10 2023-01-10 Patient Berry [facility] 1.2.033.236 [id number] Univers 00:00:00 00:00:00 Secure Msg Kellen MULTISPEC 350.1.13.10 [place] [id number] [address] DIABETES CLINIC 2023-01-03 2023-01-03 Chisel Trimmer Vtc-Lab [facility] 1.2.840.114 [id number] Univers 11:45:00 12:00:00 Visit Tawny Braun MULTISPEC 350.1.13.10 [place] [id number] [address] DIABETES CLINIC 2023-01-03 2023-01-03 Outpatient R KADE [facility] [id number] Univers 10:00:00 11:25:02 WENTONG ity of [facility] 2023-01-03 2023-01-03 Office [facility] 1.2.840.114 [id number] Univers 10:00:00 11:25:02 Visit [facility] 350.1.13.10 ity of IALTY 4.2.7.2.686 [facility] [place] [id number] [facility] [address] DIABETES CLINIC 2023-01-03 2023-01-03 Orders Doctor DEANDRA 1..840.114 [id number] Univers 00:00:00 00:00:00 Only Unassigned, BOBY 350.1.13.10 ity of [place] [facility] 4.2.7.2.686 Lauri as [id number] [place] [address] Branch 2023-01-02 2023-01-02 Outpatient R DONNY DENNIS [facility] [id number] Univers 14:40:00 16:33:31 DONNY DENNIS it y of [facility] 2023-01-02 2023-01-02 Chisel Trimmer [facility] 1.2.840.114 [id number] Univers 15:15:00 15:30:00 Visit Donny Dennis MULTISPEC 350.1.13.10 ity of IALTY 4.2.7.2.686 [facility] [id number] [facility] AND [address] DIABETES CLINIC 2023-01-02 2023-01-02 Office Donny Dennis [facility] 1.2.840.114 [id number] Univers 14:40:00 15:00:00 Visit MULTISPEC 350.1.13.10 ity of IALTY 4.2.7.2.686 [facility] [id number] Medi [address] DIABETES CLINIC 2022-12-14 2022-12-14 Patient [facility] 1.2.840.114 [id number] Univers 00:00:00 00:00:00 Secure Tawny MULTISPEC 350.1.13.10 [place] [id number] [address] DIABETES CLINIC 2022-12-13 2022-12-13 Telephone [facility] 1.2.501.533 [id number] Univers 00:00:00 00:00:00 Tawny MULTISPEC 350.1.13.10 [place] [id number] [address] DIABETES CLINIC 2022-10-06 2022-10-06 Telephone Antonio [facility] 1.2.363.579 [id number] Univers 00:00:00 00:00:00 Jie MULTISPEC 350.1.13.10 [place] [id number] [address] DIABETES CLINIC 2022-10-04 2022-10-04 Outpatient Eugenia CHASE [facility] [id number] Univers 09:45:00 09:45:00 FLORINDA floyd of [facility] 2022-09-13 2022-09-13 Telephone [facility] 1.2.064.626 [id number] Univers 00:00:00 00:00:00 Tawny MULTISPEC 350.1.13.10 [place] [id number] [address] DIABETES CLINIC 2022-09-06 2022-09-06 Chisel Trimmer [facility] 1.2.840.114 [id number] Univers 10:15:00 10:30:00 Visit Florinda Chase MULTISPEC 350.1.1 3.10 [place] [id number] [facility] [address] DIABETES CLINIC 2022-09-06 2022-09-06 Outpatient Eugenia CHASE [facility] [id number] Univers 10:15:00 10:15:00 FLORINDA ity [facility] 2022-09-06 2022-09-06 Office James Martin [facility] 1.2 .840.114 [id number] Univers 09:00:00 10:05:30 Visit Florinda Chase MULTISPEC 350.1.1 3.10 ity of IALTY 4.2.7.2.686 [facility] [place] [id number] [address] [facility]ETES CLINIC 2022-08-30 2022-08-30 [facility] [id number] Univers 10:30:00 11:28:33 [facility] 2022-08-30 2022-08-30 Office [facility] 1.2.840.114 [id number] Univers 10:30:00 11:28:33 [facility].13[facility]10 ity of IALTY 4.2.7.2.686 [facility] [id number] [address] [facility]ES [facility] 2022-06-21 2022-06-21 Emergency X [facility] ERT [id number] Univers 18:38:00 21:11:00 [facility] 2022-06-21 2022-06-21 Emergency [facility] 1.2.958.559 [id number] Univers 18:38:00 21:11:00 [facility] 350.1.13.10 it y of [place]AR 4.2.7.2.686 [facility] [id number] [address] (CLC) 2022-06-21 2022-06-21 Emergency X [facility] ERT [id number] Univers 18:38:00 21:11:00 [facility] 2022-06-21 2022-06-21 Telephone [facility] 1.2.840.114 [id number] Univers 00:00:00 00:00:00 Humza Dawson MULTISPEC 350.1.13.10 ity of IALTY 4.2.7.2.686 [facility] [place] [id number] [address] DIABETES CLINIC 2022-06-12 2022-06-12 Outpatient [facility] [id number] Univers 11:15:00 11:15:00 SHILOHEMI floyd [facility] 2022-06-08 2022-06-08 Telephone AMARI LuongIT 1.2.840.11 [id number] Univers 00:00:00 00:00:00 Gabriella Y HEALTH 350.1.13.10 i ty of [place] [id number] [facility] [address] 2022-06-05 2022-06-05 Outpatient [facility] [id number] Univers 15:15:00 15:15:00 SHILOH josi [facility] 2022-06-05 2022-06-05 Outpatient Eugenia [facility] [id number] Univers 15:15:00 15:15:00 [facility] 2022-06-05 2022-06-05 Outpatient Eugenia [facility] [id number] Univers 15:15:00 15:15:00 [facility] 2022-06-02 2022-06-02 Chisel Trimmer [facility]ERS[facility] 1.2.840.114 [id number] Univers 11:15:00 11:30:00 Visit Gabriella Luong HEALTH 350.1.13.10 [place] of CL[place] [id number] [facility] [address] 2022-06-02 2022-06-02 [facility] [id number] Univers 11:15:00 11:15:00 GABRIELLA floyd [facility] 2022-06-02 2022-06-02 [facility] [id number] Univers 09:40:00 10:34:29 GABRIELLA floyd [facility] 2022-06-02 2022-06-02 Office LuongAMARIIT 1.2.840.114 [id number] Univers 09:40:00 10:00:00 Visit Gabriella Kong HEALTH 350.1.13.10 i ty of CL[place]2.[place]2.[place] [id number] [facility] [address] 2022-06-02 2022-06-02 Outpatient R CHERISE [facility] [id number] Univers 09:40:00 09:40:00 GABRIELLA ity of [facility] 2022-06-01 2022-06-01 [facility] 1.2.802.058 [id number] Univers 00:00:00 00:00:00 Humza H MULTISPEC 350.1.13.10 [place] [id number] [facility] AND [address] DIABETES CLINIC 2022-06-01 2022-06-01 [facility]aya [facility] 1.2.840.114 [id number] Univers 00:00:00 00:00:00 Greyson MULTISPEC 350.1.13.10 [place] [id number] [address] DIABETES CLINIC 2022-05-18 2022-05-18 [facility] 1.2.305.014 [id number] Univers 00:00:00 00:00:00 Humza Dawson MULTISPEC 350.1.13.10 [place] [id number] [facility] AND [address] DIABETES CLINIC 2022-05-18 2022-05-18 [facility]aya [facility] 1.2.840.114 [id number] Univers 00:00:00 00:00:00 Eloise MULTISPEC 350.1.13.10 [place] [id number] [facility] AND [address] DIABETES CLINIC 2022-04-18 2022-04-18 [facility] 1.2.858.741 [id number] Univers 00:00:00 00:00:00 Humza Dawson MULTISPEC 350.1.13.10 [place] [id number] [facility] AND [address] DIABETES CLINIC 2022-04-07 2022-04-07 Outpatient R KENJI [facility] [id number] Univers 15:00:00 15:00:00 TIANA floyd [facility] 2022-03-16 2022-03-16 Telephone [facility] 1.2.724.955 [id number] Univers 00:00:00 00:00:00 Eloise MAHMOOD 350.1.13.10 ity of IALTY 4.2.7.2.686 [facility] [place] [id number] [address] DIABETES CLINIC 2022-03-15 2022-03-15 Outpatient Eugenia KENJI [facility] [id number] Univers 15:00:00 15:00:00 TIANA floyd [facility] 2022-03-06 2022-03-06 Emergency X [facility] ERT [id number] Univers 18:15:00 20:56:00 IDA it o f [facility] 2022-03-06 2022-03-06 Emergency [facility] 1.2.840.114 [id number] Univers 18:15:00 20:56:00 [facility] 350.1.13.10 i ty of CLEAR 4.2.7.2.686 [facility] [id number] [address] ([facility]) 2022-02-20 2022-02-20 Office [facility] 1.2.840.114 [id number] Univers 13:00:00 14:22:31 Visit Eloise MAHMOOD 350.1.13.10 ity of IALTY 4.2.7.2.686 [facility] [place] [id number] [facility] AND [address] DIABETES CLINIC 2022-02-20 2022-02-20 Outpatient R DANNY [facility] [id number] Univers 13:00:00 14:22:31 ELOISE floyd [facility] 2022-02-20 2022-02-20 [facility] [id number] Univers 13:00:00 13:00:00 [facility]22[facility]-10 2022-01-10 [facility] 1.2.840.114 [id number] Univers 00:00:00 00:00:00 Secure Msg Greyson MULTISPEC 350.1.13.10 ity of IALTY 4.2.7.2.686 [facility] [place] [id number] [address] DIABETES CLINIC 2022-01-09 2022-01-09 Telephone [facility] 1.2.603.464 [id number] Univers 00:00:00 00:00:00 Greyson MULTISPEC 350.1.13.10 ity of IALTY 4.2.7.2.686 [facility] [place] [id number] [address] DIABETES CLINIC 2022-01-02 2022-01-02 Outpatient R ABI [facility] [id number] Univers 12:45:00 13:22:53 [facility] 2022-01-02 2022-01-02 Office [facility] 1.2.840.114 [id number] Univers 12:45:00 13:22:53 Visit Greyson ALSTONPEC 350.1.13.10 ity of IALTY 4.2.7.2.686 [facility] [place] [id number] [address] DIABETES CLINIC 2022-01-02 2022-01-02 Outpatient R ABI [facility] [id number] Univers 12:45:00 12:45:00 [facility] 2021-12-29 2021-12-29 Chisel Trimmer Pcp-Lab [facility] 1.2.840.114 [id number] Univers 13:45:00 14:00:00 Visit Unknown, Attending PRIMARY 350.1.13.10 ity of [place], Joey CARE 4.2.7.2.686 [facility] [id number] [address] 2021-12-29 2021-12-29 Outpatient R PENELOPE [facility] [id number] Univers 13:45:00 13:45:00 JOEY ity [facility] 2021-12-29 2021-12-29 Outpatient R PENELOPE [facility] [id number] Univers 10:40:00 11:53:42 JOEY ity [facility] 2021-12-29 2021-12-29 Outpatient R PENELOPE [facility] [id number] Univers 10:40:00 11:53:42 [facility] 2021-12-29 2021-12-29 Office Narendra Cuevas [facility] 1.2.840.114 [id number] Univers 10:40:00 11:53:42 Visit Unknown, Attending PRIMARY 350.1.13.10 [facility] [place] [facility] 4.2.7.2.686 [facility] [id number] N[address] 2021-12-29 2021-12-29 Outpatient Eugenia NEGRETE [facility] [id number] Univers 10:40:00 10:40:00 [facility] 2021-12-12 2021-12-12 Outpatient Eugenia JIMENEZ [facility] [id number] Univers 09:00:00 09:00:00 TIANA floyd [facility] 2021-12-02 2021-12-02 Outpatient R KENJI [facility] [id number] Univers 09:00:00 13:37:26 TIANA floyd [facility] 2021-12-02 2021-12-02 Digital Marketing Specialist Kenji [facility] 1.2.840.114 [id number] Univers 09:00:00 13:37:26 Visit Tiana MAHMOOD 350.1.13.10 [facility] 4.2.7.2.686 [facility] [id number] [address] DIABETES CLINIC 2021-12-02 2021-12-02 Outpatient Eugenia JIMENEZ [facility] [id number] Univers 09:00:00 13:37:26 TIANA floyd [facility] 2021-11-29 2021-11-29 Outpatient Eugenia JIMENEZ [facility] [id number] Univers 13:00:00 13:00:00 TIANA folyd [facility] 2021-11-21 2021-11-21 Outpatient Eugenia ALEX [facility] [id number] Univers 14:45:00 16:02:06 GREYSON floyd [facility] 2021-11-21 2021-11-21 Office [facility] 1.2.840.114 [id number] Univers 14:45:00 16:02:06 Visit Greyson MULTISPEC 350.1.13.10 [place] [id number] [facility] AND [place] [address] DI[facility]ETES CLINIC 2021-10-24 2021-10-[address] [facility] 1.2.840.114 [id number] Univers 00:00:00 00:00:00 Juan Huffman SPECIALTY 350.1.13.10 [place] [id number] [facility] [address] 2021-10-20 2021-10-[address] [facility] 1.2.840.114 [id number] Univers 00:00:00 00:00:00 Juan Huffman PRIMARY 350.1.13.10 [place] [id number] Nh dical [address] 2021-10-11 2021-10-[address] [facility] 1.2.840.114 [id number] Univers 00:00:00 00:00:00 Juan Huffman SPECIALTY 350.1.13.10 [place] [id number] [facility] [address] 2021-08-29 2021-08-29 Outpatient R JOSE [facility] [id number] Univers 09:30:00 09:30:00 OMARI ity of [facility] 2021-08-23 2021-08-23 Outpatient R [facility] [id number] Univers 10:00:00 10:00:00 ity of [facility] 2021-08-04 2021-08-04 Emergency Ibikunle, TRAUMA 1.2.840.114 [id number] Univers 10:40:00 11:52:00 Estella Castillo CENTER 350.1.13.10 [place] [id number] [facility] [address] 2021-06-26 2021-06-26 Telephone DEANDRA Chaudhary 1.2.662.469 [id number] Univers 00:00:00 00:00:00 EnChuy LANDIS 350.1.13.10 it y of [facility] 4.2.7.2.686 Lauri as [id number] [facility] rashid [address] 2021-06-24 2021-06-24 [facility] 1.2.840.114 [id number] Univers 00:00:00 00:00:00 Outreach Milagro F PRIMARY 350.1.13.10 i ty of [place] [id number] Nh dical [address] 2021-06-23 2021-06-23 Chisel Trimmer Pcp-Lab [facility] 1.2.840.114 [id number] Univers 11:53:13 12:08:13 Visit Carla Cooper PRIMARY 350.1.13.10 it[place] [id number] Nh dical [address] 2021-06-23 2021-06-23 Office Carlos Manuel Chaudhary [facility] 1.2.840.114 [id number] Univers 10:12:19 11:53:47 Visit Carla Cooper PRIMARY 350.1.13.10 [place] [id number] Nh dical [address] 2021-06-23 2021-06-23 Outpatient R ALLISON [facility] [id number] Univers 10:10:00 10:10:00 CARLA ity of [facility] 2021-05-30 2021-05-30 [facility]phone [facility] 1.2.435.607 [id number] Univers 00:00:00 00:00:00 Omari PRIMARY 350.1.13.10 it [place] [id number] Nh dical [address] 2021-05-27 2021-05-27 Office AMELIA Luong 1.2.840.114 [id number] Univers 09:35:57 10:00:27 Visit Carla Kong [facility] 350.1.13.10 i ty of CL[place]ICS [place] [id number] [facility] [address] 2021-05-27 2021-05-27 Outpatient R CHERISE [facility] [id number] Univers 09:30:00 09:30:00 CARLA floyd [facility] 2021-05-25 2021-05-25 [facility] 1.2.840.114 [id number] Univers 09:51:01 10:43:53 Visit Omari PRIMARY 350.1.13.10 it [place] [id number] Nh dical [address] 2021-05-25 2021-05-25 Outpatient R JOSE [facility] [id number] Univers 10:00:00 10:00:[address] [facility] 2021-05-25 2021-05-25 Orders Doctor DEANDRA 1.2.840.114 [id number] Univers 00:00:00 00:00:00 Only Unassigned, BOBY 350.1.13.10 ity of [place] [facility] 4.2.7.2.686 Lauri as [id number] [facility] [address] 2021-05-05 2021-05-05 Emergency Faulconer, TRAUMA 1.2.840.114 [id number] Univers 20:40:00 23:48:00 [facility] 350.1.13.10 it [place] [id number] [facility] [address] 2021-05-05 2021-05-05 Emergency [facility] E[facility] [id number] Univers 20:40:00 23:48:[address] [facility] 2021-04-18 2021-04-19 Emergency Vasut, [place] 1.2.746.517 [id number] Univers 20:32:00 03:49:00 Rik J [place] 350.1.13.10 [place] [id number] [facility] [address] 2020-12-27 2020-12-27 Outpatient R MYNOR [facility] [id number] Univers 09:10:00 09:10:00 JUAN reyesjosi [facility] 2020-12-27 2020-12-27 Outpatient R UNKNOWN, [facility] [id number] Univers 09:00:00 09:00:00 ATTENDING ity [facility] 2020-12-20 2020-12-20 Outpatient R [facility] [id number] Univers 10:00:00 10:00:00 ity [facility] 2020-12-13 2020-12-13 Outpatient R [facility] [id number] Univers 10:00:00 10:00:00 ity [facility] 2020-12-10 2020-12-10 Emergency Almazan, TRAU[place] 1.2.840.114 [id number] Univers 18:17:00 19:39:00 Uhmza CENTER 350.1.13.10 [place] [id number] [address] 2020-12-10 2020-12-10 Emergency Almazan, TRAU[place] 1.2.840.114 [id number] 18:17:00 19:39:00 Humza CENTER 350.1.13.10 4.2.7.2.686 [id number] 014 2020-10-31 2020-10-31 Telephone Elisa Corado 1.2.840.114 [id number] Univers 00:00:00 00:00:00 BOBY 350.1.13.10 it y of HOSPITAL 4.2.7.2.686 [place] as [id number] [address] 2020-10-31 2020-10-31 Telephone DEANDRA [place] 1.2.732.351 [id number] Univers 00:00:00 00:00:00 Candie LANDIS 350.1.13.10 ity of HOSPITAL 4.2.7.2.686 [place] as [id number] [address] 2020-10-31 2020-10-31 Telephone Elisa Corado 1.2.840.114 [id number] 00:00:00 00:00:00 BOBY 350.1.13.10 HOSPITAL 4.2.7.2.686 [id number] 019 2020-10-29 2020-10-29 Letter DEANDRA Boswell 1.2.840.114 [id number] Univers 00:00:00 00:00:00 (Out) Libia T BOBY 350.1.13.10 it y of HOSPITAL 4.2.7.2.686 Lauri anita [id number] [facility] [address] 2020-10-29 2020-10-29 Anne-Marie DEANDRA Boswell 1.2.840.114 [id number] 00:00:00 00:00:00 (Out) Libia ESPITIAY 350.1.13.10 [facility] 4.2.7.2.686 [id number] [facility] 2020-10-27 2020-10-27 Nurse Nurse, [facility] Pedi Urgent Care [facility] 1.2.840.114 [id number] Univers 17:27:18 17:42:18 Visit Unknown, Attending [place] 350.1.13.10 ity of Pediatric [place].2.[place] [phone] [address] 2020-10-27 2020-10-27 Nurse Nurse, [facility] 1.2.840.114 [id number] 17:27:18 17:42:18 Visit Pedi Urgent [place] 350.1.13.10 Care Pediatric 4.2.7.2.686 [place] [id number] [facility] 2020-10-27 2020-10-27 Outpatient R UNKNOWN, [facility] [id number] Univers 17:30:00 17:30:00 ATTENDING ity [facility] 2020-10-23 2020-10-23 Outpatient R UNKNOWN, [facility] [id number] Univers 09:15:00 09:15:00 ATTENDING ity [facility] 2020-09-30 2020-09-30 Laboratory Only, Pcp Test [facility] 1.2.840. 114 [id number] Univers 12:48:00 13:03:00 Only Silviano Carrasquillo H PRIMARY 350.1.13.10 ity of CARE 4.2.7.2.686 Malvin puneet EMMY [id number] [address] 2020-09-30 2020-09-30 Laboratory Only, Pcp NMMB 1.2.840.114 [id number] 12:48:00 13:03:00 Only Test PRIMARY 350.1.13.10 CARE 4.2.7.2.686 PAVILLION [id number] 366 2020-09-30 2020-09-30 Outpatient R EM [facility] [id number] Univers 08:00:00 08:00:00 SILVIANO floyd [facility] 2020-09-30 2020-09-30 Letter Xi Romero 1.2.840.114 [id number] Univers 00:00:00 00:00:00 (Out) BOBY 350.1.13.10 it y [facility] 4.2.7.2.686 La[place] as [id number] [address] 2020-09-30 2020-09-30 Letter Xi Romero 1.2.840.114 [id number] 00:00:00 00:00:00 (Out) BOBY 350.1.13.10 [facility] 4.2.7.2.686 [id number] 019 2020-09-14 2020-09-14 [facility] 1.2.840.114 [id number] Univers 00:00:00 00:00:00 Juan Huffman SPECIALTY 350.1.13.10 ity [facility] [place].2.[place] [id number] [address] 2020-09-14 2020-09-14 [facility] 1.2.840.114 [id number] 00:00:00 00:00:00 Juan Huffman SPECIALTY 350.1.13.10 [place] 4.2.7.2.686 [place] [id number] 156 2020-09-08 2020-09-08 Outpatient R NICKI [facility] [id number] Univers 10:30:00 10:30:00 CHRISTIANNE castillo [facility] 2020-09-06 2020-09-06 Office Diabetes, [facility] 1.2.803.919 [id number] 09:58:14 10:28:14 Visit Armida & Pcp PRIMARY 350.1.13.10 Pedi CARE 4.2.7.2.686 Endocrine PAVILLION [id number] 156 2020-09-06 2020-09-06 Office Diabetes, Armida & [facility] 1.2.840.114 [id number] Univers 09:58:14 10:28:14 Visit Unknown, Attending PRIMARY 350.1.13.10 ity of [place] Lowe CARE 4.2.7.2.686 [place] PAVILLION [id number] [facility] [address] 2020-09-06 2020-09-06 Outpatient R UNKNOWN, [facility] [id number] Univers 10:00:00 10:00:00 ATTENDING ity of [facility] 2020-09-06 2020-09-06 Orders Doctor LIRIANO 1.2.840.114 [id number] Univers 00:00:00 00:00:00 Only Unassigned, BOBY 350.1.13.10 ity of [place] [facility] 4.2.7.2.686 Lauri as [id number] [facility] [address] 2020-08-30 2020-08-30 [facility] [id number] Univers 08:30:00 08:30:00 JUAN floyd of [facility] 2020-08-20 2020-08-20 [facility]ill [facility] 1.2.840.114 [id number] Univers 00:00:00 00:00:00 Juan Huffman SPECIALTY 350.1.13.10 ity of [place] [id number] [facility] [address] 2020-08-16 2020-08-16 Outpatient R UNKNOWN, [facility] [id number] Univers 08:30:00 08:30:00 ATTENDING ity of [facility] 2020-08-11 2020-08-11 Telephone [facility] 1.2.840.114 [id number] Univers 00:00:00 00:00:00 Christianne L PRIMARY 350.1.13.10 it[place] of [place] [id number] Nh dical [address] 2020-07-28 2020-08-03 Office [facility] 1.2.840.114 [id number] Univers 10:31:09 13:28:06 Visit Christianne L PRIMARY 350.1.13.10 ity of [place] [id number] Nh dical [address] 2020-08-02 2020-08-02 Outpatient R MYNOR [facility] [id number] Univers 08:30:00 08:30:00 JUAN floyd of [facility] 2020-07-28 2020-07-28 Chisel Trimmer Pcp-Lab [facility] 1.2.840.114 [id number] Univers 11:36:36 11:46:36 Visit Christianne Caceres PRIMARY 350.1.13 .10 ity of [facility] 4.2.7.2.686 [facility] [id number] Nh dical [address] 2020-07-28 2020-07-28 Outpatient R NICKI [facility] [id number] Univers 10:30:00 10:30:00 CHRISTIANNE garcia f [facility] 2020-07-19 2020-07-19 Urgent Devan [facility] 1.2.840.1 14 [id number] Univers 13:55:15 14:10:15 Care Unknown, Attending HEALTH 350.1.13.10 ity [facility] 4.2.7.2.686 [facility] [id number] [facility] Primary & [address] Specialty Care 2020-07-19 2020-07-19 Outpatient R ELVIRA, [facility] [id number] Univers 13:45:00 13:45:00 [facility]-07-[facility] 2020-07-19 Clinic Nurse, [facility] 1.2.840.114 [id number] Univers 00:00:00 00:00:00 Assessment Urgent HEALTH 350.1.13.10 ity [facility] 4.2.7.2.686 [facility] [id number] [facility] Primary & [address] Specialty Care 2020-07-17 2020-07-18 Emergency Aufderheide TRAUMA 1.2.840.114 [id number] Univers 22:32:00 00:20:00 , Cindi CENTER 350.1.13.10 it y [facility] 4.2.7.2.686 [facility] [id number] [facility] [address] 2020-07-16 2020-07-16 Telephone Mynor [facility] 1.2.802.201 [id number] Univers 00:00:00 00:00:00 Juan Huffman SPECIALTY 350.1.13.10 ity of [place] [id number] [address] 2020-06-28 2020-06-28 Emergency X VASUT, [facility] ERT [id number] Univers 03:16:00 04:23:00 RIK ity of [facility] 2020-06-28 2020-06-28 Emergency Vasut, [place] 1.2.351.829 [id number] Univers 03:16:00 04:23:00 [facility] 350.1.13.10 it [place] [id number] [address] 2020-06-27 2020-06-27 Emergency Oreilly, TRAUMA 1.2.840.114 [id number] Univers 05:28:00 07:45:00 Roz Ken CENTER 350.1.13.10 [place] [id number] [address] 2020-06-10 2020-06-10 Nurse Nurse, Armida Zafar Endocrine [facility] 1.2.840.114 [id number] Univers 13:21:23 13:51:23 Visit Unknown, Attending SPECIALTY 350.1.13. 10 ity of [place] 4.2.7.2.686 [facility] [id number] [address] 2020-06-10 2020-06-10 Outpatient R UNKNOWN, [facility] [id number] Univers 13:00:00 13:00:00 ATTENDING ity of [facility] 2020-06-10 2020-06-10 Telephone [facility] 1.2.443.007 [id number] Univers 00:00:00 00:00:00 Juan Huffman SPECIALTY 350.1.13.10 ity of [place]2.[place] [id number] [address] 2020-06-09 2020-06-09 [facility]ill [facility] 1.2.840.114 [id number] Univers 00:00:00 00:00:00 Juan Huffman SPECIALTY 350.1.13.10 ity of [place]2.[place] [id number] [address] 2020-06-09 2020-06-09 Telephone [facility] 1.2.889.304 [id number] Univers 00:00:00 00:00:00 Juan Huffman SPECIALTY 350.1.13.10 ity of [place] 4[place]2.[place] [id number] [address] 2020-06-09 2020-06-09 Telephone [facility] 1.2.451.504 [id number] Univers 00:00:00 00:00:00 Juan Huffman SPECIALTY 350.1.13.10 ity of [place] 4[place].2.[place] [id number] [address] 2020-06-01 2020-06-01 Outpatient R FEDERICO, [facility] [id number] Univers 09:15:00 09:15:00 ABHIJEET ity of [facility] 2020-05-16 2020-05-16 Emergency [facility] [place] 1.2.840.114 [id number] Univers 13:18:05 14:18:00 , Chris CENTER 350.1.13.10 [place] [id number] [address] 2020-05-12 2020-05-12 Telephone [facility] 1.2.852.259 [id number] Univers 00:00:00 00:00:00 Juan Huffman SPECIALTY 350.1.13.10 ity of [place] [id number] [address] 2020-05-03 2020-05-03 Office Diabetes, Armida & Pcp Pedi End ocrine [facility] 1.2.840.114 [id number] Univers 08:42:40 09:12:40 Visit Unknown, Attending PRIMARY 350.1.13.10 ity of [place] CARE 4.2.7.2.686 [facility] [id number] [address] 2020-05-03 2020-05-03 Outpatient R ELVIRA, [facility] [id number] Univers 08:30:00 08:30:00 ATTENDING ity of [facility] 2020-05-03 2020-05-03 Letter Doctor DEANDRA 1.2.840.114 [id number] Univers 00:00:00 00:00:00 (Out) Unassigned, BOBY 350.1.13.10 ity of [place] [facility] 4.2.7.2.686 Lauri as [id number] [facility] [address] 2020-05-03 2020-05-03 Orders Doctor DEANDRA 1.2.840.114 [id number] Univers 00:00:00 00:00:00 Only Unassigned, BOBY 350.1.13.10 ity of [place] [facility] 4.2.7.2.686 Lauri as [id number] [facility] [address] 2020-03-25 2020-03-25 Chaya Lowe NMAGNIESZKA 1.2.840.114 [id number] Univers 00:00:00 00:00:00 Juan Huffman PRIMARY 350.1.13.10 ity of [place] [id number] [address] 2020-02-24 2020-02-24 Telephone [facility] 1.2.840.11 [id number] Univers 00:00:00 00:00:00 Conrad cantu Y 350.1.13.10 ity of NATIONAL 4.2.7.2.686 Lauri as BANK [id number] [facility] BLDG. [address] 2020-02-05 2020-02-05 Chaya Lowe NMAGNIESZKA 1.2.840.114 [id number] Univers 00:00:00 00:00:00 Juan Huffman PRIMARY 350.1.13.10 ity of [place]2.[place] [id number] [facility] [address] 2020-02-05 2020-02-05 Chaya Lowe NMAGNIESZKA 1.2.840.114 [id number] Univers 00:00:00 00:00:00 Juan Huffman SPECIALTY 350.1.13.10 ity of [place]2.[place] [id number] [facility] [address] 2020-02-02 2020-02-02 Office Diabetes, Armida & Pcp Pedi End ocrine [facility] 1.2.840.114 [id number] Univers 08:28:44 08:58:44 Visit Juan Lowe PRIMARY 350.1.13.10 ity of [place] [id number] [facility] [address] 2020-02-02 2020-02-02 [facility] [id number] Univers 08:30:00 08:30:00 JUAN reyesy of [facility] 2020-01-27 2020-01-27 Emergency Shanon, TRAU[place] 1.2.982.118 [id number] Univers 11:03:25 12:35:00 [facility] 350.1.13.10 i ty of [facility] [place].2.7.2.[place] [id number] [facility] [address] 2020-01-16 2020-01-16 Refill [facility] 1.2.840.114 [id number] Univers 00:00:00 00:00:00 Juan Huffman SPECIALTY 350.1.13.10 ity of [place].2.[place] [id number] [facility] [address] 2020-01-13 2020-01-13 Telephone [facility] 1.2.717.964 [id number] Univers 00:00:00 00:00:00 Juan Huffman SPECIALTY 350.1.13.10 ity of [place] 4[place].2.[place] [id number] [facility] [address] 2019-12-05 2019-12-11 Office Teens, Armida & Pcp Pedi Care Group [facility] 1.2.840.114 [id number] Univers 08:55:38 15:51:37 Visit Zaid Dewey PRIMARY 350.1.13.10 ity of [place] 4[place] [id number] [facility] [address] 2019-12-11 2019-12-11 Telephone Jaswinder [facility] 1.2.468.129 [id number] Univers 00:00:00 00:00:00 Marcia PRIMARY 350.1.13.10 it y of CARE [place].2.[place] [id number] Nh arthur [address] 2019-12-10 2019-12-10 Telephone [facility] 1.2.132.058 [id number] Univers 00:00:00 00:00:00 Marcia PRIMARY 350.1.13.10 it y of C[place].2.[place] [id number] Nh marlawa [address] 2019-12-10 2019-12-10 Telephone [facility] 1.2.829.260 [id number] Univers 00:00:00 00:00:00 Marcia PRIMARY 350.1.13.10 it y of CARE 4.2.7.2.686 [place] [id number] Nh marlawa [address] 2019-12-10 2019-12-10 [facility] 1.2.027.126 [id number] Univers 00:00:00 00:00:00 Zaid Mcnair PRIMARY 350.1.13.10 ity of CARE 4.2.7.2.686 Malvin teixeira PAVILLION [id number] [facility] [address] 2019-12-05 2019-12-05 Outpatient R ZAID DEWEY [facility] 1 [id number] Univers 09:00:00 09:00:[address] [facility] 2019-10-29 2019-10-29 Emergency X MORRICAL, [facility] ERT [id number] Univers 01:02:09 04:49:[address] [facility] 2019-10-27 2019-10-28 Emergency X [facility] ERT [id number] Univers 21:27:44 04:53:00 , CHRIS [facility] 2019-09-17 2019-09-17 Emergency X [facility], [facility] ERT [id number] Univers 12:46:56 14:38:00 MIGUEL ÁNGEL [facility] 2019-08-04 2019-08-04 Office Diabetes, Armida & Pcp Pedi Helena barrera [facility] 1.2.840.114 [id number] Univers 09:50:08 10:20:08 Visit Juan Lowe PRIMARY 350.1.13.10 ity of [place]2.[place] [id number] Nh dical [address] 2019-07-06 2019-07-06 Emergency Shanon, TRAUMA 1.2.990.414 [id number] [facility] 10:30:38 15:57:00 [facility] 350.1.13.10 i ty ranjana [place].2.[place] [id number] [facility] [address] 2019-07-06 2019-07-06 Emergency X SHANON, [facility] ERT [id number] Univers 10:30:38 15:57:00 KETTY floyd o f [facility] Results Test Description Test Time Test Comments Results Result Comments Source POCT HEMOGLOBIN A1C TEST 2023-01-03 17:10:00 Test Item Value Reference Range Interpretation Comme nts POCT HBA1C (test code = 4548-4) 8.2 % 4-6 A Lab Interpretation (test code = 18933-5) Abnormal [facility] HEMOGLOBIN A1C [id number] 17:10:00 Test Item Value Reference Range Interpretation Comments POCT HBA1C (test code = 4548-4) 8.2 % 4-6 A Lab Interpretation (test code = Abnormal 06757-7) [facility] HEMOGLOBIN A1C [id number] 17:22:00 Test Item Value Reference Range Interpretation Comments POCT HBA1C (test code = 4548-4) 8.1 % 4-6 A Lab Interpretation (test code = Abnormal 46655-1) [facility] HEMOGLOBIN A1C [id number] 17:22:00 Test Item Value Reference Range Interpretation Comments POCT HBA1C (test code = 4548-4) 8.1 % 4-6 A Lab Interpretation (test code = Abnormal 06938-9) [facility] HEMOGLOBIN A1C [id number] 17:22:00 Test Item Value Reference Range Interpretation Comments POCT HBA1C (test code = 4548-4) 8.1 % 4-6 A Lab Interpretation (test code = Abnormal 74944-7) [facility] [place] [facility]
[2023-01-30 22:53] LABS: Urine Blood Negative (Negative); Urine Glucose 2+ (Negative); Urine Protein Negative (Negative); Urine Specific Gravity >=1.030 (1.005-1.030)
--- NOTE | 2023-01-30 22:55 | ER ---
Nurse's Notes [facility] Name: Martín Finn Age: 23 yrs Sex: Female : 2000 Arrival Date: 01/30/2023 Time: 21:50 Bed 5 Private MD: Diagnosis: Acute vaginitis Presentation: 01/30 22:01 Chief complaint: Patient states: "I think I have a yeast infection. I'm a type 1 as6 diabetic and I get them often. It started today". Coronavirus screen: At this time, the client does not indicate any symptoms associated with coronavirus-19. Ebola Screen: No symptoms or risks identified at this time. Initial Sepsis Screen: Does the patient meet any 2 criteria? No. Patient's initial sepsis screen is negative. Does the patient have a suspected source of infection? No. Patient's initial sepsis screen is negative. Risk Assessment: Do you want to hurt yourself or someone else? Patient reports no desire to harm self or others. Onset of symptoms was January 30, 2023. 22:01 Method Of Arrival: Ambulatory as6 22:01 Acuity: DEVIKA 4 as6 Historical: - Allergies: 22:04 Iodine; as6 22:04 SHELLFISH; as6 - PMHx: 22:04 diabetes mellitus; as6 - PSHx: 22:04 None; as6 - Immunization history:: Client reports having NOT received the Covid vaccine. - Social history:: Smoking status: Patient denies any tobacco usage or history of. Vital Signs: 22:01 BP 126 / 82; Pulse 81; Resp 18 S; Temp 97.7(TE); Pulse Ox 98% on R/A; Weight 72.57 kg as6 (R); Height 5 ft. 5 in. (R); Pain 5/10; 22:01 Body Mass Index 26.63 (72.57 kg, 165.1 cm) as6 22:01 Pain Scale: Adult as6 ED Course: 21:50 Patient arrived in ED. jj6 21:58 Jonas Ahn PA is PHCP. cp 21:58 Moreno Jefferson MD is Attending Physician. cp 22:04 Triage completed. as6 22:05 Arm band placed on. as6 22:08 Trixie Ventura, RN is Primary Nurse. kd3 22:54 Urine Microscopic Only Sent. lg3 Administered Medications: No medications were administered Outcome: 22:55 Discharge ordered by . cp Signatures: Jonas Ahn PA PA cp Gibson, Lacie, RN RN lg3 Christianne Parisi Ashby, RN RN as6 Trixie Ventura RN RN kd3
--- NOTE | 2023-01-30 22:55 | EDPHYS ---
Physician Documentation [facility] Name: Martín Finn Age: 23 yrs Sex: Female : 2000 Arrival Date: 01/30/2023 Time: 21:50 Bed 5 Private MD: ED Physician Moreno Jefferson Historical: - Allergies: 01/30 22:04 Iodine; as6 22:04 SHELLFISH; as6 - PMHx: 22:04 diabetes mellitus; as6 - PSHx: 22:04 None; as6 - Immunization history:: Client reports having NOT received the Covid vaccine. - Social history:: Smoking status: Patient denies any tobacco usage or history of. Vital Signs: 22:01 BP 126 / 82; Pulse 81; Resp 18 S; Temp 97.7(TE); Pulse Ox 98% on R/A; Weight 72.57 kg as6 (R); Height 5 ft. 5 in. (R); Pain 5/10; 22:01 Body Mass Index 26.63 (72.57 kg, 165.1 cm) as6 22:01 Pain Scale: Adult as6 MDM: 22:10 Patient medically screened. cp 01/30 22:34 Order name: Urine Microscopic Only cp 01/30 22:34 Order name: Urine Test (obtain specimen); Complete Time: 22:54 cp 01/30 22:34 Order name: Urine Dipstick-Ancillary (obtain specimen); Complete Time: 22:55 cp 01/30 22:54 Order name: Urine Dipstick-Ancillary EDMS Administered Medications: No medications were administered Disposition Summary: 01/30/23 22:55 Discharge Ordered Location: Home cp Problem: new cp Symptoms: are unchanged cp Condition: Stable cp Diagnosis - Acute vaginitis cp Followup: cp - With: Private Physician - When: 1 week - Reason: symptoms continue Discharge Instructions: - Discharge Summary Sheet lg3 Forms: - Work release form lg3 - Medication Reconciliation Form cp - Thank You Letter cp - Antibiotic Education cp - Prescription Opioid Use cp Signatures: Dispatcher [employer] EDMS Jonas Ahn PA PA cp Slawson, Ashby, RN RN as6
[2023-01-30 23:11] LABS: Urine Bacteria None Seen /HPF (<20); Urine Mucus Slight /HPF (None Seen); Urine RBC <5 /HPF (None Seen)
[2023-01-31 04:05] VITALS: BP 126/82; TEMP 97.7; O2SAT 98
== END 2023-01-30 23:20 | disposition home or self-care (01) ==
LOC: ER 21:49
DX: N76.0 Acute vaginitis (principal); Z91.013 Allergy to seafood; Z91.048 Other nonmedicinal substance allergy status
CPT/HCPCS: 81003; 81015; 81025; 99283

== ENCOUNTER 2023-03-31 19:52 | Emergency (ER) | payer BC ==
--- OUTSIDE RECORDS SUMMARY | 2023-03-31 20:03 | XMS REPORT | Continuity of Care Document ---
:2000 Author Organization [facility] t Address [address] [place] [address] Care Team Providers Name Role Phone Narendra Cuevas MD Primary Care Physician .ldai Attending Clinician Unavailable DONNY DENNIS Attending Clinician Unavailable DONNY DENNIS Attending Clinician Unavailable TAWNY BRAUN Attending Clinician Unavailable GABRIELLA LUONG Attending Clinician Unavailable Vtc-Lab Attending Clinician Unavailable Joshua Decker Attending Clinician JOSHUA SCHROEDER Attending Clinician Unavailable Lab, Ang - Db Attending Clinician Unavailable Unknown, Attending Attending Clinician Unavailable Markell [facility], Darian Bello Attending Clinician Doctor Unassigned, [place] Attending Clinician Unavailable Humza Fonseca MD Attending Clinician Kellen Smart MA Attending Clinician Unavailable Tawny Braun MD Attending Clinician Jie Alvarez MD Attending Clinician FLORINDA CHASE Attending Clinician Unavailable Florinda Chase MD Attending Clinician James Martin MD Attending Clinician [phone] SAPNA MURPHY Attending Clinician Unavailable Sapna Schmitz Attending Clinician SHILOH HAMPTON Attending Clinician Unavailable Gabriella Luong MD Attending Clinician [facility] Attending Clinician Unavailable Abi PAZ, Greyson Attending Clinician Unavailable Eloise Delgado MD Attending Clinician Unavailable TIANA JIMENEZ Attending Clinician Unavailable IDA HALL Attending Clinician Unavailable Rafael PAZ, Ida Attending Clinician ELOISE DELGADO Attending Clinician Unavailable GREYSON ALEX Attending Clinician Unavailable Pcp-Lab Attending Clinician Unavailable Joey Negrete MD Attending Clinician JOEY NEGRETE Attending Clinician Unavailable Narendra Cuevas MD Attending Clinician Juan Lowe MD Attending Clinician OMARI GARCIA Attending Clinician Unavailable Ibfarhad PINKP, Folusho F Attending Clinician Peewee Chaudhary DO-Serafinu Attending Clinician Wheeler CREW BOAT OPERATOR, Milagro F Attending Clinician Unavailable Carla Cooper MD Attending Clinician CARLA COOPER Attending Clinician Unavailable Omari Garcia MD Attending Clinician Carla Luong MD Attending Clinician CARLA LUONG Attending Clinician Unavailable Zuri Medina DO Attending Clinician ZURI MEDINA Attending Clinician Unavailable Rik Bardales MD Attending Clinician JUAN LOWE Attending Clinician Unavailable UNKNOWN, ATTENDING Attending Clinician Unavailable Tha PINKP, Humza Attending Clinician Mickie AVILA, Elisa Patrick Attending Clinician Unavailable Candie Austin RN Attending Clinician Unavailable Libia Boswell RN Attending Clinician Unavailable [facility] Attending Clinician Unavailable Only, Pcp Test Attending Clinician Unavailable Silviano Carrasquillo MD Attending Clinician SILVIANO CARRASQUILLO Attending Clinician Unavailable Xi Romero RN Attending Clinician Unavailable CHRISTIANNE CACERES Attending Clinician Unavailable Diabetes, Armida & Pcp Pedi Endocrine Attending Clinician Unashiela Caceres MD, Christianne Feng Attending Clinician Hartman ENGINEERING DOCUMENT CONTROL CLERK, Belinda Attending Clinician Nurse, Lauri Urgent Attending Clinician Unavailable Lane THAYER, Cindi Oshea Attending Clinician [phone] RIK BARDALES Attending Clinician Unavailable Denilson THAYER, Roz Ken Attending Clinician Nurse, Armida Pedi Endocrine Attending Clinician Unavailable ABHIJEET CABALLERO Attending Clinician Unavailable Lynn THAYER, Chris Attending Clinician Conrad Sousa MD Attending Clinician Shanon PAZ, Ketty Reagan Attending Clinician Teens, Armida & [...] Date Expiration Date S ource [place] [id number] 2019 OF [facility] 00:00:[address] [facility] [id number] 2015 00:00:00 [place] P [id number] 2015 00:00:00 [facility] [id number] 2022 CHOICE [place] STAR 00:00:00 Problems Condition Condition Condition Status Onset Resolution Last Treating Co mments Source Name Details Category Date Date Treatment Clinician Date History of History of Disease Active 2019-11 U nivers allergic allergic 0-19 ity of urticaria urticaria 00:00: [address] Lipohypert Lipohypert Disease Active U nivers rophy rophy 6-25 ity of 00:00: [address] Diabetic Diabetic Disease Active Unive rs ketoacidos ketoacidos 6-24 it y of is is 00:00: [place] [facility] Weight Weight Disease Active Univers [...] 3-21 it y of s s 00:00: [place] [facility] [place] Allergies, Adverse Reactions, Alerts Allergy Allergy Status Severity Reaction(s) Onset Inactive Treating Comm ents Source Name Type Date Date Clinician ILAN DRUG Active ITCHING 2019-11 Univers H INGREDI 0-19 ity of DERIVED 00:00: [facility] Shellfis Propensi Active Rash 2019-11 Univer s h ty to 0-19 ity of Derived adverse 00:00: [place] reaction 00 Medical s [place] Social History Social Habit Start Date Stop Date Quantity Comments Source Exposure to 2023-03-17 2023-03-27 Not sure [facility] SARS-CoV-2 00:00:00 18:32:00 [facility] (event) [place] Alcohol intake 2023-02-06 2023-02-06 0 /d University of 00:00:00 00:00:00 [facility] Tobacco Comment 2022-06-02 2022-06-02 no smoking in the Un iversity of 00:00:00 00:00:00 home [facility] Tobacco use and 2022-06-02 2022-06-02 Smokeless tobacco Un iversity of exposure 00:00:00 00:00:00 non-user [facility] Sex Assigned At [birth year] Universit y of 00:00:00 00:00:00 [facility] Smoking Status Start Date Stop Date Source Never smoked tobacco [facility] Medications Ordered Filled Start Stop Current Ordering Indication Dosage Frequency Signature Comments Components Source Medication Medication Date Date Medication? Clinician (SIG) Name Name fluconazole 2022- Yes [id number] 150mg Take 1 Univers (DIFLUCAN) - 05-11 tablet by ity of 150 mg 00:00: 04:59 mouth [place] tablet 00 :00 every 72 Medical ([facility]) hours for 2 doses. fluconazole 2022-0 3- Yes [id number] 150mg Take 1 Univers (DIFLUCAN) 4- 05-11 tablet by ity of 150 mg 00:00: 04:59 mouth [place] tablet 00 :00 every 72 Medical ([facility]) hours for 2 doses. fluconazole 2022-0 2022- Yes [id number] 150mg Take 1 Univers (DIFLUCAN) 03-10 05-11 tablet by ity of 150 mg 00:00: 04:59 mouth [place] tablet 00 :00 every 72 Medical ([facility]) hours for 2 doses. fluconazole 2022-0 2022- Yes [id number] 150mg Take 1 Univers (DIFLUCAN) 03-10-27 tablet by ity of 150 mg 00:00: 04:59 mouth [place] tablet 00 :00 every 72 Medical ([facility]) hours for 2 doses. baricitinib 2022-0 Yes [id number] 2mg Take 1 Univers (OLUMIANT) 3-21 tablet by ity of 2 mg 00:00: mouth in [place] 00 the Medical morning. Branch baricitinib 2022-0 Yes [id number] 2mg Take 1 Univers (OLUMIANT) 3-21 tablet by ity of 2 mg 00:00: mouth in [place] 00 the Medical morning. Branch baricitinib 2022-0 Yes [id number] 2mg Take 1 Univers (OLUMIANT) 3-21 tablet by ity of 2 mg 00:00: mouth in [place] 00 the Medical morning. Branch baricitinib 2022-0 Yes [id number] 2mg Take 1 Univers (OLUMIANT) 3-21 tablet by ity of 2 mg 00:00: mouth in [place] 00 the Medical morning. Branch baricitinib 2022-0 Yes [id number] 2mg Take 1 Univers (OLUMIANT) 3-21 tablet by ity of 2 mg 00:00: mouth in [place] 00 the Medical morning. Branch baricitinib 2022-0 Yes [id number] 2mg Take 1 Univers (OLUMIANT) 3-21 tablet by ity of 2 mg 00:00: mouth in [place] 00 the Medical morning. Branch baricitinib 3-0 Yes [id number] 2mg Take 1 Univers (OLUMIANT) 3-21 tablet by ity of 2 mg 00:00: mouth in [place] the Medical morning. Branch baricitinib 3-0 Yes [id number] 2mg Take 1 Univers (OLUMIANT) 3-21 tablet by ity of 2 mg 00:00: mouth in [place] the Medical morning. Branch baricitinib 3-0 Yes [id number] 2mg Take 1 Univers (OLUMIANT) 3-21 tablet by ity of 2 mg 00:00: mouth in [place] the Medical morning. Branch baricitinib 3-0 Yes [id number] 2mg Take 1 Univers (OLUMIANT) 3-21 tablet by ity of 2 mg 00:00: mouth in [place] the Medical morning. Branch baricitinib 3-0 Yes [id number] 2mg Take 1 Univers (OLUMIANT) 3-21 tablet by ity of 2 mg 00:00: mouth in [place] the Medical morning. Branch insulin 0 Yes [id number] Take 1 Uni vers aspart 2-27 unit for 9 ity of U-100 00:00: grams [place] (NOVOLOG 00 carbs plus Medic al FLEXPEN 1 unit for Branch U-100 every 36 INSULIN) points > 100 unit/mL 130 up to (3 mL) 75 units injection daily insulin 2022-0 Yes [id number] Take 1 Uni vers aspart 2-27 unit for 9 ity of U-100 00:00: grams [place] (NOVOLOG 00 carbs plus Medic al FLEXPEN 1 unit for Branch U-100 every 36 INSULIN) points > 100 unit/mL 130 up to (3 mL) 75 units injection daily insulin 2022-0 Yes [id number] Take 1 Uni vers aspart 2-27 unit for 9 ity of U-100 00:00: grams [place] (NOVOLOG 00 carbs plus Medic al FLEXPEN 1 unit for Branch U-100 every 36 INSULIN) points > 100 unit/mL 130 up to (3 mL) 75 units injection daily insulin 2022-0 Yes [id number] inject 1 U nivers aspart 2-27 unit for ity of U-100 00:00: every 9 [place] (NOVOLOG 00 grams of Medical FLEXPEN carbs plus Branch U-100 1 unit for INSULIN) every 36 100 unit/mL points > (3 mL) 130 up to injection 75 units daily. insulin 0 Yes [id number] inject 1 U nivers aspart 2-27 unit for ity of U-100 00:00: every 9 [place] (NOVOLOG 00 grams of Medical FLEXPEN carbs plus Branch U-100 1 unit for INSULIN) every 36 100 unit/mL points > (3 mL) 130 up to injection 75 units daily. insulin 0 Yes [id number] inject 1 U nivers aspart 2-27 unit for ity of U-100 00:00: every 9 [place] (NOVOLOG 00 grams of Medical FLEXPEN carbs plus Branch U-100 1 unit for INSULIN) every 36 100 unit/mL points > (3 mL) 130 up to injection 75 units daily. insulin Yes [id number] inject 1 U nivers aspart 2-27 unit for ity of U-100 00:00: every 9 [place] (NOVOLOG 00 grams of Medical FLEXPEN carbs plus Branch U-100 1 unit for INSULIN) every 36 100 unit/mL points > (3 mL) 130 up to injection 75 units daily. insulin Yes [id number] inject 1 U nivers aspart 2-27 unit for ity of U-100 00:00: every 9 [place] (NOVOLOG 00 grams of Medical FLEXPEN carbs plus Branch U-100 1 unit for INSULIN) every 36 100 unit/mL points > (3 mL) 130 up to injection 75 units daily. insulin Yes [id number] inject 1 U nivers aspart 2-27 unit for ity of U-100 00:00: every 9 [place] (NOVOLOG 00 grams of Medical FLEXPEN carbs plus Branch U-100 1 unit for INSULIN) every 36 100 unit/mL points > (3 mL) 130 up to injection 75 units daily. insulin 0 Yes [id number] inject 1 U nivers aspart 2-27 unit for ity of U-100 00:00: every 9 [place] (NOVOLOG 00 grams of Medical FLEXPEN carbs plus Branch U-100 1 unit for INSULIN) every 36 100 unit/mL points > (3 mL) 130 up to injection 75 units daily. insulin Yes [id number] inject 1 U nivers aspart 2-27 unit for ity of U-100 00:00: every 9 [place] (NOVOLOG 00 grams of Medical FLEXPEN carbs plus Branch U-100 1 unit for INSULIN) every 36 100 unit/mL points > (3 mL) 130 up to injection 75 units daily. insulin Yes [id number] inject 1 U nivers aspart 2-27 unit for ity of U-100 00:00: every 9 [place] (NOVOLOG 00 grams of Medical FLEXPEN carbs plus Branch U-100 1 unit for INSULIN) every 36 100 unit/mL points > (3 mL) 130 up to injection 75 units daily. insulin Yes [id number] inject 1 U nivers aspart 2-27 unit for ity of U-100 00:00: every 9 [place] (NOVOLOG 00 grams of Medical FLEXPEN carbs plus Branch U-100 1 unit for INSULIN) every 36 100 unit/mL points > (3 mL) 130 up to injection 75 units daily. insulin Yes [id number] inject 1 U nivers aspart 2-27 unit for ity of U-100 00:00: every 9 [place] (NOVOLOG 00 grams of Medical FLEXPEN carbs plus Branch U-100 1 unit for INSULIN) every 36 100 unit/mL points > (3 mL) 130 up to injection 75 units daily. insulin Yes [id number] inject 1 U nivers aspart 2-27 unit for ity of U-100 00:00: every 9 [place] (NOVOLOG 00 grams of Medical FLEXPEN carbs plus Branch U-100 1 unit for INSULIN) every 36 100 unit/mL points > (3 mL) 130 up to injection 75 units daily. insulin Yes [id number] inject 1 U nivers aspart 2-27 unit for ity of U-100 00:00: every 9 [place] (NOVOLOG 00 grams of Medical FLEXPEN carbs plus Branch U-100 1 unit for INSULIN) every 36 100 unit/mL points > (3 mL) 130 up to injection 75 units daily. lancets Yes [id number] Checking U nivers (ONETOUCH 2-15 upto 4 ity of DELICA PLUS 00:00: times [place] LANCET) 30 00 daily. Dx Medi rashid gauge Misc E10.65 Branch lancets Yes [id number] Use to Uni vers (ONETOUCH 2-15 check ity of DELICA PLUS 00:00: blood [place] LANCET) 30 00 sugar up Medic al gauge Misc to 4 times Bra nch daily. Dx E10.65 lancets 2022-0 Yes [id number] Use to Uni vers (ONETOUCH 2-15 check ity of DELICA PLUS 00:00: blood [place] LANCET) 30 00 sugar up Medic al gauge Misc to 4 times Bra nch daily. Dx E10.65 lancets 2022-0 Yes [id number] Use to Uni vers (ONETOUCH 2-15 check ity of DELICA PLUS 00:00: blood [place] LANCET) 30 00 sugar up Medic al gauge Misc to 4 times Bra nch daily. Dx E10.65 lancets 2022-0 Yes [id number] Use to Uni vers (ONETOUCH 2-15 check ity of DELICA PLUS 00:00: blood [place] LANCET) 30 00 sugar up Medic al gauge Misc to 4 times Bra nch daily. Dx E10.65 lancets 0 Yes [id number] Use to Uni vers (ONETOUCH 2-15 check ity of DELICA PLUS 00:00: blood [place] LANCET) 30 00 sugar up Medic al gauge Misc to 4 times Bra nch daily. Dx E10.65 lancets 2022-0 Yes [id number] Use to Uni vers (ONETOUCH 2-15 check ity of DELICA PLUS 00:00: blood [place] LANCET) 30 00 sugar up Medic al gauge Misc to 4 times Bra nch daily. Dx E10.65 lancets 2022-0 Yes [id number] Use to Uni vers (ONETOUCH 2-15 check ity of DELICA PLUS 00:00: blood [place] LANCET) 30 00 sugar up Medic al gauge Misc to 4 times Bra nch daily. Dx E10.65 lancets 2022-0 Yes [id number] Use to Uni vers (ONETOUCH 2-15 check ity of DELICA PLUS 00:00: blood [place] LANCET) 30 00 sugar up Medic al gauge Misc to 4 times Bra nch daily. Dx E10.65 lancets 2022-0 Yes [id number] Use to Uni vers (ONETOUCH 2-15 check ity of DELICA PLUS 00:00: blood [place] LANCET) 30 00 sugar up Medic al gauge Misc to 4 times Bra nch daily. Dx E10.65 lancets 0 Yes [id number] Use to Uni vers (ONETOUCH 2-15 check ity of DELICA PLUS 00:00: blood [place] LANCET) 30 00 sugar up Medic al gauge Misc to 4 times Bra nch daily. Dx E10.65 lancets 0 Yes [id number] Use to Uni vers (ONETOUCH 2-15 check ity of DELICA PLUS 00:00: blood [place] LANCET) 30 00 sugar up Medic al gauge Misc to 4 times Bra nch daily. Dx E10.65 lancets 0 Yes [id number] Use to Uni vers (ONETOUCH 2-15 check ity of DELICA PLUS 00:00: blood [place] LANCET) 30 00 sugar up Medic al gauge Misc to 4 times Bra nch daily. Dx E10.65 lancets 0 Yes [id number] Use to Uni vers (ONETOUCH 2-15 check ity of DELICA PLUS 00:00: blood [place] LANCET) 30 00 sugar up Medic al gauge Misc to 4 times Bra nch daily. Dx E10.65 lancets 0 Yes [id number] Use to Uni vers (ONETOUCH 2-15 check ity of DELICA PLUS 00:00: blood [place] LANCET) 30 00 sugar up Medic al gauge Misc to 4 times Bra nch daily. Dx E10.65 lancets 0 Yes [id number] Use to Uni vers (ONETOUCH 2-15 check ity of DELICA PLUS 00:00: blood [place] LANCET) 30 00 sugar up Medic al gauge Misc to 4 times Bra nch daily. Dx E10.65 lancets 2022-0 Yes [id number] Use to Uni vers (ONETOUCH 2-15 check ity of DELICA PLUS 00:00: blood [place] LANCET) 30 00 sugar up Medic al gauge Misc to 4 times Bra nch daily. Dx E10.65 lancets 2022-0 Yes [id number] Use to Uni vers (ONETOUCH 2-15 check ity of DELICA PLUS 00:00: blood [place] LANCET) 30 00 sugar up Medic al gauge Misc to 4 times Bra nch daily. Dx E10.65 lancets 2022-0 Yes [id number] Use to Uni vers (ONETOUCH 2-15 check ity of DELICA PLUS 00:00: blood [place] LANCET) 30 00 sugar up Medic al gauge Misc to 4 times Bra nch daily. Dx E10.65 lancets 2022-0 Yes [id number] Use to Uni vers (ONETOUCH 2-15 check ity of DELICA PLUS 00:00: blood [place] LANCET) 30 00 sugar up Medic al gauge Misc to 4 times Bra nch daily. Dx E10.65 lancets 2022-0 Yes [id number] Use to Uni vers (ONETOUCH 2-15 check ity of DELICA PLUS 00:00: blood [place] LANCET) 30 00 sugar up Medic al gauge Misc to 4 times Bra nch daily. Dx E10.65 lancets 2022-0 Yes [id number] Use to Uni vers (ONETOUCH 2-15 check ity of DELICA PLUS 00:00: blood [place] LANCET) 30 00 sugar up Medic al gauge Misc to 4 times Bra nch daily. Dx E10.65 lancets 2022-0 Yes [id number] Use to Uni vers (ONETOUCH 2-15 check ity of DELICA PLUS 00:00: blood [place] LANCET) 30 00 sugar up Medic al gauge Misc to 4 times Bra nch daily. Dx E10.65 fluocinonid 0 Yes [id number] Apply to Univers e 0.05 % 2-14 area(s) 2 ity of gel 00:00: (two) [place] 00 times Medical daily. Branch SCALP hydrocortis Yes [id number] Apply to Univers one 2.5 % 2-14 affected ity of cream 00:00: area(s) 2 [place] 00 (two) Medical times Branch daily. Eyebrows and eyelids dexAMETHaso Yes [id number] Take once Univers ne 4 mg 2-14 daily on ity of tablet 00:00: Sunday [place] 00 and Sunday Medical only. Branch fluocinonid 0 Yes [id number] Apply to Univers e 0.05 % 2-14 area(s) 2 ity of gel 00:00: (two) [place] 00 times Medical daily. Branch SCALP hydrocortis 0 Yes [id number] Apply to Univers one 2.5 % 2-14 affected ity of cream 00:00: area(s) 2 [place] 00 (two) Medical times Branch daily. Eyebrows and eyelids dexAMETHaso 2023-0 Yes [id number] Take once Univers ne 4 mg 2-14 daily on ity of tablet 00:00: Sunday and Sunday Medical only. Branch fluocinonid 2022-0 Yes [id number] Apply to Univers e 0.05 % 2-14 area(s) 2 ity of gel 00:00: (two) times Medical daily. Branch SCALP hydrocortis 2022-0 Yes [id number] Apply to Univers one 2.5 % 2-14 affected ity of cream 00:00: area(s) 2 (two) Medical times Branch daily. Eyebrows and eyelids dexAMETHaso 3-0 Yes [id number] Take one Univers ne 4 mg 2-14 tablet ity of tablet 00:00: once on [place] Sunday Medical and Sunday Branch only. fluocinonid 2022-0 Yes [id number] Apply to Univers e 0.05 % 2-14 area(s) 2 ity of gel 00:00: (two) [place] times Medical daily. Branch SCALP hydrocortis 2022-0 Yes [id number] Apply to Univers one 2.5 % 2-14 affected ity of cream 00:00: area(s) 2 [place] (two) Medical times Branch daily. Eyebrows and eyelids dexAMETHaso 3-0 Yes [id number] Take one Univers ne 4 mg 2-14 tablet ity of tablet 00:00: once on [place] Sunday Medical and Sunday Branch only. fluocinonid 3-0 Yes [id number] Apply to Univers e 0.05 % 2-14 area(s) 2 ity of gel 00:00: (two) times Medical daily. Branch SCALP hydrocortis 2022-0 Yes [id number] Apply to Univers one 2.5 % 2-14 affected ity of cream 00:00: area(s) 2 [place] (two) Medical times Branch daily. Eyebrows and eyelids dexAMETHaso 3-0 Yes [id number] Take one Univers ne 4 mg 2-14 tablet ity of tablet 00:00: once on [place] Sunday Medical and Sunday Branch only. fluocinonid 3-0 Yes [id number] Apply to Univers e 0.05 % 2-14 area(s) 2 ity of gel 00:00: (two) [place] times Medical daily. Branch SCALP hydrocortis 2022-0 Yes [id number] Apply to Univers one 2.5 % 2-14 affected ity of cream 00:00: area(s) 2 [place] (two) Medical times Branch daily. Eyebrows and eyelids dexAMETHaso 3-0 Yes [id number] Take one Univers ne 4 mg 2-14 tablet ity of tablet 00:00: once on [place] Sunday Medical and Sunday Branch only. fluocinonid 2022-0 Yes [id number] Apply to Univers e 0.05 % 2-14 area(s) 2 ity of gel 00:00: (two) times Medical daily. Branch SCALP hydrocortis 2022-0 Yes [id number] Apply to Univers one 2.5 % 2-14 affected ity of cream 00:00: area(s) 2 [place] (two) Medical times Branch daily. Eyebrows and eyelids dexAMETHaso 2022-0 Yes [id number] Take one Univers ne 4 mg 2-14 tablet ity of tablet 00:00: once on [place] Sunday Medical and Sunday Branch only. fluocinonid 2022-0 Yes [id number] Apply to Univers e 0.05 % 2-14 area(s) 2 ity of gel 00:00: (two) [place] times Medical daily. Branch SCALP hydrocortis 2022-0 Yes [id number] Apply to Univers one 2.5 % 2-14 affected ity of cream 00:00: area(s) 2 [place] (two) Medical times Branch daily. Eyebrows and eyelids dexAMETHaso 3-0 Yes [id number] Take one Univers ne 4 mg 2-14 tablet ity of tablet 00:00: once on [place] Sunday Medical and Sunday Branch only. fluocinonid 3-0 Yes [id number] Apply to Univers e 0.05 % 2-14 area(s) 2 ity of gel 00:00: (two) [place] times Medical daily. Branch SCALP hydrocortis 2022-0 Yes [id number] Apply to Univers one 2.5 % 2-14 affected ity of cream 00:00: area(s) 2 [place] (two) Medical times Branch daily. Eyebrows and eyelids dexAMETHaso 3-0 Yes [id number] Take one Univers ne 4 mg 2-14 tablet ity of tablet 00:00: once on [place] Sunday Medical and Sunday Branch only. fluocinonid 2022-0 Yes [id number] Apply to Univers e 0.05 % 2-14 area(s) 2 ity of gel 00:00: (two) [place] times Medical daily. Branch SCALP hydrocortis 2022-0 Yes [id number] Apply to Univers one 2.5 % 2-14 affected ity of cream 00:00: area(s) 2 [place] (two) Medical times Branch daily. Eyebrows and eyelids dexAMETHaso 2022-0 Yes [id number] Take one Univers ne 4 mg 2-14 tablet ity of tablet 00:00: once on [place] Sunday Medical and Sunday Branch only. fluocinonid 2022-0 Yes [id number] Apply to Univers e 0.05 % 2-14 area(s) 2 ity of gel 00:00: (two) [place] times Medical daily. Branch SCALP hydrocortis 2022-0 Yes [id number] Apply to Univers one 2.5 % 2-14 affected ity of cream 00:00: area(s) 2 [place] (two) Medical times Branch daily. Eyebrows and eyelids dexAMETHaso 2022-0 Yes [id number] Take one Univers ne 4 mg 2-14 tablet ity of tablet 00:00: once on [place] Sunday Medical and Sunday Branch only. fluocinonid 2022-0 Yes [id number] Apply to Univers e 0.05 % 2-14 area(s) 2 ity of gel 00:00: (two) [place] times Medical daily. Branch SCALP hydrocortis 2022-0 Yes [id number] Apply to Univers one 2.5 % 2-14 affected ity of cream 00:00: area(s) 2 [place] (two) Medical times Branch daily. Eyebrows and eyelids dexAMETHaso 3-0 Yes [id number] Take one Univers ne 4 mg 2-14 tablet ity of tablet 00:00: once on [place] [address] Sunday Medical and Sunday Branch only. fluocinonid 3-0 Yes [id number] Apply to Univers e 0.05 % 2-14 area(s) 2 ity of gel 00:00: (two) times Medical daily. Branch SCALP hydrocortis 3-0 Yes [id number] Apply to Univers one 2.5 % 2-14 affected ity of cream 00:00: area(s) 2 [place] (two) Medical times Branch daily. Eyebrows and eyelids dexAMETHaso 2023-0 Yes [id number] Take one Univers ne 4 mg 2-14 tablet ity of tablet 00:00: once on [place] Sunday Medical and Sunday Branch only. fluocinonid 3-0 Yes [id number] Apply to Univers e 0.05 % 2-14 area(s) 2 ity of gel 00:00: (two) [place] times Medical daily. Branch SCALP hydrocortis 2022-0 Yes [id number] Apply to Univers one 2.5 % 2-14 affected ity of cream 00:00: area(s) 2 [place] (two) Medical times Branch daily. Eyebrows and eyelids dexAMETHaso 3-0 Yes [id number] Take one Univers ne 4 mg 2-14 tablet ity of tablet 00:00: once on [place] Sunday Medical and Sunday Branch only. fluocinonid 3-0 Yes [id number] Apply to Univers e 0.05 % 2-14 area(s) 2 ity of gel 00:00: (two) [place] times Medical daily. Branch SCALP hydrocortis 2022-0 Yes [id number] Apply to Univers one 2.5 % 2-14 affected ity of cream 00:00: area(s) 2 [place] (two) Medical times Branch daily. Eyebrows and eyelids fluocinonid 2023-0 Yes [id number] Apply to Univers e 0.05 % 2-14 area(s) 2 ity of gel 00:00: (two) [place] times Medical daily. Branch SCALP hydrocortis 3-0 Yes [id number] Apply to Univers one 2.5 % 2-14 affected ity of cream 00:00: area(s) 2 [place] (two) Medical times Branch daily. Eyebrows and eyelids fluocinonid 2023-0 Yes [id number] Apply to Univers e 0.05 % 2-14 area(s) 2 ity of gel 00:00: (two) [place] times Medical daily. Branch SCALP hydrocortis 2023-0 Yes [id number] Apply to Univers one 2.5 % 2-14 affected ity of cream 00:00: area(s) 2 [place] 00 (two) Medical times Branch daily. Eyebrows and eyelids fluocinonid 2023-0 Yes [id number] Apply to Univers e 0.05 % 2-14 area(s) 2 ity of gel 00:00: (two) [place] 00 times Medical daily. Branch SCALP hydrocortis 3-0 Yes [id number] Apply to Univers one 2.5 % 2-14 affected ity of cream 00:00: area(s) 2 [place] 00 (two) Medical times Branch daily. Eyebrows and eyelids fluocinonid 2023-0 Yes [id number] Apply to Univers e 0.05 % 2-14 area(s) 2 ity of gel 00:00: (two) [place] 00 times Medical daily. Branch SCALP hydrocortis 3-0 Yes [id number] Apply to [facility] one 2.5 % 2-14 affected ity of cream 00:00: area(s) 2 [place] (two) Medical times Branch daily. Eyebrows and eyelids fluocinonid 3-0 Yes [id number] Apply to [facility] e 0.05 % 2-14 area(s) 2 ity of gel 00:00: (two) [place] 00 times Medical daily. Branch SCALP hydrocortis 3-0 Yes [id number] Apply to [facility] one 2.5 % 2-14 affected ity of cream 00:00: area(s) 2 [place] (two) Medical times Branch daily. Eyebrows and eyelids fluocinonid 2023-0 Yes [id number] Apply to [facility] e 0.05 % 2-14 area(s) 2 ity of gel 00:00: (two) [place] 00 times Medical daily. Branch SCALP hydrocortis 3-0 Yes [id number] Apply to [facility] one 2.5 % 2-14 affected ity of cream 00:00: area(s) 2 [place] 00 (two) Medical times Branch daily. Eyebrows and eyelids fluocinonid 2023-0 Yes [id number] Apply to [facility] e 0.05 % 2-14 area(s) 2 ity of gel 00:00: (two) [place] 00 times Medical daily. Branch SCALP hydrocortis 3-0 Yes [id number] Apply to [facility] one 2.5 % 2-14 affected ity of cream 00:00: area(s) 2 [place] (two) Medical times Branch daily. Eyebrows and eyelids fluocinonid 3-0 Yes [id number] Apply to [facility] e 0.05 % 2-14 area(s) 2 ity of gel 00:00: (two) [place] 00 times Medical daily. Branch SCALP hydrocortis 2022-0 Yes [id number] Apply to [facility] one 2.5 % 2-14 affected ity of cream 00:00: area(s) 2 [place] (two) Medical times Branch daily. Eyebrows and eyelids fluocinonid 3-0 Yes [id number] Apply to [facility] e 0.05 % 2-14 area(s) 2 ity of gel 00:00: (two) [place] times Medical daily. Branch SCALP hydrocortis 2022-0 Yes [id number] Apply to [facility] one 2.5 % 2-14 affected ity of cream 00:00: area(s) 2 [place] (two) Medical times Branch daily. Eyebrows and eyelids fluocinonid 3-0 Yes [id number] Apply to [facility] e 0.05 % 2-14 area(s) 2 ity of gel 00:00: (two) [place] 00 times Medical daily. Branch SCALP hydrocortis 2022-0 Yes [id number] Apply to [facility] one 2.5 % 2-14 affected ity of cream 00:00: area(s) 2 [place] (two) Medical times [place] daily. Eyebrows and eyelids dexAMETHaso 2022-0 2022- No [id number] Take one [facility] ne 4 mg 2-14 -21 tablet ity of tablet 00:00: 00:00 once on [place] 00 :00 Sunday Medical and Sunday Branch only. dexAMETHaso 3-0 2022- No [id number] Take one [facility] ne 4 mg 2-14 -21 tablet ity of tablet 00:00: 00:00 once on [place] 00 :00 Sunday Medical and Sunday Branch only. blood sugar 2021-11 Yes Use to [facility] ers diagnostic 0-26 check ity of (ONETOUCH [...] DX:E10.65 blood sugar 2021-11 Yes Use to [facility] ers diagnostic 0-26 check ity of (ONETOUCH 00:00: blood [place] VERIO TEST 00 sugar 4X Medic al STRIPS) daily. Branch strip DX:E10.65 blood sugar 2021-11 Yes Use to [facility] ers diagnostic 0-26 check ity of (ONETOUCH 00:00: blood [place] VERIO TEST 00 sugar 4X Medic al STRIPS) daily. Branch strip DX:E10.65 blood sugar 2021-11 Yes Use to [facility] ers diagnostic 0-26 check ity of (ONETOUCH 00:00: blood [place] VERIO TEST 00 sugar 4X Medic al STRIPS) daily. Branch strip DX:E10.65 ketoconazol 2021-11 Yes [id number] Apply to [facility] e 2 % 0-19 area(s) ity of shampoo 00:00: once daily [place] 00 as needed Medical for Branch Itching. terbinafine 2021-11 Yes [id number] 250mg Take 1 [facility] HCL 250 mg 0-19 tablet by ity of tablet 00:00: mouth in [place] 00 the Medical morning. Branch ketoconazol 2021-11 Yes [id number] Apply to [facility] e 2 % 0-19 area(s) ity of shampoo 00:00: once daily [place] 00 as needed Medical for Branch Itching. terbinafine 2021-11 Yes [id number] 250mg Take 1 [facility] HCL 250 mg 0-19 tablet by ity of tablet 00:00: mouth in [place] 00 the Medical morning. Branch ketoconazol 2021-11 Yes [id number] Apply to [facility] e 2 % 0-19 area(s) ity of shampoo 00:00: once daily [place] 00 as needed Medical for Branch Itching. terbinafine 2021-11 Yes [id number] 250mg Take 1 [facility] HCL 250 mg 0-19 tablet by ity of tablet 00:00: mouth in [place] 00 the Medical morning. Branch ketoconazol 2021-11 Yes [id number] Apply to [facility] e 2 % 0-19 area(s) ity of shampoo 00:00: once daily [place] 00 as needed Medical for Branch Itching. terbinafine 2021-11 Yes [id number] 250mg Take 1 [facility] HCL 250 mg 0-19 tablet by ity of tablet 00:00: mouth in [place] 00 the Medical morning. Branch ketoconazol 2021-11 Yes [id number] Apply to [facility] e 2 % 0-19 area(s) ity of shampoo 00:00: once daily [place] 00 as needed Medical for Branch Itching. terbinafine 2021-11 Yes [id number] 250mg Take 1 [facility] HCL 250 mg 0-19 tablet by ity of tablet 00:00: mouth in [place] 00 the Medical morning. Branch ketoconazol 2021-11 Yes [id number] Apply to [facility] e 2 % 0-19 area(s) ity of shampoo 00:00: once daily [place] 00 as needed Medical for Branch Itching. terbinafine 2021-11 Yes [id number] 250mg Take 1 [facility] HCL 250 mg 0-19 tablet by ity of tablet 00:00: mouth in [place] 00 the Medical morning. Branch ketoconazol 2021-11 Yes [id number] Apply to [facility] e 2 % 0-19 area(s) ity of shampoo 00:00: once daily [place] 00 as needed Medical for Branch Itching. terbinafine 2021-11 Yes [id number] 250mg Take 1 [facility] HCL 250 mg 0-19 tablet by ity of tablet 00:00: mouth in [place] 00 the Medical morning. Branch ketoconazol 2021-11 Yes [id number] Apply to [facility] e 2 % 0-19 area(s) ity of shampoo 00:00: once daily [place] 00 as needed Medical for Branch Itching. terbinafine 2021-11 Yes [id number] 250mg Take 1 [facility] HCL 250 mg 0-19 tablet by ity of tablet 00:00: mouth in [place] 00 the Medical morning. Branch ketoconazol 2021-11 Yes [id number] Apply to [facility] e 2 % 0-19 area(s) ity of shampoo 00:00: once daily [place] 00 as needed Medical for Branch Itching. terbinafine 2021-11 Yes [id number] 250mg Take 1 [facility] HCL 250 mg 0-19 tablet by ity of tablet 00:00: mouth in [place] 00 the Medical morning. Branch ketoconazol 2021-11 Yes [id number] Apply to [facility] e 2 % 0-19 area(s) ity of shampoo 00:00: once daily [place] 00 as needed Medical for Branch Itching. terbinafine 2021-11 Yes [id number] 250mg Take 1 [facility] HCL 250 mg 0-19 tablet by ity of tablet 00:00: mouth in [place] 00 the Medical morning. Branch ketoconazol 2021-11 Yes [id number] Apply to [facility] e 2 % 0-19 area(s) ity of shampoo 00:00: once daily [place] 00 as needed Medical for Branch Itching. terbinafine 2021-11 Yes [id number] 250mg Take 1 [facility] HCL 250 mg 0-19 tablet by ity of tablet 00:00: mouth in [place] 00 the Medical morning. Branch ketoconazol 2021-11 Yes [id number] Apply to [facility] e 2 % 0-19 area(s) ity of shampoo 00:00: once daily [place] 00 as needed Medical for Branch Itching. terbinafine 2021-11 Yes [id number] 250mg Take 1 [facility] HCL 250 mg 0-19 tablet by ity of tablet 00:00: mouth in [place] 00 the Medical morning. Branch ketoconazol 2021-11 Yes [id number] Apply to [facility] e 2 % 0-19 area(s) ity of shampoo 00:00: once daily [place] 00 as needed Medical for Branch Itching. terbinafine 2021-11 Yes [id number] 250mg Take 1 [facility] HCL 250 mg 0-19 tablet by ity of tablet 00:00: mouth in [place] 00 the Medical morning. Branch ketoconazol 2021-11 Yes [id number] Apply to [facility] e 2 % 0-19 area(s) ity of shampoo 00:00: once daily [place] 00 as needed Medical for Branch Itching. terbinafine 2021-11 Yes [id number] 250mg Take 1 [facility] HCL 250 mg 0-19 tablet by ity of tablet 00:00: mouth in [place] 00 the Medical morning. Branch ketoconazol 2021-11 Yes [id number] Apply to [facility] e 2 % 0-19 area(s) ity of shampoo 00:00: once daily [place] 00 as needed Medical for Branch Itching. terbinafine 2021-11 Yes [id number] 250mg Take 1 [facility] HCL 250 mg 0-19 tablet by ity of tablet 00:00: mouth in [place] 00 the Medical morning. Branch ketoconazol 2021-11 Yes [id number] Apply to [facility] e 2 % 0-19 area(s) ity of shampoo 00:00: once daily [place] 00 as needed Medical for Branch Itching. terbinafine 2021-11 Yes [id number] 250mg Take 1 [facility] HCL 250 mg 0-19 tablet by ity of tablet 00:00: mouth in [place] 00 the Medical morning. Branch ketoconazol 2021-11 Yes [id number] Apply to [facility] e 2 % 0-19 area(s) ity of shampoo 00:00: once daily [place] 00 as needed Medical for Branch Itching. terbinafine 2021-11 Yes [id number] 250mg Take 1 [facility] HCL 250 mg 0-19 tablet by ity of tablet 00:00: mouth in [place] the Medical morning. Branch ketoconazol 2021-11 Yes [id number] Apply to [facility] e 2 % 0-19 area(s) ity of shampoo 00:00: once daily [place] 00 as needed Medical for Branch Itching. terbinafine 2021-11 Yes [id number] 250mg Take 1 [facility] HCL 250 mg 0-19 tablet by ity of tablet 00:00: mouth in [place] the Medical morning. Branch ketoconazol 2021-11 Yes [id number] Apply to [facility] e 2 % 0-19 area(s) ity of shampoo 00:00: once daily [place] 00 as needed Medical for Branch Itching. terbinafine 2021-11 Yes [id number] 250mg Take 1 [facility] HCL 250 mg 0-19 tablet by ity of tablet 00:00: mouth in [place] the Medical morning. Branch ketoconazol 2021-11 Yes [id number] Apply to [facility] e 2 % 0-19 area(s) ity of shampoo 00:00: once daily [place] 00 as needed Medical for Branch Itching. terbinafine 2021-11 Yes [id number] 250mg Take 1 [facility] HCL 250 mg 0-19 tablet by ity of tablet 00:00: mouth in [place] 00 the Medical morning. Branch ketoconazol 2021-11 Yes [id number] Apply to [facility] e 2 % 0-19 area(s) ity of shampoo 00:00: once daily [place] 00 as needed Medical for Branch Itching. terbinafine 2021-11 Yes [id number] 250mg Take 1 [facility] HCL 250 mg 0-19 tablet by ity of tablet 00:00: mouth in [place] the Medical morning. Branch ketoconazol 2021-11 Yes [id number] Apply to [facility] e 2 % 0-19 area(s) ity of shampoo 00:00: once daily [place] 00 as needed Medical for Branch Itching. terbinafine 2021-11 Yes [id number] 250mg Take 1 [facility] HCL 250 mg 0-19 tablet by ity of tablet 00:00: mouth in [place] the Medical morning. Branch ketoconazol 2021-11 Yes [id number] Apply to [facility] e 2 % 0-19 area(s) ity of shampoo 00:00: once daily [place] 00 as needed Medical for Branch Itching. terbinafine 2021-11 Yes [id number] 250mg Take 1 [facility] HCL 250 mg 0-19 tablet by ity of tablet 00:00: mouth in [place] the Medical morning. Branch ketoconazol 2021-11 Yes [id number] Apply to [facility] e 2 % 0-19 area(s) ity of shampoo 00:00: once daily [place] 00 as needed Medical for Branch Itching. terbinafine 2021-11 Yes [id number] 250mg Take 1 [facility] HCL 250 mg 0-19 tablet by ity of tablet 00:00: mouth in [place] the Medical morning. Branch ketoconazol 2021-11 Yes [id number] Apply to [facility] e 2 % 0-19 area(s) ity of shampoo 00:00: once daily [place] 00 as needed Medical for Branch Itching. terbinafine 2021-11 Yes [id number] 250mg Take 1 [facility] HCL 250 mg 0-19 tablet by ity of tablet 00:00: mouth in [place] 00 the Medical morning. Branch ketoconazol 2021-11 Yes [id number] Apply to [facility] e 2 % 0-19 area(s) ity of shampoo 00:00: once daily [place] 00 as needed Medical for Branch Itching. terbinafine 2021-11 Yes [id number] 250mg Take 1 [facility] HCL 250 mg 0-19 tablet by ity of tablet 00:00: mouth in [place] 00 the Medical morning. Branch ketoconazol 2021-11 Yes [id number] Apply to [facility] e 2 % 0-19 area(s) ity of shampoo 00:00: once daily [place] 00 as needed Medical for Branch Itching. terbinafine 2021-11 Yes [id number] 250mg Take 1 [facility] HCL 250 mg 0-19 tablet by ity of tablet 00:00: mouth in [place] 00 the Medical morning. Branch ketoconazol 2021-11 Yes [id number] Apply to [facility] e 2 % 0-19 area(s) ity of shampoo 00:00: once daily [place] 00 as needed Medical for Branch Itching. terbinafine 2021-11 Yes [id number] 250mg Take 1 [facility] HCL 250 mg 0-19 tablet by ity of tablet 00:00: mouth in [place] 00 the Medical morning. Branch ketoconazol 2021-11 Yes [id number] Apply to [facility] e 2 % 0-19 area(s) ity of shampoo 00:00: once daily [place] 00 as needed Medical for Branch Itching. terbinafine 2021-11 Yes [id number] 250mg Take 1 [facility] HCL 250 mg 0-19 tablet by ity of tablet 00:00: mouth in [place] 00 the Medical morning. Branch ketoconazol 2021-11 Yes [id number] Apply to [facility] e 2 % 0-19 area(s) ity of shampoo 00:00: once daily [place] 00 as needed Medical for Branch Itching. terbinafine 2021-11 Yes [id number] 250mg Take 1 [facility] HCL 250 mg 0-19 tablet by ity of tablet 00:00: mouth in [place] 00 the Medical morning. Branch ketoconazol 2021-11 Yes [id number] Apply to [facility] e 2 % 0-19 area(s) ity of shampoo 00:00: once daily [place] 00 as needed Medical for Branch Itching. terbinafine 2021-11 Yes [id number] 250mg Take 1 [facility] HCL 250 mg 0-19 tablet by ity of tablet 00:00: mouth in [place] 00 the Medical morning. Branch ketoconazol 2021-11 Yes [id number] Apply to [facility] e 2 % 0-19 area(s) ity of shampoo 00:00: once daily [place] 00 as needed Medical for Branch Itching. terbinafine 2021-11 Yes [id number] 250mg Take 1 [facility] HCL 250 mg 0-19 tablet by ity of tablet 00:00: mouth in [place] 00 the Medical morning. Branch ketoconazol 2021-11 Yes [id number] Apply to [facility] e 2 % 0-19 area(s) ity of shampoo 00:00: once daily [place] 00 as needed Medical for Branch Itching. terbinafine 2021-11 Yes [id number] 250mg Take 1 [facility] HCL 250 mg 0-19 tablet by ity of tablet 00:00: mouth in [place] 00 the Medical morning. Branch ketoconazol 2021-11 Yes [id number] Apply to [facility] e 2 % 0-19 area(s) ity of shampoo 00:00: once daily [place] 00 as needed Medical for Branch Itching. terbinafine 2021-11 Yes [id number] 250mg Take 1 [facility] HCL 250 mg 0-19 tablet by ity of tablet 00:00: mouth in [place] 00 the Medical morning. Branch ketoconazol 2021-11 Yes [id number] Apply to [facility] e 2 % 0-19 area(s) ity of shampoo 00:00: once daily [place] 00 as needed Medical for Branch Itching. terbinafine 2021-11 Yes [id number] 250mg Take 1 [facility] HCL 250 mg 0-19 tablet by ity of tablet 00:00: mouth in [place] 00 the Medical morning. Branch ketoconazol 2021-11 Yes [id number] Apply to [facility] e 2 % 0-19 area(s) ity of shampoo 00:00: once daily [place] 00 as needed Medical for Branch Itching. terbinafine 2021-11 Yes [id number] 250mg Take 1 [facility] HCL 250 mg 0-19 tablet by ity of tablet 00:00: mouth in [place] 00 the Medical morning. Branch ketoconazol 2021-11 Yes [id number] Apply to [facility] e 2 % 0-19 area(s) ity of shampoo 00:00: once daily [place] 00 as needed Medical for Branch Itching. terbinafine 2021-11 Yes [id number] 250mg Take 1 [facility] HCL 250 mg 0-19 tablet by ity of tablet 00:00: mouth in [place] 00 the Medical morning. Branch ketoconazol 2021-11 Yes [id number] Apply to [facility] e 2 % 0-19 area(s) ity of shampoo 00:00: once daily [place] 00 as needed Medical for Branch Itching. terbinafine 2021-11 Yes [id number] 250mg Take 1 [facility] HCL 250 mg 0-19 tablet by ity of tablet 00:00: mouth in [place] 00 the Medical morning. Branch FREESTYLE 2021-11 Yes [id number] 1{kit} 1 Kit [facility] TEETEE 2 0-12 every 14 ity of SENSOR Kit 00:00: (fourteen) [place] 00 days. Medical Branch insulin 2021-11 Yes [id number] 32U inject 32 [facility] glargine 0-12 Units ity of U-300 conc 00:00: under the [place] (TOUJEO MAX 00 skin at Medic al U-300 bedtime. Branch SOLOSTAR) 300 unit/mL (3 mL) InPn Insulin 2021-11 Yes [id number] Use as [facility] vers [place], 0-12 directed ity of Disposable, 00:00: to inject [place] (PEN 00 insulin SQ Medical NEEDLE) 31 4-5 times Bran ch gauge x daily 04/03" Ndle FREEYLE 2021-11 Yes [id number] 1{kit} 1 Kit [facility] TEETEE 2 0-12 every 14 ity of SENSOR Kit 00:00: (fourteen) [place] 00 days. Medical Branch insulin 2021-11 Yes [id number] 32U inject 32 [facility] glargine 0-12 Units ity of U-300 conc 00:00: under the [place] (TOUJEO MAX 00 skin at Medic al U-300 bedtime. Branch SOLOSTAR) 300 unit/mL (3 mL) InPn Insulin 2021-11 Yes [id number] Use as [facility] vers [place], 0-12 directed ity of Disposable, 00:00: to inject [place] (PEN 00 insulin SQ Medical NEEDLE) 31 4-5 times Bran ch gauge x daily 04/03" Ndle FREESTYLE 2021-11 Yes [id number] 1{kit} 1 Kit [facility] TEETEE 2 0-12 every 14 ity of SENSOR Kit 00:00: (fourteen) [place] 00 days. Medical Branch insulin 2021-11 Yes [id number] 32U inject 32 [facility] glargine 0-12 Units ity of U-300 conc 00:00: under the [place] (TOUJEO MAX 00 skin at Medic al U-300 bedtime. Branch SOLOSTAR) 300 unit/mL (3 mL) InPn Insulin 2021-11 Yes [id number] Use as [facility] vers [place], 0-12 directed ity of Disposable, 00:00: to inject [place] (PEN 00 insulin SQ Medical NEEDLE) 31 4-5 times Bran ch gauge x daily 04/03" Ndle FREESTYLE 2021-11 Yes [id number] 1{kit} 1 Kit [facility] TEETEE 2 0-12 every 14 ity of SENSOR Kit 00:00: (fourteen) [place] 00 days. Medical Branch insulin 2021-11 Yes [id number] 32U inject 32 [facility] glargine 0-12 Units ity of U-300 conc 00:00: under the [place] (TOUJEO MAX 00 skin at Medic al U-300 bedtime. Branch SOLOSTAR) 300 unit/mL (3 mL) InPn Insulin 2021-11 Yes [id number] Use as [facility] vers [place], 0-12 directed ity of Disposable, 00:00: to inject [place] (PEN 00 insulin SQ Medical NEEDLE) 31 4-5 times Bran ch gauge x daily 04/03" Ndle FREESTYLE 2021-11 Yes [id number] 1{kit} 1 Kit [facility] TEETEE 2 0-12 every 14 ity of SENSOR Kit 00:00: (fourteen) [place] 00 days. Medical Branch insulin 2021-11 Yes [id number] 32U inject 32 [facility] glargine 0-12 Units ity of U-300 conc 00:00: under the [place] (TOUJEO MAX 00 skin at Medic al U-300 bedtime. Branch SOLOSTAR) 300 unit/mL (3 mL) InPn Insulin 2021-11 Yes [id number] Use as [facility] vers [place], 0-12 directed ity of Disposable, 00:00: to inject [place] (PEN 00 insulin SQ Medical NEEDLE) 31 4-5 times Bran ch gauge x daily 04/03" Ndle FREESTYLE 2021-11 Yes [id number] 1{kit} 1 Kit [facility] TEETEE 2 0-12 every 14 ity of SENSOR Kit 00:00: (fourteen) [place] [address] [facility] insulin 2021-11 Yes [id number] 32U inject 32 [facility] glargine 0-12 Units ity of U-300 conc 00:00: under the [place] (TOUJEO MAX 00 skin at Medic al U-300 bedtime. Branch [facility] unit/mL (3 mL) InPn Insulin 2021-11 Yes [id number] Use as [facility] vers [place], 0-12 directed ity of Disposable, 00:00: to inject [place] (PEN 00 insulin SQ Medical NEEDLE) 31 4-5 times Bran ch gauge x daily 04/03" Ndle FREESTYLE 2021-11 Yes [id number] 1{kit} 1 Kit [facility] TEETEE 2 0-12 every 14 ity of SENSOR Kit 00:00: (fourteen) [place] [address] [facility] insulin 2021-11 Yes [id number] 32U inject 32 [facility] glargine 0-12 Units ity of U-300 conc 00:00: under the [place] (TOUJEO MAX 00 skin at Medic al U-300 bedtime. Branch [facility]) 300 unit/mL (3 mL) InPn Insulin 2021-11 Yes [id number] Use as [facility] vers [place], 0-12 directed ity of Disposable, 00:00: to inject [place] (PEN 00 insulin SQ Medical NEEDLE) 31 4-5 times Bran ch gauge x daily 04/03" Ndle FREESTYLE 2021-11 Yes [id number] 1{kit} 1 Kit [facility] TEETEE 2 0-12 every 14 ity of SENSOR Kit 00:00: (fourteen) [place] 00 days. [facility] Branch insulin 2021-11 Yes [id number] 32U inject 32 [facility] glargine 0-12 Units ity of U-300 conc 00:00: under the [place] (TOUJEO MAX 00 skin at Medic al U-300 bedtime. Branch SOLOSTIN) 300 unit/mL (3 mL) InPn Insulin 2021-11 Yes [id number] Use as [facility] vers [place], 0-12 directed ity of Disposable, 00:00: to inject [place] (PEN 00 insulin SQ Medical NEEDLE) 31 4-5 times Bran ch gauge x daily 04/03" Ndle FREESTYLE 2021-11 Yes [id number] 1{kit} 1 Kit [facility] TEETEE 2 0-12 every 14 ity of SENSOR Kit 00:00: (fourteen) [place] [address] [facility] insulin 2021-11 Yes [id number] 32U inject 32 [facility] glargine 0-12 Units ity of U-300 conc 00:00: under the [place] (TOUJEO MAX 00 skin at Medic al U-300 bedtime. [facility]) 300 unit/mL (3 mL) InPn Insulin 2021-11 Yes [id number] Use as [facility] vers [place], 0-12 directed ity of Disposable, 00:00: to inject [place] (PEN 00 insulin SQ Medical NEEDLE) 31 4-5 times Bran ch gauge x daily 04/03" Ndle FREESTYLE 2021-11 Yes [id number] 1{kit} 1 Kit [facility] TEETEE 2 0-12 every 14 ity of SENSOR Kit 00:00: (fourteen) [place] [address] [facility] insulin 2021-11 Yes [id number] 32U inject 32 [facility] glargine 0-12 Units ity of U-300 conc 00:00: under the [place] (TOUJEO MAX 00 skin at Medic al U-300 bedtime. [facility]) 300 unit/mL (3 mL) InPn Insulin 2021-11 Yes [id number] Use as [facility] vers [place], 0-12 directed ity of Disposable, 00:00: to inject [place] (PEN 00 insulin SQ Medical NEEDLE) 31 4-5 times Bran ch gauge x daily 04/03" Ndle FREESTYLE 2021-11 Yes [id number] 1{kit} 1 Kit [facility] TEETEE 2 0-12 every 14 ity of SENSOR Kit 00:00: (fourteen) [place] [address] [facility] insulin 2021-11 Yes [id number] 32U inject 32 [facility] glargine 0-12 Units ity of U-300 conc 00:00: under the [place] (TOUJEO MAX 00 skin at Medic al U-300 bedtime. Branch SOLOSTAR) 300 unit/mL (3 mL) InPn Insulin 2021-11 Yes [id number] Use as [facility] vers [place], 0-12 directed ity of Disposable, 00:00: to inject [place] (PEN 00 insulin SQ Medical NEEDLE) 31 4-5 times Bran ch gauge x daily 04/03" Ndle FREESTYLE 2021-11 Yes [id number] 1{kit} 1 Kit [facility] TEETEE 2 0-12 every 14 ity of SENSOR Kit 00:00: (fourteen) [place] [address] [facility] insulin 2021-11 Yes [id number] 32U inject 32 [facility] glargine 0-12 Units ity of U-300 conc 00:00: under the [place] (TOUJEO MAX 00 skin at Medic al U-300 bedtime. Branch SOLOSTAR) 300 unit/mL (3 mL) InPn Insulin 2021-11 Yes [id number] Use as [facility] vers [place], 0-12 directed ity of Disposable, 00:00: to inject [place] (PEN 00 insulin SQ Medical NEEDLE) 31 4-5 times Bran ch gauge x daily 04/03" Ndle FREESTYLE 2021-11 Yes [id number] 1{kit} 1 Kit [facility] TEETEE 2 0-12 every 14 ity of SENSOR Kit 00:00: (fourteen) [place] [address] [facility] insulin 2021-11 Yes [id number] 32U inject 32 [facility] glargine 0-12 Units ity of U-300 conc 00:00: under the [place] (TOUJEO MAX 00 skin at Medic al U-300 bedtime. Branch SOLOSTAR) 300 unit/mL (3 mL) InPn Insulin 2021-11 Yes [id number] Use as [facility] vers [place], 0-12 directed ity of Disposable, 00:00: to inject [place] (PEN 00 insulin SQ Medical NEEDLE) 31 4-5 times Bran ch gauge x daily 04/03" Ndle FREESTYLE 2021-11 Yes [id number] 1{kit} 1 Kit [facility] TEETEE 2 0-12 every 14 ity of SENSOR Kit 00:00: (fourteen) [place] [address] [facility] insulin 2021-11 Yes [id number] 32U inject 32 [facility] glargine 0-12 Units ity of U-300 conc 00:00: under the [place] (TOUJEO MAX 00 skin at Medic al U-300 bedtime. [place] SOLOSTIN) 300 unit/mL (3 mL) In Insulin 2021-11 Yes [id number] Use as [facility] vers [place], 0-12 directed ity of Disposable, 00:00: to inject [place] (PEN 00 insulin SQ Medical NEEDLE) 31 4-5 times Bran ch gauge x daily 04/03" Ndle FREESTYLE 2021-11 Yes [id number] 1{kit} 1 Kit [facility] TEETEE 2 0-12 every 14 ity of SENSOR Kit 00:00: (fourteen) [place] [address] [facility] insulin 2021-11 Yes [id number] 32U inject 32 [facility] glargine 0-12 Units ity of U-300 conc 00:00: under the [place] (TOUJEO MAX 00 skin at Medic al U-300 bedtime. [place] SOLOSTIN) 300 unit/mL (3 mL) In Insulin 2021-11 Yes [id number] Use as [facility] vers [place], 0-12 directed ity of Disposable, 00:00: to inject [place] (PEN 00 insulin SQ Medical NEEDLE) 31 4-5 times Bran ch gauge x daily 04/03" Ndle FREESTYLE 2021-11 Yes [id number] 1{kit} 1 Kit [facility] TEETEE 2 0-12 every 14 ity of SENSOR Kit 00:00: (fourteen) [place] [address] [facility] insulin 2021-11 Yes [id number] 32U inject 32 [facility] glargine 0-12 Units ity of U-300 conc 00:00: under the [place] (TOUJEO MAX 00 skin at Medic al U-300 bedtime. [place] SOLOSTIN) 300 unit/mL (3 mL) In Insulin 2021-11 Yes [id number] Use as [facility] vers [place], 0-12 directed ity of Disposable, 00:00: to inject [place] (PEN 00 insulin SQ Medical NEEDLE) 31 4-5 times Bran ch gauge x daily 04/03" Ndle FREESTYLE 2021-11 Yes [id number] 1{kit} 1 Kit [facility] TEETEE 2 0-12 every 14 ity of SENSOR Kit 00:00: (fourteen) [place] [address] [facility] insulin 2021-11 Yes [id number] 32U inject 32 [facility] glargine 0-12 Units ity of U-300 conc 00:00: under the [place] (TOUJEO MAX 00 skin at Medic al U-300 bedtime. Branch SOLOSTIN) 300 unit/mL (3 mL) InPn Insulin 2021-11 Yes [id number] Use as [facility] vers [place], 0-12 directed ity of Disposable, 00:00: to inject [place] (PEN 00 insulin SQ Medical NEEDLE) 31 4-5 times Bran ch gauge x daily 04/03" Ndle FREESTYLE 2021-11 Yes [id number] 1{kit} 1 Kit [facility] TEETEE 2 0-12 every 14 ity of SENSOR Kit 00:00: (fourteen) [place] [address] [place]. [facility] insulin 2021-11 Yes [id number] 32U inject 32 [facility] glargine 0-12 Units ity of U-300 conc 00:00: under the [place] (TOUJEO MAX 00 skin at Medic al U-300 bedtime. Branch SOLOSTIN) 300 unit/mL (3 mL) InPn Insulin 2021-11 Yes [id number] Use as Uni vers [place], 0-12 directed ity of Disposable, 00:00: to inject [place] (PEN 00 insulin SQ Medical NEEDLE) 31 4-5 times Bran ch gauge x daily 04/03" [place] FREESTYLE 2021-11 Yes [id number] 1{kit} 1 Kit [facility] TEETEE 2 0-12 every 14 ity of SENSOR Kit 00:00: (fourteen) [place] [address] days. [facility] insulin 2021-11 Yes [id number] 32U inject 32 [facility] glargine 0-12 Units ity of U-300 conc 00:00: under the [place] (TOUJEO MAX 00 skin at Medic al U-300 bedtime. Branch SOLOSTAR) 300 unit/mL (3 mL) InPn Insulin 2021-11 Yes [id number] Use as [facility] vers [place], 0-12 directed ity of Disposable, 00:00: to inject [place] (PEN 00 insulin SQ Medical NEEDLE) 31 4-5 times Bran ch gauge x daily 04/03" Ndle FREESTYLE 2021-11 Yes [id number] 1{kit} 1 Kit [facility] TEETEE 2 0-12 every 14 ity of SENSOR Kit 00:00: (fourteen) [place] 00 days. [facility] Branch insulin 2021-11 Yes [id number] 32U inject 32 [facility] glargine 0-12 Units ity of U-300 conc 00:00: under the [place] (TOUJEO MAX 00 skin at Medic al U-300 bedtime. Branch SOLOSTAR) 300 unit/mL (3 mL) InPn Insulin 2021-11 Yes [id number] Use as Uni vers [place], 0-12 directed ity of Disposable, 00:00: to inject [place] (PEN 00 insulin SQ Medical NEEDLE) 31 4-5 times Bran ch gauge x daily 04/03" Ndle FREESTYLE 2021-11 Yes [id number] 1{kit} 1 Kit [facility] TEETEE 2 0-12 every 14 ity of SENSOR Kit 00:00: (fourteen) [place] 00 days. [facility] Branch insulin 2021-11 Yes [id number] 32U inject 32 [facility] glargine 0-12 Units ity of U-300 conc 00:00: under the [place] (TOUJEO MAX 00 skin at Medic al U-300 bedtime. Branch SOLOSTAR) 300 unit/mL (3 mL) InPn Insulin 2021-11 Yes [id number] Use as Uni vers [place], 0-12 directed ity of Disposable, 00:00: to inject [place] (PEN 00 insulin SQ Medical NEEDLE) 31 4-5 times Bran ch gauge x daily 04/03" Ndle FREESTYLE 2021-11 Yes [id number] 1{kit} 1 Kit [facility] TEETEE 2 0-12 every 14 ity of SENSOR Kit 00:00: (fourteen) [place] 00 days. [facility] Branch insulin 2021-11 Yes [id number] 32U inject 32 [facility] glargine 0-12 Units ity of U-300 conc 00:00: under the [place] (TOUJEO MAX 00 skin at Medic al U-300 bedtime. Branch SOLOSTAR) 300 unit/mL (3 mL) InPn Insulin 2021-11 Yes [id number] Use as [facility] vers [place], 0-12 directed ity of Disposable, 00:00: to inject [place] (PEN 00 insulin SQ Medical NEEDLE) 31 4-5 times Bran ch gauge x daily 04/03" Ndle FREESTYLE 2021-11 Yes [id number] 1{kit} 1 Kit [facility] TEETEE 2 0-12 every 14 ity of SENSOR Kit 00:00: (fourteen) [place] 00 days. [facility] Branch insulin 2021-11 Yes [id number] 32U inject 32 [facility] glargine 0-12 Units ity of U-300 conc 00:00: under the [place] (TOUJEO MAX 00 skin at Medic al U-300 bedtime. Branch SOLOSTAR) 300 unit/mL (3 mL) InPn Insulin 2021-11 Yes [id number] Use as [facility] vers [place], 0-12 directed ity of Disposable, 00:00: to inject [place] (PEN 00 insulin SQ Medical NEEDLE) 31 4-5 times Bran ch gauge x daily 04/03" Ndle FREESTYLE 2021-11 Yes [id number] 1{kit} 1 Kit [facility] TEETEE 2 0-12 every 14 ity of SENSOR Kit 00:00: (fourteen) [place] 00 days. [facility] Branch insulin 2021-11 Yes [id number] 32U inject 32 [facility] glargine 0-12 Units ity of U-300 conc 00:00: under the [place] (TOUJEO MAX 00 skin at Medic al U-300 bedtime. Branch SOLOSTAR) 300 unit/mL (3 mL) InPn Insulin 2021-11 Yes [id number] Use as Uni vers [place], 0-12 directed ity of Disposable, 00:00: to inject [place] (PEN 00 insulin SQ Medical NEEDLE) 31 4-5 times Bran ch gauge x daily 04/03" Ndle FREESTYLE 2021-11 Yes [id number] 1{kit} 1 Kit [facility] TEETEE 2 0-12 every 14 ity of SENSOR Kit 00:00: (fourteen) [place] 00 days. Medical Branch insulin 2021-11 Yes [id number] 32U inject 32 [facility] glargine 0-12 Units ity of U-300 conc 00:00: under the [place] (TOUJEO MAX 00 skin at Medic al U-300 bedtime. Branch SOLOSTAR) 300 unit/mL (3 mL) InPn Insulin 2021-11 Yes [id number] Use as [facility] vers [place], 0-12 directed ity of Disposable, 00:00: to inject [place] (PEN 00 insulin SQ Medical NEEDLE) 31 4-5 times Bran ch gauge x daily 04/03" Ndle FREESTYLE 2021-11 Yes [id number] 1{kit} 1 Kit [facility] TEETEE 2 0-12 every 14 ity of SENSOR Kit 00:00: (fourteen) [place] [address] [facility] insulin 2021-11 Yes [id number] 32U inject 32 [facility] glargine 0-12 Units ity of U-300 conc 00:00: under the [place] (TOUJEO MAX 00 skin at Medic al U-300 bedtime. [place] SOLOSTAR) 300 unit/mL (3 mL) InPn Insulin 2021-11 Yes [id number] Use as [facility] vers [place], 0-12 directed ity of Disposable, 00:00: to inject [place] (PEN 00 insulin SQ Medical NEEDLE) 31 4-5 times Bran ch gauge x daily 04/03" Ndle FREESTYLE 2021-11 Yes [id number] 1{kit} 1 Kit [facility] TEETEE 2 0-12 every 14 ity of SENSOR Kit 00:00: (fourteen) [place] [address] days[address] [facility] insulin 2021-11 Yes [id number] 32U inject 32 [facility] glargine 0-12 Units ity of U-300 conc 00:00: under the [place] (TOUJEO MAX 00 skin at Medic al U-300 bedtime. [place] SOLOSTIN) 300 unit/mL (3 mL) InPn Insulin 2021-11 Yes [id number] Use as [facility] vers [place], 0-12 directed ity of Disposable, 00:00: to inject [place] (PEN 00 insulin SQ Medical NEEDLE) 31 4-5 times Bran ch gauge x daily 04/03" Ndle FREESTYLE 2021-11 Yes [id number] 1{kit} 1 Kit [facility] TEETEE 2 0-12 every 14 ity of SENSOR Kit 00:00: (fourteen) [place] [address] [facility] insulin 2021-11 Yes [id number] 32U inject 32 [facility] glargine 0-12 Units ity of U-300 conc 00:00: under the [place] (TOUJEO MAX 00 skin at Medic al U-300 bedtime. Branch SOLOSTAR) 300 unit/mL (3 mL) InPn Insulin 2021-11 Yes [id number] Use as [facility] vers [place], 0-12 directed ity of Disposable, 00:00: to inject [place] (PEN 00 insulin SQ Medical NEEDLE) 31 4-5 times Bran ch gauge x daily 04/03" Ndle FREESTYLE 2021-11 Yes [id number] 1{kit} 1 Kit [facility] TEETEE 2 0-12 every 14 ity of SENSOR Kit 00:00: (fourteen) [place] 00 days. [facility] Branch insulin 2021-11 Yes [id number] 32U inject 32 [facility] glargine 0-12 Units ity of U-300 conc 00:00: under the [place] (TOUJEO MAX 00 skin at Medic al U-300 bedtime. Branch SOLOSTAR) 300 unit/mL (3 mL) InPn Insulin 2021-11 Yes [id number] Use as [facility] vers [place], 0-12 directed ity of Disposable, 00:00: to inject [place] (PEN 00 insulin SQ Medical NEEDLE) 31 4-5 times Bran ch gauge x daily 04/03" Ndle FREESTYLE 2021-11 Yes [id number] 1{kit} 1 Kit [facility] TEETEE 2 0-12 every 14 ity of SENSOR Kit 00:00: (fourteen) [place] [address] days[address] [facility] insulin 2021-11 Yes [id number] 32U inject 32 [facility] glargine 0-12 Units ity of U-300 conc 00:00: under the [place] (TOUJEO MAX 00 skin at Medic al U-300 bedtime. Branch SOLOSTAR) 300 unit/mL (3 mL) InPn Insulin 2021-11 Yes [id number] Use as [facility] vers [place], 0-12 directed ity of Disposable, 00:00: to inject [place] (PEN 00 insulin SQ Medical NEEDLE) 31 4-5 times Bran ch gauge x daily 04/03" Ndle FREESTYLE 2021-11 Yes [id number] 1{kit} 1 Kit [facility] TEETEE 2 0-12 every 14 ity of SENSOR Kit 00:00: (fourteen) [place] [address] days[address] [facility] insulin 2021-11 Yes [id number] 32U inject 32 [facility] glargine 0-12 Units ity of U-300 conc 00:00: under the [place] (TOUJEO MAX 00 skin at Medic al U-300 bedtime. [place] SOLOSTIN) 300 unit/mL (3 mL) In Insulin 2021-11 Yes [id number] Use as [facility] vers [place]ott, 0-12 directed ity of Disposable, 00:00: to inject [place] (PEN 00 insulin SQ Medical NEEDLE) 31 4-5 times Bran ch gauge x daily 04/03" Ndle FREESTYLE 2021-11 Yes [id number] 1{kit} 1 Kit [facility] TEETEE 2 0-12 every 14 ity of SENSOR Kit 00:00: (fourteen) [place] [address] days[address] [facility] insulin 2021-11 Yes [id number] 32U inject 32 [facility] glargine 0-12 Units ity of U-300 conc 00:00: under the [place] (TOUJEO MAX 00 skin at Medic al U-300 bedtime. [place] SOLOSTIN) 300 unit/mL (3 mL) In Insulin 2021-11 Yes [id number] Use as Uni vers [place]ott, 0-12 directed ity of Disposable, 00:00: to inject [place] (PEN 00 insulin SQ Medical NEEDLE) 31 4-5 times Bran ch gauge x daily 04/03" Ndle FREESTYLE 2021-11 Yes [id number] 1{kit} 1 Kit [facility] TEETEE 2 0-12 every 14 ity of SENSOR Kit 00:00: (fourteen) [place] [address] days[address] [facility] insulin 2021-11 Yes [id number] 32U inject 32 [facility] glargine 0-12 Units ity of U-300 conc 00:00: under the [place] (TOUJEO MAX 00 skin at Medic al U-300 bedtime. [place] SOLOSTIN) 300 unit/mL (3 mL) In Insulin 2021-11 Yes [id number] Use as Uni vers Tal[place]ott, 0-12 directed ity of Disposable, 00:00: to inject [place] (PEN 00 insulin SQ Medical NEEDLE) 31 4-5 times Bran ch gauge x daily 04/03" Ndle FREESTYLE 2021-11 Yes [id number] 1{kit} 1 Kit [facility] TEETEE 2 0-12 every 14 ity of SENSOR Kit 00:00: (fourteen) [place] [address] days[address] [facility] insulin 2021-11 Yes [id number] 32U inject 32 [facility] glargine 0-12 Units ity of U-300 conc 00:00: under the [place] (TOUJEO MAX 00 skin at Medic al U-300 bedtime. [place] SOLOSTIN) 300 unit/mL (3 mL) InPn Insulin 2021-11 Yes [id number] Use as [facility] vers [place], 0-12 directed ity of Disposable, 00:00: to inject [place] (PEN 00 insulin SQ Medical NEEDLE) 31 4-5 times Bran ch gauge x daily 04/03" Ndle FREESTYLE 2021-11 Yes [id number] 1{kit} 1 Kit [facility] TEETEE 2 0-12 every 14 ity of SENSOR Kit 00:00: (fourteen) [place] [address] [facility] insulin 2021-11 Yes [id number] 32U inject 32 [facility] glargine 0-12 Units ity of U-300 conc 00:00: under the [place] (TOUJEO MAX 00 skin at Medic al U-300 bedtime. [place] SOLOSTIN) 300 unit/mL (3 mL) InPn Insulin 2021-11 Yes [id number] Use as Uni vers [place]ott, 0-12 directed ity of Disposable, 00:00: to inject [place] (PEN 00 insulin SQ Medical NEEDLE) 31 4-5 times Bran ch gauge x daily 04/03" Ndle FREESTYLE 2021-11 Yes [id number] 1{kit} 1 Kit [facility] TEETEE 2 0-12 every 14 ity of SENSOR Kit 00:00: (fourteen) [place] [address] [facility] insulin 2021-11 Yes [id number] 32U inject 32 [facility] glargine 0-12 Units ity of U-300 conc 00:00: under the [place] (TOUJEO MAX 00 skin at Medic al U-300 bedtime. [place] SOLOSTAR) 300 unit/mL (3 mL) InPn Insulin 2021-11 Yes [id number] Use as Uni vers [place], 0-12 directed ity of Disposable, 00:00: to inject [place] (PEN 00 insulin SQ Medical NEEDLE) 31 4-5 times Bran ch gauge x daily 04/03" Ndle FREESTYLE 2021-11 Yes [id number] 1{kit} 1 Kit [facility] TEETEE 2 0-12 every 14 ity of SENSOR Kit 00:00: (fourteen) [place] [address] days[address] [facility] insulin 2021-11 Yes [id number] 32U inject 32 [facility] glargine 0-12 Units ity of U-300 conc 00:00: under the [place] (TOUJEO MAX 00 skin at Medic al U-300 bedtime. Branch SOLOSTAR) 300 unit/mL (3 mL) InPn Insulin 2021-11 Yes [id number] Use as Uni vers [place]ott, 0-12 directed ity of Disposable, 00:00: to inject [place] (PEN 00 insulin SQ Medical NEEDLE) 31 4-5 times Bran ch gauge x daily 04/03" Ndle FREESTYLE 2021-11 Yes [id number] 1{kit} 1 Kit [facility] TEETEE 2 0-12 every 14 ity of SENSOR Kit 00:00: (fourteen) [place] [address] [facility] insulin 2021-11 Yes [id number] 32U inject 32 [facility] glargine 0-12 Units ity of U-300 conc 00:00: under the [place] (TOUJEO MAX 00 skin at Medic al U-300 bedtime. Branch SOLOSTAR) 300 unit/mL (3 mL) InPn Insulin 2021-11 Yes [id number] Use as Uni vers [place], 0-12 directed ity of Disposable, 00:00: to inject [place] (PEN 00 insulin SQ Medical NEEDLE) 31 4-5 times Bran ch gauge x daily 04/03" Ndle FREESTYLE 2021-11 Yes [id number] 1{kit} 1 Kit [facility] TEETEE 2 0-12 every 14 ity of SENSOR Kit 00:00: (fourteen) [place] 00 days. [facility] Branch insulin 2021-11 Yes [id number] 32U inject 32 [facility] glargine 0-12 Units ity of U-300 conc 00:00: under the [place] (TOUJEO MAX 00 skin at Medic al U-300 bedtime. Branch SOLOSTAR) 300 unit/mL (3 mL) InPn Insulin 2021-11 Yes [id number] Use as Uni vers [place], 0-12 directed ity of Disposable, 00:00: to inject [place] (PEN 00 insulin SQ Medical NEEDLE) 31 4-5 times Bran ch gauge x daily 04/03" Ndle FREESTYLE 2021-11 Yes [id number] 1{kit} 1 Kit [facility] TEETEE 2 0-12 every 14 ity of SENSOR Kit 00:00: (fourteen) [place] [address] [facility] insulin 2021-11 Yes [id number] 32U inject 32 [facility] glargine 0-12 Units ity of U-300 conc 00:00: under the [place] (TOUJEO MAX 00 skin at Medic al U-300 bedtime. [place] SOLOSTAR) 300 unit/mL (3 mL) InPn Insulin 2021-11 Yes [id number] Use as Uni vers [place], 0-12 directed ity of Disposable, 00:00: to inject [place] (PEN 00 insulin SQ Medical NEEDLE) 31 4-5 times Bran ch gauge x daily 04/03" Ndle FREESTYLE 2021-11 Yes [id number] 1{kit} 1 Kit [facility] TEETEE 2 0-12 every 14 ity of SENSOR Kit 00:00: (fourteen) [place] [address] [facility] insulin 2021-11 Yes [id number] 32U inject 32 [facility] glargine 0-12 Units ity of U-300 conc 00:00: under the [place] (TOUJEO MAX 00 skin at Medic al U-300 bedtime. [place] SOLOSTAR) 300 unit/mL (3 mL) InPn Insulin 2021-11 Yes [id number] Use as Uni vers [place], 0-12 directed ity of Disposable, 00:00: to inject [place] (PEN 00 insulin SQ Medical NEEDLE) 31 4-5 times Bran ch gauge x daily 04/03" Ndle fluconazole 2021-11- No [id number] 150mg Take 1 Univers (DIFLUCAN) 0-12 10-22 tablet by ity of 150 mg 00:00: 04:59 mouth [place] tablet 00 :00 now for 1 Medical dose. [place] fluconazole 2021-11- No [id number] 150mg Take 1 Univers (DIFLUCAN) 0-12 10-13 tablet by ity of 150 mg 00:00: 04:59 mouth [place] tablet 00 :00 now for 1 Medical dose. [place] fluconazole 2021-11- No [id number] 150mg Take 1 Univers (DIFLUCAN) 0-12 10-13 tablet by ity of 150 mg 00:00: 04:59 mouth [place] tablet 00 :00 now for 1 Medical dose. Branch blood sugar Yes Use to [facility] diagnostic 06-21 check ity of (ONETOUCH 00:00: blood [place] VERIO TEST 00 sugar 4X Medic al STRIPS) daily. Branch strip DX:E10.65 blood sugar Yes Use to [facility] diagnostic 06-21 check ity of (ONETOUCH 00:00: blood [place] VERIO TEST 00 sugar 4X Medic al STRIPS) daily. Branch strip DX:E10.65 meclizine 0 Yes [id number] 25mg Take 1 U nivers 25 mg 8-03 tablet by ity of tablet 00:00: mouth [place] 00 every 6 Medical (six) Branch hours as needed for Dizziness. blood sugar Yes Use to [facility] diagnostic 06-21 check ity of (ONETOUCH 00:00: blood [place] VERIO TEST 00 sugar 4X Medic al STRIPS) daily. Branch strip DX:E10.65 meclizine 0 Yes [id number] 25mg Take 1 U nivers 25 mg 8-03 tablet by ity of tablet 00:00: mouth [place] 00 every 6 Medical (six) Branch hours as needed for Dizziness. blood sugar Yes Use to [facility] diagnostic 06-21 check ity of (ONETOUCH 00:00: blood [place] VERIO TEST 00 sugar 4X Medic al STRIPS) daily. Branch strip DX:E10.65 meclizine 2021-0 Yes [id number] 25mg Take 1 U nivers 25 mg 8-03 tablet by ity of tablet 00:00: mouth [place] 00 every 6 Medical (six) Branch hours as needed for Dizziness. blood sugar Yes Use to [facility] ers diagnostic 06-21 check ity of (ONETOUCH 00:00: blood [place] VERIO TEST 00 sugar 4X Medic al STRIPS) daily. Branch strip DX:E10.65 meclizine 2021-0 Yes [id number] 25mg Take 1 U nivers 25 mg 8-03 tablet by ity of tablet 00:00: mouth [place] 00 every 6 Medical (six) Branch hours as needed for Dizziness. blood sugar Yes Use to [facility] ers diagnostic 8-03 check ity of (ONETOUCH 00:00: blood [place] VERIO TEST 00 sugar 4X Medic al STRIPS) daily. Branch strip DX:E10.65 meclizine 0 Yes [id number] 25mg Take 1 U nivers 25 mg 8-03 tablet by ity of tablet 00:00: mouth [place] 00 every 6 Medical (six) Branch hours as needed for Dizziness. meclizine 0 Yes [id number] 25mg Take 1 U nivers 25 mg 8-03 tablet by ity of tablet 00:00: mouth [place] 00 every 6 Medical (six) Branch hours as needed for Dizziness. meclizine 0 Yes [id number] 25mg Take 1 U nivers 25 mg 8-03 tablet by ity of tablet 00:00: mouth [place] 00 every 6 Medical (six) Branch hours as needed for Dizziness. meclizine 0 Yes [id number] 25mg Take 1 U nivers 25 mg 8-03 tablet by ity of tablet 00:00: mouth [place] 00 every 6 Medical (six) Branch hours as needed for Dizziness. meclizine 0 Yes [id number] 25mg Take 1 U nivers 25 mg 8-03 tablet by ity of tablet 00:00: mouth [place] 00 every 6 Medical (six) Branch hours as needed for Dizziness. meclizine 0 Yes [id number] 25mg Take 1 U nivers 25 mg 8-03 tablet by ity of tablet 00:00: mouth [place] 00 every 6 Medical (six) Branch hours as needed for Dizziness. meclizine 0 Yes [id number] 25mg Take 1 U nivers 25 mg 8-03 tablet by ity of tablet 00:00: mouth [place] 00 every 6 Medical (six) Branch hours as needed for Dizziness. meclizine 0 Yes [id number] 25mg Take 1 U nivers 25 mg 8-03 tablet by ity of tablet 00:00: mouth [place] 00 every 6 Medical (six) Branch hours as needed for Dizziness. meclizine 2021-0 Yes [id number] 25mg Take 1 U nivers 25 mg 8-03 tablet by ity of tablet 00:00: mouth [place] 00 every 6 Medical (six) Branch hours as needed for Dizziness. meclizine 2021-0 Yes [id number] 25mg Take 1 U nivers 25 mg 8-03 tablet by ity of tablet 00:00: mouth [place] 00 every 6 Medical (six) Branch hours as needed for Dizziness. meclizine 2021-0 Yes [id number] 25mg Take 1 U nivers 25 mg 8-03 tablet by ity of tablet 00:00: mouth [place] 00 every 6 Medical (six) Branch hours as needed for Dizziness. meclizine 2021-0 Yes [id number] 25mg Take 1 U nivers 25 mg 8-03 tablet by ity of tablet 00:00: mouth [place] 00 every 6 Medical (six) Branch hours as needed for Dizziness. meclizine 2021-0 Yes [id number] 25mg Take 1 U nivers 25 mg 8-03 tablet by ity of tablet 00:00: mouth [place] 00 every 6 Medical (six) Branch hours as needed for Dizziness. meclizine 2021-0 Yes [id number] 25mg Take 1 U nivers 25 mg 8-03 tablet by ity of tablet 00:00: mouth [place] 00 every 6 Medical (six) Branch hours as needed for Dizziness. meclizine 2021-0 Yes [id number] 25mg Take 1 U nivers 25 mg 8-03 tablet by ity of tablet 00:00: mouth [place] 00 every 6 Medical (six) Branch hours as needed for Dizziness. meclizine 2021-0 Yes [id number] 25mg Take 1 U nivers 25 mg 8-03 tablet by ity of tablet 00:00: mouth [place] 00 every 6 Medical (six) Branch hours as needed for Dizziness. meclizine 2021-0 Yes [id number] 25mg Take 1 U nivers 25 mg 8-03 tablet by ity of tablet 00:00: mouth [place] 00 every 6 Medical (six) Branch hours as needed for Dizziness. meclizine 2021-0 Yes [id number] 25mg Take 1 U nivers 25 mg 8-03 tablet by ity of tablet 00:00: mouth [place] 00 every 6 Medical (six) Branch hours as needed for Dizziness. meclizine 2021-0 Yes [id number] 25mg Take 1 U nivers 25 mg 8-03 tablet by ity of tablet 00:00: mouth [place] 00 every 6 Medical (six) Branch hours as needed for Dizziness. meclizine 2021-0 Yes [id number] 25mg Take 1 U nivers 25 mg 8-03 tablet by ity of tablet 00:00: mouth [place] 00 every 6 Medical (six) Branch hours as needed for Dizziness. meclizine 2021-0 Yes [id number] 25mg Take 1 U nivers 25 mg 8-03 tablet by ity of tablet 00:00: mouth [place] 00 every 6 Medical (six) Branch hours as needed for Dizziness. meclizine 2021-0 Yes [id number] 25mg Take 1 U nivers 25 mg 8-03 tablet by ity of tablet 00:00: mouth [place] 00 every 6 Medical (six) Branch hours as needed for Dizziness. meclizine 2021-0 Yes [id number] 25mg Take 1 U nivers 25 mg 8-03 tablet by ity of tablet 00:00: mouth [place] 00 every 6 Medical (six) Branch hours as needed for Dizziness. meclizine 2021-0 Yes [id number] 25mg Take 1 U nivers 25 mg 8-03 tablet by ity of tablet 00:00: mouth [place] 00 every 6 Medical (six) Branch hours as needed for Dizziness. meclizine 2021-0 Yes [id number] 25mg Take 1 U nivers 25 mg 8-03 tablet by ity of tablet 00:00: mouth [place] 00 every 6 Medical (six) Branch hours as needed for Dizziness. meclizine 2021-0 Yes [id number] 25mg Take 1 U nivers 25 mg 8-03 tablet by ity of tablet 00:00: mouth [place] 00 every 6 Medical (six) Branch hours as needed for Dizziness. meclizine 2021-0 Yes [id number] 25mg Take 1 U nivers 25 mg 8-03 tablet by ity of tablet 00:00: mouth [place] 00 every 6 Medical (six) Branch hours as needed for Dizziness. meclizine 2021-0 Yes [id number] 25mg Take 1 U nivers 25 mg 8-03 tablet by ity of tablet 00:00: mouth [place] 00 every 6 Medical (six) Branch hours as needed for Dizziness. meclizine 2021-0 Yes [id number] 25mg Take 1 U nivers 25 mg 8-03 tablet by ity of tablet 00:00: mouth [place] 00 every 6 Medical (six) Branch hours as needed for Dizziness. meclizine 2021-0 Yes [id number] 25mg Take 1 U nivers 25 mg 8-03 tablet by ity of tablet 00:00: mouth [place] 00 every 6 Medical (six) Branch hours as needed for Dizziness. meclizine 2021-0 Yes [id number] 25mg Take 1 U nivers 25 mg 8-03 tablet by ity of tablet 00:00: mouth [place] 00 every 6 Medical (six) Branch hours as needed for Dizziness. meclizine 2021-0 Yes [id number] 25mg Take 1 U nivers 25 mg 8-03 tablet by ity of tablet 00:00: mouth [place] 00 every 6 Medical (six) Branch hours as needed for Dizziness. meclizine 2021-0 Yes [id number] 25mg Take 1 U nivers 25 mg 8-03 tablet by ity of tablet 00:00: mouth [place] 00 every 6 Medical (six) Branch hours as needed for Dizziness. meclizine 2021-0 Yes [id number] 25mg Take 1 U nivers 25 mg 8-03 tablet by ity of tablet 00:00: mouth [place] 00 every 6 Medical (six) Branch hours as needed for Dizziness. meclizine 2021-0 Yes [id number] 25mg Take 1 U nivers 25 mg 8-03 tablet by ity of tablet 00:00: mouth [place] 00 every 6 Medical (six) Branch hours as needed for Dizziness. meclizine 2021-0 Yes [id number] 25mg Take 1 U nivers 25 mg 8-03 tablet by ity of tablet 00:00: mouth [place] 00 every 6 Medical (six) Branch hours as needed for Dizziness. meclizine 0 Yes [id number] 25mg Take 1 U nivers 25 mg [...] STRIPS) daily. Branch strip DX:E10.65 fluconazole Yes [id number] Take 1 [facility] (DIFLUCAN) 7-21 tablet by ity of 150 mg 00:00: mouth [place] tablet 00 every 3 Medical days x 3 Branch doses fluconazole 2021- No [id number] Take 1 [facility] (DIFLUCAN) 7-21 10-12 tablet by ity of 150 mg 00:00: 00:00 mouth [place] tablet 00 :00 every 3 Medical days x 3 Branch doses fluconazole 2021- No [id number] Take 1 [facility] (DIFLUCAN) 7-21 10-12 tablet by ity of 150 mg 00:00: 00:00 mouth [place] tablet 00 :00 every 3 Medical days x 3 Branch doses fluconazole 2021- No [id number] Take 1 Univers (DIFLUCAN) 7-21 10-12 tablet by ity of 150 mg 00:00: 00:00 mouth [place] tablet 00 :00 every 3 Medical days x 3 Branch doses Insulin Yes [id number] INJECT 28 [facility] Glargine 7-16 UNITS ity of (LANTUS 00:00: [place]BCUTANEO [place] SOLOSTAR 00 USLY AT Medical U-100 BEDTIME Branch INSULIN) 100 unit/mL (3 mL) injection lancets Yes [id number] Checking U nivers (ONETOUCH 7-16 upto 4 ity of DELICA PLUS 00:00: times [place] LANCET) 30 00 daily. Dx Medi rashid gauge Misc E10.65 Branch insulin Yes [id number] Take 1 Uni vers aspart 7-16 unit for 9 ity of U-100 00:00: grams [place] (NOVOLOG 00 carbs plus Medic al FLEXPEN 1 unit for Branch U-100 every 36 INSULIN) points > 100 unit/mL 130 up to (3 mL) 75 units injection daily lancets Yes [id number] Checking U nivers (ONETOUCH 7-16 upto 4 ity of DELICA PLUS 00:00: times [place] LANCET) 30 00 daily. Dx Medi rashid gauge Misc E10.65 Branch insulin Yes [id number] Take 1 Uni vers aspart 7-16 unit for 9 ity of U-100 00:00: grams [place] (NOVOLOG 00 carbs plus Medic al FLEXPEN 1 unit for Branch U-100 every 36 INSULIN) points > 100 unit/mL 130 up to (3 mL) 75 units injection daily lancets Yes [id number] Checking U nivers (ONETOUCH 7-16 upto 4 ity of DELICA PLUS 00:00: times [place] LANCET) 30 00 daily. Dx Medi rashid gauge Misc E10.65 Branch insulin Yes [id number] Take 1 Uni vers aspart 7-16 unit for 9 ity of U-100 00:00: grams [place] (NOVOLOG 00 carbs plus Medic al FLEXPEN 1 unit for Branch U-100 every 36 INSULIN) points > 100 unit/mL 130 up to (3 mL) 75 units injection daily lancets Yes [id number] Checking U nivers (ONETOUCH 7-16 upto 4 ity of DELICA PLUS 00:00: times [place] LANCET) 30 00 daily. Dx Medi rashid gauge Misc E10.65 Branch insulin Yes [id number] Take 1 Uni vers aspart 7-16 unit for 9 ity of U-100 00:00: grams [place] (NOVOLOG 00 carbs plus Medic al FLEXPEN 1 unit for Branch U-100 every 36 INSULIN) points > 100 unit/mL 130 up to (3 mL) 75 units injection daily lancets Yes [id number] Checking U nivers (ONETOUCH 7-16 upto 4 ity of DELICA PLUS 00:00: times [place] LANCET) 30 00 daily. Dx Medi rashid gauge Misc E10.65 Branch insulin Yes [id number] Take 1 Uni vers aspart 7-16 unit for 9 ity of U-100 00:00: grams [place] (NOVOLOG 00 carbs plus Medic al FLEXPEN 1 unit for Branch U-100 every 36 INSULIN) points > 100 unit/mL 130 up to (3 mL) 75 units injection daily lancets Yes [id number] Checking U nivers (ONETOUCH 7-16 upto 4 ity of DELICA PLUS 00:00: times [place] LANCET) 30 00 daily. Dx Medi rashid gauge Misc E10.65 Branch insulin Yes [id number] Take 1 Uni vers aspart 7-16 unit for 9 ity of U-100 00:00: grams [place] (NOVOLOG 00 carbs plus Medic al FLEXPEN 1 unit for Branch U-100 every 36 INSULIN) points > 100 unit/mL 130 up to (3 mL) 75 units injection daily lancets Yes [id number] Checking U nivers (ONETOUCH 7-16 upto 4 ity of DELICA PLUS 00:00: times [place] LANCET) 30 00 daily. Dx Medi rashid gauge Misc E10.65 Branch insulin Yes [id number] Take 1 Uni vers aspart 7-16 unit for 9 ity of U-100 00:00: grams [place] (NOVOLOG 00 carbs plus Medic al FLEXPEN 1 unit for Branch U-100 every 36 INSULIN) points > 100 unit/mL 130 up to (3 mL) 75 units injection daily lancets Yes [id number] Checking U nivers (ONETOUCH 7-16 upto 4 ity of DELICA PLUS 00:00: times [place] LANCET) 30 00 daily. Dx Medi rashid gauge Misc E10.65 Branch insulin Yes [id number] Take 1 [facility] vers aspart 7-16 unit for 9 ity of U-100 00:00: grams [place] (NOVOLOG 00 carbs plus Medic al FLEXPEN 1 unit for Branch U-100 every 36 INSULIN) points > 100 unit/mL 130 up to (3 mL) 75 units injection daily lancets Yes [id number] Checking U nivers (ONETOUCH 7-16 upto 4 ity of DELICA PLUS 00:00: times [place] LANCET) 30 00 daily. Dx Medi rashid gauge Misc E10.65 Branch insulin Yes [id number] Take 1 Uni vers aspart 7-16 unit for 9 ity of U-100 00:00: grams [place] (NOVOLOG 00 carbs plus Medic al FLEXPEN 1 unit for Branch U-100 every 36 INSULIN) points > 100 unit/mL 130 up to (3 mL) 75 units injection daily lancets Yes [id number] Checking U nivers (ONETOUCH 7-16 upto 4 ity of DELICA PLUS 00:00: times [place] LANCET) 30 00 daily. Dx Medi rashid gauge Misc E10.65 Branch insulin Yes [id number] Take 1 Uni vers aspart 7-16 unit for 9 ity of U-100 00:00: grams [place] (NOVOLOG 00 carbs plus Medic al FLEXPEN 1 unit for Branch U-100 every 36 INSULIN) points > 100 unit/mL 130 up to (3 mL) 75 units injection daily lancets Yes [id number] Checking U nivers (ONETOUCH 7-16 upto 4 ity of DELICA PLUS 00:00: times [place] LANCET) 30 00 daily. Dx Medi rashid gauge Misc E10.65 Branch insulin Yes [id number] Take 1 Uni vers aspart 7-16 unit for 9 ity of U-100 00:00: grams [place] (NOVOLOG 00 carbs plus Medic al FLEXPEN 1 unit for Branch U-100 every 36 INSULIN) points > 100 unit/mL 130 up to (3 mL) 75 units injection daily lancets Yes [id number] Checking U nivers (ONETOUCH 7-16 upto 4 ity of DELICA PLUS 00:00: times [place] LANCET) 30 00 daily. Dx Medi rashid gauge Misc E10.65 Branch insulin Yes [id number] Take 1 Uni vers aspart 7-16 unit for 9 ity of U-100 00:00: grams [place] (NOVOLOG 00 carbs plus Medic al FLEXPEN 1 unit for Branch U-100 every 36 INSULIN) points > 100 unit/mL 130 up to (3 mL) 75 units injection daily lancets Yes [id number] Checking U nivers (ONETOUCH 7-16 upto 4 ity of DELICA PLUS 00:00: times [place] LANCET) 30 00 daily. Dx Medi rashid gauge Misc E10.65 Branch insulin Yes [id number] Take 1 Uni vers aspart 7-16 unit for 9 ity of U-100 00:00: grams [place] (NOVOLOG 00 carbs plus Medic al FLEXPEN 1 unit for Branch U-100 every 36 INSULIN) points > 100 unit/mL 130 up to (3 mL) 75 units injection daily lancets Yes [id number] Checking U nivers (ONETOUCH 7-16 upto 4 ity of DELICA PLUS 00:00: times [place] LANCET) 30 00 daily. Dx Medi rashid gauge Misc E10.65 Branch insulin Yes [id number] Take 1 Uni vers aspart 7-16 unit for 9 ity of U-100 00:00: grams [place] (NOVOLOG 00 carbs plus Medic al FLEXPEN 1 unit for Branch U-100 every 36 INSULIN) points > 100 unit/mL 130 up to (3 mL) 75 units injection daily lancets Yes [id number] Checking U nivers (ONETOUCH 7-16 upto 4 ity of DELICA PLUS 00:00: times [place] LANCET) 30 00 daily. Dx Medi rashid gauge Misc E10.65 Branch insulin Yes [id number] Take 1 Uni vers aspart 7-16 unit for 9 ity of U-100 00:00: grams [place] (NOVOLOG 00 carbs plus Medic al FLEXPEN 1 unit for Branch U-100 every 36 INSULIN) points > 100 unit/mL 130 up to (3 mL) 75 units injection daily lancets Yes [id number] Checking U nivers (ONETOUCH 7-16 upto 4 ity of DELICA PLUS 00:00: times [place] LANCET) 30 00 daily. Dx Medi rashid gauge [facility] E10.65 Branch insulin Yes [id number] Take 1 Uni vers aspart 7-16 unit for 9 ity of U-100 00:00: grams [place] (NOVOLOG 00 carbs plus Medic al FLEXPEN 1 unit for Branch U-100 every 36 INSULIN) points > 100 unit/mL 130 up to (3 mL) 75 units injection daily lancets Yes [id number] Checking U nivers (ONETOUCH 7-16 upto 4 ity of DELICA PLUS 00:00: times [place] LANCET) 30 00 daily. Dx Medi rashid gauge [facility] E10.65 Branch insulin Yes [id number] Take 1 Uni vers aspart 7-16 unit for 9 ity of U-100 00:00: grams [place] (NOVOLOG 00 carbs plus Medic al FLEXPEN 1 unit for Branch U-100 every 36 INSULIN) points > 100 unit/mL 130 up to (3 mL) 75 units injection daily lancets Yes [id number] Checking U nivers (ONETOUCH 7-16 upto 4 ity of DELICA PLUS 00:00: times [place] LANCET) 30 00 daily. Dx Medi rashid gauge Misc E10.65 Branch insulin Yes [id number] Take 1 Uni vers aspart 7-16 unit for 9 ity of U-100 00:00: grams [place] (NOVOLOG 00 carbs plus Medic al FLEXPEN 1 unit for Branch U-100 every 36 INSULIN) points > 100 unit/mL 130 up to (3 mL) 75 units injection daily lancets Yes [id number] Checking U nivers (ONETOUCH 7-16 upto 4 ity of DELICA PLUS 00:00: times [place] LANCET) 30 00 daily. Dx Medi rashid gauge Misc E10.65 Branch insulin 0 Yes [id number] Take 1 Uni vers aspart 7-16 unit for 9 ity of U-100 00:00: grams [place] (NOVOLOG 00 carbs plus Medic al FLEXPEN 1 unit for Branch U-100 every 36 INSULIN) points > 100 unit/mL 130 up to (3 mL) 75 units injection daily insulin Yes [id number] Take 1 Uni vers aspart 7-16 unit for 9 ity of U-100 00:00: grams [place] (NOVOLOG 00 carbs plus Medic al FLEXPEN 1 unit for Branch U-100 every 36 INSULIN) points > 100 unit/mL 130 up to (3 mL) 75 units injection daily insulin Yes [id number] Take 1 Uni vers aspart 7-16 unit for 9 ity of U-100 00:00: grams [place] (NOVOLOG 00 carbs plus Medic al FLEXPEN 1 unit for Branch U-100 every 36 INSULIN) points > 100 unit/mL 130 up to (3 mL) 75 units injection daily insulin Yes [id number] Take 1 Uni vers aspart 7-16 unit for 9 ity of U-100 00:00: grams [place] (NOVOLOG 00 carbs plus Medic al FLEXPEN 1 unit for Branch U-100 every 36 INSULIN) points > 100 unit/mL 130 up to (3 mL) 75 units injection daily insulin Yes [id number] Take 1 Uni vers aspart 7-16 unit for 9 ity of U-100 00:00: grams [place] (NOVOLOG 00 carbs plus Medic al FLEXPEN 1 unit for Branch U-100 every 36 INSULIN) points > 100 unit/mL 130 up to (3 mL) 75 units injection daily insulin Yes [id number] Take 1 Uni vers aspart 7-16 unit for 9 ity of U-100 00:00: grams [place] (NOVOLOG 00 carbs plus Medic al FLEXPEN 1 unit for Branch U-100 every 36 INSULIN) points > 100 unit/mL 130 up to (3 mL) 75 units injection daily insulin Yes [id number] Take 1 Uni vers aspart 7-16 unit for 9 ity of U-100 00:00: grams [place] (NOVOLOG 00 carbs plus Medic al FLEXPEN 1 unit for Branch U-100 every 36 INSULIN) points > 100 unit/mL 130 up to (3 mL) 75 units injection daily insulin Yes [id number] Take 1 Uni vers aspart 7-16 unit for 9 ity of U-100 00:00: grams [place] (NOVOLOG 00 carbs plus Medic al FLEXPEN 1 unit for Branch U-100 every 36 INSULIN) points > 100 unit/mL 130 up to (3 mL) 75 units injection daily insulin 2022- No [id number] Take 1 Un juvenal aspart -16 02-27 unit for 9 ity of U-100 00:00: 00:00 grams [place] (NOVOLOG 00 :00 carbs plus Medic al FLEXPEN 1 unit for Branch U-100 every 36 INSULIN) points > 100 unit/mL 130 up to (3 mL) 75 units injection daily lancets 2022- No [id number] Checking Univers (ONETOUCH 16 -15 upto 4 ity of [place] 00:00: [place] LANCET[place] 30 00 :00 daily. Dx Medi rashid gauge Misc E10.65 Branch lancets 2022- No [id number] Checking Univers (ONETOUCH 7-16 02-15 upto 4 ity of [place] PL[place] 00:00: 00:[place] LANCET[place] 30 00 :00 daily. Dx Medi rashid gauge Misc E10.65 Branch Insulin 2021- No [id number] INJECT 28 [facility] Glargine 7-16 10-12 UNITS ity of (LANTUS 00:00: 00:00 SUBCUTANEO [place] as SOLOSTAR 00 :00 USLY AT Medical U-100 BEDTIME Branch INSULIN) 100 unit/mL (3 mL) injection Insulin 2021- No [id number] INJECT 28 [facility] Glargine 7-16 10-12 UNITS ity of (LANTUS 00:00: 00:00 SUBCUTANEO [place] as SOLOSTAR 00 :00 USLY AT Medical U-100 BEDTIME Branch INSULIN) 100 unit/mL (3 mL) injection Insulin 2021- No [id number] INJECT 28 [facility] Glargine 06-03 10-12 UNITS [...] daily. Dx: Branch strip E10.65 Insulin Yes [id number] Use as Uni vers [place], 6-30 directed ity of Disposable, 00:00: to inject [place] (PEN 00 insulin SQ Medical NEEDLE) 31 4-5 times Bran ch gauge x daily 04/03" [place] Insulin 2021- No [id number] Use as Un juvenal [place], 6-30 10-12 directed ity of Disposable, 00:00: 00:00 to inject [place] (PEN 00 :00 insulin SQ Medical NEEDLE) 31 4-5 times Bran ch gauge x daily 04/03" Ndle Insulin 2021- No [id number] Use as Un juvenal [place], 6-30 10-12 directed ity of Disposable, 00:00: 00:00 to inject [place] (PEN 00 :00 insulin SQ Medical NEEDLE) 31 4-5 times Bran ch gauge x daily 04/03" Ndle Insulin 2021- No [id number] Use as Un juvenal [place], 6-30 10-12 directed ity of Disposable, 00:00: 00:00 to inject [place] (PEN 00 :00 insulin SQ Medical NEEDLE) 31 4-5 times Bran ch gauge x daily 04/03" Ndle Blood-Gluco Yes Use to Univ ers se Meter [...] E10.65 Branch Blood-Gluco 2022-0 Yes Use to [employer] ers se Meter 4-28 check ity of (CONTOUR 00:00: blood [place] NEXT METER) 00 glucose Dx Me dical Misc E10.65 Branch Blood-Gluco 2022-0 Yes Use to [employer] ers se Meter 4-28 check ity of (CONTOUR 00:00: blood [place] NEXT METER) 00 glucose Dx Me dical Misc E10.65 Branch Blood-Gluco 2022-0 Yes Use to [employer] ers se Meter 4-28 check ity of (CONTOUR 00:00: blood [place] NEXT METER) 00 glucose Dx Me dical Misc E10.65 Branch Blood-Gluco 2022-0 Yes Use to [employer] ers se Meter 4-28 check ity of (CONTOUR 00:00: blood [place] NEXT METER) 00 glucose Dx Me dical Misc E10.65 Branch Blood-Gluco 2022-0 Yes Use to Univ ers se Meter 4-28 check ity of (CONTOUR 00:00: blood [place] NEXT METER) 00 glucose Dx Me dical Misc E10.65 Branch Blood-Gluco 2022-0 Yes Use to [employer] ers se Meter 4-28 check ity of [...] dical Misc E10.65 Branch Blood-Gluco 2022-0 Yes [id number] Use as Univers se 4-04 directed ity of Transmitter 00:00: [place] (DEXCOM G6 00 Medical TRANSMITTER Branch ) Amanda Blood-Gluco 2021-0 Yes [id number] Use as Univers se 4-04 directed ity of Meter,[place] 00:00: [place] nuous 00 Medical (DEXCOM G6 Branch [employer]) Misc glucagon 2021-0 Yes [id number] 3mg Use 3 mg Univers (BAQSIMI) 3 4-04 in each ity o f mg/actuatio 00:00: nostril as [place] n [place] 00 needed for Medical Other Branch (emergency hypoglycem ia). Blood-Gluco 202-0 Yes [id number] Use as Univers se Sensor 4-04 directed ity of (DEXCOM G6 00:00: [place] SENSOR) 00 Medical Amanda Branch Blood-Gluco 2021-0 Yes [id number] Use as Univers se 4-04 directed ity of Transmitter 00:00: [place] (DEXCOM G6 00 Medical TRANSMITTER Branch ) Amanda Blood-Gluco 2021-0 Yes [id number] Use as Univers se 4-04 directed ity of Meter,[place] 00:00: [place] nuous 00 Medical (DEXCOM G6 Branch P[employer]) Misc glucagon 2021-0 Yes [id number] 3mg Use 3 mg Univers (BAQSIMI) 3 4-04 in each ity o f mg/actuatio 00:00: nostril as [place] n [place] 00 needed for Medical Other Branch (emergency hypoglycem ia). Blood-Gluco 2021-0 Yes [id number] Use as Univers se Sensor 4-04 directed ity of (DEXCOM G6 00:00: [place] SENSOR) 00 Medical Amanda Branch Blood-Gluco 2021-0 Yes [id number] Use as Univers se 4-04 directed ity of Transmitter 00:00: [place] (DEXCOM G6 00 Medical TRANSMITTER Branch ) Amanda Blood-Gluco 2021-0 Yes [id number] Use as Univers se 4-04 directed ity of Meter,[place] 00:00: [place] nuous 00 Medical (DEXCOM G6 Branch P[employer]) Misc glucagon 2021-0 Yes [id number] 3mg Use 3 mg Univers (BAQSIMI) 3 4-04 in each ity o f mg/actuatio 00:00: nostril as [place] n [place] 00 needed for Medical Other Branch (emergency hypoglycem ia). Blood-Gluco 2021-0 Yes [id number] Use as Univers se Sensor 4-04 directed ity of (DEXCOM G6 00:00: [place] SENSOR) 00 Medical Amanda Branch Blood-Gluco 202-0 Yes [id number] Use as Univers se 4-04 directed ity of Transmitter 00:00: [place] (DEXCOM G6 00 Medical TRANSMITTER Branch ) Amanda Blood-Gluco 202-0 Yes [id number] Use as Univers se 4-04 directed ity of Meter,[place] 00:00: [place] nuous 00 Medical (DEXCOM G6 Branch P[employer]) Misc glucagon 2021-0 Yes [id number] 3mg Use 3 mg Univers (BAQSIMI) 3 4-04 in each ity o f mg/actuatio 00:00: nostril as [place] n [place] 00 needed for Medical Other Branch (emergency hypoglycem ia). Blood-Gluco 2021-0 Yes [id number] Use as Univers se Sensor 4-04 directed ity of (DEXCOM G6 00:00: [place] SENSOR) 00 Medical Amanda Branch Blood-Gluco 2021-0 Yes [id number] Use as Univers se 4-04 directed ity of Transmitter 00:00: [place] (DEXCOM G6 00 Medical TRANSMITTER Branch ) Amanda Blood-Gluco 2021-0 Yes [id number] Use as Univers se 4-04 directed ity of Meter,[place] 00:00: [place] nuous 00 Medical (DEXCOM G6 Branch P[employer]) Misc glucagon 2021-0 Yes [id number] 3mg Use 3 mg Univers (BAQSIMI) 3 4-04 in each ity o f mg/actuatio 00:00: nostril as [place] n [place] 00 needed for Medical Other Branch (emergency hypoglycem ia). Blood-Gluco 0 Yes [id number] Use as Univers se Sensor 4-04 directed ity of (DEXCOM G6 00:00: [place] SENSOR) 00 Medical Amanda Branch Blood-Gluco 2021-0 Yes [id number] Use as Univers se 4-04 directed ity of Transmitter 00:00: [place] (DEXCOM G6 00 Medical TRANSMITTER Branch ) Amanda Blood-Gluco 2021-0 Yes [id number] Use as Univers se 4-04 directed ity of Meter,[place] 00:00: [place] nuous 00 Medical (DEXCOM G6 Branch P[employer]) Misc glucagon 2021-0 Yes [id number] 3mg Use 3 mg Univers (BAQSIMI) 3 4-04 in each ity o f mg/actuatio 00:00: nostril as [place] n [place] 00 needed for Medical Other Branch (emergency hypoglycem ia). Blood-Gluco 2021-0 Yes [id number] Use as Univers se Sensor 4-04 directed ity of (DEXCOM G6 00:00: [place] SENSOR) 00 Medical Amanda Branch Blood-Gluco 2021-0 Yes [id number] Use as Univers se 4-04 directed ity of Transmitter 00:00: [place] (DEXCOM G6 00 Medical TRANSMITTER Branch ) Amanda Blood-Gluco 0 Yes [id number] Use as Univers se 4-04 directed ity of Meter,[place] 00:00: [place] nuous 00 Medical (DEXCOM G6 Branch POURED [employer]) [facility] glucagon 0 Yes [id number] 3mg Use 3 mg Univers (BAQSIMI) 3 4-04 in each ity o f mg/actuatio 00:00: nostril as [place] n [place] 00 needed for Medical Other Branch (emergency hypoglycem ia). Blood-Gluco 0 Yes [id number] Use as Univers se Sensor 4-04 directed ity of (DEXCOM G6 00:00: [place] SENSOR) 00 Medical Amanda Branch Blood-Gluco 0 Yes [id number] Use as Univers se 4-04 directed ity of Transmitter 00:00: [place] (DEXCOM G6 00 Medical TRANSMITTER Branch ) Amanda Blood-Gluco 0 Yes [id number] Use as Univers se 4-04 directed ity of Meter,[place] 00:00: [place] nuous 00 Medical (DEXCOM G6 Branch POUR[employer]) [facility] glucagon 0 Yes [id number] 3mg Use 3 mg Univers (BAQSIMI) 3 4-04 in each ity o f mg/actuatio 00:00: nostril as [place] n [place] 00 needed for Medical Other Branch (emergency hypoglycem ia). glucagon 0 Yes [id number] 3mg Use 3 mg Univers (BAQSIMI) 3 4-04 in each ity o f mg/actuatio 00:00: nostril as [place] n [place] 00 needed for Medical Other Branch (emergency hypoglycem ia). glucagon 0 Yes [id number] 3mg Use 3 mg Univers (BAQSIMI) 3 4-04 in each ity o f mg/actuatio 00:00: nostril as [place] n [place] 00 needed for Medical Other Branch (emergency hypoglycem ia). glucagon 0 Yes [id number] 3mg Use 3 mg Univers (BAQSIMI) 3 4-04 in each ity o f mg/actuatio 00:00: nostril as [place] n [place] 00 needed for Medical Other Branch (emergency hypoglycem ia). glucagon 2022-0 Yes [id number] 3mg Use 3 mg Univers (BAQSIMI) 3 4-04 in each ity o f mg/actuatio 00:00: nostril as [place] n [place] 00 needed for Medical Other Branch (emergency hypoglycem ia). glucagon Yes [id number] 3mg Use 3 mg Univers (BAQSIMI) 3 4-04 in each ity o f mg/actuatio 00:00: nostril as [place] n [place] 00 needed for Medical Other Branch (emergency hypoglycem ia). glucagon Yes [id number] 3mg Use 3 mg Univers (BAQSIMI) 3 4-04 in each ity o f mg/actuatio 00:00: nostril as [place] n [place] 00 needed for Medical Other Branch (emergency hypoglycem ia). glucagon Yes [id number] 3mg Use 3 mg Univers (BAQSIMI) 3 4-04 in each ity o f mg/actuatio 00:00: nostril as [place] n [place] 00 needed for Medical Other Branch (emergency hypoglycem ia). glucagon Yes [id number] 3mg Use 3 mg Univers (BAQSIMI) 3 4-04 in each ity o f mg/actuatio 00:00: nostril as [place] n [place] 00 needed for Medical Other Branch (emergency hypoglycem ia). glucagon Yes [id number] 3mg Use 3 mg Univers (BAQSIMI) 3 4-04 in each ity o f mg/actuatio 00:00: nostril as [place] n [place] 00 needed for Medical Other Branch (emergency hypoglycem ia). glucagon Yes [id number] 3mg Use 3 mg Univers (BAQSIMI) 3 4-04 in each ity o f mg/actuatio 00:00: nostril as [place] n [place] 00 needed for Medical Other Branch (emergency hypoglycem ia). glucagon Yes [id number] 3mg Use 3 mg Univers (BAQSIMI) 3 4-04 in each ity o f mg/actuatio 00:00: nostril as [place] n [place] 00 needed for Medical Other Branch (emergency hypoglycem ia). glucagon Yes [id number] 3mg Use 3 mg Univers (BAQSIMI) 3 4-04 in each ity o f mg/actuatio 00:00: nostril as [place] n [place] 00 needed for Medical Other Branch (emergency hypoglycem ia). glucagon Yes [id number] 3mg Use 3 mg Univers (BAQSIMI) 3 4-04 in each ity o f mg/actuatio 00:00: nostril as [place] n [place] 00 needed for Medical Other Branch (emergency hypoglycem ia). glucagon Yes [id number] 3mg Use 3 mg Univers (BAQSIMI) 3 4-04 in each ity o f mg/actuatio 00:00: nostril as [place] n [place] 00 needed for Medical Other Branch (emergency hypoglycem ia). glucagon Yes [id number] 3mg Use 3 mg Univers (BAQSIMI) 3 4-04 in each ity o f mg/actuatio 00:00: nostril as [place] n [place] 00 needed for Medical Other Branch (emergency hypoglycem ia). glucagon Yes [id number] 3mg Use 3 mg Univers (BAQSIMI) 3 4-04 in each ity o f mg/actuatio 00:00: nostril as [place] n [place] 00 needed for Medical Other Branch (emergency hypoglycem ia). glucagon Yes [id number] 3mg Use 3 mg Univers (BAQSIMI) 3 4-04 in each ity o f mg/actuatio 00:00: nostril as [place] n [place] 00 needed for Medical Other Branch (emergency hypoglycem ia). glucagon Yes [id number] 3mg Use 3 mg Univers (BAQSIMI) 3 4-04 in each ity o f mg/actuatio 00:00: nostril as [place] n [place] 00 needed for Medical Other Branch (emergency hypoglycem ia). glucagon Yes [id number] 3mg Use 3 mg Univers (BAQSIMI) 3 4-04 in each ity o f mg/actuatio 00:00: nostril as [place] n [place] 00 needed for Medical Other Branch (emergency hypoglycem ia). glucagon Yes [id number] 3mg Use 3 mg Univers (BAQSIMI) 3 4-04 in each ity o f mg/actuatio 00:00: nostril as [place] n [place] 00 needed for Medical Other Branch (emergency hypoglycem ia). glucagon 0 Yes [id number] 3mg Use 3 mg Univers (BAQSIMI) 3 4-04 in each ity o f mg/actuatio 00:00: nostril as [place] n [place] 00 needed for Medical Other Branch (emergency hypoglycem ia). glucagon Yes [id number] 3mg Use 3 mg Univers (BAQSIMI) 3 4-04 in each ity o f mg/actuatio 00:00: nostril as [place] n [place] 00 needed for Medical Other Branch (emergency hypoglycem ia). glucagon Yes [id number] 3mg Use 3 mg Univers (BAQSIMI) 3 4-04 in each ity o f mg/actuatio 00:00: nostril as [place] n [place] 00 needed for Medical Other Branch (emergency hypoglycem ia). Blood-Gluco Yes [id number] Use as Univers se Sensor 4-04 directed ity of (DEXCOM G6 00:00: [place] SENSOR) 00 Medical Amanda Branch Blood-Gluco 0 Yes [id number] Use as Univers se 4-04 directed ity of Transmitter 00:00: [place] (DEXCOM G6 00 Medical TRANSMITTER Branch ) Amanda Blood-Gluco 0 Yes [id number] Use as Univers se 4-04 directed ity of Meter,[place] 00:00: [place] nuous 00 Medical (DEXCOM G6 Branch P[employer]) Misc glucagon 0 Yes [id number] 3mg Use 3 mg Univers (BAQSIMI) 3 4-04 in each ity o f mg/actuatio 00:00: nostril as [place] n [place] 00 needed for Medical Other Branch (emergency hypoglycem ia). Blood-Gluco 0 Yes [id number] Use as Univers se Sensor 4-04 directed ity of (DEXCOM G6 00:00: [place] SENSOR) 00 Medical Amanda Branch Blood-Gluco 0 Yes [id number] Use as Univers se 4-04 directed ity of Transmitter 00:00: [place] (DEXCOM G6 00 Medical TRANSMITTER Branch ) Amanda Blood-Gluco 2021-0 Yes [id number] Use as Univers se 4-04 directed ity of Meter,[place] 00:00: [place] nuous 00 Medical (DEXCOM G6 Branch P[employer]) Misc glucagon 2021-0 Yes [id number] 3mg Use 3 mg Univers (BAQSIMI) 3 4-04 in each ity o f mg/actuatio 00:00: nostril as [place] n [place] 00 needed for Medical Other Branch (emergency hypoglycem ia). Blood-Gluco 2021-0 Yes [id number] Use as Univers se Sensor 4-04 directed ity of (DEXCOM G6 00:00: [place] SENSOR) 00 Medical Amanda Branch Blood-Gluco 2021-0 Yes [id number] Use as Univers se 4-04 directed ity of Transmitter 00:00: [place] (DEXCOM G6 00 Medical TRANSMITTER Branch ) Amanda Blood-Gluco 2021-0 Yes [id number] Use as Univers se 4-04 directed ity of Meter,[place] 00:00: [place] nuous 00 Medical (DEXCOM G6 Branch P[employer]) Misc glucagon 2021-0 Yes [id number] 3mg Use 3 mg Univers (BAQSIMI) 3 4-04 in each ity o f mg/actuatio 00:00: nostril as [place] n [place] 00 needed for Medical Other Branch (emergency hypoglycem ia). Blood-Gluco 2021-0 Yes [id number] Use as Univers se Sensor 4-04 directed ity of (DEXCOM G6 00:00: [place] SENSOR) 00 Medical Amanda Branch Blood-Gluco 2021-0 Yes [id number] Use as Univers se 4-04 directed ity of Transmitter 00:00: [place] (DEXCOM G6 00 Medical TRANSMITTER Branch ) Amanda Blood-Gluco 202-0 Yes [id number] Use as Univers se 4-04 directed ity of Meter,[place] 00:00: [place] nuous 00 Medical (DEXCOM G6 Branch POUR[employer]) Misc glucagon 2021-0 Yes [id number] 3mg Use 3 mg Univers (BAQSIMI) 3 4-04 in each ity o f mg/actuatio 00:00: nostril as [place] n [place] 00 needed for Medical Other Branch (emergency hypoglycem ia). Blood-Gluco 2022-0 Yes [id number] Use as Univers se Sensor 4-04 directed ity of (DEXCOM G6 00:00: [place] SENSOR) 00 Medical Amanda Branch Blood-Gluco 2021-0 Yes [id number] Use as Univers se 4-04 directed ity of Transmitter 00:00: [place] (DEXCOM G6 00 Medical TRANSMITTER Branch ) Amanda Blood-Gluco 2021-0 Yes [id number] Use as Univers se 4-04 directed ity of Meter,[place] 00:00: [place] nuous 00 Medical (DEXCOM G6 Branch POUR[employer]) Misc glucagon 2021-0 Yes [id number] 3mg Use 3 mg Univers (BAQSIMI) 3 4-04 in each ity o f mg/actuatio 00:00: nostril as [place] n [place] 00 needed for Medical Other Branch (emergency hypoglycem ia). Blood-Gluco 2021-0 Yes [id number] Use as Univers se Sensor 4-04 directed ity of (DEXCOM G6 00:00: [place] SENSOR) 00 Medical Amanda Branch Blood-Gluco 2021-0 Yes [id number] Use as Univers se 4-04 directed ity of Transmitter 00:00: [place] (DEXCOM G6 00 Medical TRANSMITTER Branch ) Amanda Blood-Gluco 2021-0 Yes [id number] Use as Univers se 4-04 directed ity of Meter,[place] 00:00: [place] nuous 00 Medical (DEXCOM G6 Branch P[employer]) Misc glucagon 2021-0 Yes [id number] 3mg Use 3 mg Univers (BAQSIMI) 3 4-04 in each ity o f mg/actuatio 00:00: nostril as [place] 00 needed for Medical Other Branch (emergency hypoglycem ia). Blood-Gluco 2021-0 Yes [id number] Use as Univers se Sensor 4-04 directed ity of (DEXCOM G6 00:00: [place] SENSOR) 00 Medical [facility] Branch Blood-Gluco 2022-0 Yes [id number] Use as Univers se 4-04 directed ity of Transmitter 00:00: [place] (DEXCOM G6 00 Medical TRANSMITTER Branch ) Amanda Blood-Gluco 202-0 Yes [id number] Use as Univers se 4-04 directed ity of [place] 00:00: [place] nuous 00 Medical (DEXCOM G6 Branch [employer]) Misc glucagon 2021-0 Yes [id number] 3mg Use 3 mg Univers (BAQSIMI) 3 4-04 in each ity o f mg/actuatio 00:00: nostril as [place] 00 needed for Medical Other Branch (emergency hypoglycem ia). Blood-Gluco 2022-0 Yes [id number] Use as Univers se Sensor 4-04 directed ity of (DEXCOM G6 00:00: [place] SENSOR) 00 [facility] Blood-Gluco 202-0 Yes [id number] Use as Univers se 4-04 directed ity of Transmitter 00:00: [place] (DEXCOM G6 00 Medical TRANSMITTER Branch ) Amanda Blood-Gluco 2021-0 Yes [id number] Use as Univers se 4-04 directed ity of [place] 00:00: [place] nuous 00 Medical (DEXCOM G6 Branch [employer]) Misc glucagon 2021-0 Yes [id number] 3mg Use 3 mg Univers (BAQSIMI) 3 4-04 in each ity o f mg/actuatio 00:00: nostril as [place] 00 needed for Medical Other Branch (emergency hypoglycem ia). Blood-Gluco 2021-0 Yes [id number] Use as Univers se Sensor 4-04 directed ity of (DEXCOM G6 00:00: [place] SENSOR) 00 [facility] Blood-Gluco 2021-0 Yes [id number] Use as Univers se 4-04 directed ity of Transmitter 00:00: [place] (DEXCOM G6 00 Medical TRANSMITTER Branch ) Amanda Blood-Gluco 2021-0 Yes [id number] Use as Univers se 4-04 directed ity of [place] 00:00: [place] nuous 00 Medical (DEXCOM G6 Branch [employer]) Misc glucagon 2021-0 Yes [id number] 3mg Use 3 mg Univers (BAQSIMI) 3 4-04 in each ity o f mg/actuatio 00:00: nostril as [place] 00 needed for Medical Other Branch (emergency hypoglycem ia). Blood-Gluco 2022-0 Yes [id number] Use as Univers se Sensor 4-04 directed ity of (DEXCOM G6 00:00: [place] SENSOR) 00 [facility] Blood-Gluco 202-0 Yes [id number] Use as Univers se 4-04 directed ity of Transmitter 00:00: [place] (DEXCOM G6 00 Medical TRANSMITTER Branch ) Amanda Blood-Gluco 2021-0 Yes [id number] Use as Univers se 4-04 directed ity of [place] 00:00: [place] nuous 00 Medical (DEXCOM G6 Branch [employer]) Misc glucagon 2021-0 Yes [id number] 3mg Use 3 mg Univers (BAQSIMI) 3 4-04 in each ity o f mg/actuatio 00:00: nostril as [place] 00 needed for Medical Other Branch (emergency hypoglycem ia). Blood-Gluco 0 Yes [id number] Use as Univers se Sensor 4-04 directed ity of (DEXCOM G6 00:00: [place] SENSOR) 00 [facility] Blood-Gluco 0 Yes [id number] Use as Univers se 4-04 directed ity of Transmitter 00:00: [place] (DEXCOM G6 00 Medical TRANSMITTER Branch ) Amanda Blood-Gluco 0 Yes [id number] Use as Univers se 4-04 directed ity of [place] 00:00: [place] nuous 00 Medical (DEXCOM G6 Branch [employer]) Misc glucagon 2021-0 Yes [id number] 3mg Use 3 mg Univers (BAQSIMI) 3 4-04 in each ity o f mg/actuatio 00:00: nostril as [place] 00 needed for Medical Other Branch (emergency hypoglycem ia). Blood-Gluco 0 Yes [id number] Use as Univers se Sensor 4-04 directed ity of (DEXCOM G6 00:00: [place] SENSOR) 00 [facility] Blood-Gluco 202-0 2022- No [id number] Use as Univers se Sensor 4-04 -15 directed ity o f (DEXCOM G6 00:00: 00:00 [place] SENSOR) 00 :00 Medical [facility] Blood-Gluco 2022-0 2022- No [id number] Use as Univers se 4-04 -15 directed ity of Transmitter 00:00: 00:00 [place] (DEXCOM G6 00 :00 Medical TRANSMITTER Branch ) Amanda Blood-Gluco 202-0 2022- No [id number] Use as Univers se 4-04 -15 directed ity of [place] 00:00: 00:00 [place] nuous 00 :00 Medical (DEXCOM G6 Branch [employer]) Misc Blood-Gluco 2022- No [id number] Use as Univers se Sensor 02-20 directed ity o f (DEXCOM G6 00:00: 00:00 [place] SENSOR) 00 :00 Medical [facility] Blood-Gluco 2022- No [id number] Use as Univers se 02-20 directed ity of Transmitter 00:00: 00:00 [place] (DEXCOM G6 00 :00 Medical TRANSMITTER Branch ) Amanda Blood-Gluco 2022- No [id number] Use as Univers se 02-20 directed ity of [place] 00:00: 00:00 [place] nuous 00 :00 Medical (DEXCOM G6 Branch [employer]) Misc Immunizations Ordered Immunization Filled Date Status Comments Sour ce Name Immunization Name Meningococcal B, OMV 2021-12-29 Completed Univ ersity of 00:00:00 [place] [facility] Meningococcal B, OMV 2021-12-29 Completed Univ ersity of 00:00:00 [place] [facility] Meningococcal B, OMV 2021-12-29 Completed Univ ersity of 00:00:00 [place] [facility] Meningococcal B, OMV 2021-12-29 Completed Univ ersity of 00:00:00 [place] [facility] Meningococcal B, OMV 2021-12-29 Completed Univ ersity of 00:00:00 [place] [facility] Meningococcal B, OMV 2021-12-29 Completed [...] Completed Univ ersity of 00:00:00 [facility] Meningococcal B, OMV 2021-12-29 Completed Univ ersity of 00:00:00 [facility] Meningococcal B, OMV 2021-12-29 Completed Univ ersity of 00:00:00 [facility] Meningococcal B, OMV 2021-12-29 Completed Univ ersity of 00:00:00 [facility] Meningococcal B, OMV 2021-12-29 Completed Univ ersity of 00:00:00 [facility] Meningococcal B, OMV 2021-12-29 Completed Univ ersity of 00:00:00 [facility] Meningococcal B, OMV 2021-12-29 Completed Univ ersity of 00:00:00 [facility] Meningococcal B, OMV 2021-12-29 Completed Univ ersity of 00:00:00 [facility] Meningococcal B, OMV 2021-12-29 Completed Univ ersity of 00:00:00 [facility] Meningococcal B, OMV 2021-12-29 Completed Univ ersity of 00:00:00 [facility] Meningococcal B, OMV 2021-12-29 Completed Univ ersity of 00:00:00 [facility] Pneumococcal 2019-09-25 Completed University o f Polysaccharide, PPSV23 [place] [facility] [place]PNEUMOVAX[place] [facility] Pneumococcal 2019-09-25 Completed University o f Polysaccharide, PPSV23 00:00:[place] [facility] [place]PNEUM[place] [facility] Pneumococcal 2019-09-25 Completed University o f Polysaccharide, PPSV23 00:00:[place] [facility] [place]PNEUMOVAX[place] [facility] Pneumococcal 2019-09-25 Completed University o f Polysaccharide, PPSV23 00:00:[place] [facility] [place]PNEUMOVAX[place] [facility] Pneumococcal 2019-09-25 Completed University o f Polysaccharide, PPSV23 00:00:[place] [facility] [place]PNEUMOVAX[place] [facility] Pneumococcal 2019-09-25 Completed University o f Polysaccharide, PPSV23 00:00:[place] [facility] [place]PNEUMOVAX[place] [facility] Pneumococcal 2019-09-25 Completed University o f Polysaccharide, PPSV23 00:00:[place] [facility] [place]PNEUMOVAX[place] [facility] Pneumococcal 2019-09-25 Completed University o f Polysaccharide, PPSV23 00:00:[place] [facility] [place]PNEUMOVAX[place] [facility] Pneumococcal 2019-09-25 Completed University o f Polysaccharide, PPSV23 00:00:00 [place] [facility] [place]PNEUMOVAX[place] [facility] Pneumococcal 2019-09-25 Completed University o f Polysaccharide, PPSV23 00:00:[place] [facility] [place]PNEUMOVAX[place] [facility] Pneumococcal 2019-09-25 Completed University o f Polysaccharide, PPSV23 00:00:00 [facility] (PNEUMOVAX) Branch Pneumococcal 2019-09-25 Completed University o f Polysaccharide, PPSV23 00:00:00 Te [facility] (PNEUMOVAX) Branch Pneumococcal 2019-09-25 Completed University o f Polysaccharide, PPSV23 00:00:00 Te [facility] Medical (PNEUMOVAX) Branch Pneumococcal 2019-09-25 Completed University o f Polysaccharide, PPSV23 00:00:00 Te [facility] Medical (PNEUMOVAX) Branch Pneumococcal 2019-09-25 Completed University o f Polysaccharide, PPSV23 00:00:00 Te [facility] Medical (PNEUMOVAX) Branch Pneumococcal 2019-09-25 Completed University o f Polysaccharide, PPSV23 00:00:00 Te [facility] Medical (PNEUMOVAX) Branch Pneumococcal 2019-09-25 Completed University o f Polysaccharide, PPSV23 00:00:00 Te [facility] Medical (PNEUMOVAX) Branch Pneumococcal 2019-09-25 Completed University o f Polysaccharide, PPSV23 00:00:00 Te [facility] Medical (PNEUMOVAX) Branch Pneumococcal 2019-09-25 Completed University o f Polysaccharide, PPSV23 00:00:00 Te [facility] Medical (PNEUMOVAX) Branch Pneumococcal 2019-09-25 Completed University o f Polysaccharide, PPSV23 00:00:00 Te s Medical (PNEUMOVAX) Branch Pneumococcal 2019-09-25 Completed University o f Polysaccharide, PPSV23 00:00:00 Te [facility] Medical (PNEUMOVAX) Branch Pneumococcal 2019-09-25 Completed University o f Polysaccharide, PPSV23 00:00:00 Te [facility] Medical (PNEUMOVAX) Branch Pneumococcal 2019-09-25 Completed University o f Polysaccharide, PPSV23 00:00:[place] [facility]PNEUM[place] [facility] Pneumococcal 2019-09-25 Completed University o f Polysaccharide, PPSV23 00:00:00 Te [facility] Medical (PNEUMOVAX) Branch Pneumococcal 2019-09-25 Completed University o f Polysaccharide, PPSV23 00:00:00 Te [facility] Medical (PNEUMOVAX) Branch Pneumococcal 2019-09-25 Completed University o f Polysaccharide, PPSV23 00:00:00 Te [facility] Medical (PNEUMOVAX) Branch Pneumococcal 2019-09-25 Completed University o f Polysaccharide, PPSV23 00:00:00 Te [facility] Medical (PNEUMOVAX) Branch Pneumococcal 2019-09-25 Completed University o f Polysaccharide, PPSV23 00:00:00 Te [facility] Medical (PNEUMOVAX) Branch Pneumococcal 2019-09-25 Completed University o f Polysaccharide, PPSV23 00:00:00 Te [facility] Medical (PNEUMOVAX) Branch Pneumococcal 2019-09-25 Completed University o f Polysaccharide, PPSV23 00:00:00 Te [facility] Medical (PNEUMOVAX) Branch Pneumococcal 2019-09-25 Completed University o f Polysaccharide, PPSV23 00:00:00 Te [facility] Medical (PNEUMOVAX) Branch Pneumococcal 2019-09-25 Completed University o f Polysaccharide, PPSV23 00:00:00 Te [facility] Medical (PNEUMOVAX) Branch Pneumococcal 2019-09-25 Completed University o f Polysaccharide, PPSV23 00:00:00 Te [facility] Medical (PNEUMOVAX) Branch Pneumococcal 2019-09-25 Completed University o f Polysaccharide, PPSV23 00:00:00 Te [facility] Medical (PNEUMOVAX) Branch Pneumococcal 2019-09-25 Completed University o f Polysaccharide, PPSV23 00:00:00 Te [facility] Medical (PNEUMOVAX) Branch Pneumococcal 2019-09-25 Completed University o f Polysaccharide, PPSV23 00:00:00 Te [facility] Medical (PNEUMOVAX) Branch Pneumococcal 2019-09-25 Completed University o f Polysaccharide, PPSV23 00:00:00 Te [facility] Medical (PNEUMOVAX) Branch Pneumococcal 2019-09-25 Completed University o f Polysaccharide, PPSV23 00:00:00 Te [facility] Medical (PNEUMOVAX) Branch Pneumococcal 2019-09-25 Completed University o f Polysaccharide, PPSV23 00:00:00 Te [facility] Medical (PNEUMOVAX) Branch Pneumococcal 2019-09-25 Completed University o f Polysaccharide, PPSV23 00:00:00 Te [facility] Medical (PNEUMOVAX) Branch Pneumococcal 2019-09-25 Completed University o f Polysaccharide, PPSV23 00:00:00 Te [facility] Medical (PNEUMOVAX) Branch Pneumococcal 2019-09-25 Completed University o f Polysaccharide, PPSV23 00:00:00 [facility] (PNEUMOVAX) Branch Meningococcal 2018-02-25 Completed University of [...] (MCV4O) HPV 2016-08-15 Completed University of 00:00:00 [facility] HPV9 2016-08-15 Completed University of 00:00:00 [facility] HPV 2016-08-15 Completed University of 00:00:00 [facility] HPV9 2016-08-15 Completed University of 00:00:00 [place] [facility] HPV 2016-08-15 Completed University of 00:00:00 [place] [facility] HPV9 2016-08-15 Completed University of 00:00:00 [place] [facility] HPV 2016-08-15 Completed University of 00:00:00 [place] [facility] HPV9 2016-08-15 Completed University of 00:00:00 [place] [facility] HPV 2016-08-15 Completed University of 00:00:00 [place] [facility] HPV9 2016-08-15 Completed University of 00:00:00 [place] [facility] HPV 2016-08-15 Completed University of 00:00:00 [place] [facility] HPV9 2016-08-15 Completed University of 00:00:00 [place] [facility] HPV 2016-08-15 Completed University of [...] Branch HPV9 2016-08-15 Completed University of 00:00:00 [place] [facility] HPV 2016-08-15 Completed University of 00:00:00 [place] [facility] HPV9 2016-08-15 Completed University of 00:00:00 [place] [facility] HPV 2016-08-15 Completed University of 00:00:00 [place] [facility] HPV9 2016-08-15 Completed University of 00:00:00 [place] [facility] HPV 2016-08-15 Completed University of 00:00:00 [place] [facility] HPV9 2016-08-15 Completed University of 00:00:00 [place] [facility] HPV 2016-08-15 Completed University of 00:00:00 [place] [facility] HPV9 2016-08-15 Completed University of 00:00:00 [place] [facility] HPV 2016-08-15 Completed University of 00:00:00 [place] [facility] HPV9 2016-08-15 Completed University of 00:00:00 [place] [facility] HPV 2016-08-15 Completed University of 00:00:00 [place] [facility] HPV9 2016-08-15 Completed University of 00:00:00 [place] [facility] HPV 2016-08-15 Completed University of 00:00:00 [place] [facility] HPV9 2016-08-15 Completed University of 00:00:00 [place] [facility] HPV 2016-08-15 Completed University of 00:00:00 [place] [facility] HPV9 2016-08-15 Completed University of 00:00:00 [place] [facility] HPV 2016-08-15 Completed University of 00:00:00 [place] [facility] HPV9 2016-08-15 Completed University of 00:00:00 [place] [facility] HPV 2016-08-15 Completed University of 00:00:00 [place] [facility] HPV9 2016-08-15 Completed University of 00:00:00 [place] [facility] HPV 2016-08-15 Completed University of 00:00:00 [place] [facility] HPV9 2016-08-15 Completed University of 00:00:00 [place] [facility] HPV 2016-08-15 Completed University of 00:00:00 [place] [facility] HPV9 2016-08-15 Completed University of 00:00:00 [place] [facility] HPV 2016-08-15 Completed University of 00:00:00 [place] [facility] HPV9 2016-08-15 Completed University of [...] Branch HPV9 2016-02-03 Completed University of 00:00:00 [place] [facility] HPV9 2016-02-03 Completed University of 00:00:00 [place] [facility] HPV9 2016-02-03 Completed University of 00:00:00 [place] [facility] HPV9 2016-02-03 Completed University of 00:00:00 [place] [facility] HPV9 2016-02-03 Completed University of 00:00:00 [place] [facility] HPV9 2016-02-03 Completed University of 00:00:00 [place] [facility] HPV9 2016-02-03 Completed University of 00:00:00 [place] [facility] HPV9 2016-02-03 Completed University of 00:00:00 [place] [facility] HPV9 2016-02-03 Completed University of [...] Branch HPV9 2016-02-03 Completed University of 00:00:00 [place] [facility] HPV9 2015-12-22 Completed University of 00:00:00 [place] [facility] HPV9 2015-12-22 Completed University of 00:00:00 [place] [facility] HPV9 2015-12-22 Completed University of 00:00:00 [place] [facility] HPV9 2015-12-22 Completed University of 00:00:00 [place] [facility] HPV9 2015-12-22 Completed University of 00:00:00 [place] [facility] HPV9 2015-12-22 Completed University of 00:00:00 [place] [facility] HPV9 2015-12-22 Completed University of 00:00:00 [place] [facility] HPV9 2015-12-22 Completed University of 00:00:00 [place] [facility] HPV9 2015-12-22 Completed University of 00:00:00 [place] [facility] HPV9 2015-12-22 Completed University of 00:00:00 [place] [facility] HPV9 2015-12-22 Completed University of 00:00:00 [facility] HPV9 2015-12-22 Completed University of 00:00:00 [place] [facility] HPV9 2015-12-22 Completed University of 00:00:00 [place] [facility] HPV9 2015-12-22 Completed University of 00:00:00 [facility] HPV9 2015-12-22 Completed University of 00:00:00 [facility] HPV9 2015-12-22 Completed University of 00:00:00 [facility] HPV9 2015-12-22 Completed University of 00:00:00 [facility] HPV9 2015-12-22 Completed University of 00:00:00 [facility] HPV9 2015-12-22 Completed University of 00:00:00 [facility] HPV9 2015-12-22 Completed University of 00:00:00 [facility] HPV9 2015-12-22 Completed University of 00:00:00 [place] [facility] HPV9 2015-12-22 Completed University of 00:00:00 [place] [facility] HPV9 2015-12-22 Completed University of 00:00:00 [place] [facility] HPV9 2015-12-22 Completed University of 00:00:00 [place] [facility] HPV9 2015-12-22 Completed University of 00:00:00 [place] [facility] HPV9 2015-12-22 Completed University of 00:00:00 [place] [facility] HPV9 2015-12-22 Completed University of 00:00:00 [place] [facility] HPV9 2015-12-22 Completed University of 00:00:00 [facility] 2015-12-22 Completed University of 00:00:00 [facility] 2015-12-22 Completed University of 00:00:00 [facility] 2015-12-22 Completed University of 00:00:00 [facility] HPV9 2015-12-22 Completed University of 00:00:00 [facility] 2015-12-22 Completed University of 00:00:00 [facility] 2015-12-22 Completed University of 00:00:00 [facility] 2015-12-22 Completed University of 00:00:00 [facility] 2015-12-22 Completed University of 00:00:00 [facility] 2015-12-22 Completed University of 00:00:00 [facility]9 2015-12-22 Completed University of 00:00:00 [facility] 2015-12-22 Completed University of 00:00:00 [facility] 2015-12-22 Completed University of 00:00:00 [facility] 2015-12-22 Completed University of 00:00:00 [facility] 2015-12-22 Completed University of 00:00:00 [facility] Vital Signs Vital Name Observation Time Observation Value Comments Source Systolic blood 2023-03-07 14:46:00 117 mm[Hg] Univer sity of pressure [facility] Diastolic blood 2023-03-07 14:46:00 80 mm[Hg] Unive rsity of pressure [facility] Heart rate 2023-03-07 14:46:00 94 /min [facility] Body temperature 2023-03-07 14:46:00 36.67 Janneth [facility] 2023-03-07 14:46:00 16 /min [facility] height 2023-03-07 14:46:00 165.1 cm [facility] Body weight 2023-03-07 14:46:00 72.802 kg [facility] BMI 2023-03-07 14:46:00 26.71 kg/m2 [facility] Oxygen saturation in 2023-03-07 14:46:00 98 /min [facility] Arterial blood by [facility] Pulse oximetry Branch Body height 2023-02-06 13:22:00 165.1 cm Universi ty of [place] [facility] Systolic blood 2023-01-03 16:06:00 111 mm[Hg] Univer sity of pressure [facility] Diastolic blood 2023-01-03 16:06:00 77 mm[Hg] Unive rsity of pressure [facility] Heart rate 2023-01-03 16:06:00 73 /min Universi ty of [place] [facility] Respiratory rate 2023-01-03 16:06:00 16 /min Univ ers[facility] [place] [facility] [place] Body height 2023-01-03 16:06:00 165.1 cm Universi ty of [facility] Body weight 2023-01-03 16:06:00 72.666 kg Universi ty of [facility] BMI 2023-01-03 16:06:00 26.66 kg/m2 [facility] [place] [facility] Systolic blood 2022-08-30 15:41:00 119 mm[Hg] Univer sity of pressure [facility] Diastolic blood 2022-08-30 15:41:00 79 mm[Hg] Unive rsity of pressure [facility] Heart rate 2022-08-30 15:41:00 106 /min [facility] [place] [facility] Respiratory rate 2022-08-30 15:41:00 16 /min Univ ersity of [facility] Body height 2022-08-30 15:41:00 165.1 cm [facility] Body weight 2022-08-30 15:41:00 72.167 kg [facility] [place] [facility] BMI 2022-08-30 15:41:00 26.48 kg/m2 [facility] [place] [facility] Oxygen saturation in 2022-08-30 15:41:00 100 /min [facility] Arterial blood by [facility] Pulse oximetry Branch Procedures Procedure Date / Time Performed Performing Clinician Chris e POCT URINALYSIS 2023-03-07 14:49:00 Joshua Schroeder [place] o [facility] POCT TEST 2023-03-07 14:49:00 Joshua Schroeder [facility] PATIENT FINANCIAL 2023-02-06 13:17:57 Doctor Unassigned, No [facility] POLICY Name Medical Branch DIABETES TESTING 2023-01-03 06:01:00 Doctor Unassigned, No Unive [facility] [place] REPORTS Name [facility] POCT HEMOGLOBIN A1C 2023-01-03 00:00:00 Tawny Braun [facility] POCT HEMOGLOBIN A1C 2022-08-30 00:00:00 Tawny Braun [facility] Encounters Start End Encounter Admission Attending Care Care Encounter Source Date/Time Date/Time Type Type Clinicians Facility Department ID 2021-09-19 Emergency [facility] [id number] Univers 23:04:38 ity of [facility] 2021-09-19 Emergency [facility] [id number] Univers 02:01:05 ity of [facility] 2021-09-18 Emergency [facility] [id number] Univers 22:15:17 ity of [facility] 2021-09-17 Emergency [facility] [id number] Univers 19:01:00 ity of [facility] 2021-09-16 Emergency [facility] [id number] Univers 14:50:01 ity of [facility] 2021-09-16 Emergency [facility] [id number] Univers 11:25:49 ity of [facility] 2021-09-16 Emergency [facility] [id number] Univers 11:23:27 ity of [facility] 2021-09-16 Emergency [facility] [id number] Univers 03:18:07 ity of [facility] 2021-09-15 Emergency [facility] [id number] Univers 13:33:53 ity of [facility] 2021-09-04 [facility] [id number] [facility] 08:20:44 [id number] [facility] 2023-05-23 2023-05-23 Outpatient R KADE [facility] [id number] Univers 14:00:00 [facility]00[facility]28 2023-03-28 Bus Monitor Vtc-Lab [facility] [id number] Univers 12:30:00 12:45:00 Visit Donny DennisPEC [id number] ity of [place] [id number] Malvin teixeira [place] [id number] [facility] [address] [place] [facility] 2023-03-28 2023-03-28 Outpatient R DONNY DENNIS [facility] [id number] Univers 11:20:00 11:32:[address] [facility] 2023-03-28 2023-03-28 [facility] [id number] Univers 11:20:00 11:32:13 Visit MULTISPEC [id number] ity of [place] [id number] [facility] s [place] [id number] [facility] [place] [facility] 2023-03-28 2023-03-28 Outpatient R DONNY DENNIS [facility] [id number] Univers 11:20:00 11:20:[address] [facility] 2023-03-10 2023-03-10 Telephone [facility] 1.2.840.114 [id number] Univers 00:00:00 00:00:00 [facility] Orthodata 350.1.13.10 it y of [place] 4.2.7.2.686 Lauri as PA?BLEA [id number] [facility] [address] MEDICAL OFFICE BUILDING 2023-03-07 2023-03-07 Outpatient R ALEXANDRE [facility] [id number] Univers 10:00:00 10:23:26 [facility] 2023-03-07 2023-03-07 Bus Monitor Lab, Ang - Db [facility] 1.2.840.1 14 [id number] Univers 10:00:00 10:15:00 Visit LauriemojoseDomenicar HEALTH 350.1.13.10 ity of [place] 4.2.7.2.686 Lauri as PA?BLEA [id number] [facility] [address] MEDICAL OFFICE BUILDING 2023-03-07 2023-03-07 [facility] 1.2.840.114 [id number] Univers 09:40:00 10:00:00 Care Unknown, Attending HEALTH 350.1.13.10 ity of [place] 4.2.7.2.686 Lauri as PA?BLEA [id number] [address] MEDICAL OFFICE BUILDING 2023-03-07 2023-03-07 Patient Alexandre [facility] 1.2.840.114 [id number] Univers 00:00:00 00:00:00 Secure Msg Rania HEALTH 350.1.13.10 ity of [place] 4.2.7.2.686 Lauri as PA?BLEA [id number] [address] MEDICAL OFFICE BUILDING 2023-02-07 2023-02-07 Telephone Markell [facility] 1.2.349.304 [id number] Univers 00:00:00 00:00:00 Darian R HEALTH 350.1.13.10 i ty of [facility] 4.2.7.2.686 [facility] [phone] [address] ([facility]) 2023-02-06 2023-02-06 Outpatient R DONNY DENNIS [facility] [id number] Univers 08:20:00 08:41:27 DONNY DENNIS it y of [facility] 2023-02-06 2023-02-06 [facility] 1.2.840.114 10 [id number] Univers 08:20:00 08:41:27 Visit MULTISPEC 350.1.13.10 ity of [place] 4.2.7.2.686 [facility] [phone] [address] DIABETES CLINIC 2023-02-06 2023-02-06 Orders Doctor DEANDRA 1.2.840.114 [id number] Univers 00:00:00 00:00:00 Only Unassigned, BOBY 350.1.13.10 ity of [place] [facility] 4.2.7.2.686 Lauri as [id number] [address] 2023-01-16 2023-01-16 Patient Donny Dennis [facility] 1.2.840.114 [id number] Univers 00:00:00 00:00:00 Secure Msg MULTISPEC 350.1.13.10 ity of I[place] 4.2.7.2.686 [facility] [id number] [address] [facility]INIC 2023-01-15 2023-01-15 Chaya Fonseca [facility] 1.2.524.943 [id number] Univers 00:00:00 00:00:00 Humza Dawson MULTISPEC 350.1.13.10 it[place] [id number] [facility] [address] [facility] 2023-01-11 2023-01-11 Patient Donny Dennis [facility] 1.2.840.114 10 [id number] Univers 00:00:00 00:00:00 Secure Msg MULTISPEC 350.1.13.10 it[place] of [place] [id number] [facility] AND [address] DIABETES CLINIC 2023-01-10 2023-01-10 Patient Berry [facility] 1.2.950.055 [id number] Univers 00:00:00 00:00:00 Secure Msg Kellen MULTISPEC 350.1.13.10 it[place] of [place].2.[place] [id number] [address] DIAB[facility]ES CLINIC 2023-01-03 2023-01-03 Bus Monitor [facility] 1.2.840.114 100 [id number] Univers 11:45:00 12:00:00 Visit Tawny Braun MULTISPEC 350.1.13.10 it[place] of [place] 4.[place].2.[place] [id number] [facility] [address] [facility] 2023-01-03 2023-01-03 Outpatient R KADE [facility] [id number] Univers 10:00:00 11:25:02 TAWNY ity of [facility] 2023-01-03 2023-01-03 Office Kade [facility] 1.2.840.114 [id number] Univers 10:00:00 11:25:02 Visit Tawny MULTISPEC 350.1.13.10 it[place] of [place].7.2.[place] [id number] [facility] AND [facility] [address] [facility] 2023-01-03 2023-01-03 Orders Doctor LIRIANO 1.2.840.114 [id number] Univers 00:00:00 00:00:00 Only Unassigned, BOBY 350.1.13.10 ity of [place] [facility] 4.2.7.2.686 Lauri as [id number] [place] [address] [address] 2023-01-02 2023-01-02 Outpatient R DONNY DENNIS [facility] [id number] Univers 14:40:00 16:33:31 DONNY DENNIS it y of [facility] 2023-01-02 2023-01-02 Bus Monitor Vtc-Lab [facility] 1.2.840.114 100 [id number] Univers 15:15:00 15:30:00 Visit Donny Dennis MULTISPEC 350.1.13.10 ity of [place] 4.2.7.2.[place] [phone] [facility] [address] [facility] 2023-01-02 2023-01-02 Office DennisRehanah [facility] 1.2.840.114 [id number] Univers 14:40:00 15:00:00 Visit MULTISPEC 350.1.13.10 ity of [place].2.[place] [id number] [facility] [address] [facility] 2022-12-14 2022-12-14 Patient Kade NDAGNIESZKA 1.2.840.114 [id number] Univers 00:00:00 00:00:00 Secure Msg Tawny MULTISPEC 350.1.13.10 it[place] of [place] 4.2.[place].2.[place] [id number] [facility] [address] [facility] 2022-12-13 2022-12-13 Telephone Kade NDAGNIESZKA 1.2.819.659 [id number] Univers 00:00:00 00:00:00 Naderong MULTISPEC 350.1.13.10 it[place] of [place] 4.2.7.2.[place] [id number] [facility] [address] [facility] 2022-10-06 2022-10-06 Telephone Antonio NDAGNIESZKA 1.2.707.714 [id number] Univers 00:00:00 00:00:00 Jie MULTISPEC 350.1.13.10 ity of IALTY 4.2.7.2.686 [facility] [id number] [facility] [address] [facility] 2022-10-04 2022-10-04 Outpatient R SALVATORE [facility] [id number] Univers 09:45:00 09:45:00 FLORINDA floyd [facility] 2022-09-13 2022-09-13 Telephone Kade [facility] 1.2.656.940 [id number] Univers 00:00:00 00:00:00 Tawny MULTISPEC 350.1.13.10 ity of IALTY 4.2.7.2.686 [facility] [id number] [facility] [address] [facility] 2022-09-06 2022-09-06 Bus Monitor Vtc-Lab [facility] 1..840.114 [id number] Univers 10:15:00 10:30:00 Visit Florinda Chase MULTISPEC 350.1.1 3.10 ity of IAL[place] 4.2.7.2.686 [facility] [phone] [facility] [address] [facility] 2022-09-06 2022-09-06 Outpatient R SALVATORE [facility] [id number] Univers 10:15:00 10:15:00 FLORINDA floyd [facility] 2022-09-06 2022-09-06 Office James Martin [facility] 1.2 .840.114 [id number] Univers 09:00:00 10:05:30 Visit Florinda Chase MULTISPEC 350.1.1 3.10 ity of IAL[place] 4.2.7.2.686 [facility] [id number] [facility] [address] [facility] 2022-08-30 2022-08-30 Outpatient R KADE [facility] [id number] Univers 10:30:00 11:28:33 TAWNY ity [facility] 2022-08-30 2022-08-30 [facility] 1.2.840.114 [id number] Univers 10:30:00 11:28:33 Visit Tawny MULTISPEC 350.1.13.10 it[place]2.[place] [id number] [facility] [address] [facility] 2022-06-21 2022-06-21 Emergency [facility] [id number] Univers 18:38:00 21:11:00 [facility] 2022-06-21 2022-06-21 Emergency [facility] 1.2.312.434 [id number] Univers 18:38:00 21:11:00 [facility] 350.1.13.10 it y of [place].2.7.2.686 [place] [id number] [address] ([facility]) 2022-06-21 2022-06-21 Emergency X [facility] [id number] Univers 18:38:00 21:11:00 [facility] 2022-06-21 2022-06-21 Telephone [facility] 1.2.840.114 [id number] Univers 00:00:00 00:00:00 Hum[address]PEC [address] [facility] 4.2.7.2.686 [facility] [phone] [facility] [address] [facility] 2022-06-12 2022-06-12 Outpatient [facility] [id number] Univers 11:15:00 11:15:00 [facility] 2022-06-08 2022-06-08 Telephone Cherise AMELIA 1.2.840.11 [id number] Univers 00:00:00 00:00:00 [facility] 350.1.13.10 i ty of [facility] 4.2.7.2.686 [place] [id number] [facility] [address] 2022-06-05 2022-06-05 Outpatient Eugenia HAMPTON [facility] [id number] Univers 15:15:00 15:15:00 [facility] 2022-06-05 2022-06-05 Outpatient Eugenia HAMPTON [facility] [id number] Univers 15:15:00 15:15:00 [facility] 2022-06-05 2022-06-05 Outpatient [facility] [id number] Univers 15:15:00 15:15:00 SHILOH mariel [facility] 2022-06-02 2022-06-02 Bus Monitor [facility] 1.2.840.114 [id number] Univers 11:15:00 11:30:00 Visit Gabriella Luong [facility] 350.1.13.10 ity of CLINICS 4.2.7.2.686 [place] [id number] [facility] [address] 2022-06-02 2022-06-02 Out[facility] [id number] Univers 11:15:00 11:15:00 GABRIELLA floyd [facility] 2022-06-02 2022-06-02 Outpatient [facility] [id number] Univers 09:40:00 10:34:29 GABRIELLA floyd [facility] 2022-06-02 2022-06-02 [facility] 1.2.840.114 [id number] Univers 09:40:00 10:00:00 Visit [facility] 350.1.13.10 i ty of CLINICS 4.2.7.2.[place] [id number] [facility] [address] 2022-06-02 2022-06-02 Outpatient [facility] [id number] Univers 09:40:00 09:40:00 GABRIELLA [facility] 2022-06-01 2022-06-01 [facility] 1.2.736.860 [id number] Univers 00:00:00 00:00:00 Humza Dawson MULTISPEC 350.1.13.10 it[place] of [place].2.[place] [id number] [facility] AND [facility] [address] [facility] 2022-06-01 2022-06-01 [facility] 1.2.840.114 [id number] Univers 00:00:00 00:00:00 Greyson MULTISPEC 350.1.13.10 it[place] of [place].2.686 [place] [id number] [facility] AND [address] DIABETES CLINIC 2022-05-18 2022-05-18 [facility] 1.2.322.369 [id number] Univers 00:00:00 00:00:00 Humza MULTISPEC 350.1.13.10 it[place] of [place].2.[place] [id number] [address] DIABETES CLINIC 2022-05-18 2022-05-18 [facility] 1.2.840.114 [id number] Univers 00:00:00 00:00:00 Eloise MULTISPEC 350.1.13.10 it[place] of [place]2.[place] [id number] [address] DIABETES CLINIC 2022-04-18 2022-04-18 [facility] 1.2.458.141 [id number] Univers 00:00:00 00:00:00 Humza MULTISPEC 350.1.13.10 it[place] of [place].2.[place] [id number] [address] DIABETES CLINIC 2022-04-07 2022-04-07 Outpatient Eugenia JIMENEZ [facility] [id number] Univers 15:00:00 15:00:00 TIANA floyd [facility] 2022-03-16 2022-03-16 Telephone [facility] 1.2.907.297 [id number] Univers 00:00:00 00:00:00 Eloise ALSTONPEC 350.1.13.10 it[place] [id number] [address] DIAB[facility]ES CLINIC 2022-03-15 2022-03-15 Outpatient Eugenia JIMENEZ [facility] [id number] Univers 15:00:00 15:00:00 TIANA floyd [facility] 2022-03-06 2022-03-06 Emergency X RAFAEL, [facility] ERT [id number] Univers 18:15:00 20:56:00 IDA larsen [facility] 2022-03-06 2022-03-06 Emergency [facility] 1.2.840.114 [id number] Univers 18:15:00 20:56:00 [facility] 350.1.13.10 i ty of [place] 4.2.7.2.686 [facility] [id number] [address] ([facility]) 2022-02-20 2022-02-20 Office Danny [facility] 1.2.840.114 [id number] Univers 13:00:00 14:22:31 Visit Eloise MAHMOOD 350.1.13.10 ity of IALTY 4.2.7.2.686 [facility] s SQUIRE [id number] [address] DIABETES CLINIC 2022-02-20 2022-02-20 Outpatient R DANNY [facility] [id number] Univers 13:00:00 14:22:[facility]-20 2022-02-20 Outpatient R DANNY [facility] [id number] Univers 13:00:00 13:00:00 [facility] 2022-01-10 2022-01-10 Patient Abi [facility] 1.2.840.114 [id number] Univers 00:00:00 00:00:00 Secure Msg Greysonandre ALSTONPEC 350.1.13.10 ity of IALTY 4.2.7.2.686 [facility] SQUIRE [id number] [address] DIABETES CLINIC 2022-01-09 2022-01-09 Telephone Abi NDAGNIESZKA 1.2.281.724 [id number] Univers 00:00:00 00:00:00 Greyson MULTISPEC 350.1.13.10 ity of IALTY 4.2.7.2.686 [facility] [id number] [address] DIABETES CLINIC 2022-01-02 2022-01-02 Outpatient R ABI [facility] [id number] Univers 12:45:00 13:22:53 GREYSON ity [facility] 2022-01-02 2022-01-02 Office Abi [facility] 1.2.840.114 [id number] Univers 12:45:00 13:22:53 Visit Greyson MULTISPEC 350.1.13.10 ity of [place] 4.2.7.2.686 [facility] [id number] [facility] AND [place] [address] [facility] 2022-01-02 2022-01-02 Outpatient R ABI [facility] [id number] Univers 12:45:00 12:45:00 GREYSON itjosi [facility] 2021-12-29 2021-12-29 Bus Monitor Pcp-Lab [facility] 1.2.840.114 [id number] Univers 13:45:00 14:00:00 Visit Unknown, Attending PRIMARY 350.1.13.10 ity of [place], Joey CARE 4.2.7.2.686 [facility] [phone] [facility] [address] 2021-12-29 2021-12-29 Outpatient R PENELOPE [facility] [id number] Univers 13:45:00 13:45:00 [facility] 2021-12-29 2021-12-29 Office SantiagoNarendra choi [facility] 1.2.840.114 [id number] Univers 10:40:00 11:53:42 Visit Unknown, Attending PRIMARY 350.1.13.10 ity of [place], Joey CARE 4.2.7.2.686 [facility] [id number] Ri dicak [address] 2021-12-29 2021-12-29 Outpatient R PENELOPE [facility] [id number] Univers 10:40:00 11:53:42 JOEY ity [facility] 2021-12-29 2021-12-29 Outpatient R PENELOPE [facility] [id number] Univers 10:40:00 11:53:42 JOEY itjosi [facility] 2021-12-29 2021-12-29 Outpatient R PENELOPE [facility] [id number] Univers 10:40:00 10:40:00 JOEY ity [facility] 2021-12-12 2021-12-12 Outpatient R BARBARA [facility] [id number] Univers 09:00:00 09:00:00 TIANA floyd [facility] 2021-12-02 2021-12-02 Outpatient R BARBARA [facility] [id number] Univers 09:00:00 13:37:26 TIANA floyd [facility] 2021-12-02 2021-12-02 Carburetor Expert [facility] 1.2.840.114 [id number] Univers 09:00:00 13:37:26 Visit Tiana ALSTONЕКАТЕРИНА 350.1.13.10 it[place] of [place] [id number] [address] [facility] 2021-12-02 2021-12-02 Outpatient R BARBARA [facility] [id number] Univers 09:00:00 13:37:26 TIANA floyd [facility] 2021-11-29 2021-11-29 Outpatient R ANNAJENNIFER [facility] [id number] Univers 13:00:00 13:00:00 TIANA floyd [facility] 2021-11-21 2021-11-21 Outpatient Eugenia ALEX [facility] [id number] Univers 14:45:00 16:02:06 GREYSON floyd [facility] 2021-11-21 2021-11-21 Office [facility] 1.2.840.114 [id number] Univers 14:45:00 16:02:06 Visit Greyson ELA 350.1.13.10 ity of IALTY 4.2.7.2.686 [facility] [id number] [address] [facility]INIC 2021-10-24 2021-10-24 [facility] 1.2.840.114 [id number] Univers 00:00:00 00:00:00 Juan Huffman SPECIALTY 350.1.13.10 [place] [id number] [address] 2021-10-20 2021-10-20 [facility] 1.2.840.114 [id number] Univers 00:00:00 00:00:00 Juan Huffman PRIMARY 350.1.13.10 ity of [place] 4.2.7.2.686 [place] [id number] Me dical [address] 2021-10-11 2021-10-11 Chaya Mynor [facility] 1.2.840.114 [id number] Univers 00:00:00 00:00:00 Juan Huffman SPECIALTY 350.1.13.10 ity of [place].2.7.2.686 [place] [id number] [facility] [address] 2021-08-29 2021-08-29 Outpatient R JOSE [facility] [id number] Univers 09:30:00 09:30:00 OMARI ity of [facility] 2021-08-23 2021-08-23 Outpatient R [facility] [id number] Univers 10:00:00 10:00:00 ity of [facility] 2021-08-04 2021-08-04 Emergency Ibikunle, TRAUMA 1.2.840.114 [id number] Univers 10:40:00 11:52:00 Folusho [facility] 350.1.13.10 it[place] [id number] [facility] [address] 2021-06-26 2021-06-26 Telephone DEANDRA Chaudhary 1.2.254.388 [id number] Univers 00:00:00 00:00:00 En-Serafinu BOBY 350.1.13.10 it y of HOSPITAL 4.2.7.2.686 Lauri as [id number] [facility] [address] 2021-06-24 2021-06-24 Patient Liam [facility] 1.2.840.114 [id number] Univers 00:00:00 00:00:00 Outreach Milagro F PRIMARY 350.1.13.10 i ty of [place]2.[place].2.[place] [id number] Me dical [address] 2021-06-23 2021-06-23 Bus Monitor Pcp-Lab [facility] 1.2.840.114 [id number] Univers 11:53:13 12:08:13 Visit Allison, Carla PRIMARY 350.1.13.10 ity of [place] 4[place]2.7.2.686 [place] 602.8075350 Me dical [address] 2021-06-23 2021-06-23 Office Carlos Manuel Chaudhary [facility] 1.2.840.114 [id number] Univers 10:12:19 11:53:47 Visit Carla Cooper PRIMARY 350.1.13.10 ity of [place] 4.2.7.2.[place] [id number] Ri dical [address] 2021-06-23 2021-06-23 Outpatient R ALLISON [facility] [id number] Univers 10:10:00 10:10:00 CARLA floyd [facility] 2021-05-30 2021-05-30 Telephone Jose [facility] 1.2.215.002 [id number] Univers 00:00:00 00:00:00 Omari PRIMARY 350.1.13.10 it y of [place] 4[place]2.[place].2.[place] [id number] [facility] [address] 2021-05-27 2021-05-27 Office AMELIA Luong 1.2.840.114 [id number] Univers 09:35:57 10:00:27 Visit Carla CLARK 350.1.13.10 i ty of CLINICS 4.2.7.2.[place] [id number] [facility] [address] 2021-05-27 2021-05-27 Outpatient R CHERISE [facility] [id number] Univers 09:30:00 09:30:00 CARLA [facility] 2021-05-25 2021-05-25 Office Jose [facility] 1.2.840.114 [id number] Univers 09:51:01 10:43:53 Visit Omari PRIMARY 350.1.13.10 it y of [place] 4[place]2.7.2.[place] [id number] [facility] [address] 2021-05-25 2021-05-25 Outpatient R JOSE [facility] [id number] Univers 10:00:00 10:00:00 OMARI [facility] 2021-05-25 2021-05-25 Orders Doctor LIRIANO 1.2.840.114 [id number] Univers 00:00:00 00:00:00 Only Unassigned, BOBY 350.1.13.10 ity of [place] [facility] 4.2.7.2.686 Lauri as [id number] [facility] [address] 2021-05-05 2021-05-05 Emergency Faulconer, TRAUMA 1.2.840.114 [id number] Univers 20:40:00 23:48:00 [facility] 350.1.13.10 it [place]2.[place] [id number] [facility] [address] 2021-05-05 2021-05-05 Emergency X ISRAELJAYLENFLAKO, [facility] ERT [id number] Univers 20:40:00 23:48:00 ZURI ity [facility] 2021-04-18 2021-04-19 Emergency Vasut, TRAUMA 1.2.288.002 [id number] Univers 20:32:00 03:49:00 [facility] 350.1.13.10 [place] [id number] [address] 2020-12-27 2020-12-27 Out[facility] [id number] Univers 09:10:00 09:10:00 JUAN ity [facility] 2020-12-27 2020-12-27 Outpatient R ELVIRA, [facility] [id number] Univers 09:00:00 09:00:00 ATTENDING ity [facility] 2020-12-20 2020-12-20 Outpatient R [facility] [id number] Univers 10:00:00 10:00:00 ity [facility] 2020-12-13 2020-12-13 Outpatient R [facility] [id number] Univers 10:00:00 10:00:00 ity [facility] 2020-12-10 2020-12-10 Emergency Almazan, TRAUMA 1.2.840.114 [id number] Univers 18:17:00 19:39:00 [facility] 350.1.13.10 [place] [id number] [address] 2020-12-10 2020-12-10 Emergency Almazan, TRAUMA 1.2.840.114 [id number] 18:17:00 19:39:00 [facility] 350.1.13.10 4.2.7.2.686 [id number] [facility] 2020-10-31 2020-10-31 Telephone Elisa Corado 1.2.840.114 [id number] Univers 00:00:00 00:00:00 [facility] 350.1.13.10 it y of HOSPITAL 4.2.7.2.686 [place] as [id number] [address] 2020-10-31 2020-10-31 Telephone DEANDRA [place] 1.2.300.763 [id number] Univers 00:00:00 00:00:00 Candie E SEALY 350.1.13.10 ity of HOSPITAL 4.2.7.2.686 [place] [id number] [address] 2020-10-31 2020-10-31 Telephone Elisa Corado 1.2.840.114 [id number] 00:00:00 00:00:00 [facility] 350.1.13.10 HOSPITAL 4.2.7.2.686 [id number] 2020-10-29 2020-10-29 Letter DEANDRA Boswell 1.2.840.114 [id number] Univers 00:00:00 00:00:00 (Out) Libia Hayes [facility] 350.1.13.10 it y of HOSPITAL 4.2.7.2.686 [place] [id number] [address] 2020-10-29 2020-10-29 Letter DEANDRA Boswell 1.2.840.114 [id number] 00:00:00 00:00:00 (Out) Libia Hayes [facility] 350.1.13.10 HOSPITAL 4.2.7.2.686 [id number] 2020-10-27 2020-10-27 [facility] 1.2.840.114 [id number] [facility] 17:27:18 17:42:18 Visit Unknown, [place] 350.1.13.10 ity of Pediatric 4.2.7.2.686 [place] [phone] [address] 2020-10-27 2020-10-27 Nurse Nurse, Gal [facility] 1.2.840.114 [id number] 17:27:18 17:42:18 Visit [facility]i [facility] [place] 350.1.13.10 Care Pediatric 4.2.7.2.686 [place] [phone] [id number] 2020-10-27 2020-10-27 Outpatient R UNKNOWN, [facility] [facility] [id number] Univers 17:30:00 17:30:00 ATTENDING [facility] 2020-10-23 2020-10-23 Outpatient R UNKNOWN, [facility] [id number] Univers 09:15:00 09:15:00 ATTENDING [facility] 2020-09-30 2020-09-30 Laboratory Only, Pcp Test [facility] 1.2.840. 114 [id number] Univers 12:48:00 13:03:00 Only Silviano Carrasquillo PRIMARY 350.1.13.10 ity of [facility] [place] [id number] Ri dical [address] [place] [address] 2020-09-30 2020-09-30 Laboratory Only, Pcp [facility] 1.2.840.114 [id number] 12:48:00 13:03:00 Only Test PRIMARY 350.1.13.10 CARE 4.2.7.2.686 PAVILLION [phone] [facility] 2020-09-30 2020-09-30 Outpatient R ME, [facility] [id number] Univers 08:00:00 08:00:00 [facility] 2020-09-30 2020-09-30 Letter Xi Romero 1.2.840.114 [id number] Univers 00:00:00 00:00:00 (Out) BOBY 350.1.13.10 it y of HOSPITAL 4.2.7.2.686 Lauri as [phone] [address] 2020-09-30 2020-09-30 Xi Brand 1.2.840.114 [id number] 00:00:00 00:00:00 (Out) BOBY 350.1.13.10 HOSPITAL 4.2.7.2.686 [id number] [id number] 2020-09-14 2020-09-14 Chaya Lowe [facility] 1.2.840.114 [id number] Univers 00:00:00 00:00:00 Juan Huffman SPECIALTY 350.1.13.10 ity of [place] [phone] [facility] [address] 2020-09-14 2020-09-14 [facility] 1.2.840.114 [id number] 00:00:00 00:00:00 Juan Huffman SPECIALTY 350.1.13.10 [place] 4.2.7.2.686 COLONY [phone] [facility] 2020-09-08 2020-09-08 Outpatient R NICKI [facility] [id number] Univers 10:30:00 10:30:00 CHRISTIANNE larsen [facility] 2020-09-06 2020-09-06 Office Diabetes, [facility] 1.2.554.887 [id number] 09:58:14 10:28:14 Visit Armida & Pcp PRIMARY 350.1.13.[address] [id number] 2020-09-06 2020-09-06 Office Diabetes, Armida & Pcp Pedi End [facility] 1.2.840.114 [id number] Univers 09:58:14 10:28:14 Visit Unknown, Attending PRIMARY 350.1.13.10 ity of Juan Lowe CARE 4.2.7.2.686 [facility] [phone] Ri dical [address] [place] [address] 2020-09-06 2020-09-06 Outpatient R ELVIRA, [facility] [id number] Univers 10:00:00 10:00:00 ATTENDING ity of [facility] 2020-09-06 2020-09-06 Orders Doctor LIRIANO 1.2.840.114 [id number] Univers 00:00:00 00:00:00 Only Unassigned, BOBY 350.1.13.10 ity of [place] [facility] 4.2.7.2.686 Lauri as [phone] [facility] [address] 2020-08-30 2020-08-30 [facility] [id number] Univers 08:30:00 08:30:00 [facility] 2020-08-20 2020-08-20 Refbeatriz Lowe [facility] 1.2.840.114 [id number] Univers 00:00:00 00:00:00 Juan Huffman SPECIALTY 350.1.13.10 [place] [id number] [address] 2020-08-16 2020-08-16 Outpatient R ELVIRA [facility] [id number] Univers 08:30:00 08:30:00 ATTENDING ity [facility] 2020-08-11 2020-08-11 Telephone [facility] 1.2.840.114 [id number] Univers 00:00:00 00:00:00 Christianne Feng PRIMARY 350.1.13.10 [place] [phone] [address] 2020-07-28 2020-08-03 Office Nicki [facility] 1.2.840.114 [id number] Univers 10:31:09 13:28:06 Visit Christianne Feng PRIMARY 350.1.13.10 ity of [place] 4[place] [phone] [address] 2020-08-02 2020-08-02 Outpatient Eugenia LOWE [facility] [id number] Univers 08:30:00 08:30:00 JUAN floyd [facility] 2020-07-28 2020-07-28 Bus Monitor Pcp-Lab [facility] 1.2.840.114 [id number] Univers 11:36:36 11:46:36 Visit Christianne Caceres PRIMARY 350.1.13 .10 ity of [place] [phone] [address] 2020-07-28 2020-07-28 Outpatient R NICKI [facility] [id number] Univers 10:30:00 10:30:00 CHRISTIANNE larsen [facility] 2020-07-19 2020-07-19 Urgent Belinda Hartman [facility] 1.2.840.1 [id number] Univers 13:55:15 14:10:15 Care Unknown, Attending HEALTH 350.1.13.10 ity of [place] 4.2.7.2.686 [facility] [phone] [facility] Primary & [address] Specialty Care 2020-07-19 2020-07-19 Outpatient R UNKNOWN, [facility] [id number] Univers 13:45:00 13:45:00 ATTENDING ity of [facility] 2020-07-19 2020-07-19 Clinic Nurse, [facility] 1.2.840.114 [id number] Univers 00:00:00 00:00:00 Assessment Urgent HEALTH 350.1.13.10 ity of [place] 4.2.7.2.686 [facility] [phone] [facility] Primary & [address] Specialty Care 2020-07-17 2020-07-18 Emergency [place] [facility] 1.2.840.114 [id number] Univers 22:32:00 00:20:00 , Cindi CENTER 350.1.13.10 it y of [place] 4.2.7.2.686 [facility] [phone] [place] [address] [address] 2020-07-16 2020-07-16 Telephone [facility] 1.2.273.115 [id number] Univers 00:00:00 00:00:00 Juan Huffman SPECIALTY 350.1.13.10 ity of [place] 4.2.7.2.[address] [facility] [phone] [facility] [address] 2020-06-28 2020-06-28 Emergency X VASUT, [facility] ERT [id number] Univers 03:16:00 04:23:00 RIK ity of [facility] 2020-06-28 2020-06-28 Emergency Vasut, [place] 1.2.023.705 [id number] Univers 03:16:00 04:23:00 Rik Romero CENTER 350.1.13.10 it y of 4.2.7.2.686 [facility] [phone] [place] [address] [address] 2020-06-27 2020-06-27 Emergency Oreilly, TRAUMA 1.2.840.114 [id number] Univers 05:28:00 07:45:00 Roz Ken CENTER 350.1.13.10 [place] [phone] [facility] [address] [place] 2020-06-10 2020-06-10 Nurse Nurse, Armida Zafar Endocrine [facility] 1.2.840.114 [id number] Univers 13:21:23 13:51:23 Visit Unknown, Attending SPECIALTY 350.1.13. 10 ity of Juan Lowe [place] 4.2.7.2.686 [facility] [phone] [address] 2020-06-10 2020-06-10 Outpatient R UNKNOWN, [facility] [id number] Univers 13:00:00 13:00:00 ATTENDING ity of [facility] 2020-06-10 2020-06-10 Telephone [facility] [id number] Univers 00:00:00 00:00:00 Juan Huffman SPECIALTY 350.1.13.10 ity of [place] [phone] [address] 2020-06-09 2020-06-09 Refill [facility] 1.2.840.114 [id number] Univers 00:00:00 00:00:00 Juan Huffman SPECIALTY 350.1.13.10 ity of [place] [id number] [address] 2020-06-09 2020-06-09 Telephone [facility] 1.2.379.375 [id number] Univers 00:00:00 00:00:00 Juan Huffman SPECIALTY 350.1.13.10 ity of [place] [phone] [address] 2020-06-09 2020-06-09 Telephone [facility] 1.2.880.593 [id number] Univers 00:00:00 00:00:00 Juan Huffman SPECIALTY 350.1.13.10 ity of [place]2.[place] [id number] [address] 2020-06-01 2020-06-01 Outpatient R FEDERICO, [facility] [id number] Univers 09:15:00 09:15:00 ABHIJEET ity of [facility] 2020-05-16 2020-05-16 Emergency [facility] 1.2.840.114 [id number] Univers 13:18:05 14:18:00 , Chris CENTER 350.1.13.10 [place] [id number] [facility] [address] [place] 2020-05-12 2020-05-12 Telephone [facility] 1.2.243.904 [id number] Univers 00:00:00 00:00:00 Juan Huffman SPECIALTY 350.1.13.10 ity of [place] 4.2.[place].2.[place] [id number] [facility] [address] [place] 2020-05-03 2020-05-03 Office Diabetes, Armida & Pcp Pedi End ocrine [facility] 1.2.840.114 [id number] Univers 08:42:40 09:12:40 Visit Unknown, Attending PRIMARY 350.1.13.10 ity of [place] Lowe CARE 4.2.7.2.686 [facility] [phone] Ri dicak [address] [place] 2020-05-03 2020-05-03 Outpatient R UNKNOWN, [facility] [id number] Univers 08:30:00 08:30:00 ATTENDING ity of [facility] 2020-05-03 2020-05-03 Letter Doctor DEANDRA 1.2.840.114 [id number] Univers 00:00:00 00:00:00 (Out) Unassigned, BOBY 350.1.13.10 ity of [place] [facility] 4.2.7.2.686 Lauri as [phone] [facility] [address] [place] 2020-05-03 2020-05-03 Orders Doctor DEANDRA 1.2.840.114 [id number] Univers 00:00:00 00:00:00 Only Unassigned, BOBY 350.1.13.10 ity of [place] [facility] 4.2.7.2.686 Lauri as [phone] [facility] [address] [place] 2020-03-25 2020-03-25 Refill [facility] 1.2.840.114 [id number] Univers 00:00:00 00:00:00 Juan Huffman PRIMARY 350.1.13.10 it[place] of [place]2.[place] [phone] [address] 2020-02-24 2020-02-24 Telephone [facility]iel [facility] 1.2.840.11 [id number] Univers 00:00:00 00:00:00 Conrad cantu Y 350.1.13.10 ity of [place] 4.2.7.2.686 Lauri as BANK [phone] [facility] BLDG. [address] [place] 2020-02-05 2020-02-05 [facility] 1.2.840.114 [id number] Univers 00:00:00 00:00:00 Juan Huffman PRIMARY 350.1.13.10 [place] [phone] [address] 2020-02-05 2020-02-05 [facility] 1.2.840.114 [id number] Univers 00:00:00 00:00:00 Juan Huffman SPECIALTY 350.1.13.10 [place] [id number] [address] 2020-02-02 2020-02-02 Office Diabetes, Armida & Pcp Pedi End ocrine [facility] 1.2.840.114 [id number] Univers 08:28:44 08:58:44 Visit Juan Lowe PRIMARY 350.1.13.10 ity of [place]2.[place] [phone] [address] 2020-02-02 2020-02-02 Outpatient R MYNOR [facility] [id number] Univers 08:30:00 08:30:00 JUAN ity of [facility] 2020-01-27 2020-01-27 Emergency Shanon, TRAU[place] 1.2.538.386 [id number] Univers 11:03:25 12:35:00 [facility] 350.1.13.10 i ty of [place]2.7[place] [phone] [facility] [address] [place] 2020-01-16 2020-01-16 [facility] 1.2.840.114 [id number] Univers 00:00:00 00:00:00 Juan Huffman SPECIALTY 350.1.13.10 [place] [id number] [address] 2020-01-13 2020-01-13 Telephone [facility] [id number] Univers 00:00:00 00:00:00 Juan Huffman SPECIALTY 350.1.13.10 [place] [id number] [address] 2019-12-05 2019-12-11 Office Teens, Armida & Pcp Pedi Care Group [facility] 1.2.840.114 [id number] Univers 08:55:38 15:51:37 Visit Zaid Dewey PRIMARY 350.1.13.10 ity of [place]2.[place] [phone] [address] 2019-12-11 2019-12-11 Telephone [facility] 1.2.887.887 [id number] Univers 00:00:00 00:00:00 Marcia PRIMARY 350.1.13.10 it y of [place] [id number] [address] 2019-12-10 2019-12-10 Telephone [facility] 1.2.756.098 [id number] Univers 00:00:00 00:00:00 Marcia PRIMARY 350.1.13.10 it y of [place] [phone] [address] 2019-12-10 2019-12-10 Telephone [facility] 1.2.794.760 [id number] Univers 00:00:00 00:00:00 Marcia PRIMARY 350.1.13.10 it y of [place]2.[place] [id number] [address] 2019-12-10 2019-12-10 Telephone Zuleima [facility] 1.2.327.635 [id number] Univers 00:00:00 00:00:00 Zaid Mcnair PRIMARY 350.1.13.10 ity of [place]2.[place] [id number] Ri dical [address] 2019-12-05 2019-12-05 Outpatient R ZAID DEWEY [facility] 1 [id number] Univers 09:00:00 09:00:00 ZAID DEWEY [facility] 2019-10-29 2019-10-29 Emergency X MORRICAL, [facility] ERT [id number] Univers 01:02:09 04:49:00 MITCHELL [facility] 2019-10-27 2019-10-28 Emergency X SCHOENSTEIN [facility] ERT [id number] Univers 21:27:44 04:53:00 , CHRIS [facility] 2019-09-17 2019-09-17 Emergency X MARCO A, [facility] ERT [id number] Univers 12:46:56 14:38:00 MIGUEL ÁNGEL [facility] 2019-08-04 2019-08-04 Office Diabetes, Armida & Pcp Pedi Helena barrera [facility] 1.2.840.114 [id number] Univers 09:50:08 10:20:08 Visit Juan Lowe PRIMARY 350.1.13.10 ity of [place]2.[place] [id number] Ri dical [address] 2019-07-06 2019-07-06 Emergency Shanon, TRAU[place] 1.2.630.903 [id number] Univers 10:30:38 15:57:00 [facility] 350.1.13.10 i ty of [place]2.[place] [id number] [facility] [address] 2019-07-06 2019-07-06 Emergency [facility] ERT [id number] Univers 10:30:38 15:57:00 KETTY larsen [facility] Results Test Description Test Time Test Comments Results Result Comments Source POCT TEST 2023-03-07 14:50:00 Test Item Value Reference Range Interpretation Comme nts POCT PREG (test code = 1605) Negative On board controls acceptable with C Line (test code = 3574) Yes POCT PREG LOT # (test code = 3575) POCT PREG TEST DATE (test code = 3576) [facility] [id number] 14:50:00 Test Item Value Reference Range Interpretation Comments POCT PREG (test code = 1605) Negative On board controls acceptable with C Yes Line (test code = 3574) POCT PREG LOT # (test code = 3575) POCT PREG TEST DATE (test code = 3576) [facility] URINALYSIS W SPECIFIC [id number] 14:49:00 Test Item Value Reference Range Interpretation Comments POCT U SP GRAV (test code = 1.010 mg/dl 1.005-1.025 3255) POCT PH U (test code = 3254) 6.0 mg/dl 5-8 POCT U LEUK EST (test code = neg Negative - Negative 3263) POCT U NIT (test code = 3262) neg Negative - Negative POCT U PROT (test code = neg Negative - Negative 3259) POCT U GLU (test code = 3256) 1000 Negative - Negative POCT U KETONE (test code = 3+ Negative - Negative 3258) POCT U UROBILI (test code = normal 0.2-1 3260) POCT U BILI (test code = neg Negative - Negative 3261) POCT U BLD (test code = 3257) neg Negative - Negative POCT U COLOR (test code = yellow 6) POCT U APPEAR (test code = clear 7) [facility] URINALYSIS W SPECIFIC [id number] 14:49:00 Test Item Value Reference Range Interpretation Comments POCT U SP GRAV (test code = 1.010 mg/dl 1.005-1.025 3255) POCT PH U (test code = 3254) 6.0 mg/dl 5-8 POCT U LEUK EST (test code = neg Negative - Negative 3263) POCT U NIT (test code = 3262) neg Negative - Negative POCT U PROT (test code = neg Negative - Negative 3259) POCT U GLU (test code = 3256) 1000 Negative - Negative POCT U KETONE (test code = 3+ Negative - Negative 3258) POCT U UROBILI (test code = normal 0.2-1 3260) POCT U BILI (test code = neg Negative - Negative 3261) POCT U BLD (test code = 3257) neg Negative - Negative POCT U COLOR (test code = yellow 3266) POCT U APPEAR (test code = clear 3267) [facility] HEMOGLOBIN A1C [id number] 17:10:00 Test Item Value Reference Range Interpretation Comments POCT HBA1C (test code = 4548-4) 8.2 % 4-6 A Lab Interpretation (test code = Abnormal 11720-8) [facility] HEMOGLOBIN A1C [id number] 17:10:00 Test Item Value Reference Range Interpretation Comments POCT HBA1C (test code = 4548-4) 8.2 % 4-6 A Lab Interpretation (test code = Abnormal 50611-9) [facility] HEMOGLOBIN A1C [id number] 17:22:00 Test Item Value Reference Range Interpretation Comments POCT HBA1C (test code = 4548-4) 8.1 % 4-6 A Lab Interpretation (test code = Abnormal 45130-6) [facility] HEMOGLOBIN A1C [id number] 17:22:00 Test Item Value Reference Range Interpretation Comments POCT HBA1C (test code = 4548-4) 8.1 % 4-6 A Lab Interpretation (test code = Abnormal 74562-5) [facility] HEMOGLOBIN A1C [id number] 17:22:00 Test Item Value Reference Range Interpretation Comments POCT HBA1C (test code = 4548-4) 8.1 % 4-6 A Lab Interpretation (test code = Abnormal 29395-3) [facility]
[2023-03-31] MEDS ORDERED: KETOROLAC 30 MG/ML INJ ONE (20:42)
[2023-03-31] MEDS ORDERED: ONDANSETRON 4 MG/2 ML VIAL ONE (20:43)
[2023-03-31] MEDS ORDERED: NA CHLORIDE 0.9% 1,000 ML ONE (20:43)
[2023-03-31 20:44] LABS: Specific Gravity 1.011 (1.005-1.030); Urine Bilirubin NEGATIVE (Negative); Urine Blood Negative (Negative); Urine Clarity Clear (Clear); Urine Color Colorless (Yellow); Urine Glucose NEGATIVE (Negative); Urine Protein NEGATIVE (Negative); Urine Urobilinogen Normal (Normal)
[2023-03-31 20:51] LABS: Specific Gravity 1.011 (1.005-1.030)
[2023-03-31 20:56] LABS: Absolute Lymphocytes (CBC) 1.2 K/uL (0.7-4.9); Hematocrit 37.8 % (36.0-45.0); Lymphocytes % 27.1 % (15.3-44.8); MCV 90.2 fL (80-100); MPV 8.4 fL (7.6-11.3); RBC Red Blood Cell Count 4.19 M/uL (3.86-4.86)
[2023-03-31 21:12] LABS: Bilirubin Total 0.4 mg/dL (0.2-1.0); Potassium 3.3 mEq/L (3.5-5.1)
[2023-03-31] MEDS ORDERED: POTASSIUM CL SA 10 MEQ TAB PO ONE (21:35)
--- NOTE | 2023-03-31 21:35 | ER ---
Nurse's Notes [facility] Name: Martín Finn Age: 23 yrs Sex: Female : 2000 Arrival Date: 03/31/2023 Time: 19:52 Bed 6 Private MD: Diagnosis: Nausea Presentation: 03/31 20:11 Chief complaint: Patient states: epigastric and right lower quadrant pain off and on x kl 3 hours. Coronavirus screen: Vaccine status: Patient reports being unvaccinated. Ebola Screen: Patient negative for fever greater than or equal to 101.5 degrees Fahrenheit, and additional compatible Ebola Virus Disease symptoms. Initial Sepsis Screen: Does the patient meet any 2 criteria? No. Patient's initial sepsis screen is negative. Does the patient have a suspected source of infection? No. Patient's initial sepsis screen is negative. Risk Assessment: Do you want to hurt yourself or someone else? Patient reports no desire to harm self or others. 20:11 Method Of Arrival: Ambulatory kl 20:11 Acuity: DEVIKA 3 kl 20:47 Onset of symptoms was March 31, 2023. vc1 Triage Assessment: 20:14 General: Appears in no apparent distress. Behavior is calm, cooperative. Pain: kl Complains of pain in epigastric area and right lower quadrant Pain currently is 7 out of 10 on a pain scale. Quality of pain is described as aching, crampy, Pain began 3 hours ago. Is intermittent. GI: Reports nausea. Historical: - Allergies: 20:13 Iodine; kl 20:13 SHELLFISH; kl - Home Meds: 20:13 Novolog U-100 Insulin aspart 100 unit/mL Sub-Q soln [Active]; tujeo [Active]; kl - PMHx: 20:13 diabetes mellitus; kl - PSHx: 20:13 None; kl - Immunization history:: Adult Immunizations not immunized. - Social history:: Smoking status: Patient reports the use of cigarette tobacco products, smokes one pack cigarettes per day. Reported history of juuling and/or vaping. Screenin:46 [facility] ED Fall Risk Assessment (Adult) History of falling in the last 3 months, vc1 including since admission No falls in past 3 months (0 pts) Confusion or Disorientation No (0 pts) Intoxicated or Sedated No (0 pts) Impaired Gait No (0 pts) Mobility Assist Device Used No (0 pt) Altered Elimination No (0 pt) Score/Fall Risk Level 0 - 2 = Low Risk Oriented to surroundings, Maintained a safe environment, Educated pt \T\ family on fall prevention, incl call for assistance when getting out of bed. Abuse screen: Denies threats or abuse. Nutritional screening: No deficits noted. Tuberculosis screening: No symptoms or risk factors identified. Assessment: 20:46 GI: Abdomen is flat, non-distended. vc1 21:37 Reassessment: No changes from previously documented assessment. Patient and/or family vc1 updated on plan of care and expected duration. Pain level reassessed. Patient is alert, oriented x 3, equal unlabored respirations, skin warm/dry/pink. Vital Signs: 20:11 BP 116 / 87; Pulse 87; Resp 17; Temp 97.7(TE); Pulse Ox 99% on R/A; Weight 72.57 kg kl (R); Height 5 ft. 5 in. ; Pain 7/10; 21:38 BP 117 / 88; Pulse 80; Resp 17; Pulse Ox 100% ; vc1 20:11 Body Mass Index 26.63 (72.57 kg, 165.1 cm) kl 20:11 Pain Scale: Adult kl ED Course: 19:56 Patient arrived in ED. jj6 20:03 Joleen Hutchins FNP-C is [facility]. kb 20:13 Triage completed. kl 20:45 Lauren Liz, RN is Primary Nurse. vc1 20:45 CBC with Diff Sent. vc1 20:45 CMP Sent. vc1 20:45 Lipase Sent. vc1 20:45 Test, Urine Sent. vc1 20:46 Arm band placed on right wrist. vc1 20:47 Patient has correct armband on for positive identification. Bed in low position. Call vc1 light in reach. monitoring manager on. Pulse ox on. 21:18 Charlotte Long MD is Attending Physician. kb 21:46 No provider procedures requiring assistance completed. IV discontinued, intact, pf1 bleeding controlled, No redness/swelling at site. Pressure dressing applied. Administered Medications: 20:45 Drug: NS 0.9% IV 1000 ml Route: IV; Rate: 1 bolus; Site: right antecubital; vc1 21:40 Follow up: IV Status: Completed infusion; IV Intake: 1000ml pf1 21:40 Follow up: Response: No adverse reaction; Marked relief of symptoms pf1 20:45 Drug: TORadol - Ketorolac IVP 15 mg Route: IVP; Site: right antecubital; vc1 21:40 Follow up: Response: No adverse reaction; Marked relief of symptoms; Pain is decreased pf1 20:45 Drug: Ondansetron IVP 4 mg Route: IVP; Site: right antecubital; vc1 21:40 Follow up: Response: No adverse reaction; Marked relief of symptoms; Nausea is decreasedpf1 21:31 Drug: Potassium Chloride PO 20 mEq Route: PO; vc1 21:40 Follow up: Response: No adverse reaction; Marked relief of symptoms pf1 Medication: 20:47 VIS not applicable for this client. vc1 Intake: 21:40 IV: 1000ml; Total: 1000ml. pf1 Outcome: 21:35 Discharge ordered by . kb 21:47 Discharged to home ambulatory. pf1 21:47 Condition: improved 21:47 Discharge instructions given to patient, Instructed on discharge instructions, follow up and referral plans. Demonstrated understanding of instructions, follow-up care, medications, Prescriptions given X 1. 21:49 Patient left the ED. pf1 Signatures: Joleen Hutchins, SACK REPAIRER-C SACK REPAIRER-Sandy Montemayor RN RN kl Jeffries, Jennifer jj6 Lauren Liz RN RN vc1 Dolores junior RN RN pf1 Corrections: (The following items were deleted from the chart) 21:38 21:38 BP 117 / 88; Pulse 80bpm; Resp 87bpm; Pulse Ox 100%; vc1 vc1
--- NOTE | 2023-03-31 21:35 | EDPHYS ---
Physician Documentation [facility] Name: Martín Finn Age: 23 yrs Sex: Female : 2000 Arrival Date: 03/31/2023 Time: 19:52 Bed 6 Private MD: ED Physician Charlotte Long HPI: 03/31 21:31 This 23 yrs old Black Female presents to ER via Ambulatory with complaints of Nausea, kb Dizziness, STD Exposure. 21:31 The patient presents to the emergency department with nausea, vomiting, abdominal pain, kb of the right upper quadrant and left upper quadrant. Onset: The symptoms/episode began/occurred today. Possible causes: unknown. The symptoms are aggravated by nothing. The symptoms are alleviated by nothing. Associated signs and symptoms: Pertinent positives: abdominal pain, nausea. Severity of symptoms: At their worst the symptoms were mild moderate in the emergency department the symptoms are unchanged. The patient has not experienced similar symptoms in the past. The patient has not recently seen a physician. Pt reports intermittent nausea that started today with mild upper abd pain. Reports she had unprotected sex about 3 weeks ago so she also wanted to get checked for STDs and . . Historical: - Allergies: 20:13 Iodine; kl 20:13 SHELLFISH; kl - Home Meds: 20:13 Novolog U-100 Insulin aspart 100 unit/mL Sub-Q soln [Active]; tujeo [Active]; kl - PMHx: 20:13 diabetes mellitus; kl - PSHx: 20:13 None; kl - Immunization history:: Adult Immunizations not immunized. - Social history:: Smoking status: Patient reports the use of cigarette tobacco products, smokes one pack cigarettes per day. Reported history of juuling and/or vaping. ROS: 21:30 Constitutional: Negative for fever, chills, and weight loss. kb 21:30 Abdomen/GI: Positive for abdominal pain, nausea. 21:30 All other systems are negative. Exam: 21:30 Constitutional: This is a well developed, well nourished patient who is awake, alert, kb and in no acute distress. Head/Face: Normocephalic, atraumatic. ENT: Moist Mucous membranes Cardiovascular: Regular rate and rhythm with a normal S1 and S2. No gallops, murmurs, or rubs. No pulse deficits. Respiratory: Respirations even and unlabored. No increased work of breathing. Talking in full sentences Abdomen/GI: Soft, non-tender. No distention Skin: Warm, dry with normal turgor. Normal color. MS/ Extremity: Pulses equal, no cyanosis. Neurovascular intact. Full, normal range of motion. Neuro: Awake and alert, GCS 15, oriented to person, place, time, and situation. Moves all extremities. Normal gait. Vital Signs: 20:11 BP 116 / 87; Pulse 87; Resp 17; Temp 97.7(TE); Pulse Ox 99% on R/A; Weight 72.57 kg kl (R); Height 5 ft. 5 in. ; Pain 7/10; 21:38 BP 117 / 88; Pulse 80; Resp 17; Pulse Ox 100% ; vc1 20:11 Body Mass Index 26.63 (72.57 kg, 165.1 cm) kl 20:11 Pain Scale: Adult kl MDM: 20:03 Patient medically screened. kb 21:31 Differential diagnosis: Nonspecific abd pain, gastritis, viral gastroenteritis. Data kb reviewed: vital signs, nurses notes. Counseling: I had a detailed discussion with the patient and/or guardian regarding: the historical points, exam findings, and any diagnostic results supporting the discharge/admit diagnosis, lab results, the need for outpatient follow up, a family practitioner, to return to the emergency department if symptoms worsen or persist or if there are any questions or concerns that arise at home. 21:34 Test considered but Not performed: Ultrasound US abd considered, but pt has no abd kb tenderness, labs wnl. 03/31 20:11 Order name: CBC with Diff; Complete Time: 21:05 kb 03/31 20:11 Order name: CMP; Complete Time: 21:18 kb 03/31 20:11 Order name: Lipase; Complete Time: 21:18 kb 03/31 20:11 Order name: Test, Urine; Complete Time: 20:55 kb 03/31 20:11 Order name: Urinalysis w/ reflexes; Complete Time: 20:46 kb 03/31 20:11 Order name: IV Saline Lock; Complete Time: 20:45 kb 03/31 20:11 Order name: Labs collected and sent; Complete Time: 20:45 kb Administered Medications: 20:45 Drug: NS 0.9% IV 1000 ml Route: IV; Rate: 1 bolus; Site: right antecubital; vc1 21:40 Follow up: IV Status: Completed infusion; IV Intake: 1000ml pf1 21:40 Follow up: Response: No adverse reaction; Marked relief of symptoms pf1 20:45 Drug: TORadol - Ketorolac IVP 15 mg Route: IVP; Site: right antecubital; vc1 21:40 Follow up: Response: No adverse reaction; Marked relief of symptoms; Pain is decreased pf1 20:45 Drug: Ondansetron IVP 4 mg Route: IVP; Site: right antecubital; vc1 21:40 Follow up: Response: No adverse reaction; Marked relief of symptoms; Nausea is decreasedpf1 21:31 Drug: Potassium Chloride PO 20 mEq Route: PO; vc1 21:40 Follow up: Response: No adverse reaction; Marked relief of symptoms pf1 Disposition: 04/01 07:04 STAFF ATTESTATION STATEMENT: I was immediately available onsite in the emergency sd2 department for consultation in the care of this patient. I did not see or examine this patient. Charlotte Long MD. Disposition Summary: 03/31/23 21:35 Discharge Ordered Location: Home kb Condition: Stable kb Diagnosis - Nausea kb Followup: kb - With: Emergency Department - When: As needed - Reason: Worsening of condition Followup: kb - With: Private Physician - When: 2 - 3 days - Reason: Recheck today's complaints, Continuance of care, Re-evaluation by your physician Discharge Instructions: - Discharge Summary Sheet kb - Nausea, Adult, [id number] kb Forms: - Medication Reconciliation Form kb - Thank You Letter kb - Antibiotic Education kb - Prescription Opioid Use kb Prescriptions: - ondansetron 4 mg Oral Tablet,disintegrating - take 1 tablet by ORAL route every 6 hours As needed; 12 tablet; Refills: 0, kb Product Selection Permitted Signatures: Dispatcher [employer] Joleen Escobar FNP-C FNP-Sandy Montemayor, RN RN Lauren Florez RN RN Charlotte Bryan MD MD sd2 Dolores junior RN pf1
[2023-03-31 22:00] VITALS: BP 116/87; TEMP 97.7; O2SAT 99
== END 2023-03-31 21:49 | disposition home or self-care (01) ==
LOC: ER 19:52
DX: R11.0 Nausea (principal); R10.10 Upper abdominal pain, unspecified; E11.9 Type 2 diabetes mellitus without complications; F17.210 Nicotine dependence, cigarettes, uncomplicated; Z79.4 Long term (current) use of insulin; Z91.013 Allergy to seafood; Z91.048 Other nonmedicinal substance allergy status
CPT/HCPCS: 96361; 85025; 36415; 81025; 81003; 83690; 80053; 96375; 96374; 99285; J2405; J7030